=== PATIENT | male | born 1955 | race Hispanic/Latino ===

== ENCOUNTER 2017-03-27 01:03 | Emergency (ER) | payer OTHER ==
[2017-03-27 01:05] VITALS: BMI 27.9
[2017-03-27 01:26] VITALS: TEMP 97.9
--- NOTE | 2017-03-27 01:36 | ED PDOC ---
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 Patient states he woke up with feelings of bloating and gas buildup. Took Pepto-Bismol around 10 pm after which he immediately vomited. Patient also took Gas-X, upon recommendation of [facility] pharmacist, for minimal relief. States that the abdominal pain radiates to the back and chest, which is alleviated while sitting upright. Denies fever, chills, headache, dizziness, difficulty breathing, urinary symptoms, or any other complaints at this time. PMD: Dr. Engel Time/Duration: 4-6 hours (since 9 pm yesterday night ) Symptom Onset: Sudden Symptom Course: Unchanged Severity Level: Mild Context: Home Past Medical History - Provider Review Nursing Documentation Reviewed: Yes - Infectious Disease Hx of Infectious Diseases: None - Tetanus Immunization Tetanus Immunization: Unknown - Cardiac Hx Cardiac Disorders: No Hx Congestive Heart Failure: No Hx Hypertension: No - Pulmonary Hx Respiratory Disorders: No - Neurological Hx Neurological Disorder: No - HEENT Hx HEENT Disorder: No - Renal Hx Renal Disorder: No - Endocrine/Metabolic Hx Endocrine Disorders: No - Hematological/Oncological Other/Comment: BLE DVT on Xarelto - Integumentary Hx Dermatological Disorder: No - Musculoskeletal/Rheumatological Hx Falls: Yes Hx Herniated Disk: Yes - Gastrointestinal Hx Gastrointestinal Disorders: Yes Hx Colostomy: Yes Other/Comment: H/O GI bleed - Genitourinary/Gynecological Hx Genitourinary Disorders: Yes Other/Comment: "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 - Psychiatric Hx Substance Use: No - Surgical History Hx Cardiac Catheterization: No Hx Coronary Stent: No Other/Comment: Colostomy - Anesthesia Hx Anesthesia: Yes Hx Anesthesia Reactions: No - Suicidal Assessment Feels Threatened In Home Enviroment: No Family/Social History - Physician Review Nursing Documentation Reviewed: Yes Family/Social History: No Known Family HX Smoking Status: Never Smoked Hx Alcohol Use: Yes (1 or 2 beers daily) Hx Substance Use: No Hx Substance Use Treatment: No Allergies/Home Meds Allergies/Adverse Reactions: Allergies No Known Allergies Allergy (Verified 11/08/16 19:43) Review of Systems - Physician Review All systems were reviewed & negative as marked: Yes - Review of Systems Constitutional: Normal. absent: Fatigue, Fevers Respiratory: absent: SOB, Cough, Sputum Cardiovascular: Chest Pain. absent: Palpitations Gastrointestinal: Abdominal Pain, Nausea, Vomiting. absent: Diarrhea Genitourinary Male: Normal. absent: Dysuria Musculoskeletal: Back Pain Neurological: Normal. absent: Headache, Dizziness Physical Exam Vital Signs Reviewed: Yes Vital Signs Temp Pulse Resp BP Pulse Ox 03/27/17 01:25 97.9 F 79 17 147/110 H 100 Temperature: Afebrile Blood Pressure: Hypertensive Pulse: Regular Respiratory Rate: Normal Appearance: Positive for: Well-Appearing, Non-Toxic, Comfortable Pain Distress: None Mental Status: Positive for: Alert and Oriented X 3 - Systems Exam Head: Present: Atraumatic, Normocephalic Pupils: Present: PERRL Conjunctiva: Present: Normal Mouth: Present: Moist Mucous Membranes Respiratory/Chest: Present: Clear to Auscultation, Good Air Exchange. No: Respiratory Distress, Accessory Muscle Use Cardiovascular: Present: Regular Rate and Rhythm, Normal S1, S2. No: Murmurs Abdomen: Present: Normal Bowel Sounds. No: Distention, Peritoneal Signs Lower Extremity: Present: Normal Inspection, NORMAL PULSES. No: Edema, CALF TENDERNESS Neurological: Present: GCS=15, CN II-XII Intact, Speech Normal Skin: Present: Warm, Dry, Normal Color. No: Rashes Psychiatric: Present: Alert, Oriented x 3, Normal Insight, Normal Concentration Medical Decision Making ED Course and Treatment: 03/27/17 01:51 Impression: A 61 year old male who presents to the emergency department complaining of abdominal pain since 9 pm yesterday. Differential Diagnosis include but are not limited to: Obstruction vs. gastroenteritis Plan: -- CT abdomen pelvis -- Labs, cardiac enzymes -- Chest X-ray -- Urinalysis -- Reassess and disposition Progress Notes: 03/27/17 01:51 EKG interpreted by me: NSR @ 78 bpm. normal axis. normal interval. No ST elevations. 03/27/17 04:52 CT abdomen pelvis reviewed: IMPRESSION: Cholelithiasis. Transverse colon extending to the skin surface with adjacent herniation of small bowel loops. No small bowel obstruction. Possible mild focal enteritis of small bowel loops in the upper pelvis. 03/27/17 04:53 Chest X-ray interpreted by me: No acute findings. 03/27/17 05:12 Patient says he has now had a number of BMs since coming to the ED and has full resolution of his pain and feels much better. Labs are unremarkable. CT with possible enteritis and patient able to tolerate po - will d/c on cipro x 3 days for enteritis, and he says he will f/u his pmd. - Lab Interpretations Lab Results: 03/27/17 02:00 03/27/17 02:00 Lab Results 03/27/17 02:00: Lactic Acid 1.2 03/27/17 02:00: Sodium 140, Potassium 4.1, Chloride 102, Carbon Dioxide 27, Anion Gap 15, BUN 10, Creatinine 0.8, Est GFR ( Amer) > 60, Est GFR (Non- Af Amer) > 60, Random Glucose 112 H, Calcium 10.1, Total Bilirubin 1.7 H, AST 37 , ALT 42, Alkaline Phosphatase 83, Lactate Dehydrogenase 575, Total Creatine Kinase 178, Troponin I < 0.01, Total Protein 9.0 H, Albumin 4.7, Globulin 4.3, Albumin/Globulin Ratio 1.1, Amylase 91, Lipase 31 03/27/17 02:00: PT 11.1, INR 1.03, APTT 26.1 03/27/17 02:00: WBC 7.8 D, RBC 4.83, Hgb 16.1, Hct 44.3, MCV 91.7, MCH 33.3, MCHC 36.3, RDW 13.5, Plt Count 159, MPV 10.6, Gran % 80.7 H, Lymph % (Auto) 10.9 L, [place] % (Auto) 8.0 H, Eos % (Auto) 0.3 L, Baso % (Auto) 0.1, Gran # 6.28 , Lymph # 0.9 L, [place] # 0.6, Eos # 0.0, Baso # 0.01 - RAD Interpretation Narrative RAD Interpretations (Text): EXAM: CT Abdomen and Pelvis With Intravenous Contrast FINDINGS: Small pleural-based nodular soft tissue density in the right lower lung similar to prior. Trace perihepatic and perisplenic fluid. No hepatic or splenic masses. The pancreas is normal. Multiple gallstones are present. No hydronephrosis. There is mild bilateral perinephric stranding. The transverse colon extends through the abdominis rectus muscles to the skin surface. The left colon is decompressed. Loops of small bowel herniating through the colostomy region as well. There are scattered small bowel throughout the abdomen and pelvis that are mildly distended with fluid however there is no evidence of acute obstruction. There is no transition point or abrupt caliber change. A few fluid-filled small bowel loops in the upper pelvis demonstrate prominent wall and fold enhancement raising the possibility of focal enteritis. A small amount of free fluid is present within the pelvis. A normal appendix is identified axial images 105-123. Stent is present in the right common iliac vein new since prior study. Prior study demonstrated a large amount of thrombus in the right femoral vein.\\ IMPRESSION: Cholelithiasis. Transverse colon extending to the skin surface with adjacent herniation of small bowel loops. No small bowel obstruction. Possible mild focal enteritis of small bowel loops in the upper pelvis. 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 - Medication Orders Current Medication Orders: Ciprofloxacin (Cipro) 500 mg PO ONCE STA PRN Reason: Protocol Stop: 03/27/17 05:12 Discontinued Medications Famotidine (Pepcid) 20 mg IVP STAT STA Stop: 03/27/17 04:08 Last Admin: 03/27/17 04:33 Dose: 20 mg Sodium Chloride (Sodium Chloride 0.9%) 1,000 mls @ 999 mls/hr IV .Q1H1M STA Stop: 03/27/17 05:07 Last Admin: 03/27/17 04:33 Dose: 999 mls/hr Iohexol (Omnipaque 350 100 Ml) Confirm Administered Dose 350 mg .ROUTE .STK-MED ONE Stop: 03/27/17 03:02 Ondansetron HCl (Zofran Inj) 4 mg IVP STAT STA Stop: 03/27/17 04:08 Last Admin: 03/27/17 04:33 Dose: 4 mg - Scribe Statement The provider has reviewed the documentation as recorded by the Ray Medina Provider Attestation: All medical record entries made by the Scribe were at my direction and personally dictated by me. I have reviewed the chart and agree that the record accurately reflects my personal performance of the history, physical exam, medical decision making, and the department course for this patient. I have also personally directed, reviewed, and agree with the discharge instructions and disposition. Disposition/Present on Arrival - Present on Arrival Any Indicators Present on Arrival: Yes History of DVT/PE: Yes History of Uncontrolled Diabetes: No Urinary Catheter: No History of Decub. Ulcer: No History Surgical Site Infection Following: None - Disposition Have Diagnosis and Disposition been Completed?: Yes Diagnosis: Enteritis Disposition: HOME/ ROUTINE Disposition Time: 17:15 Patient Plan: Discharge Condition: GOOD Discharge Instructions (ExitCare): Enteritis (ED), Acute Nausea and Vomiting ( ED), Acute Diarrhea (ED) Additional Instructions: Drink plenty of fluids. Advance diet slowly as tolerated. Take the cipro as prescribed. Follow up with your primary care doctor. Return to the emergency department if any new concerning symptoms. Prescriptions: Ciprofloxacin [Cipro] 1 tab PO BID #5 tab Referrals: Neil Engel JD, MD [Primary Care Provider] - Follow up with primary
[2017-03-27 02:09] LABS: ADD MANUAL DIFF? NO
[2017-03-27 02:21] LABS: ALB/GLOB RATIO 1.1 (1.1-1.8); ALKALINE PHOSPHATASE 83 U/L (38-133); ALT/SGPT 42 U/L (7-56); AMYLASE 91 U/L (35-125); AST/SGOT 37 U/L (15-59); BILIRUBIN,TOTAL 1.7 mg/dL (0.2-1.3); BLOOD UREA NITROGEN 10 mg/dL (7-21); CALCIUM 10.1 mg/dL (8.4-10.5); CARBON DIOXIDE 27 mmol/L (21-33); CHLORIDE 102 mmol/L (98-107); GFR AFRICAN-AMERICAN > 60; GLUCOSE,RANDOM 112 mg/dL (70-110); LIPASE 31 U/L (23-300); POTASSIUM 4.1 mmol/L (3.6-5.0); SODIUM 140 mmol/L (132-148)
[2017-03-27 02:33] LABS: INR 1.03 (0.93-1.08); PARTIAL THROMBOPLASTIN TIME 26.1 Seconds (23.7-30.8)
[2017-03-27 02:50] LABS: BASO # 0.01 K/mm3 (0.0-2.0); BASO % 0.1 % (0.0-3.0); EOS % 0.3 % (1.5-5.0); GRAN # 6.28 (1.4-6.5); GRAN % 80.7 % (50.0-68.0); HEMATOCRIT 44.3 % (42.0-52.0); LYMPH # 0.9 (1.2-3.4); LYMPH % 10.9 % (22.0-35.0); MEAN CELL VOLUME 91.7 fL (80.0-105.0); MEAN CORPUSCULAR HEMOGLOBIN 33.3 pg (25.0-35.0); MEAN CORPUSCULAR HGB CONC 36.3 g/dl (31.0-37.0); MEAN PLATELET VOLUME 10.6 fl (7.0-11.0); MONO # 0.6 (0.1-0.6); PLATELET COUNT 159 10^3/uL (120.0-450.0); RED CELL DISTRIBUTION WIDTH 13.5 % (11.5-14.5); WHITE BLOOD COUNT 7.8 10^3/ul (4.5-11.0)
[2017-03-27 02:52] LABS: TROPONIN I < 0.01 ng/mL
[2017-03-27] MEDS ORDERED: Iohexol 350 MG/100 ML VIAL ONE (03:01)
[2017-03-27] MEDS ORDERED: Sodium Chloride 0.9% 1,000 ML IV STA (04:07)
--- NOTE | 2017-03-27 04:51 | CT ---
EXAM: CT Abdomen and Pelvis With Intravenous Contrast CLINICAL HISTORY: 61 years old, male; Pain; Abdominal pain; Generalized; Prior surgery; Surgery date: 6+ months; Surgery type: Colostomy; Additional info: Abd pain, colostomy, fistula, vomiting - R/O obstr TECHNIQUE: Axial computed tomography images of the abdomen and pelvis with intravenous contrast. This CT exam was performed using one or more of the following dose reduction techniques: automated exposure control, adjustment of the mA and/or kV according to patient size, and/or use of iterative reconstruction technique. Coronal and sagittal reformatted images were created and reviewed. CONTRAST: 96 mL of OMNI 350 administered intravenously. EXAM DATE/TIME: 03/27/2017 1:34 AM COMPARISON: CT - PELVIS W/O CONTRAST 11/11/2016 11:00:54 AM FINDINGS: Small pleural-based nodular soft tissue density in the right lower lung similar to prior. Trace perihepatic and perisplenic fluid. No hepatic or splenic masses. The pancreas is normal. Multiple gallstones are present. No hydronephrosis. There is mild bilateral perinephric stranding. The transverse colon extends through the abdominis rectus muscles to the skin surface. The left colon is decompressed. Loops of small bowel herniating through the colostomy region as well. There are scattered small bowel throughout the abdomen and pelvis that are mildly distended with fluid however there is no evidence of acute obstruction. There is no transition point or abrupt caliber change. A few fluid-filled small bowel loops in the upper pelvis demonstrate prominent wall and fold enhancement raising the possibility of focal enteritis. A small amount of free fluid is present within the pelvis. A normal appendix is identified axial images 105-123. Stent is present in the right common iliac vein new since prior study. Prior study demonstrated a large amount of thrombus in the right femoral vein. IMPRESSION: Cholelithiasis. Transverse colon extending to the skin surface with adjacent herniation of small bowel loops. No small bowel obstruction. Possible mild focal enteritis of small bowel loops in the upper pelvis.
[2017-03-27 05:22] VITALS: BP 117/91; PULSE 78; RESP 16; O2SAT 99
--- NOTE | 2017-03-27 08:48 | RAD ---
HISTORY: Abdominal pain COMPARISON: 11/08/2016. FINDINGS: LUNGS: The lungs are well inflated and clear. PLEURA: No significant pleural effusion identified, no pneumothorax apparent. CARDIOVASCULAR: Normal. OSSEOUS STRUCTURES: No significant abnormalities. VISUALIZED UPPER ABDOMEN: Normal. OTHER FINDINGS: None. IMPRESSION: No active pulmonary disease.
--- NOTE | 2017-03-27 17:05 | CARD ---
APPROVED REPORT EKG Measurement Heart [id number] <Conclusion> Normal sinus rhythm Normal ECG
== END 2017-03-27 05:35 | disposition home or self-care (01) ==
LOC: ED 01:03
DX: K52.9 Noninfective gastroenteritis and colitis, unspecified (principal); Z93.3 Colostomy status
CPT/HCPCS: 71010; 74177; 80053; 82150; 82550; 83605; 83615; 83690; 84484; 85025; 85610; 85730; 93005; 96374; 96375; 99283; J2405; J7040; Q9967

== ENCOUNTER 2017-08-29 12:48 | Observation (INO) | payer OTHER ==
--- NOTE | 2017-08-29 13:10 | ED PDOC ---
Arrival/HPI - General Chief Complaint: Abdominal Pain Time Seen by Provider: 08/29/17 12:56 Historian: Patient - History of Present Illness Narrative History of Present Illness (Text): 08/29/17 13:12 A 62 year old male, whose past medical history includes a colostomy, presents to the emergency department with chest pain radiating to the back and abdominal pain since this morning. The patient states that he had a colostomy tube done 2 years ago, and that it has been functioning normally. He notes that he has not had ETOH in 10 days. The patient is a non-smoker and denies any drug use. He denies fevers, chills, headache, dizziness, sore throat, cough, shortness of breath, dyspnea on exertion, nausea, vomiting, diarrhea, neck pain, urinary/ bowel changes, trauma/ injury, or any other complaints. PMD: Dr. Engel Time/Duration: Other (This Morning) Symptom Onset: Sudden Symptom Course: Unchanged Activities at Onset: Rest, Light Context: Home Associated Symptoms (Text): 08/29/17 13:22 Patient went to bed last night in his usual state of health. He woke up this morning with chest pain back pain and abdominal pain. No dyspnea. No fever or chills. No genitourinary symptoms. No nausea vomiting or diarrhea. His colostomy is functioning well. No injury or trauma. Patient is on xarelto for bilateral lower extremity DVTs. Past Medical History - Provider Review Nursing Documentation Reviewed: Yes - Infectious Disease Hx of Infectious Diseases: None - Tetanus Immunization Tetanus Immunization: Unknown - Cardiac Hx Cardiac Disorders: No Hx Congestive Heart Failure: No Hx Hypertension: No - Pulmonary Hx Respiratory Disorders: No - Neurological Hx Neurological Disorder: No - HEENT Hx HEENT Disorder: No - Renal Hx Renal Disorder: No - Endocrine/Metabolic Hx Endocrine Disorders: No - Hematological/Oncological Other/Comment: BLE DVT on Xarelto - Integumentary Hx Dermatological Disorder: No - Musculoskeletal/Rheumatological Hx Falls: Yes Hx Herniated Disk: Yes - Gastrointestinal Hx Gastrointestinal Disorders: Yes Hx Colostomy: Yes Other/Comment: H/O GI bleed - Genitourinary/Gynecological Hx Genitourinary Disorders: Yes Other/Comment: "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 - Psychiatric Hx Substance Use: No Other/Comment: 1 or 2 beers daily - Surgical History Hx Cardiac Catheterization: No Hx Coronary Stent: No Other/Comment: Colostomy - Anesthesia Hx Anesthesia: Yes Hx Anesthesia Reactions: No - Suicidal Assessment Feels Threatened In Home Enviroment: No Family/Social History - Physician Review Nursing Documentation Reviewed: Yes Family/Social History: No Known Family HX Smoking Status: Never Smoked Hx Alcohol Use: Yes (1 or 2 beers daily) Hx Substance Use: No Hx Substance Use Treatment: No Allergies/Home Meds Allergies/Adverse Reactions: Allergies No Known Allergies Allergy (Verified 08/29/17 12:55) Review of Systems - Physician Review All systems were reviewed & negative as marked: Yes - Review of Systems Constitutional: absent: Fevers, Night Sweats Respiratory: absent: SOB, Cough Cardiovascular: Chest Pain (radiating to the back). absent: TAPIA Gastrointestinal: Abdominal Pain. absent: Stool Changes, Diarrhea, Nausea, Vomiting Genitourinary Male: absent: Urinary Output Changes Musculoskeletal: Back Pain. absent: Neck Pain Neurological: absent: Headache, Dizziness Physical Exam Vital Signs Reviewed: Yes Vital Signs Temp Pulse Resp BP Pulse Ox 08/29/17 13:53 68 16 158/101 H 100 08/29/17 12:52 98.3 F 74 18 165/106 H 98 Temperature: Afebrile Blood Pressure: Hypertensive Pulse: Regular Respiratory Rate: Normal Appearance: Positive for: Well-Appearing, Non-Toxic, Uncomfortable Pain Distress: Mild Mental Status: Positive for: Alert and Oriented X 3 - Systems Exam Head: Present: Atraumatic, Normocephalic Pupils: Present: PERRL Extroacular Muscles: Present: EOMI Conjunctiva: Present: Normal Mouth: Present: Moist Mucous Membranes Pharnyx: No: ERYTHEMA, EXUDATE, TONSILS ENLARGED Neck: Present: Normal Range of Motion Respiratory/Chest: Present: Clear to Auscultation, Good Air Exchange, Decreased Breath Sounds (slightly diminished.). No: Respiratory Distress, Accessory Muscle Use, Wheezes, Rales, Retracting, Rhonchi, Tender to Palpation (chest wall non tender.) Cardiovascular: Present: Regular Rate and Rhythm, Normal S1, S2. No: Murmurs Abdomen: Present: Tenderness (Mild generalized tenderness.), Ostomy Tubes ( Fucntioning colostomy tube.). No: Rebound, Guarding Back: Present: Normal Inspection. No: CVA Tenderness, Midline Tenderness, Paraspinal Tenderness Upper Extremity: Present: Normal Inspection. No: Cyanosis, Edema Lower Extremity: Present: Edema (Bilateral trace edema) Neurological: Present: GCS=15, CN II-XII Intact, Speech Normal, Motor Func Grossly Intact Skin: Present: Warm, Dry, Normal Color. No: Rashes Psychiatric: Present: Alert, Oriented x 3, Normal Insight, Normal Concentration , Other (Patient is comfortable.) Medical Decision Making ED Course and Treatment: 08/29/17 13:20 Impression: A 62 year old male presents to the emergency department with chest pain radiating to the back and abdominal pain since this morning. Plan: -- Abdomen/ Pelvis CT -- EKG -- Chest X-ray -- Labs -- Reassess and disposition Prior Visits: Notes and results from previous visits were reviewed. On 03/27/2017 patient came in complaining of abdominal pain. Patient was discharged home with prescription of Ciprofloxacin. Progress Notes: 08/29/17 13:24 EKG shows normal sinus rhythm rate approximately 60 with a primary AV block and no acute ST or T-wave changes Chest X-ray Dictator : Michelet Leslie MD Report Date : 08/29/2017 14:24:34 IMPRESSION: No active disease. No significant interval change compared to the prior examination(s). Please note: No preliminary report/ innterpretation of this examination provided by emergency department personnel. CT Abdomen and Pelvis without intravenous contrast Dictator : Michelet Leslie MD Report Date : 08/29/2017 15:04:29 IMPRESSION: Cholelithiasis without CT evidence of acute cholecystitis. Stable appearance anterior abdominal wall rectus hernia and adjacent transverse colon. No significant interval change compared to the prior examination(s). Additional benign and/or incidental findings described above. 08/29/17 15:47 Discussed in detail with Dr. Neil Engel who will place on telemetry observation. - Lab Interpretations Lab Results: 08/29/17 13:26 08/29/17 13:55 Lab Results 08/29/17 13:55: Sodium 142, Potassium 4.3, Chloride 108 H, Carbon Dioxide 22, Anion Gap 16, BUN 16, Creatinine 0.8, Est GFR ( Amer) > 60, Est GFR (Non- Af Amer) > 60, Random Glucose 100, Calcium 9.5, Total Bilirubin 0.9, AST 201 H, ALT 225 H, Alkaline Phosphatase 94, Lactate Dehydrogenase 773 H, Total Creatine Kinase 120, Troponin I < 0.01, NT-Pro-B Natriuret Pep 262, Total Protein 7.6, Albumin 4.2, Globulin 3.4, Albumin/Globulin Ratio 1.2, Lipase 184 08/29/17 13:26: PT 13.4 H, INR 1.24 H, APTT 31.6 H, D-Dimer, Quantitative 0.48 08/29/17 13:26: WBC 4.5 D, RBC 4.16, Hgb 14.6, Hct 41.4 L, MCV 99.5, MCH 35.1 H , MCHC 35.3, RDW 14.5, Plt Count 215, MPV 10.8, Gran % 66.9, Lymph % (Auto) 17.0 L, [place] % (Auto) 13.9 H, Eos % (Auto) 1.3 L, Baso % (Auto) 0.9, Gran # 2.98 , Lymph # 0.8 L, [place] # 0.6, Eos # 0.1, Baso # 0.04 I have reviewed the lab results: Yes - RAD Interpretation Radiology Orders: 08/29/17 13:07 ABD & PELVIS W/O PO OR IV CONT [CT] Stat CHEST PORTABLE [RAD] Stat Chest 1 view shows no infiltrate effusion or cardiomegaly Purchase Request Editor: ED Physician - EKG Interpretation Interpreted by ED Physician: Yes Type: 12 lead EKG - Medication Orders Current Medication Orders: Discontinued Medications Aspirin (Aspirin Chewable) 324 mg PO ONCE ONE Stop: 08/29/17 13:51 Last Admin: 08/29/17 14:13 Dose: 324 mg Ketorolac Tromethamine (Toradol) 30 mg IVP ONCE ONE Stop: 08/29/17 13:51 Last Admin: 08/29/17 14:13 Dose: 30 mg MAR Pain Assessment Document 08/29/17 14:13 (Rec: 08/29/17 14:13 [id number] Pain Reassessment Is this a pain reassessment? Yes Sleep Is patient sleeping during reassessment? No Presence of Pain Presence of Pain Yes IVP Administration Document 08/29/17 14:13 (Rec: 08/29/17 14:13 [facility] [id number] Charges for Administration # of IVP Administrations 1 - Scribe Statement The provider has reviewed the documentation as recorded by the Scribe Analy Mendieta Provider Jay Jayibe Attestation: All medical record entries made by the Scribe were at my direction and personally dictated by me. I have reviewed the chart and agree that the record accurately reflects my personal performance of the history, physical exam, medical decision making, and the department course for this patient. I have also personally directed, reviewed, and agree with the discharge instructions and disposition. Disposition/Present on Arrival - Present on Arrival Any Indicators Present on Arrival: No History of DVT/PE: Yes History of Uncontrolled Diabetes: No Urinary Catheter: No History of Decub. Ulcer: No History Surgical Site Infection Following: None - Disposition Have Diagnosis and Disposition been Completed?: Yes Diagnosis: Chest pain, Abdominal pain, Back pain Disposition: HOSPITALIZED Disposition Time: 15:48 Patient Plan: Observation, Telemetry Condition: GOOD Discharge Instructions (ExitCare): Chest Pain (ED) Referrals: Neil Engel JD, MD [Primary Care Provider] - Follow up with primary Forms: [employer] ([place])
[2017-08-29 14:02] LABS: BASO # 0.04 K/mm3 (0.0-2.0); BASO % 0.9 % (0.0-3.0); EOS # 0.1 (0.0-0.7); EOS % 1.3 % (1.5-5.0); GRAN # 2.98 (1.4-6.5); GRAN % 66.9 % (50.0-68.0); HEMATOCRIT 41.4 % (42.0-52.0); LYMPH # 0.8 (1.2-3.4); MEAN CELL VOLUME 99.5 fl (80.0-105.0); MEAN CORPUSCULAR HEMOGLOBIN 35.1 pg (25.0-35.0); MEAN CORPUSCULAR HGB CONC 35.3 g/dl (31.0-37.0); MEAN PLATELET VOLUME 10.8 fl (7.0-11.0); MONO # 0.6 (0.1-0.6); MONO % 13.9 % (1.0-6.0); RED CELL DISTRIBUTION WIDTH 14.5 % (11.5-14.5); WHITE BLOOD COUNT 4.5 10^3/ul (4.5-11.0)
[2017-08-29 14:07] LABS: INR 1.24 (0.93-1.08); PARTIAL THROMBOPLASTIN TIME 31.6 Seconds (23.7-30.8)
[2017-08-29 14:11] LABS: ALB/GLOB RATIO 1.2 (1.1-1.8); ALKALINE PHOSPHATASE 94 U/L (38-126); ALT/SGPT 225 U/L (7-56); AST/SGOT 201 U/L (17-59); BILIRUBIN,TOTAL 0.9 mg/dL (0.2-1.3); BLOOD UREA NITROGEN 16 mg/dL (7-21); CALCIUM 9.5 mg/dL (8.4-10.5); CARBON DIOXIDE 22 mmol/L (21-33); CHLORIDE 108 mmol/L (98-107); GFR AFRICAN-AMERICAN > 60; GLUCOSE,RANDOM 100 mg/dL (70-110); LIPASE 184 U/L (23-300); POTASSIUM 4.3 mmol/L (3.6-5.0); SODIUM 142 mmol/L (132-148); TOTAL PROTEIN 7.6 g/dL (5.8-8.3)
[2017-08-29 14:25] LABS: D DIMER 0.48 mg/L FEU (0-0.50)
--- NOTE | 2017-08-29 14:25 | RAD ---
HISTORY: Chest pain. COMPARISON: 03/27/2017 FINDINGS: LUNGS: No active pulmonary disease. PLEURA: No significant pleural effusion identified, no pneumothorax apparent. CARDIOVASCULAR: No radiographic findings to suggest acute or significant cardiovascular disease. OSSEOUS STRUCTURES: No significant abnormalities. VISUALIZED UPPER ABDOMEN: Normal. OTHER FINDINGS: None. IMPRESSION: No active disease. No significant interval change compared to the prior examination(s). Please note: No preliminary report/ innterpretation of this examination provided by emergency department personnel.
[2017-08-29 14:29] LABS: TROPONIN I < 0.01 ng/mL
--- NOTE | 2017-08-29 15:05 | CT ---
PROCEDURE: CT Abdomen and Pelvis without intravenous contrast HISTORY: Abdominal pain COMPARISON: 03/27/2017 CT abdomen and pelvis TECHNIQUE: Unenhanced study. Neither oral nor intravenous contrast administered. Sensitivity and specificity for acute inflammatory processes limited by the absence of oral and intravenous contrast. Radiation dose: Total exam DLP = 706.08 mGy-cm. This CT exam was performed using one or more of the following dose reduction techniques: Automated exposure control, adjustment of the mA and/or kV according to patient size, and/or use of iterative reconstruction technique. FINDINGS: LOWER THORAX: Peripheral parenchymal scarring and focal pleural thickening on the right similar finding seen previously. LIVER: Unremarkable Hepatic steatosis. No focal masses. No intrahepatic bile duct dilatation or perihepatic ascites. The. No gross lesion or ductal dilatation. GALLBLADDER AND BILE DUCTS: Cholelithiasis without CT evidence of acute cholecystitis. PANCREAS: Unremarkable. No gross lesion or ductal dilatation. SPLEEN: Unremarkable. ADRENALS: Unremarkable. No mass. KIDNEYS AND URETERS: Unremarkable. No hydronephrosis. No solid mass. VASCULATURE: Right iliac artery stent. Unremarkable abdominal aorta. BOWEL: Rectus diastases resulting an herniation of transverse colon to and ostomy outside the peritoneal cavity. No evidence of incarceration or obstruction. Similar findings identified previously APPENDIX: Unremarkable. Normal appendix. PERITONEUM: Unremarkable. No free fluid. No free air. LYMPH NODES: Unremarkable. No enlarged lymph nodes. BLADDER: Unremarkable. REPRODUCTIVE: Unremarkable. BONES: No acute fracture. OTHER FINDINGS: None. IMPRESSION: Cholelithiasis without CT evidence of acute cholecystitis. Stable appearance anterior abdominal wall rectus hernia and adjacent transverse colon. No significant interval change compared to the prior examination(s). Additional benign and/or incidental findings described above.
[2017-08-29 19:20] VITALS: BMI 28.3
[2017-08-29] MEDS ORDERED: Pneumococcal 23-Valent Vaccine IM ONE (19:20)
[2017-08-29] MEDS ORDERED: Oxycodone/Acetaminophen 10/325 mg Tab PO PRN (21:18)
[2017-08-29] MEDS: Pantoprazole 40 mg EC Tab PO SCH (21:39)
--- NOTE | 2017-08-29 22:03 | CARD ---
APPROVED REPORT EKG Measurement Heart [id number] <Conclusion> Normal sinus rhythm Normal ECG
[2017-08-29] MEDS ORDERED: Alum-Mag Hydrox-Simethicone Susp (30 mL) PO STA (23:15)
--- NOTE | 2017-08-29 23:20 | CP.PCM.PN ---
Subjective - Date & Time of Evaluation Date of Evaluation: 08/29/17 Time of Evaluation: 23:16 - Subjective Subjective: Patient was seen at bedside for insomnia and stomach pain.Also feels nervous. He received percocet for pain with no help. His BP is189/114. Has no other complaints. Medical record was reviewed. This 62 year old male was admitted with chest pain radiating to back and abdominal pain. Has PMH of PE,DVT,GI Bleeding,colostomy,UTI, rectovesical fistula,herniorrhaphy , tonsillectomy. Objective - Vital Signs/Intake and Output Vital Signs (last 24 hours): Temp Pulse Resp BP Pulse Ox 98.3 F 75 16 154/92 H 100 08/29/17 18:53 08/29/17 18:53 08/29/17 18:53 08/29/17 18:53 08/29/17 16:59 - Medications Medications: Current Medications Oxycodone/Acetaminophen (Percocet 10/325 Mg Tab) 1 tab PO Q6H PRN PRN Reason: pain 4-7 Last Admin: 08/29/17 21:39 Dose: 1 tab Pantoprazole Sodium (Protonix Ec Tab) 40 mg PO 0600 TAD Last Admin: 08/29/17 21:39 Dose: 40 mg Rivaroxaban (Xarelto) 20 mg PO DAILY TAD PRN Reason: Protocol - Labs Labs: PT 13.4 Seconds (9.9-11.8) H 08/29/17 13:26 INR 1.24 (0.93-1.08) H 08/29/17 13:26 APTT 31.6 Seconds (23.7-30.8) H 08/29/17 13:26 Most Recent Lab Values WBC 4.5 10^3/ul (4.5-11.0) D 08/29/17 13:26 RBC 4.16 10^6/uL (3.5-6.1) 08/29/17 13:26 Hgb 14.6 g/dL (14.0-18.0) 08/29/17 13:26 Hct 41.4 % (42.0-52.0) L 08/29/17 13:26 MCV 99.5 fl (80.0-105.0) 08/29/17 13:26 MCH 35.1 pg (25.0-35.0) H 08/29/17 13:26 MCHC 35.3 g/dl (31.0-37.0) 08/29/17 13:26 RDW 14.5 % (11.5-14.5) 08/29/17 13:26 Plt Count 215 10^3/uL (120.0-450.0) 08/29/17 13:26 MPV 10.8 fl (7.0-11.0) 08/29/17 13:26 Gran % 66.9 % (50.0-68.0) 08/29/17 13:26 Lymph % (Auto) 17.0 % (22.0-35.0) L 08/29/17 13:26 Rosebud % (Auto) 13.9 % (1.0-6.0) H 08/29/17 13:26 Eos % (Auto) 1.3 % (1.5-5.0) L 08/29/17 13:26 Baso % (Auto) 0.9 % (0.0-3.0) 08/29/17 13:26 Gran # 2.98 (1.4-6.5) 08/29/17 13:26 Lymph # 0.8 (1.2-3.4) L 08/29/17 13:26 Rosebud # 0.6 (0.1-0.6) 08/29/17 13:26 Eos # 0.1 (0.0-0.7) 08/29/17 13:26 Baso # 0.04 K/mm3 (0.0-2.0) 08/29/17 13:26 PT 13.4 Seconds (9.9-11.8) H 08/29/17 13:26 INR 1.24 (0.93-1.08) H 08/29/17 13:26 APTT 31.6 Seconds (23.7-30.8) H 08/29/17 13:26 D-Dimer, Quantitative 0.48 mg/L FEU (0-0.50) 08/29/17 13:26 Sodium 142 mmol/L (132-148) 08/29/17 13:55 Potassium 4.3 mmol/L (3.6-5.0) 08/29/17 13:55 Chloride 108 mmol/L (98-107) H 08/29/17 13:55 Carbon Dioxide 22 mmol/L (21-33) 08/29/17 13:55 Anion Gap 16 (10-20) 08/29/17 13:55 BUN 16 mg/dL (7-21) 08/29/17 13:55 Creatinine 0.8 mg/dL (0.8-1.5) 08/29/17 13:55 Est GFR ( Amer) > 60 08/29/17 13:55 Est GFR (Non-Af Amer) > 60 08/29/17 13:55 Random Glucose 100 mg/dL (70-110) 08/29/17 13:55 Calcium 9.5 mg/dL (8.4-10.5) 08/29/17 13:55 Total Bilirubin 0.9 mg/dL (0.2-1.3) 08/29/17 13:55 AST 201 U/L (17-59) H 08/29/17 13:55 ALT 225 U/L (7-56) H 08/29/17 13:55 Alkaline Phosphatase 94 U/L (38-126) 08/29/17 13:55 Lactate Dehydrogenase 773 U/L (333-699) H 08/29/17 13:55 Total Creatine Kinase 120 U/L (35-230) 08/29/17 13:55 Troponin I < 0.01 ng/mL 08/29/17 13:55 NT-Pro-B Natriuret Pep 262 pg/mL (0-450) 08/29/17 13:55 Total Protein 7.6 g/dL (5.8-8.3) 08/29/17 13:55 Albumin 4.2 g/dL (3.0-4.8) 08/29/17 13:55 Globulin 3.4 gm/dL 08/29/17 13:55 Albumin/Globulin Ratio 1.2 (1.1-1.8) 08/29/17 13:55 Lipase 184 U/L (23-300) 08/29/17 13:55 - Constitutional Appears: Well, No Acute Distress - Head Exam Head Exam: ATRAUMATIC, NORMAL INSPECTION, NORMOCEPHALIC - Eye Exam Eye Exam: Normal appearance - ENT Exam ENT Exam: Normal External Ear Exam - Neck Exam Neck Exam: Normal Inspection - Respiratory Exam Respiratory Exam: NORMAL BREATHING PATTERN - Cardiovascular Exam Cardiovascular Exam: absent: JVD - GI/Abdominal Exam GI & Abdominal Exam: Distended Additional comments: Colostomy present. - Rectal Exam Rectal Exam: Deferred - Exam Additional comments: Deferred. - Extremities Exam Extremities Exam: Normal Inspection - Back Exam Back Exam: NORMAL INSPECTION - Neurological Exam Neurological Exam: Alert, Oriented x3 - Psychiatric Exam Psychiatric exam: Normal Affect - Skin Skin Exam: Normal Color Assessment and Plan - Assessment and Plan (Free Text) Assessment: Elevated blood pressure reading. Insomnia. Abdominal pain. S/P colostomy. Recto-Vesical fistula. Plan: Mylanta 30 CC PO now. Benadryl 50 mg PO now. Rechek blood pressure in an hour. Continue present management.
[2017-08-30] MEDS: Pantoprazole 40 mg EC Tab PO SCH (06:09)
[2017-08-30 07:06] VITALS: O2SAT 98
[2017-08-30] MEDS ORDERED: Alum-Mag Hydrox-Simethicone Susp (30 mL) PO ONE (13:12)
[2017-08-30] MEDS: Alum-Mag Hydrox-Simethicone Susp (30 mL) PO SCH ×3 (13:42→21:55)
--- NOTE | 2017-08-30 15:07 | CP.PCM.HP ---
History of Present Illness - History of Present Illness History of Present Illness: 62 yo male admitted thru ED with chest pain. Denies SOB, no N/V, no diaphoresis. Troponin/ECG negative for infarct/ischemia. PMH significant for HTN, rectovesicle fistula s/p colostomy, ETOH abuse Present on Admission - Present on Admission Any Indicators Present on Admission: No Review of Systems - Cardiovascular Cardiovascular: Chest Pain Past Patient History - Infectious Disease Hx of Infectious Diseases: None - Tetanus Immunizations Tetanus Immunization: Unknown - Past Medical History & Family History Past Medical History?: Yes - Past Social History Smoking Status: Never Smoked - CARDIAC Hx Cardiac Disorders: (dvt ble) - PULMONARY Hx Respiratory Disorders: No - NEUROLOGICAL Hx Neurological Disorder: No - HEENT Hx HEENT Problems: No - RENAL Hx Chronic Kidney Disease: No - ENDOCRINE/METABOLIC Hx Endocrine Disorders: No - HEMATOLOGICAL/ONCOLOGICAL Other/Comment: BLE DVT on Xarelto - INTEGUMENTARY Hx Dermatological Problems: Yes (multiple tatoos) - MUSCULOSKELETAL/RHEUMATOLOGICAL Hx Falls: No Hx Herniated Disk: (denies herniated disk or back pain) - GASTROINTESTINAL Hx Gastrointestinal Disorders: Yes Hx Colostomy: Yes (self care) Other/Comment: H/O GI bleed, hernia noted at colostomy site, abd protrusion. pt fell 2 yrs ago went home started bleeding rectally went to er had sx remembers "waking up the next day and had this".[colostomy] - GENITOURINARY/GYNECOLOGICAL Hx Genitourinary Disorders: Yes Other/Comment: bladder fistula urinates through rectum, pt is able to control it , has had fistula and colostomy 2 yrs. Has been planning sx at [facility] x 1 yr to have fistula corrected and colostomy reversed in the future - PSYCHIATRIC Hx Substance Use: No Other/Comment: 1 or 2 beers daily, has not had a drink in 2 weeks - SURGICAL HISTORY Other/Comment: Colostomy, tonsillectomy - ANESTHESIA Hx Anesthesia: Yes Hx Anesthesia Reactions: No Meds Allergies/Adverse Reactions: Allergies Allergy/AdvReac Type Severity Reaction Status Date / Time No Known Allergies Allergy Verified 08/29/17 12:55 Results - Vital Signs Recent Vital Signs: Last Vital Signs Temp 99.1 F 08/30/17 06:00 Pulse 76 08/30/17 13:37 Resp 18 08/30/17 06:00 BP 158/100 H 08/30/17 13:37 Pulse Ox 98 08/30/17 06:00 - Labs Result Diagrams: 08/29/17 13:26 08/29/17 13:55 Assessment & Plan (1) Chest pain Status: Acute (2) Alcohol abuse Status: Chronic (3) Hypertension Status: Acute (4) Recto-vesical fistula Status: Chronic (5) Pulmonary embolism Status: Resolved (6) Elevated transaminase level Status: Acute - Assessment and Plan (Free Text) Plan: monitor on telemetry, BP elevated - will start Losartan 50qd, continue xarelto - Date & Time Date: 08/30/17 Time: 13:45
[2017-08-31] MEDS: Pantoprazole 40 mg EC Tab PO SCH (06:06)
[2017-08-31] MEDS: Alum-Mag Hydrox-Simethicone Susp (30 mL) PO SCH (09:17)
[2017-08-31 12:33] VITALS: BP 111/80; PULSE 78; RESP 16; TEMP 98
--- NOTE | 2017-08-31 19:55 | DS ---
HOSPITAL COURSE: The patient is a 62-year-old male admitted through the emergency department on 08/29/2017 after a syncopal episode. Serial EKGs and troponins were negative for any acute coronary syndrome. The patient also had been complaining of chest pain. He denies any shortness of breath. There is no nausea or vomiting, no diaphoresis, and he is stable for discharge at the present time. PHYSICAL EXAMINATION: VITAL SIGNS: Blood pressure 111/80, pulse 78, temperature 98, respiratory rate 16. LUNGS: Clear. HEART: Regular rate and rhythm. ABDOMEN: Soft, nontender. Colostomy is intact with stool and flatus. EXTREMITIES: Without cyanosis, clubbing or edema. NEUROLOGIC: The patient is awake and oriented x3 without focal, sensory, or motor deficits. SKIN: Warm and dry. IMPRESSION: 1. Chest pain/atypical. 2. Hypertension. 3. History of deep venous thrombosis/pulmonary embolism, on Xarelto. 4. Rectovesical fistula. 5. Alcohol abuse. PLAN: The patient will be discharged to home today on the following medications: Percocet 10/325 one tablet q. 6 hours, Losartan 50 mg daily, Protonix 40 mg daily, and Xarelto 20 mg daily. He will be maintained on heart healthy diet. Activities ad silvio, and he will be seen in the office this Thursday for followup. EDIN Porras MD
== END 2017-08-31 14:43 | disposition home or self-care (01) ==
LOC: ED 12:48 → ERH 15:46 → 2RNO 17:04
PROVIDERS: ADMIT Internal Medicine; ATTEND Internal Medicine
DX: R07.89 Other chest pain (principal); N32.1 Vesicointestinal fistula; I10 Essential (primary) hypertension; F10.10 Alcohol abuse, uncomplicated; K80.20 Calculus of gallbladder without cholecystitis without obstruction; G47.00 Insomnia, unspecified; Z93.3 Colostomy status; Z86.718 Personal history of other venous thrombosis and embolism; Z86.711 Personal history of pulmonary embolism
CPT/HCPCS: 71010; 74176; 80053; 82550; 83615; 83690; 83880; 84484; 85025; 85378; 85610; 85730; 93005; 96374; 99285; G0378; J0360; J1885

== ENCOUNTER 2017-10-15 03:54 | Emergency (ER) | payer OTHER ==
[2017-10-15 03:54] VITALS: BMI 28.3
[2017-10-15] MEDS ORDERED: Morphine 4 mg/ml ISec IVP STA (04:28)
[2017-10-15] MEDS ORDERED: HYDROmorphone 2 mg/ml ISec IVP STA (04:36)
[2017-10-15] MEDS ORDERED: Sodium Chloride 0.9% 1,000 ML IV SCH (04:45)
--- NOTE | 2017-10-15 04:45 | ED PDOC ---
Arrival/HPI - History of Present Illness Time/Duration: 4-6 hours Symptom Onset: Sudden Symptom Course: Unchanged Quality: Stabbing Severity Level: 10 Activities at Onset: Rest <Michael Salazar - Last Filed: 10/15/17 06:58> <RonanRickie - Last Filed: 10/15/17 07:21> - General Chief Complaint: Abdominal Pain Time Seen by Provider: 10/15/17 04:26 - History of Present Illness Narrative History of Present Illness (Text): Patient is a 62 year old male with a PMHx significant for HTN, PE, DVT, Colostomy, umbilical hernia, rectovesicula fistula, and cholelithiasis who presents to the ED with complaints of abdominal pain that started around 11: 00PM last night (10/15/17). Patient describes the pain as sharp, non-radiating, and he rates it a 10/10. He has tried pepto-bismol and Gas-X to relieve the pain without any success. Patient stated that overnight he was drinking white wine mixed with seltzer water. He also ate a cheeseburger around 8:30PM last night. Patient went to sleep for about an hour but was awaken by the abdominal pain. He has not had a bowel movement since last night. He changed his colostomy bag before he came to the ED. ROS POSITIVES: abdominal pain, mild SOB NEGATIVES: Fevers, chills, chest pain, nausea, vomiting, diarrhea, constipation, blood in stool, dizziness, lightheadedness, urinary symptoms. PMHx: PE, DVT, Colostomy, umbilical hernia, rectovesicula fistula, and cholelithiasis, HTN. PSHx: Transverse Colostomy and Laparotomy (2014. He does not know the reason), tonsillectomy, hernia repair. Allergies: NKDA Social: Denies tobacco or illicit drug use. Admit to social drinking. Hos: Per chart, most recent hospitalization is on 2015 for Left leg DVT. FamHx: CVA (Mother and Father) Meds: Xarelto, Protonix, Losartan, MultiVitamins. 10/15/17 04:31 10/15/17 04:58 (Michael Salazar) Past Medical History - Provider Review Nursing Documentation Reviewed: Yes - Infectious Disease Hx of Infectious Diseases: None - Tetanus Immunization Tetanus Immunization: Unknown - Cardiac Hx Cardiac Disorders: (dvt ble) Hx Hypertension: Yes - Pulmonary Hx Respiratory Disorders: No - Neurological Hx Neurological Disorder: No Other/Comment: dvt - HEENT Hx HEENT Disorder: No - Renal Hx Renal Disorder: No - Endocrine/Metabolic Hx Endocrine Disorders: No - Hematological/Oncological Other/Comment: BLE DVT on Xarelto - Integumentary Hx Dermatological Disorder: No (multiple tatoos) - Musculoskeletal/Rheumatological Hx Musculoskeletal Disorders: No Hx Falls: No Hx Herniated Disk: (denies herniated disk or back pain) - Gastrointestinal Hx Gastrointestinal Disorders: Yes Hx Colostomy: Yes (self care) Other/Comment: H/O GI bleed, hernia noted at colostomy site, abd protrusion. pt fell 2 yrs ago went home started bleeding rectally went to er had sx remembers "waking up the next day and had this".[colostomy] - Genitourinary/Gynecological Hx Genitourinary Disorders: Yes Other/Comment: bladder fistula urinates through rectum, pt is able to control it , has had fistula and colostomy 2 yrs. Has been planning sx at [facility] x 1 yr to have fistula corrected and colostomy reversed in the future - Psychiatric Hx Psychophysiologic Disorder: No Hx Substance Use: No Other/Comment: 1 or 2 beers daily, has not had a drink in 2 weeks - Surgical History Hx Tonsillectomy: Yes Other/Comment: Colostomy 2014 - Anesthesia Hx Anesthesia: Yes Hx Anesthesia Reactions: No - Suicidal Assessment Feels Threatened In Home Enviroment: No <Michael Salazar - Last Filed: 10/15/17 06:58> Family/Social History - Physician Review Nursing Documentation Reviewed: Yes Family/Social History: CVA/TIA Smoking Status: Never Smoked Hx Alcohol Use: Yes Hx Substance Use: No Hx Substance Use Treatment: No <Michael Salazar - Last Filed: 10/15/17 06:58> Allergies/Home Meds <Michael Salazar - Last Filed: 10/15/17 06:58> <Rickie Ferraro - Last Filed: 10/15/17 07:21> Allergies/Adverse Reactions: Allergies No Known Allergies Allergy (Verified 10/15/17 04:00) Review of Systems - Physician Review All systems were reviewed & negative as marked: Yes (As per HPI) - Review of Systems Constitutional: Normal Respiratory: SOB <Michael Salazar - Last Filed: 10/15/17 06:58> Physical Exam Temperature: Afebrile Blood Pressure: Normal Pulse: Tachycardic Respiratory Rate: Normal Appearance: Positive for: Non-Toxic, Uncomfortable Pain Distress: Severe Mental Status: Positive for: Alert and Oriented X 3 - Systems Exam Head: Present: Atraumatic, Normocephalic Extroacular Muscles: Present: EOMI Conjunctiva: Present: Normal Mouth: Present: Moist Mucous Membranes, Other (Poor dentition) Pharnyx: Present: Normal Nose (External): Present: Atraumatic Respiratory/Chest: Present: Clear to Auscultation. No: Respiratory Distress, Wheezes, Decreased Breath Sounds, Rhonchi, Tachypneic Cardiovascular: Present: Regular Rate and Rhythm, Normal S1, S2. No: Murmurs Abdomen: Present: Tenderness (RUQ and RLQ), Distention. No: Normal Bowel Sounds (Hypoactive) Upper Extremity: Present: Normal Inspection Lower Extremity: Present: Edema (1+) Neurological: Present: GCS=15, Speech Normal Skin: Present: Warm, Dry, Normal Color Psychiatric: Present: Alert, Oriented x 3, Normal Affect, Normal Mood <Michael Salazar - Last Filed: 10/15/17 06:58> Vital Signs Temp Pulse Resp BP Pulse Ox 10/15/17 06:39 98 H 18 131/89 98 10/15/17 04:12 98.4 F 95 H 18 136/78 99 Medical Decision Making <Michael Salazar - Last Filed: 10/15/17 06:58> - Transfer of Care Patient signed out to Dr:: meghan surgical consult and dispo for abdominal pain <Rickie Ferraro - Last Filed: 10/15/17 07:21> ED Course and Treatment: 62 year old male with a PMHx significant for HTN, PE, DVT, umbilical hernia, rectovesicula fistula s/p transverse laparotomy with colostomy, and cholelithiasis who presents to the ED with complaints of abdominal pain Plan: --CBC/CMP --Protonix 40 IV --Zofran 4 IV --Dilaudid 2 IV --NS @ 80mls/hr --CT Abd/Pelvis w/ IV Contrast --CXR --Reassess and disposition. Reassessment --CT Abd/Pelvis w/ IV Contrast - Read Pending --CXR - Read Pending. 10/15/17 07:00 (Michael Salazar) Impression: Pt seen and evaluated with medical cash poster. Pt, whose past medical history includes PE, DVT, colostomy, umbilical hernia, rectovesicula fistula, cholelithiasis, and hypertension, preesnted for sharp abdominal pain after eating yesterday evening. Aware and agree with HPI, clinical findings, plan, and management. Plan: -- CT Abdomen and Pelvis with IV contrast -- Chest X-ray -- Labs -- IV fluids -- Zofran -- Protonix -- Dilaudid -- Reassess and disposition (Rickie Ferraro) - Lab Interpretations Lab Results: 10/15/17 04:38 10/15/17 04:38 Lab Results 10/15/17 04:38: Sodium 143, Potassium 4.3, Chloride 106, Carbon Dioxide 26, Anion Gap 15, BUN 9, Creatinine 0.9, Est GFR ( Amer) > 60, Est GFR (Non- Af Amer) > 60, Random Glucose 99, Calcium 9.3, Total Bilirubin 0.9, AST 55, ALT 52, Alkaline Phosphatase 105, Total Protein 7.8, Albumin 4.1, Globulin 3.7, Albumin/Globulin Ratio 1.1 10/15/17 04:38: WBC 6.2 D, RBC 4.23, Hgb 14.8, Hct 42.6, MCV 100.7, MCH 35.0, MCHC 34.7, RDW 14.2, Plt Count 157, MPV 9.9, Gran % 73.6 H, Lymph % (Auto) 15.7 L, Wake % (Auto) 9.5 H, Eos % (Auto) 1.0 L, Baso % (Auto) 0.2, Gran # 4.60, Lymph # 1.0 L, Wake # 0.6, Eos # 0.1, Baso # 0.01 - RAD Interpretation Radiology Orders: 10/15/17 04:28 ABD & PELVIS IV CONTRAST ONLY [CT] Stat 10/15/17 04:57 CXR [CHEST ONE VIEW] [RAD] Stat - Medication Orders Current Medication Orders: Sodium Chloride (Sodium Chloride 0.9%) 1,000 mls @ 80 mls/hr IV .[id number] TAD Last Admin: 10/15/17 04:50 Dose: 80 mls/hr eMAR Start Stop Document 10/15/17 04:50 JOL (Rec: 10/15/17 04:50 JOL [id number]) Intravenous Solution Start Date 10/15/17 Start Time 04:50 Discontinued Medications Hydromorphone HCl (Dilaudid) 2 mg IVP STAT STA Stop: 10/15/17 04:37 Last Admin: 10/15/17 04:49 Dose: 2 mg MAR Pain Assessment Document 10/15/17 04:49 JOL (Rec: 10/15/17 04:50 JOL [id number]) Pain Reassessment Is this a pain reassessment? No Sleep Is patient sleeping during reassessment? No Presence of Pain Presence of Pain Yes Pain Scale Used Pain Scale Used Numeric Location Upper or Lower Upper Pain Location Body Site Abdomen Description Intensity of Pain at present 8 IVP Administration Document 10/15/17 04:49 JOL (Rec: 10/15/17 04:50 JOL [id number]) Charges for Administration # of IVP Administrations 1 Re-Assess: MAR Pain Assessment Document 10/15/17 05:49 JOL (Rec: 10/15/17 07:04 JOL [id number]) Pain Reassessment Is this a pain reassessment? Yes Sleep Is patient sleeping during reassessment? No Presence of Pain Presence of Pain No Ondansetron HCl (Zofran Inj) 4 mg IVP STAT STA Stop: 10/15/17 04:29 Last Admin: 10/15/17 04:49 Dose: 4 mg IVP Administration Document 10/15/17 04:49 JOL (Rec: 10/15/17 04:49 JOL [id number]) Charges for Administration # of IVP Administrations 1 Pantoprazole Sodium (Protonix Inj) 40 mg IVP STAT STA Stop: 10/15/17 04:29 Last Admin: 10/15/17 04:49 Dose: 40 mg IVP Administration Document 10/15/17 04:49 JOL (Rec: 10/15/17 04:49 JOL [id number]) Charges for Administration # of IVP Administrations 1 - PA / [employer] / Resident Statement / has reviewed & agrees with the documentation as recorded. / has examined the patient and agrees with the treatment plan. <Rickie Ferraro - Last Filed: 10/15/17 07:21> Disposition/Present on Arrival - Present on Arrival Any Indicators Present on Arrival: Yes History of DVT/PE: Yes History of Uncontrolled Diabetes: No Urinary Catheter: No History of Decub. Ulcer: No History Surgical Site Infection Following: None - Disposition Have Diagnosis and Disposition been Completed?: Yes Disposition Time: 07:02 <Michael Salazar - Last Filed: 10/15/17 06:58> <Rickie Ferraro - Last Filed: 10/15/17 07:21> - Disposition Diagnosis: Abdominal pain Patient Problems: Current Active Problems Problem Status Onset Abdominal pain Acute Condition: STABLE Referrals: Neil Engel JD, MD [Primary Care Provider] - Follow up with primary Forms: [place] ([place]in)
[2017-10-15 05:28] LABS: BASO # 0.01 K/mm3 (0.0-2.0); BASO % 0.2 % (0.0-3.0); EOS # 0.1 (0.0-0.7); GRAN # 4.6 (1.4-6.5); GRAN % 73.6 % (50.0-68.0); HEMATOCRIT 42.6 % (42.0-52.0); LYMPH % 15.7 % (22.0-35.0); MEAN CELL VOLUME 100.7 fl (80.0-105.0); MEAN CORPUSCULAR HGB CONC 34.7 g/dl (31.0-37.0); MEAN PLATELET VOLUME 9.9 fl (7.0-11.0); MONO # 0.6 (0.1-0.6); MONO % 9.5 % (1.0-6.0); RED CELL DISTRIBUTION WIDTH 14.2 % (11.5-14.5); WHITE BLOOD COUNT 6.2 10^3/ul (4.5-11.0)
[2017-10-15 05:47] LABS: ALB/GLOB RATIO 1.1 (1.1-1.8); ALKALINE PHOSPHATASE 105 U/L (38-126); ALT/SGPT 52 U/L (7-56); AST/SGOT 55 U/L (17-59); BILIRUBIN,TOTAL 0.9 mg/dL (0.2-1.3); BLOOD UREA NITROGEN 9 mg/dL (7-21); CALCIUM 9.3 mg/dL (8.4-10.5); CARBON DIOXIDE 26 mmol/L (21-33); CHLORIDE 106 mmol/L (98-107); GFR AFRICAN-AMERICAN > 60; GLUCOSE,RANDOM 99 mg/dL (70-110); POTASSIUM 4.3 mmol/L (3.6-5.0); SODIUM 143 mmol/L (132-148); TOTAL PROTEIN 7.8 g/dL (5.8-8.3)
[2017-10-15] MEDS ORDERED: Iohexol 350 MG/100 ML VIAL ONE (06:09)
--- NOTE | 2017-10-15 07:01 | CT ---
EXAM: CT Abdomen and Pelvis With Intravenous Contrast CLINICAL HISTORY: 62 years old, male; Pain; Abdominal pain TECHNIQUE: Axial computed tomography images of the abdomen and pelvis with intravenous contrast. All CT scans at this facility use one or more dose reduction techniques, viz.: automated exposure control; ma/kV adjustment per patient size (including targeted exams where dose is matched to indication; i.e. head); or iterative reconstruction technique. Coronal and sagittal reformatted images were created and reviewed. CONTRAST: 100 mL of [id number] administered intravenously. COMPARISON: CT - ABD PELVIS W/O PO OR IV CONT 2017-08-29 14:44 FINDINGS: Lower thorax: There is partially imaged thoracic aortic aneurysm as follows: Aortic root measures 4.5 CM. Visualized ascending aorta measures 4.8 CM. Descending aorta measures 2.8 CM. Stable rounded atelectasis at the right base. There is minimal bibasilar atelectasis. There is coronary artery calcification. The heart is not enlarged the visualized. No significant pericardial effusion. Question tiny hiatal hernia. ABDOMEN: Liver: There is a diffuse decrease in hepatic parenchymal density, consistent with fatty infiltration. There are no focal liver lesions present. Gallbladder and bile ducts: Gallbladder again contains numerous small gallstones. At this time, gallbladder wall appears thickened and there is a suggestion of pericholecystic inflammation. Cholecystitis is not excluded. Please correlate clinically and if indicated this can be further evaluated with clinical quadrant sonogram or HIDA scan. No ductal dilation. Pancreas: Pancreas is slightly fatty replaced. No ductal dilation. Spleen: Spleen is enlarged measuring 15.1 CM anteroposterior. Adrenals: The adrenal glands are normal. Kidneys and ureters: The kidneys are normal. No hydronephrosis. Stomach and bowel: Stable large ventral hernia adjacent to a mid transverse colon ostomy. The stomach is normal. No evidence for small bowel obstruction. No mucosal thickening. Appendix: A normal appendix is identified. PELVIS: Bladder: Bladder is decompressed. Reproductive: The prostate gland and seminal vesicles are normal. ABDOMEN and PELVIS: Intraperitoneal space: There is no evidence of free intraperitoneal fluid. There is no free intraperitoneal air. Bones/joints: There are moderate degenerative changes present. There is mild diffuse osteopenia. No acute fracture. No dislocation. Soft tissues: There are small bilateral fat containing inguinal hernias. Vasculature: There is calcification of the aortic root. Abdominal aorta demonstrates moderate atherosclerotic calcification. There is a intravascular stent within the right common iliac vein. Lymph nodes: There is no evidence of lymphadenopathy. IMPRESSION: 1. There is partially imaged thoracic aortic aneurysm as follows: Aortic root measures 4.5 CM. Visualized ascending aorta measures 4.8 CM. Descending aorta measures 2.8 CM. 2. Stable rounded atelectasis at the right base. 3. Gallbladder again contains numerous small gallstones. At this time, gallbladder wall appears thickened and there is a suggestion of pericholecystic inflammation. Cholecystitis is not excluded. Please correlate clinically and if indicated this can be further evaluated with clinical quadrant sonogram or HIDA scan. 4. Stable large ventral hernia adjacent to a mid transverse colon ostomy. 5. Additional incidental and/or chronic findings as described.
--- NOTE | 2017-10-15 08:14 | CP.PCM.CON ---
History of Present Illness - History of Present Illness History of Present Illness: Surgery Consult note. Dr. Foster 62yo M with PMHx of HTN, PE, DVT, rectovesicular fistula s/p diverting colostomy , ventral hernia, and gallstones presents for severe abdominal pain. Patient describes pain located in the ventral abdomen around his current ostomy. He reports pain started suddenly this morning, does not radiate, not associated with nausea, vomiting, or increased ostomy output. Denies fever and chills. He reports a similar episode a few months prior which resolved after a "big output in ostomy." Just prior to my examination, patient reported an increased amount of nonbloody nonmelanotic hard stool and flatus from the ostomy. He stated he ate a hamburger for dinner the night prior. He reports seeing Dr. Foster 2 years ago and states he has been followed by a general surgeon, plastic surgeon , and a urologist in [place]. Patient plans to follow up with them upon discharge from ED. PMHx: HTN, PE, DVT, rectovesicular fistula s/p diverting colostomy, ventral hernia, and gallstones PSurgHx: diverting colostomy [address] Foster ALL: NKDA FamHx: noncontributory SocHx: denies EtOH, tobacco, drug. Lives at home. Review of Systems - Review of Systems All systems: reviewed and no additional remarkable complaints except - Constitutional Constitutional: absent: Chills, Fever - Cardiovascular Cardiovascular: absent: Chest Pain, Dyspnea - Respiratory Respiratory: absent: Cough - Gastrointestinal Gastrointestinal: Abdominal Pain, Bloating, Change in Bowel Habits, Change in Stool Character, Constipation. absent: Diarrhea, Hematochezia, Melena, Nausea, Vomiting - Genitourinary Genitourinary: Difficulty Urinating - Neurological Neurological: absent: Headaches Past Patient History - Infectious Disease Hx of Infectious Diseases: None - Tetanus Immunizations Tetanus Immunization: Unknown - Past Medical History & Family History Past Medical History?: Yes - Past Social History Smoking Status: Never Smoked - CARDIAC Hx Cardiac Disorders: (dvt ble) Hx Hypertension: Yes - PULMONARY Hx Respiratory Disorders: No - NEUROLOGICAL Hx Neurological Disorder: No Other/Comment: dvt - HEENT Hx HEENT Problems: No - RENAL Hx Chronic Kidney Disease: No - ENDOCRINE/METABOLIC Hx Endocrine Disorders: No - HEMATOLOGICAL/ONCOLOGICAL Other/Comment: BLE DVT on Xarelto - INTEGUMENTARY Hx Dermatological Problems: No (multiple tatoos) - MUSCULOSKELETAL/RHEUMATOLOGICAL Hx Musculoskeletal Disorders: No Hx Falls: No Hx Herniated Disk: (denies herniated disk or back pain) - GASTROINTESTINAL Hx Gastrointestinal Disorders: Yes Hx Colostomy: Yes (self care) Other/Comment: H/O GI bleed, hernia noted at colostomy site, abd protrusion. pt fell 2 yrs ago went home started bleeding rectally went to er had sx remembers "waking up the next day and had this".[colostomy] - GENITOURINARY/GYNECOLOGICAL Hx Genitourinary Disorders: Yes Other/Comment: bladder fistula urinates through rectum, pt is able to control it , has had fistula and colostomy 2 yrs. Has been planning sx at [facility] 1 yr to have fistula corrected and colostomy reversed in the future - PSYCHIATRIC Hx Psychophysiologic Disorder: No Hx Substance Use: No Other/Comment: 1 or 2 beers daily, has not had a drink in 2 weeks - SURGICAL HISTORY Hx Tonsillectomy: Yes Other/Comment: Colostomy 2014 - ANESTHESIA Hx Anesthesia: Yes Hx Anesthesia Reactions: No Meds Home Medications: Home Medication List Medication Instructions Recorded Confirmed Type Ranitidine HCl [Zantac] 150 mg PO BID PRN #30 tablet 10/15/17 Rx Allergies/Adverse Reactions: Allergies Allergy/AdvReac Type Severity Reaction Status Date / Time No Known Allergies Allergy Verified 10/15/17 04:00 - Medications Medications: Current Medications Sodium Chloride (Sodium Chloride 0.9%) 1,000 mls @ 80 mls/hr IV .[id number] [facility] Last Admin: 10/15/17 04:50 Dose: 80 mls/hr Physical Exam - Constitutional Appears: Well, Non-toxic, No Acute Distress - Head Exam Head Exam: ATRAUMATIC, NORMAL INSPECTION, NORMOCEPHALIC - Eye Exam Eye Exam: EOMI, Normal appearance. absent: Conjunctival injection, Scleral icterus - ENT Exam ENT Exam: Mucous Membranes Moist - Respiratory Exam Respiratory Exam: NORMAL BREATHING PATTERN. absent: Accessory Muscle Use, Respiratory Distress - Cardiovascular Exam Cardiovascular Exam: RRR, +S1, +S2. absent: JVD - GI/Abdominal Exam GI & Abdominal Exam: Soft. absent: Distended, Firm, Guarding, Rebound, Rigid Additional comments: Abdomen is soft, nondistended, nontender. Ostomy bag in place Large ventral hernia noted around ostomy, reducible and nontender Negative Barajas's, No rebound, No guarding, No Mcburney's point tenderness Normoactive bowel sounds - Extremities Exam Extremities exam: Positive for: normal inspection. Negative for: calf tenderness - Neurological Exam Neurological exam: Alert, Oriented x3 - Skin Skin Exam: Dry, Normal Color, Warm Results - Vital Signs Recent Vital Signs: Last Vital Signs Temp 98.4 F 10/15/17 04:12 Pulse 94 H 10/15/17 07:21 Resp 18 10/15/17 07:21 BP 128/85 10/15/17 07:21 Pulse Ox 96 10/15/17 07:21 - Labs Result Diagrams: 10/15/17 04:38 10/15/17 04:38 Labs: Laboratory Results - last 24 hr 10/15/17 10/15/17 04:38 04:38 WBC 6.2 D RBC 4.23 Hgb 14.8 Hct 42.6 MCV 100.7 MCH 35.0 MCHC 34.7 RDW 14.2 Plt Count 157 MPV 9.9 Gran % 73.6 H Lymph % (Auto) 15.7 L [place] % (Auto) 9.5 H Eos % (Auto) 1.0 L Baso % (Auto) 0.2 Gran # 4.60 Lymph # 1.0 L [place] # 0.6 Eos # 0.1 Baso # 0.01 Sodium 143 Potassium 4.3 Chloride 106 Carbon Dioxide 26 Anion Gap 15 BUN 9 Creatinine 0.9 Est GFR ( Amer) > 60 Est GFR (Non-Af Amer) > 60 Random Glucose 99 Calcium 9.3 Total Bilirubin 0.9 AST 55 ALT 52 Alkaline Phosphatase 105 Total Protein 7.8 Albumin 4.1 Globulin 3.7 Albumin/Globulin Ratio 1.1 Assessment & Plan - Assessment and Plan (Free Text) Assessment: 62yo M with hx of colovesicular fistula s/p colostomy here for transient episode of abdominal pain. - VSS, no leukocytosis - likely secondary to constipation as symptoms resolved after BM - no acute surgical intervention at this time - patient to follow up with his general surgery team as outpatient - further workup as outpatient for elective cholecystectomy - recommend use of fiber supplements Further recs as per Dr. Cristian Alarcon PGY1 Surg pager: [phone]
--- NOTE | 2017-10-15 08:34 | RAD ---
PROCEDURE: CHEST RADIOGRAPH, 1 VIEW HISTORY: SOB COMPARISON: 08/29/2017 FINDINGS: LUNGS: No focal infiltrate. There is crowding at the lung bases. PLEURA: No pneumothorax or pleural fluid seen. CARDIOVASCULAR: Heart is enlarged. OSSEOUS STRUCTURES: No significant abnormalities. VISUALIZED UPPER ABDOMEN: Normal. OTHER FINDINGS: None. IMPRESSION: No focal infiltrate or CHF. Poor expiratory effort with mild crowding at the lung bases
--- NOTE | 2017-10-15 08:40 | ED PDOC ---
Physical Exam Vital Signs Temp Pulse Resp BP Pulse Ox 10/15/17 08:49 98.2 F 96 H 16 141/85 97 10/15/17 07:21 94 H 18 128/85 96 10/15/17 06:39 98 H 18 131/89 98 10/15/17 04:12 98.4 F 95 H 18 136/78 99 Medical Decision Making ED Course and Treatment: 10/15/17 07:00 The patient Jeff Green, is transferred over to co by Dr. Ferraro. The patient is pending surgical consult, revaluation, and disposition. The patient was evaluated by surgical technology instructor Dr. Valle. He discussed with Dr. Foster who states the patient is clear for discharge and is advised to follow up with his primary doctor Dr. Neil Engel and surgeon at [place]. Abdominal evaluation shows an abdominal hernia that is reducible and non-tender. The patient states he began feeling better once he had a bowel movement. Patient understands follow up instructions and will make sure to follow up with PMD Dr. Engel and his surgeon at [place]. - Lab Interpretations Lab Results: 10/15/17 04:38 10/15/17 04:38 Lab Results 10/15/17 04:38: Sodium 143, Potassium 4.3, Chloride 106, Carbon Dioxide 26, Anion Gap 15, BUN 9, Creatinine 0.9, Est GFR ( Amer) > 60, Est GFR (Non- Af Amer) > 60, Random Glucose 99, Calcium 9.3, Total Bilirubin 0.9, AST 55, ALT 52, Alkaline Phosphatase 105, Total Protein 7.8, Albumin 4.1, Globulin 3.7, Albumin/Globulin Ratio 1.1 10/15/17 04:38: WBC 6.2 D, RBC 4.23, Hgb 14.8, Hct 42.6, MCV 100.7, MCH 35.0, MCHC 34.7, RDW 14.2, Plt Count 157, MPV 9.9, Gran % 73.6 H, Lymph % (Auto) 15.7 L, [place] % (Auto) 9.5 H, Eos % (Auto) 1.0 L, Baso % (Auto) 0.2, Gran # 4.60, Lymph # 1.0 L, [place] # 0.6, Eos # 0.1, Baso # 0.01 - RAD Interpretation Radiology Orders: 10/15/17 04:28 ABD & PELVIS IV CONTRAST ONLY [CT] Stat 10/15/17 04:57 CXR [CHEST ONE VIEW] [RAD] Stat - Medication Orders Current Medication Orders: Sodium Chloride (Sodium Chloride 0.9%) 1,000 mls @ 80 mls/hr IV .[id number] [facility] Last Admin: 10/15/17 04:50 Dose: 80 mls/hr eMAR Start Stop Document 10/15/17 04:50 JOL (Rec: 10/15/17 04:50 JOL [id number]) Intravenous Solution Start Date 10/15/17 Start Time 04:50 Discontinued Medications Hydromorphone HCl (Dilaudid) 2 mg IVP STAT STA Stop: 10/15/17 04:37 Last Admin: 10/15/17 04:49 Dose: 2 mg [facility] Pain Assessment Document 10/15/17 04:49 JOL (Rec: 10/15/17 04:50 JOL [id number]) Pain Reassessment Is this a pain reassessment? No Sleep Is patient sleeping during reassessment? No Presence of Pain Presence of Pain Yes Pain Scale Used Pain Scale Used Numeric Location Upper or Lower Upper Pain Location Body Site Abdomen Description Intensity of Pain at present 8 IVP Administration Document 10/15/17 04:49 JOL (Rec: 10/15/17 04:50 JOL [id number]) Charges for Administration # of IVP Administrations 1 Re-Assess: LIZET Pain Assessment Document 10/15/17 05:49 JOL (Rec: 10/15/17 07:04 JOL [id number]) Pain Reassessment Is this a pain reassessment? Yes Sleep Is patient sleeping during reassessment? No Presence of Pain Presence of Pain No Ondansetron HCl (Zofran Inj) 4 mg IVP STAT STA Stop: 10/15/17 04:29 Last Admin: 10/15/17 04:49 Dose: 4 mg IVP Administration Document 10/15/17 04:49 JOL (Rec: 10/15/17 04:49 JOL [id number]) Charges for Administration # of IVP Administrations 1 Pantoprazole Sodium (Protonix Inj) 40 mg IVP STAT STA Stop: 10/15/17 04:29 Last Admin: 10/15/17 04:49 Dose: 40 mg IVP Administration Document 10/15/17 04:49 JOLucila (Rec: 10/15/17 04:49 JOL [id number]) Charges for Administration # of IVP Administrations 1 - Scribe Statement The provider has reviewed the documentation as recorded by the Scribe Vandana Garrido Provider Scribe Attestation: All medical record entries made by the Scribe were at my direction and personally dictated by me. I have reviewed the chart and agree that the record accurately reflects my personal performance of the history, physical exam, medical decision making, and the department course for this patient. I have also personally directed, reviewed, and agree with the discharge instructions and disposition. Disposition/Present on Arrival - Present on Arrival Any Indicators Present on Arrival: Yes History of DVT/PE: Yes History of Uncontrolled Diabetes: No Urinary Catheter: No History of Decub. Ulcer: No History Surgical Site Infection Following: None - Disposition Have Diagnosis and Disposition been Completed?: Yes Diagnosis: Abdominal pain Disposition: HOME/ ROUTINE Disposition Time: 08:59 Patient Plan: Discharge Patient Problems: Current Active Problems Problem Status Onset Abdominal pain Acute Condition: IMPROVED Discharge Instructions (ExitCare): Abdominal Pain (ED) Additional Instructions: Mr Green, thank you for letting us take care of you today. Your provider was Dr. Danielson. You were treated for Abdominal Pain. The emergency medical care you received today was directed at your acute symptoms. If you were prescribed any medication, please fill it and take as directed. It may take several days for your symptoms to resolve. Return to the Emergency Department if your symptoms worsen, do not improve, or if you have any other problems. Please contact your doctor or call one of the physicians/clinics you have been referred to that are listed on the Patient Visit Information form that is included in your discharge packet. Bring any paperwork you were given at discharge with you along with any medications you are taking to your follow up visit. Our treatment cannot replace ongoing medical care by a primary care provider (PCP) outside of the emergency department. Thank you for allowing the [facility] team to be part of your care today. If you had an X-Ray or CT scan: A Radiologist will review the ED reading if any change in treatment is needed we will contact you. If you had a blood, urine, or wound culture: It will take several days for the results, if any change in treatment is needed we will contact you. If you had an STI test: It will take 48 hours for the results. Please call after 1 week if you have not heard back. Prescriptions: Ranitidine HCl [Zantac] 150 mg PO BID PRN #30 tablet PRN Reason: Pain, Mild (1-3) Referrals: Neil Engel JD, MD [Primary Care Provider] - Follow up with primary Forms: [employer] ([place])
[2017-10-15 08:50] VITALS: BP 141/85; PULSE 96; RESP 16; TEMP 98.2; O2SAT 97
== END 2017-10-15 09:00 | disposition home or self-care (01) ==
LOC: ED 03:54
DX: R10.9 Unspecified abdominal pain (principal); I10 Essential (primary) hypertension
CPT/HCPCS: 71010; 74177; 80053; 85025; 96374; 96375; 99285; C9113; J1170; J2405; J7040; Q9967

== ENCOUNTER 2017-10-15 18:04 | Inpatient (IN) | payer OTHER ==
[2017-10-15] MEDS ORDERED: Morphine 4 mg/ml ISec IVP STA (18:17)
[2017-10-15] MEDS ORDERED: Sodium Chloride 0.9% 1,000 ML IV STA (18:18)
--- NOTE | 2017-10-15 18:38 | ED PDOC ---
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 Patient was seen in the emergency department overnight and was discharged this morning for evaluation of abdominal pain. Patient was told to follow up with PMD and surgeon. Patient states he slept when he went home, woke up three hours ago vomiting. Patient reports he drank liquor and pain didn't improve. Denies any fever or any other complaints at this time. PMD: Dr. Neil Engel Symptom Onset: Sudden Symptom Course: Unchanged Activities at Onset: Rest Context: Home Past Medical History - Provider Review Nursing Documentation Reviewed: Yes - Infectious Disease Hx of Infectious Diseases: None - Tetanus Immunization Tetanus Immunization: Unknown - Cardiac Hx Cardiac Disorders: (dvt ble) Hx Hypertension: Yes - Pulmonary Hx Respiratory Disorders: Yes Hx Pulmonary Embolism: Yes - Neurological Hx Neurological Disorder: No - HEENT Hx HEENT Disorder: No - Renal Hx Renal Disorder: No - Endocrine/Metabolic Hx Endocrine Disorders: No - Hematological/Oncological Other/Comment: BLE DVT on Xarelto - Integumentary Hx Dermatological Disorder: No - Musculoskeletal/Rheumatological Hx Musculoskeletal Disorders: No Hx Falls: No - Gastrointestinal Hx Gastrointestinal Disorders: Yes Hx Colostomy: Yes Other/Comment: GI BLEED - Genitourinary/Gynecological Hx Genitourinary Disorders: Yes Other/Comment: bladder fistula urinates through rectum, pt is able to control it , has had fistula and colostomy 2 yrs. Has been planning sx at [facility] x 1 yr to have fistula corrected and colostomy reversed in the future - Psychiatric Hx Psychophysiologic Disorder: No Hx Substance Use: No Other/Comment: 1 or 2 beers daily, has not had a drink in 2 weeks - Surgical History Hx Tonsillectomy: Yes Other/Comment: Colostomy 2015 - Anesthesia Hx Anesthesia: Yes - Suicidal Assessment Feels Threatened In Home Enviroment: No Family/Social History - Physician Review Nursing Documentation Reviewed: Yes Family/Social History: No Known Family HX Smoking Status: Never Smoked Hx Alcohol Use: Yes Frequency of alcohol use: Daily Hx Substance Use: No Hx Substance Use Treatment: No Allergies/Home Meds Allergies/Adverse Reactions: Allergies No Known Allergies Allergy (Verified 10/15/17 18:16) Home Medications: Home Meds Medication Instructions Recorded Confirmed Pantoprazole [Protonix EC Tab] 40 mg PO DAILY 10/15/17 10/15/17 Review of Systems - Physician Review All systems were reviewed & negative as marked: Yes - Review of Systems Constitutional: absent: Fevers Gastrointestinal: Abdominal Pain, Vomiting Physical Exam Vital Signs Reviewed: Yes Vital Signs Temp Pulse Resp BP Pulse Ox 10/15/17 20:34 93 H 18 143/91 H 100 10/15/17 18:24 98.2 F 96 H 18 151/87 H 99 Temperature: Afebrile Blood Pressure: Hypertensive Pulse: Regular Respiratory Rate: Normal Appearance: Positive for: Well-Appearing, Non-Toxic, Comfortable Pain Distress: None Mental Status: Positive for: Alert and Oriented X 3 - Systems Exam Head: Present: Atraumatic, Normocephalic Pupils: Present: PERRL Conjunctiva: Present: Normal Mouth: Present: Moist Mucous Membranes Pharnyx: Present: Normal. No: ERYTHEMA, EXUDATE Neck: Present: Normal Range of Motion Respiratory/Chest: Present: Clear to Auscultation, Good Air Exchange. No: Respiratory Distress, Accessory Muscle Use Cardiovascular: Present: Regular Rate and Rhythm, Normal S1, S2. No: Murmurs Abdomen: Present: Tenderness (tenderness to palpation RUQ and RLQ), Normal Bowel Sounds, Hernias (with colostomy). No: Distention, Peritoneal Signs Back: Present: Normal Inspection Upper Extremity: Present: Normal Inspection. No: Cyanosis, Edema Lower Extremity: Present: Normal Inspection. No: Edema Neurological: Present: GCS=15, CN II-XII Intact, Speech Normal Skin: Present: Warm, Dry, Normal Color. No: Rashes Psychiatric: Present: Alert, Oriented x 3, Normal Insight, Normal Concentration Medical Decision Making ED Course and Treatment: 10/15/17 18:20 Impression: A 62 year old male with abdominal pain and vomiting. Plan: -- labs -- Urinalysis -- Morphine, Protonix, IV fluids, Zofran -- Reassess and disposition Prior Visits: Notes and results from previous visits were reviewed. Patient was last seen in the emergency department yesterday for evaluation of abdominal pain. Patient was discharged this morning and advised to follow up with PMD and surgeon. CT Abdomen and Pelvis With Intravenous Contrast from this morning: IMPRESSION: 1. There is partially imaged thoracic aortic aneurysm as follows: Aortic root measures 4.5 CM. Visualized ascending aorta measures 4.8 CM. Descending aorta measures 2.8 CM. 2. Stable rounded atelectasis at the right base. 3. Gallbladder again contains numerous small gallstones. At this time, gallbladder wall appears thickened and there is a suggestion of pericholecystic inflammation. Cholecystitis is not excluded. Please correlate clinically and if indicated this can be further evaluated with clinical quadrant sonogram or HIDA scan. 4. Stable large ventral hernia adjacent to a mid transverse colon ostomy. 5. Additional incidental and/or chronic findings as described. Dictated and Authenticated by: Jose E Barker MD 10/15/2017 7:01 AM Eastern Time ([place] & [place]) Progress Notes: 10/15/17 18:29 Spoke with surgical endoscopist, Dr. Alarcon. 10/15/17 20:42 Labs with bili at 2.4 but appears to be indirect and other LFTs remain unchanged. Patient continues to complain of pain, despite morphine iv. Patient will need to be placed on med/surg for further observation for intractable abdominal pain. Seen by surgical consult; plan for sono and HIDA. Case discussed with Dr. Engel, who said he will be away and to bring the patient on the hospitalist's service. Case discussed with Dr. Morales Seaman for hospitalist's service. - Lab Interpretations Lab Results: 10/15/17 18:46 10/15/17 18:46 Lab Results 10/15/17 18:46: Alcohol, Quantitative 17 H 10/15/17 18:46: Sodium 138, Potassium 3.7, Chloride 104, Carbon Dioxide 23, Anion Gap 15, BUN 7, Creatinine 0.8, Est GFR ( Amer) > 60, Est GFR (Non- Af Amer) > 60, Random Glucose 122 H, Calcium 8.9, Total Bilirubin 2.4 H, Direct Bilirubin 0.6 H, AST 42, ALT 49, Alkaline Phosphatase 68, Lactate Dehydrogenase 503, Total Creatine Kinase 109, Troponin I < 0.01, Total Protein 7.6, Albumin 4.0, Globulin 3.6, Albumin/Globulin Ratio 1.1, Amylase 51, Lipase 34 10/15/17 18:46: WBC 8.0 D, RBC 4.10, Hgb 14.4, Hct 41.2 L, MCV 100.5, MCH 35.1 H, MCHC 35.0, RDW 14.0, Plt Count 136, MPV 9.8, Gran % 80.5 H, Lymph % (Auto) 9.7 L, [place] % (Auto) 9.6 H, Eos % (Auto) 0.1 L, Baso % (Auto) 0.1, Gran # 6.46, Lymph # 0.8 L, [place] # 0.8 H, Eos # 0.0, Baso # 0.01 I have reviewed the lab results: Yes - Medication Orders Current Medication Orders: Discontinued Medications Hydromorphone HCl (Dilaudid) 0.5 mg IVP STAT STA Stop: 10/15/17 20:12 Last Admin: 10/15/17 20:19 Dose: 0.5 mg MAR Pain Assessment Document 10/15/17 20:19 GMD (Rec: 10/15/17 20:19 GMD [facility] [id number]) Pain Reassessment Is this a pain reassessment? No Sleep Is patient sleeping during reassessment? No Presence of Pain Presence of Pain Yes IVP Administration Document 10/15/17 20:19 GMD (Rec: 10/15/17 20:19 GMD [facility] [id number]) Charges for Administration # of IVP Administrations 1 Sodium Chloride (Sodium Chloride 0.9%) 1,000 mls @ 999 mls/hr IV .Q1H1M STA Stop: 10/15/17 19:18 Last Admin: 10/15/17 18:45 Dose: 999 mls/hr eMAR Start Stop Document 10/15/17 18:45 GMD (Rec: 10/15/17 18:45 GMD [facility] [id number]) Intravenous Solution Start Date 10/15/17 Start Time 18:45 End Date 10/15/17 End time 19:46 Total Infusion Time 61 Morphine Sulfate (Morphine) 4 mg IVP STAT STA Stop: 10/15/17 18:18 Last Admin: 10/15/17 18:45 Dose: 4 mg MAR Pain Assessment Document 10/15/17 18:45 GMD (Rec: 10/15/17 18:45 GMD [facility] [id number]) Pain Reassessment Is this a pain reassessment? No Sleep Is patient sleeping during reassessment? No Presence of Pain Presence of Pain Yes IVP Administration Document 10/15/17 18:45 GMD (Rec: 10/15/17 18:45 GMD [place] [id number]) Charges for Administration # of IVP Administrations 1 Re-Assess: MAR Pain Assessment Document 10/15/17 19:45 GMD (Rec: 10/15/17 20:03 GMD [place] [id number]) Pain Reassessment Is this a pain reassessment? Yes Sleep Is patient sleeping during reassessment? No Presence of Pain Presence of Pain Yes Description Description Intermittent Intensity of Pain at present 10 Ondansetron HCl (Zofran Inj) 4 mg IVP STAT STA Stop: 10/15/17 18:18 Last Admin: 10/15/17 18:45 Dose: 4 mg IVP Administration Document 10/15/17 18:45 GMD (Rec: 10/15/17 18:45 GMD [place] [id number]) Charges for Administration # of IVP Administrations 1 Pantoprazole Sodium (Protonix Inj) 40 mg IVP ONCE STA Stop: 10/15/17 18:18 Last Admin: 10/15/17 18:45 Dose: 40 mg IVP Administration Document 10/15/17 18:45 GMD (Rec: 10/15/17 18:45 GMD [place] [id number]) Charges for Administration # of IVP Administrations 1 - Scribe Statement The provider has reviewed the documentation as recorded by the Ray Fernandez Provider Scribe Attestation: All medical record entries made by the Scribkeith were at my direction and personally dictated by me. I have reviewed the chart and agree that the record accurately reflects my personal performance of the history, physical exam, medical decision making, and the department course for this patient. I have also personally directed, reviewed, and agree with the discharge instructions and disposition. Disposition/Present on Arrival - Present on Arrival Any Indicators Present on Arrival: Yes History of DVT/PE: Yes History of Uncontrolled Diabetes: No Urinary Catheter: No History of Decub. Ulcer: No History Surgical Site Infection Following: None - Disposition Have Diagnosis and Disposition been Completed?: Yes Diagnosis: Intractable abdominal pain Disposition: HOSPITALIZED Disposition Time: 20:00 Patient Plan: Observation Condition: FAIR
[2017-10-15 18:55] LABS: BASO # 0.01 K/mm3 (0.0-2.0); BASO % 0.1 % (0.0-3.0); EOS % 0.1 % (1.5-5.0); GRAN # 6.46 (1.4-6.5); GRAN % 80.5 % (50.0-68.0); HEMATOCRIT 41.2 % (42.0-52.0); LYMPH # 0.8 (1.2-3.4); LYMPH % 9.7 % (22.0-35.0); MEAN CELL VOLUME 100.5 fl (80.0-105.0); MEAN CORPUSCULAR HEMOGLOBIN 35.1 pg (25.0-35.0); MEAN PLATELET VOLUME 9.8 fl (7.0-11.0); MONO # 0.8 (0.1-0.6); MONO % 9.6 % (1.0-6.0)
[2017-10-15 19:18] LABS: TROPONIN I < 0.01 ng/mL
[2017-10-15 19:31] LABS: BLOOD UREA NITROGEN 7 mg/dL (7-21); CARBON DIOXIDE 23 mmol/L (21-33); CHLORIDE 104 mmol/L (98-107); GFR AFRICAN-AMERICAN > 60; GLUCOSE,RANDOM 122 mg/dL (70-110); POTASSIUM 3.7 mmol/L (3.6-5.0); SODIUM 138 mmol/L (132-148)
[2017-10-15 19:32] LABS: ALB/GLOB RATIO 1.1 (1.1-1.8); ALKALINE PHOSPHATASE 68 U/L (38-126); ALT/SGPT 49 U/L (7-56); AST/SGOT 42 U/L (17-59); BILIRUBIN,DIRECT 0.6 mg/dL (0.0-0.4); BILIRUBIN,TOTAL 2.4 mg/dL (0.2-1.3); CALCIUM 8.9 mg/dL (8.4-10.5); TOTAL PROTEIN 7.6 g/dL (5.8-8.3)
[2017-10-15 19:33] LABS: AMYLASE 51 U/L (35-125); LIPASE 34 U/L (23-300)
[2017-10-15] MEDS ORDERED: HYDROmorphone 0.5 mg/0.5 ml ISec IVP STA (20:11)
[2017-10-15] MEDS ORDERED: Morphine 4 mg/ml ISec IVP PRN (20:54)
--- NOTE | 2017-10-15 21:07 | CP.PCM.CON ---
History of Present Illness - History of Present Illness History of Present Illness: Surgery Consult Note. Dr. Foster 62yo M with PMHx of HTN, PE, DVT, rectovesicular fistula s/p transverse loop colostomy (by Dr. Foster 10/01/15), ventral hernia, and gallstones presents for severe abdominal pain. Patient was seen in the ER earlier today and discharged after his pain resolved after he had a BM. Patient states that he went home and slept and had another episode of severe mid abdominal pain, and RUQ abdominal pain. He states that he had 3 episodes of vomiting as well, non bloody, non-biliuos. Denies any F/C. No CP/SOB. No headaches. He does admit to feeling depressed over the past several weeks and states that he has been drinking alcohol everyday. He had a shot of alton when he went home upon discharge earlier this morning. He also ate a slice of cake. PMD: Neil Engel PMHx: HTN, PE, DVT, rectovesicular fistula s/p diverting colostomy, ventral hernia, and gallstones PSHx: transverse loop colostomy [address] Foster (10/01/15) Family Hx: noncontributory Social Hx: denies tobacco, drug. Admits to drinking alton daily for the past several weeks. Lives at home. NKDA Past Patient History - Infectious Disease Hx of Infectious Diseases: None - Tetanus Immunizations Tetanus Immunization: Unknown - Past Medical History & Family History Past Medical History?: Yes - Past Social History Smoking Status: Never Smoked - CARDIAC Hx Cardiac Disorders: (dvt ble) Hx Hypertension: Yes - PULMONARY Hx Respiratory Disorders: Yes Hx Pulmonary Embolism: Yes - NEUROLOGICAL Hx Neurological Disorder: No - HEENT Hx HEENT Problems: No - RENAL Hx Chronic Kidney Disease: No - ENDOCRINE/METABOLIC Hx Endocrine Disorders: No - HEMATOLOGICAL/ONCOLOGICAL Other/Comment: BLE DVT on Xarelto - INTEGUMENTARY Hx Dermatological Problems: No - MUSCULOSKELETAL/RHEUMATOLOGICAL Hx Musculoskeletal Disorders: No Hx Falls: No - GASTROINTESTINAL Hx Gastrointestinal Disorders: Yes Hx Colostomy: Yes Other/Comment: GI BLEED - GENITOURINARY/GYNECOLOGICAL Hx Genitourinary Disorders: Yes Other/Comment: bladder fistula urinates through rectum, pt is able to control it , has had fistula and colostomy 2 yrs. Has been planning sx at [facility] x 1 yr to have fistula corrected and colostomy reversed in the future - PSYCHIATRIC Hx Psychophysiologic Disorder: No Hx Substance Use: No Other/Comment: 1 or 2 beers daily, has not had a drink in 2 weeks - SURGICAL HISTORY Hx Tonsillectomy: Yes Other/Comment: Colostomy 2015 - ANESTHESIA Hx Anesthesia: Yes Meds Allergies/Adverse Reactions: Allergies Allergy/AdvReac Type Severity Reaction Status Date / Time No Known Allergies Allergy Verified 10/15/17 18:16 Results - Vital Signs Recent Vital Signs: Last Vital Signs Temp 98.2 F 10/15/17 18:24 Pulse 93 H 10/15/17 20:34 Resp 18 10/15/17 20:34 BP 143/91 H 10/15/17 20:34 Pulse Ox 100 10/15/17 20:34 - Labs Result Diagrams: 10/15/17 18:46 10/15/17 18:46 Assessment & Plan - Assessment and Plan (Free Text) Assessment: 62yo M with hx of rectovesicular fistula s/p transverse loop colostomy and hx of gallstones here for eval of abdominal pain. - CT Abd noted. - Afebrile, no Leukocytosis, however, does have a left-shift. - Unconjugated Hyperbilirubinemia noted - f/u Abd US with duplex - IV Abx - NPO except meds - IVF - Pain control - Zofran prn, PPI daily - ostomy care - f/u AM labs Further recs as per Dr. Cristian Alarcon PGY1 surgery pager: [phone]
[2017-10-15 21:10] LABS: URINE BILIRUBIN NEGATIVE (NEGATIVE); URINE BLOOD NEGATIVE (NEGATIVE); URINE GLUCOSE (UA) NEGATIVE (NEGATIVE); URINE KETONE NEGATIVE (NEGATIVE); URINE LEUKOCYTE ESTERASE SMALL Leu/uL (NEGATIVE); URINE PROTEIN NEGATIVE mg/dL (<30 mg/dL); URINE UROBILINOGEN 0.2 E.U./dL (<1 E.U./dL)
[2017-10-15 21:13] LABS: URINE APPEARANCE CLEAR (CLEAR); URINE COLOR YELLOW (YELLOW)
[2017-10-15] MEDS: Lactated Ringer's 1,000 ML IV SCH (21:13)
[2017-10-15 21:19] LABS: URINE BACTERIA FEW (NEG); URINE RBC 0 - 2 /hpf (0-2)
[2017-10-15] MEDS ORDERED: Pneumococcal 23-Valent Vaccine IM ONE (21:22)
[2017-10-15] MEDS ORDERED: Influenza Vaccine 60 mcg/0.5 mL SYR (4YR UP) IM ONE (21:22)
[2017-10-15] MEDS: metroNIDAZOLE IV 500 mg/100 ml 500 MG/100 ML BAG IVPB SCH (21:57)
[2017-10-15] MEDS: Morphine 5 MG/ML SYRINGE IVP PRN (22:21)
[2017-10-15] MEDS ORDERED: Sodium Chloride 0.9% 1,000 ML IV SCH (22:30)
--- NOTE | 2017-10-15 22:59 | CP.PCM.HP ---
<Alvaro Santos - Last Filed: 10/16/17 01:34> History of Present Illness - History of Present Illness History of Present Illness: Mr. Green is a 62yo M with PMH of rectovesicular fistula s/p transverse loop colostomy (by Dr. Foster 10/01/15), ventral hernia, HTN, DVT/ PE on Xarelto, ETOH abuse and gallstones who presents to the ED for severe abdominal pain. Patient was seen in the ER earlier today and discharged after his pain resolved after he had a BM. Patient states that he went home and slept and had another episode of severe mid abdominal and RUQ abdominal pain. He states that he had 4 episodes of vomiting as well, non bloody, non-bilious. The patient states that he has been depressed for two months (jul) when his girlfriend , and since then he has been drinking more ETOH; he does not offer the number of drinks but states that he drinks hard liquor daily. he also states that he had an ex lap done 8 months ago in the process of trying to have his colostomy reversed, but does not the specific reason why. He is supposed to be getting his colostomy reversed but his surgeon has been putting it off, and the patient is unsure why; he was told he might need another ex lap. 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 He was placed on Coumadin but became non-compliant. In October 2016, he returned with RLE DVT. Since then, the patient states that he has been compliant with his Xarelto. the pt denies any cp, sob, fevers/chill, headaches, weakness. He currently does not have suicidal thoughts and is not interested in speaking to psych. 12-pt ROS was reviewed and is otherwise unremarkable. CT from the ED visit from this morning revealed gallstones w/ thickened wall and pericholecystic inflammation, thoracic aortic aneurysm (<5cm) and a stable ventral hernia. The patient felt better after BM, and was told to follow up PMD Dr. Engel and his surgeon at [place]. PMD: Neil Engel PMHx: as above PSHx: transverse loop colostomy, L hernia repair, tonsillectomy Meds: Xarelto, protonix and Losartan Family Hx: noncontributory Social Hx: denies tobacco, drugs. Admits to drinking alton daily for the past several weeks. Lives at home. NKDA Present on Admission - Present on Admission Any Indicators Present on Admission: No History of DVT/PE: Yes History of Uncontrolled Diabetes: No Urinary Catheter: No Decubitus Ulcer Present: No Review of Systems - Review of Systems All systems: reviewed and no additional remarkable complaints except (as per HPI ) Past Patient History - Infectious Disease Hx of Infectious Diseases: None - Tetanus Immunizations Tetanus Immunization: Unknown - Past Medical History & Family History Past Medical History?: Yes - Past Social History Smoking Status: Never Smoked Alcohol: > 2 Drinks/Day Drugs: Denies Home Situation {Lives}: Alone - CARDIAC Hx Cardiac Disorders: Yes (dvt ble) Hx Hypertension: Yes - PULMONARY Hx Respiratory Disorders: Yes Hx Pulmonary Embolism: Yes - NEUROLOGICAL Hx Neurological Disorder: No - HEENT Hx HEENT Problems: No - RENAL Hx Chronic Kidney Disease: No - ENDOCRINE/METABOLIC Hx Endocrine Disorders: No - HEMATOLOGICAL/ONCOLOGICAL Other/Comment: BLE DVT on Xarelto - INTEGUMENTARY Hx Dermatological Problems: No - MUSCULOSKELETAL/RHEUMATOLOGICAL Hx Musculoskeletal Disorders: No Hx Falls: No - GASTROINTESTINAL Hx Gastrointestinal Disorders: Yes Hx Colostomy: Yes Other/Comment: GI BLEED - GENITOURINARY/GYNECOLOGICAL Hx Genitourinary Disorders: Yes Other/Comment: bladder fistula urinates through rectum, pt is able to control it , has had fistula and colostomy 2 yrs. Has been planning sx [facility] yr to have fistula corrected and colostomy reversed in the future - PSYCHIATRIC Hx Psychophysiologic Disorder: No Hx Substance Use: No - SURGICAL HISTORY Hx Herniorrhaphy: Yes (L inguinal) Hx Tonsillectomy: Yes Other/Comment: Colostomy 2015 - ANESTHESIA Hx Anesthesia: Yes Meds Allergies/Adverse Reactions: Allergies Allergy/AdvReac Type Severity Reaction Status Date / Time No Known Allergies Allergy Verified 10/15/17 18:16 Physical Exam - Constitutional Appears: Well, Non-toxic, No Acute Distress - Head Exam Head Exam: ATRAUMATIC, NORMAL INSPECTION, NORMOCEPHALIC - Eye Exam Eye Exam: EOMI, Normal appearance, PERRL Pupil Exam: NORMAL ACCOMODATION - ENT Exam ENT Exam: Mucous Membranes Moist, Normal Exam - Neck Exam Neck exam: Positive for: Normal Inspection - Respiratory Exam Respiratory Exam: Clear to Auscultation Bilateral, NORMAL BREATHING PATTERN. absent: Rales, Rhonchi, Wheezes - Cardiovascular Exam Cardiovascular Exam: RRR, +S1, +S2. absent: Gallop, JVD, Rubs, Systolic Murmur - GI/Abdominal Exam GI & Abdominal Exam: Distended, Hypoactive Bowel Sounds. absent: Firm, Guarding , Rigid, Tenderness Additional comments: colostomy bag mid-abdomen - Extremities Exam Extremities exam: Positive for: normal inspection, pedal edema (1+), pedal pulses present. Negative for: tenderness Additional comments: b/l foot mottled skin - Back Exam Back exam: NORMAL INSPECTION - Neurological Exam Neurological exam: Alert, Oriented x3 - Psychiatric Exam Psychiatric exam: Normal Affect, Normal Mood - Skin Skin Exam: Mottled (feet), Normal Color, Warm Results - Vital Signs Recent Vital Signs: Last Vital Signs Temp 98.2 F 10/15/17 20:49 Pulse 96 H 10/15/17 20:49 Resp 18 10/15/17 20:49 BP 151/87 H 10/15/17 20:49 Pulse Ox 100 10/15/17 20:34 - Labs Result Diagrams: 10/15/17 18:46 10/15/17 18:46 Labs: Laboratory Results - last 24 hr 10/15/17 20:54 Urine Color Yellow Urine Appearance Clear Urine pH 6.0 Ur Specific [place] 1.015 Urine Protein Negative Urine Glucose (UA) Negative Urine Ketones Negative Urine Blood Negative Urine Nitrate Negative Urine Bilirubin Negative Urine Urobilinogen 0.2 Ur Leukocyte Esterase Small H Urine RBC 0 - 2 Urine WBC 10 - 15 Urine Bacteria Few Assessment & Plan - Assessment and Plan (Free Text) Assessment: 62yo M PMH of rectovesicular fistula s/p transverse loop colostomy (by Dr. Foster 10/01/15), ventral hernia, HTN, DVT/PE on Xarelto, ETOH abuse and gallstones who presents to the ED for severe abdominal pain likely 2/2 constipation r/o cholecystitis Plan: 1. severe abdominal pain - CT abdomen showed gallstones - abdominal US ordered - lipase is normal so pancreatitis is unlikely - urine cx ordered to r/o UTI - blood cx also sent since pt spiked fever - Tylenol PRN - Tbili elevated, will trend - started on Rocephin and Flagyl - Morphine PRN pain - LR @ 130 - zofran PRN - Miralax for constipation - surgery consulted, recs appreciated - GI consulted, recs appreciated 2. Hx DVT/PE - holding Xarelto (home dose) now per surgery pending US and decision for surgical vs non-surgical intervention - restarted Xarelto 20mg PO daily if non-surgical intervention - continue on SCDs 3. Hx HTN - cont Losartan - monitor VS 4. Hx ETOH abuse - ETOH level 17 on admission - will give MV, thiamine and folic acid - ativan PRN PTX/SCDs NPO Patient was seen, examined and discussed with attending, Dr. Saul Santos PGY1 - Date & Time Date: 10/15/17 Time: 23:30 <Rosaline Seaman N - Last Filed: 10/18/17 00:33> Results - Vital Signs Recent Vital Signs: Last Vital Signs Temp 98.2 F 10/17/17 21:41 Pulse 86 10/17/17 16:00 Resp 20 10/17/17 16:00 BP 109/80 10/17/17 16:00 Pulse Ox 98 10/17/17 16:00 - Labs Result Diagrams: 10/17/17 08:10 10/17/17 08:10 Labs: Laboratory Results - last 24 hr 10/17/17 10/17/17 10/17/17 08:10 08:10 12:40 WBC 7.2 D RBC 3.90 Hgb 13.5 L Hct 39.4 L MCV 101.0 MCH 34.6 MCHC 34.3 RDW 14.1 Plt Count 122 MPV 9.8 Gran % 79.3 H Lymph % (Auto) 13.3 L [place] % (Auto) 6.7 H Eos % (Auto) 0.6 L Baso % (Auto) 0.1 Gran # 5.68 Lymph # 1.0 L [place] # 0.5 Eos # 0.0 Baso # 0.01 PT INR APTT Sodium 137 Potassium 3.5 L Chloride 104 Carbon Dioxide 23 Anion Gap 13 BUN 8 Creatinine 0.8 Est GFR ( Amer) > 60 Est GFR (Non-Af Amer) > 60 Random Glucose 100 Calcium 9.1 Magnesium 1.8 Total Bilirubin 2.6 H AST 25 ALT 34 Alkaline Phosphatase 52 Total Protein 7.3 Albumin 3.7 Globulin 3.6 Albumin/Globulin Ratio 1.0 L 10/17/17 10/17/17 14:00 22:40 WBC RBC Hgb Hct MCV MCH MCHC RDW Plt Count MPV Gran % Lymph % (Auto) [place] % (Auto) Eos % (Auto) Baso % (Auto) Gran # Lymph # [place] # Eos # Baso # PT 14.1 H 13.7 H INR 1.29 H 1.25 H APTT 29.0 47.9 H Sodium Potassium Chloride Carbon Dioxide Anion Gap BUN Creatinine Est GFR ( Amer) Est GFR (Non-Af Amer) Random Glucose Calcium Magnesium Total Bilirubin AST ALT Alkaline Phosphatase Total Protein Albumin Globulin Albumin/Globulin Ratio
[2017-10-16] MEDS: Morphine 5 MG/ML SYRINGE IVP PRN (03:18)
[2017-10-16] MEDS: metroNIDAZOLE IV 500 mg/100 ml 500 MG/100 ML BAG IVPB SCH ×3 (06:04→21:03)
[2017-10-16 06:29] LABS: BASO # 0.01 K/mm3 (0.0-2.0); BASO % 0.1 % (0.0-3.0); GRAN # 7.8 (1.4-6.5); GRAN % 83.8 % (50.0-68.0); HEMATOCRIT 43.2 % (42.0-52.0); LYMPH # 0.7 (1.2-3.4); LYMPH % 7.4 % (22.0-35.0); MEAN CELL VOLUME 101.4 fl (80.0-105.0); MEAN CORPUSCULAR HEMOGLOBIN 34.5 pg (25.0-35.0); MEAN PLATELET VOLUME 10.3 fl (7.0-11.0); MONO # 0.8 (0.1-0.6); MONO % 8.7 % (1.0-6.0); RED CELL DISTRIBUTION WIDTH 14.2 % (11.5-14.5); WHITE BLOOD COUNT 9.3 10^3/ul (4.5-11.0)
[2017-10-16 06:44] LABS: INR 1.39 (0.93-1.08); PARTIAL THROMBOPLASTIN TIME 28.4 Seconds (25.1-36.5)
[2017-10-16 07:07] LABS: ALB/GLOB RATIO 1.1 (1.1-1.8); ALKALINE PHOSPHATASE 60 U/L (38-126); ALT/SGPT 43 U/L (7-56); AST/SGOT 39 U/L (17-59); BILIRUBIN,DIRECT 0.7 mg/dL (0.0-0.4); BILIRUBIN,TOTAL 2.7 mg/dL (0.2-1.3); BLOOD UREA NITROGEN 7 mg/dL (7-21); CALCIUM 8.8 mg/dL (8.4-10.5); CARBON DIOXIDE 24 mmol/L (21-33); CHLORIDE 104 mmol/L (98-107); GFR AFRICAN-AMERICAN > 60; GLUCOSE,RANDOM 102 mg/dL (70-110); MAGNESIUM 1.3 mg/dL (1.7-2.2); PHOSPHOROUS 3.2 mg/dL (2.5-4.5); POTASSIUM 3.7 mmol/L (3.6-5.0); SODIUM 138 mmol/L (132-148); TOTAL PROTEIN 7.5 g/dL (5.8-8.3)
[2017-10-16] MEDS ORDERED: Magnesium Sulfate 2 GM in Sodium Chloride 0.9% 100 ML IVPB ONE (07:58)
[2017-10-16] MEDS: Multivitamin With Minerals Tab PO SCH ×2 (08:47→08:51)
[2017-10-16] MEDS ORDERED: cefTRIAXone 1 gm 1 GM/100 ML BAG IVPB SCH (10:00)
--- NOTE | 2017-10-16 10:02 | US ---
HISTORY: RUQ pain COMPARISON: 10/15/2017 TECHNIQUE: Sonographic evaluation of the abdomen. FINDINGS: LIVER: Measures 18.0 cm. Hepatopedal blood flow. Fatty infiltration manifest ultrasonographically as increased echogenicity of the liver parenchyma. No mass. No intrahepatic bile duct dilatation. GALLBLADDER: Cholelithiasis. Evidence of gallbladder wall thickening, positive sonographic Barajas's sign and pericholecystic fluid consistent with acute cholecystitis. COMMON BILE DUCT: Measures 3.7 mm. No stones. No dilatation. PANCREAS: Unremarkable as visualized. No mass. No ductal dilatation. RIGHT KIDNEY: Measures 5.4 x 11.3cm. Normal echogenicity. No calculus, mass, or hydronephrosis. LEFT KIDNEY: Measures 6.1 x 10.8cm. Normal echogenicity. No calculus, mass, or hydronephrosis. SPLEEN: Normal in size and contour. No mass. AORTA: No aneurysmal dilatation. IVC: Unremarkable. OTHER FINDINGS: None. IMPRESSION: Cholelithiasis, large stone is impacted in the gallbladder neck. Additional findings presumptive evidence for acute cholecystitis.
--- NOTE | 2017-10-16 10:17 | CP.PCM.PN ---
Subjective - Date & Time of Evaluation Date of Evaluation: 10/16/17 Time of Evaluation: 10:12 - Subjective Subjective: Surgery Pt s&e. Pain controlled. Denies N/V/Cp/SOB. Pt had fever of 101.5 overnight. + amb. Objective - Vital Signs/Intake and Output Vital Signs (last 24 hours): Temp Pulse Resp BP Pulse Ox 98.7 F 73 20 118/79 98 10/16/17 07:57 10/16/17 07:57 10/16/17 07:57 10/16/17 07:57 10/16/17 07:57 Intake and Output: 10/16/17 10/16/17 06:59 18:59 Intake Total 60 Output Total 0 Balance 60 - Medications Medications: Current Medications Acetaminophen (Tylenol 325mg Tab) 650 mg PO Q4 PRN PRN Reason: Fever >100.4 F Folic Acid (Folic Acid) 1 mg PO DAILY [facility] Metronidazole (Flagyl) 500 mg in 100 mls @ 100 mls/hr IVPB Q8 TAD PRN Reason: Protocol Last Admin: 10/16/17 06:04 Dose: 100 mls/hr Lactated Ringer's (Lactated Ringer's) 1,000 mls @ 130 mls/hr IV .[id number] [facility] Last Admin: 10/15/17 21:13 Dose: 130 mls/hr Ceftriaxone Sodium (Rocephin 1 Gram Ivpb) 1 gm in 100 mls @ 100 mls/hr IVPB DAILY [facility] PRN Reason: Protocol Lorazepam (Ativan) 1 mg IVP Q4H PRN; Protocol PRN Reason: Symptoms of alcohol withdrawl Losartan Potassium (Cozaar) 50 mg PO DAILY [facility] Morphine Sulfate (Morphine) 4 mg IVP Q4H PRN PRN Reason: Pain, moderate (4-7) Last Admin: 10/16/17 03:18 Dose: 4 mg Multivitamins/Minerals (Therapeutic-M Tab) 1 tab PO 0800 [facility] Last Admin: 10/16/17 08:51 Dose: Not Given Ondansetron HCl (Zofran Inj) 4 mg IVP Q6H PRN PRN Reason: Nausea/Vomiting Pantoprazole Sodium (Protonix Inj) 40 mg IVP DAILY [facility] Polyethylene Glycol (Miralax) 17 gm PO TID [facility] Rivaroxaban (Xarelto) 20 mg PO DAILY [facility] PRN Reason: Protocol Thiamine HCl (Vitamin B1 Tab) 50 mg PO DAILY [facility] - Labs Labs: 10/16/17 05:30 10/16/17 05:30 PT 15.4 SECONDS (9.4-12.5) H 10/16/17 05:30 INR 1.39 (0.93-1.08) H 10/16/17 05:30 APTT 28.4 Seconds (25.1-36.5) 10/16/17 05:30 - Constitutional Appears: No Acute Distress - Head Exam Head Exam: ATRAUMATIC, NORMAL INSPECTION, NORMOCEPHALIC - Eye Exam Eye Exam: EOMI, Normal appearance, PERRL Pupil Exam: NORMAL ACCOMODATION, PERRL - ENT Exam ENT Exam: Mucous Membranes Moist, Normal Exam - Neck Exam Neck Exam: Full ROM, Normal Inspection. absent: Lymphadenopathy - Respiratory Exam Respiratory Exam: Clear to Ausculation Bilateral, NORMAL BREATHING PATTERN - Cardiovascular Exam Cardiovascular Exam: REGULAR RHYTHM, +S1, +S2. absent: Murmur - GI/Abdominal Exam GI & Abdominal Exam: Soft, Tenderness, Hernia, Normal Bowel Sounds. absent: Distended, Firm, Guarding, Rigid, Rebound Additional comments: Stoma in place. Gas and liquid. RUQ TTP. - Extremities Exam Extremities Exam: Full ROM, Normal Capillary Refill. absent: Joint Swelling, Pedal Edema - Back Exam Back Exam: NORMAL INSPECTION - Neurological Exam Neurological Exam: Alert, Awake, CN II-XII Intact, Oriented x3 - Psychiatric Exam Psychiatric exam: Normal Affect, Normal Mood - Skin Skin Exam: Dry, Intact, Normal Color, Warm Assessment and Plan - Assessment and Plan (Free Text) Assessment: 62yo M with hx of rectovesicular fistula s/p transverse loop colostomy and hx of gallstones here for eval of abdominal pain. - CT Abd noted. - Febrile - Tbili trending up 0.9->2.4->2.7 - Abd US : Gallstone pericholecystic fluids. - IV Abx - NPO except meds - IVF - Pain control - Zofran prn, PPI daily - ostomy care - f/u AM labs -F/U GI Further recs as per Dr. Foster
[2017-10-16] MEDS ORDERED: Multivitamin (MVI) 10 ML, Thiamine 100 MG, Folic Acid 1 MG in Sodium Chloride 0.9% 1,00... IV ONE (11:16)
[2017-10-16] MEDS: POLYETHYLENE GLYCOL 3350 17 GM/Dose PACKET PO SCH ×3 (11:21→18:17)
[2017-10-16] MEDS: cefTRIAXone 1 gm 1 GM/100 ML BAG IVPB SCH (11:28)
--- NOTE | 2017-10-16 12:49 | CON ---
DATE: 10/16/2017 HISTORY OF PRESENT ILLNESS: I saw Mr. Green this morning. He is a 62-year-old white male with past medical history of hypertension, DVT, umbilical hernia, rectovesical fistula, transverse laparotomy with colostomy, and alcohol abuse. The patient indicated he was admitted due to complaints of nausea, vomiting, and abdominal pain. Apparently, there are 2 types of pain, which he has on a chronic basis, it stems from his hernia and an ostomy, which produces pain in a paraostomy area, which may extend from the right side to the low back. The patient's abdomen is moderately distended. He also complained about some recent nausea and vomiting as always with liquor intake. The patient has been drinking heavily since his girlfriend recently . The patient denied any hematemesis or rectal bleeding. Apparently, he has been seen at [facility] for possible correction of hernia problem. He also had what appeared to be a colonoscopy performed by the [facility] there as well. At the present time, they are planning a surgical procedure for the hernia and ostomy, but it is questionable at this particular time point. He has been following up there on a periodic basis. PHYSICAL EXAMINATION: VITAL SIGNS: I reviewed this patient's vital signs. Noted that the patient had a temperature of 101 point something this morning as per nursing on the floor. HEENT: Significant dry mouth. LUNGS: Decreased breath sounds, basilar. HEART: Regular rhythm. ABDOMEN: Distended. There is irregular bowel sounds. There is no tenderness in the paraumbilical area on the left side, left upper and left lower quadrant. It is noted that there is an ostomy in the periumbilical area. There is tenderness in the paraumbilical area on the right side, which is [id number]. Palpation of the area of the epigastric and the right subcostal margin indicates severe degree of pain with some guarding. This kind of radiates around to back as well. The patient was unclear whether this was the pain that actually brought him at the emergency room. IMAGING: CT was performed in the emergency room, which revealed no aortic aneurysm. Gallbladder with numerous small stones. Thickened gallbladder and possible pericholecystic fluid noted. CT also indicated a large ventral hernia adjacent to mid-transverse colon ostomy. LABORATORY DATA: I reviewed this patient's laboratory data. The white count was 8.0 with H and H of 14 and 41. Chemistry indicates some indirect bilirubinemia, which is probably significant for Gilbert's syndrome. He has normal transaminases as well as alkaline phosphatase. His LDH is 503. Urine is noncontributory. Alcohol level was 17. ASSESSMENT: On overall assessment, this is a 62-year-old male with a history of rectovesical fistula, transverse loop colostomy, ventral hernia, hypertension, deep venous thrombosis, gallstones, who presents with abdominal pain. The patient has pain in 2 separate areas. He is exhibiting a very significant degree of tenderness in the epigastric area as well as the right upper quadrant. Whether due to an ulcer or severe gastritis or possible biliary colic is unclear. The biliary parameters are within normal limits and he does not have elevated white count, however, he did spike a temp last night. The patient will be followed up by the surgeons later on this morning. I reviewed the notes of attendings as well as Dr. Jackson. Note that at the current time, the patient is on metronidazole as well as ceftriaxone plus proton pump inhibitor. I think these are adequate at the current time. The CT results are above. The patient will be evaluated by an ultrasound some time later this morning. In his particular case, suggest consider HIDA scan as well. Note that the patient is to be followed up at the [facility] for a surgical treatment of the ostomy and hernia issue. As far as whether surgical team here would possibly address the gallbladder issue if it turns out to be cholecystitis is questionable. Not much to offer in this particular case from a GI standpoint. Yuriy Williamson DO, PhD SREE
--- NOTE | 2017-10-16 13:02 | US ---
PROCEDURE: Portal vein duplex ultrasound. CLINICAL HISTORY: Deteriorating liver function. Evaluate for portal vein thrombosis. PHYSICIAN(S): Jeff Matamoros M.D. FINDINGS: The liver parenchyma is heterogeneous. No obvious mass is noted on these limited images. The extrahepatic portal vein is patent with hepatopetal flow. The hepatic artery is patent. Limited images of the central patent veins are patent. The spleen is normal in size. No ascites is appreciated. IMPRESSION: 1. Patent portal vein with hepatopetal flow.
[2017-10-16] MEDS: HYDROmorphone 0.5 mg/0.5 ml ISec IVP PRN (19:42)
[2017-10-17] MEDS: HYDROmorphone 0.5 mg/0.5 ml ISec IVP PRN ×6 (00:27→21:25)
[2017-10-17] MEDS: Lactated Ringer's 1,000 ML IV SCH (04:27)
[2017-10-17] MEDS: metroNIDAZOLE IV 500 mg/100 ml 500 MG/100 ML BAG IVPB SCH ×4 (05:44→21:18)
--- NOTE | 2017-10-17 07:13 | CP.PCM.PN ---
Subjective - Date & Time of Evaluation Date of Evaluation: 10/17/17 Time of Evaluation: 07:08 - Subjective Subjective: Surgery Pt s&e. Reports fever. Denies N/V/CP/SOB. Tolerating CLD. + amb. Objective - Vital Signs/Intake and Output Vital Signs (last 24 hours): Temp Pulse Resp BP Pulse Ox 100.2 F H 110 H 20 131/92 H 94 L 10/17/17 06:08 10/17/17 00:00 10/17/17 00:00 10/17/17 00:00 10/17/17 00:00 Intake and Output: 10/17/17 10/17/17 06:59 18:59 Intake Total 2465 Output Total 500 Balance 1965 - Medications Medications: Current Medications Acetaminophen (Tylenol 325mg Tab) 650 mg PO Q4 PRN PRN Reason: Fever >100.4 F Last Admin: 10/17/17 06:08 Dose: 650 mg Folic Acid (Folic Acid) 1 mg PO DAILY [facility] Last Admin: 10/16/17 11:21 Dose: Not Given Hydromorphone HCl (Dilaudid) 0.5 mg IVP Q4H PRN PRN Reason: Pain, severe (8-10) Last Admin: 10/17/17 04:26 Dose: 0.5 mg Metronidazole (Flagyl) 500 mg in 100 mls @ 100 mls/hr IVPB Q8 TAD PRN Reason: Protocol Last Admin: 10/17/17 05:44 Dose: 100 mls/hr Lactated Ringer's (Lactated Ringer's) 1,000 mls @ 130 mls/hr IV .Q7H42M [facility] Last Admin: 10/17/17 04:27 Dose: 130 mls/hr Ceftriaxone Sodium (Rocephin 1 Gram Ivpb) 1 gm in 100 mls @ 100 mls/hr IVPB DAILY [facility] PRN Reason: Protocol Last Admin: 10/16/17 11:28 Dose: 100 mls/hr Heparin Sodium/Dextrose (Heparin 25,000 Units/250ml In D5w) 25,000 units in 250 mls @ 16.329 mls/hr IV .[id number] PRN; Protocol; 18 UNITS/KG/HR PRN Reason: ADJUST RATE PER PROTOCOL Lorazepam (Ativan) 1 mg IVP Q4H PRN; Protocol PRN Reason: Symptoms of alcohol withdrawl Losartan Potassium (Cozaar) 50 mg PO DAILY [facility] Last Admin: 10/16/17 11:29 Dose: 50 mg Morphine Sulfate (Morphine) 4 mg IVP Q4H PRN PRN Reason: Pain, moderate (4-7) Last Admin: 10/16/17 03:18 Dose: 4 mg Multivitamins/Minerals (Therapeutic-M Tab) 1 tab PO 0800 [facility] Last Admin: 10/16/17 08:51 Dose: Not Given Ondansetron HCl (Zofran Inj) 4 mg IVP Q6H PRN PRN Reason: Nausea/Vomiting Pantoprazole Sodium (Protonix Inj) 40 mg IVP DAILY [facility] Last Admin: 10/16/17 11:28 Dose: 40 mg Polyethylene Glycol (Miralax) 17 gm PO TID [facility] Last Admin: 10/16/17 18:17 Dose: 17 gm Rivaroxaban (Xarelto) 20 mg PO DAILY [facility] PRN Reason: Protocol Thiamine HCl (Vitamin B1 Tab) 50 mg PO DAILY [facility] Last Admin: 10/16/17 11:21 Dose: Not Given - Labs Labs: PT 15.4 SECONDS (9.4-12.5) H 10/16/17 05:30 INR 1.39 (0.93-1.08) H 10/16/17 05:30 APTT 28.4 Seconds (25.1-36.5) 10/16/17 05:30 - Constitutional Appears: No Acute Distress - Head Exam Head Exam: ATRAUMATIC, NORMAL INSPECTION, NORMOCEPHALIC - Eye Exam Eye Exam: EOMI, Normal appearance, PERRL Pupil Exam: NORMAL ACCOMODATION, PERRL - ENT Exam ENT Exam: Mucous Membranes Moist, Normal Exam - Neck Exam Neck Exam: Full ROM, Normal Inspection. absent: Lymphadenopathy - Respiratory Exam Respiratory Exam: Clear to Ausculation Bilateral, NORMAL BREATHING PATTERN - Cardiovascular Exam Cardiovascular Exam: REGULAR RHYTHM, +S1, +S2. absent: Murmur - GI/Abdominal Exam GI & Abdominal Exam: Soft, Tenderness, Normal Bowel Sounds. absent: Distended, Firm, Guarding, Rigid Additional comments: Stoma in place. - Extremities Exam Extremities Exam: Full ROM, Normal Inspection - Back Exam Back Exam: NORMAL INSPECTION - Neurological Exam Neurological Exam: Alert, Awake, CN II-XII Intact, Normal Gait, Oriented x3 - Psychiatric Exam Psychiatric exam: Normal Affect, Normal Mood - Skin Skin Exam: Dry, Intact, Normal Color, Warm Assessment and Plan - Assessment and Plan (Free Text) Assessment: 62yo M with hx of rectovesicular fistula s/p transverse loop colostomy and hx of gallstones here for eval of cholecystitis - CT Abd noted. - Febrile - Tbili trending up 0.9->2.4->2.7 - Abd US : Gallstone pericholecystic fluids. -HIDA: non visualized gallbladder indicating cholecystitis -Possible transfer to [facility] because of mutiple surgical issues ( plastics, urology, colorectal). -If not, possible OR Thursday -Hold Xeralto. - IV Abx - CLD - IVF - Pain control - Zofran prn, PPI daily - ostomy care - f/u AM labs - GI recommends transfer Further recs as per Dr. Foster
[2017-10-17] MEDS: Multivitamin With Minerals Tab PO SCH (08:28)
[2017-10-17 08:37] LABS: BASO # 0.01 K/mm3 (0.0-2.0); BASO % 0.1 % (0.0-3.0); EOS % 0.6 % (1.5-5.0); GRAN # 5.68 (1.4-6.5); GRAN % 79.3 % (50.0-68.0); HEMATOCRIT 39.4 % (42.0-52.0); LYMPH % 13.3 % (22.0-35.0); MEAN CORPUSCULAR HEMOGLOBIN 34.6 pg (25.0-35.0); MEAN CORPUSCULAR HGB CONC 34.3 g/dl (31.0-37.0); MEAN PLATELET VOLUME 9.8 fl (7.0-11.0); MONO # 0.5 (0.1-0.6); MONO % 6.7 % (1.0-6.0); RED CELL DISTRIBUTION WIDTH 14.1 % (11.5-14.5); WHITE BLOOD COUNT 7.2 10^3/ul (4.5-11.0)
[2017-10-17 09:11] LABS: ALKALINE PHOSPHATASE 52 U/L (38-126); ALT/SGPT 34 U/L (7-56); AST/SGOT 25 U/L (17-59); BILIRUBIN,TOTAL 2.6 mg/dL (0.2-1.3); BLOOD UREA NITROGEN 8 mg/dL (7-21); CALCIUM 9.1 mg/dL (8.4-10.5); CARBON DIOXIDE 23 mmol/L (21-33); CHLORIDE 104 mmol/L (98-107); GFR AFRICAN-AMERICAN > 60; GLUCOSE,RANDOM 100 mg/dL (70-110); POTASSIUM 3.5 mmol/L (3.6-5.0); SODIUM 137 mmol/L (132-148); TOTAL PROTEIN 7.3 g/dL (5.8-8.3)
--- NOTE | 2017-10-17 09:11 | PN ---
DATE: 10/17/2017 SUBJECTIVE: I saw Mr. Green this morning. He is a 62-year-old white male with medical history of rectovesical fistula, transverse laparotomy with colostomy, hypertension, DVT, umbilical hernia, admitted for complaints of abdominal pain, which has several etiologies. Since yesterday, the patient indicates the febrile episodes were down relatively since yesterday. He also indicated that the pain is slightly less. There is no nausea, vomiting, or hematemesis. Feels the IV antibiotics are making a difference. The abdomen is still moderately distended. Reviewed the issue of surgical correction of his problems at [facility] with the house staff yesterday. This is also discussed with Dr. Brown as well as Dr. Foster. PHYSICAL EXAMINATION VITAL SIGNS: I reviewed this patient's vital signs. HEENT: Significant dry mouth. LUNGS: Decreased breath sounds, basilar. HEART: Regular rhythm. ABDOMEN: Distended. The patient still has a hernia. Ostomy is intact. There is no tenderness in the left paraumbilical area. There is still a moderate amount of tenderness in the right paraumbilical, which is improved relatively since yesterday. The patient has less discomfort in the epigastric area, but still noted tenderness in the area of the right upper quadrant, subcostal. LABORATORY DATA: Reviewed this patient's laboratory data. Chemistry is still pending for today. The patient's biliary parameters are within normal limits. Direct bilirubin is 0.7 with a total of 2.7; therefore probable Gilbert's syndrome. I tried to view images of the HIDA scan, which is performed yesterday, but the images are not in computer. Just a black screen is noted. The patient had an ultrasound yesterday, which indicated extensive hepatic steatosis with no intrahepatic duct dilatation. Gallbladder wall thickening and positive Barajas sign was noted. He has pericholecystic fluid. There was no dilatation of the common bile duct and pancreas is normal. ASSESSMENT AND PLAN: This is a 62-year-old white male with history of colostomy with umbilical hernia, now presenting with additional problem of biliary colic probably due to cholecystitis. This problem may entail multiple surgical procedures. At present, he has been working with a [facility] surgeons, possibly the issue of gallbladder can be addressed there as well. However, treatment is really up to the surgeons here at [place]. He will be evaluated later on this morning by the surgical staff. The patient seems to be improving on his current medications, which include antibiotics, metronidazole as well as ceftriaxone. If the patient is discharged to follow up at [facility], would suggest maintenance of at least 7-10 days of oral antibiotics to control biliary colic symptoms. Overall, not much I can offer for this particular case. This requires a extensive surgical intervention and revision. The patient asked if possibly he may have advancement in diet given some improvement in his symptoms. He is currently on a liquid diet. The decisions for this will be at the discretion of the surgeons. Yruiy Williamson DO, PhD MTDBrenna
[2017-10-17] MEDS: cefTRIAXone 1 gm 1 GM/100 ML BAG IVPB SCH (09:19)
[2017-10-17] MEDS: POLYETHYLENE GLYCOL 3350 17 GM/Dose PACKET PO SCH ×4 (09:19→17:26)
--- NOTE | 2017-10-17 10:23 | NM ---
PROCEDURE: Nuclear Medicine Hepatobiliary Scan HISTORY: r/o acute juventino COMPARISON: None available. TECHNIQUE: 5.0 mCi of technetium 99m Mebrofenin was administered intravenously. Planar images of the abdomen were obtained at 5 min intervals to 60 mins. Delayed images were also obtained. FINDINGS: LIVER: Timely and homogenous uptake. COMMON BILE DUCT: identified at 5 mins. GALLBLADDER: Not visualized even on 4 hour delay images SMALL BOWEL: Identified at 5 mins. IMPRESSION: Nonvisualization of the gallbladder consistent with acute cholecystitis and cystic duct obstruction
--- NOTE | 2017-10-17 11:57 | CP.PCM.PN ---
<Rodrigo Stauffer - Last Filed: 10/17/17 11:38> Subjective - Date & Time of Evaluation Date of Evaluation: 10/17/17 Time of Evaluation: 09:45 - Subjective Subjective: Subjective: Patient seen and examined at bedside. Resting comfortably in bedside chair. Tolerating diet. No acute overnight events. Patient states abdominal discomfort remains at baseline. Admits to fevers. Denies chills, chest pain, shortness of breath, abdominal pain, nausea, vomiting, diarrhea, constipation, and urinary symptoms. 12-point review of systems negative except as indicated in the HPI Physical Examination: - Constitutional Appears: No Acute Distress - Head Exam Head Exam: ATRAUMATIC, NORMAL INSPECTION, NORMOCEPHALIC - Eye Exam Eye Exam: EOMI, Normal appearance, PERRL Pupil Exam: NORMAL ACCOMODATION, PERRL - ENT Exam ENT Exam: Mucous Membranes Moist, Normal Exam - Neck Exam Neck Exam: Full ROM, Normal Inspection. absent: Lymphadenopathy - Respiratory Exam Respiratory Exam: Clear to Ausculation Bilateral, NORMAL BREATHING PATTERN - Cardiovascular Exam Cardiovascular Exam: REGULAR RHYTHM, +S1, +S2. absent: Murmur - GI/Abdominal Exam GI & Abdominal Exam: Soft, Tenderness, Normal Bowel Sounds. absent: Distended, Firm, Guarding, Rigid Additional comments: Stoma in place. - Extremities Exam Extremities Exam: normal Inspection - Back Exam Back Exam: NORMAL INSPECTION - Neurological Exam Neurological Exam: Patient is awake, alert, responds to verbal stimuli, answers questions appropriately, follows commands, and moves extremities past midline - Psychiatric Exam Psychiatric exam: Normal Affect, Normal Mood - Skin Skin Exam: Dry, Intact, Normal Color, Warm Assessment and Plan: Patient is a 62 year old male with a PMHx of rectovesicular fistula s/p transverse loop colostomy (by Dr. 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 Severe Abdominal Pain - CT abdomen showed gallstones - Abd US : Gallstone pericholecystic fluids. - HIDA: non visualized gallbladder indicating cholecystitis - continue Rocephin and Flagyl - Morphine PRN pain - hold LR @ 130 as patient is tolerating clears - zofran PRN nausea - pain control- morphine and diluadid prn - Miralax for constipation - surgery consulted- appreciate recommendations- potential transfer to [facility] on Thursday - GI consulted- appreciate recommendations- no acute intervention, recommends transfer to [facility] Hx DVT/PE - holding Xarelto (home dose) - continue with heparin drip- will stop if surgical intervention required Hx HTN - cont Losartan - monitor VS Hx ETOH abuse -continue MV, thiamine and folic acid - ativan PRN Prophylaxis - GI- protonix - DVT- on heparin drip Patient seen, case discussed with, and plan approved by attending physician, Dr. Brown. Objective - Vital Signs/Intake and Output Vital Signs (last 24 hours): Temp Pulse Resp BP Pulse Ox 100.1 F H 84 20 124/89 95 10/17/17 07:30 10/17/17 09:20 10/17/17 07:30 10/17/17 09:20 10/17/17 07:30 Intake and Output: 10/17/17 10/17/17 06:59 18:59 Intake Total 2465 Output Total 500 Balance 1965 - Medications Medications: Current Medications Acetaminophen (Tylenol 325mg Tab) 650 mg PO Q4 PRN PRN Reason: Fever >100.4 F Last Admin: 10/17/17 06:08 Dose: 650 mg Folic Acid (Folic Acid) 1 mg PO DAILY [facility] Last Admin: 10/17/17 09:20 Dose: 1 mg Hydromorphone HCl (Dilaudid) 0.5 mg IVP Q4H PRN PRN Reason: Pain, severe (8-10) Last Admin: 10/17/17 08:28 Dose: 0.5 mg Metronidazole (Flagyl) 500 mg in 100 mls @ 100 mls/hr IVPB Q8 [facility]AD PRN Reason: Protocol Last Admin: 10/17/17 05:44 Dose: 100 mls/hr Lactated Ringer's (Lactated Ringer's) 1,000 mls @ 130 mls/hr IV .[id number] [facility] Last Admin: 10/17/17 04:27 Dose: 130 mls/hr Ceftriaxone Sodium (Rocephin 1 Gram Ivpb) 1 gm in 100 mls @ 100 mls/hr IVPB DAILY [facility] PRN Reason: Protocol Last Admin: 10/17/17 09:19 Dose: 100 mls/hr Heparin Sodium/Dextrose (Heparin 25,000 Units/250ml In D5w) 25,000 units in 250 mls @ 16.329 mls/hr IV .[id number] PRN; Protocol; 18 UNITS/KG/HR PRN Reason: ADJUST RATE PER PROTOCOL Lorazepam (Ativan) 1 mg IVP Q4H PRN; Protocol PRN Reason: Symptoms of alcohol withdrawl Losartan Potassium (Cozaar) 50 mg PO DAILY [facility] Last Admin: 10/17/17 09:20 Dose: 50 mg Morphine Sulfate (Morphine) 4 mg IVP Q4H PRN PRN Reason: Pain, moderate (4-7) Last Admin: 10/16/17 03:18 Dose: 4 mg Multivitamins/Minerals (Therapeutic-M Tab) 1 tab PO 0800 [facility] Last Admin: 10/17/17 08:28 Dose: 1 tab Ondansetron HCl (Zofran Inj) 4 mg IVP Q6H PRN PRN Reason: Nausea/Vomiting Pantoprazole Sodium (Protonix Inj) 40 mg IVP DAILY [facility] Last Admin: 10/17/17 09:20 Dose: 40 mg Polyethylene Glycol (Miralax) 17 gm PO TID [facility] Last Admin: 10/17/17 09:19 Dose: 17 gm Rivaroxaban (Xarelto) 20 mg PO DAILY [facility] PRN Reason: Protocol Thiamine HCl (Vitamin B1 Tab) 50 mg PO DAILY [facility] Last Admin: 10/17/17 09:20 Dose: 50 mg - Labs Labs: 10/17/17 08:10 10/17/17 08:10 PT 15.4 SECONDS (9.4-12.5) H 10/16/17 05:30 INR 1.39 (0.93-1.08) H 10/16/17 05:30 APTT 28.4 Seconds (25.1-36.5) 10/16/17 05:30 <Karina Brown - Last Filed: 10/17/17 12:34> Objective - Vital Signs/Intake and Output Vital Signs (last 24 hours): Temp Pulse Resp BP Pulse Ox 100.1 F H 84 20 124/89 95 10/17/17 07:30 10/17/17 09:20 10/17/17 07:30 10/17/17 09:20 10/17/17 07:30 Intake and Output: 10/17/17 10/17/17 06:59 18:59 Intake Total 2465 Output Total 500 Balance 1965 - Medications Medications: Current Medications Acetaminophen (Tylenol 325mg Tab) 650 mg PO Q4 PRN PRN Reason: Fever >100.4 F Last Admin: 10/17/17 06:08 Dose: 650 mg Folic Acid (Folic Acid) 1 mg PO DAILY [facility] Last Admin: 10/17/17 09:20 Dose: 1 mg Hydromorphone HCl (Dilaudid) 0.5 mg IVP Q4H PRN PRN Reason: Pain, severe (8-10) Last Admin: 10/17/17 08:28 Dose: 0.5 mg Metronidazole (Flagyl) 500 mg in 100 mls @ 100 mls/hr IVPB Q8 [facility] PRN Reason: Protocol Last Admin: 10/17/17 05:44 Dose: 100 mls/hr Ceftriaxone Sodium (Rocephin 1 Gram Ivpb) 1 gm in 100 mls @ 100 mls/hr IVPB DAILY [facility] PRN Reason: Protocol Last Admin: 10/17/17 09:19 Dose: 100 mls/hr Heparin Sodium/Dextrose (Heparin 25,000 Units/250ml In D5w) 25,000 units in 250 mls @ 16.329 mls/hr IV .[id number] PRN; Protocol; 18 UNITS/KG/HR PRN Reason: ADJUST RATE PER PROTOCOL Lorazepam (Ativan) 1 mg IVP Q4H PRN; Protocol PRN Reason: Symptoms of alcohol withdrawl Losartan Potassium (Cozaar) 50 mg PO DAILY [facility] Last Admin: 10/17/17 09:20 Dose: 50 mg Morphine Sulfate (Morphine) 4 mg IVP Q4H PRN PRN Reason: Pain, moderate (4-7) Last Admin: 10/16/17 03:18 Dose: 4 mg Multivitamins/Minerals (Therapeutic-M Tab) 1 tab PO 0800 [facility] Last Admin: 10/17/17 08:28 Dose: 1 tab Ondansetron HCl (Zofran Inj) 4 mg IVP Q6H PRN PRN Reason: Nausea/Vomiting Pantoprazole Sodium (Protonix Inj) 40 mg IVP DAILY [facility] Last Admin: 10/17/17 09:20 Dose: 40 mg Polyethylene Glycol (Miralax) 17 gm PO TID [facility] Last Admin: 10/17/17 09:19 Dose: 17 gm Potassium Chloride (Potassium Chloride Oral Soln) 40 meq PO ONCE ONE Stop: 10/17/17 12:30 Rivaroxaban (Xarelto) 20 mg PO DAILY [facility] PRN Reason: Protocol Thiamine HCl (Vitamin B1 Tab) 50 mg PO DAILY [facility] Last Admin: 10/17/17 09:20 Dose: 50 mg - Labs Labs: 10/17/17 08:10 10/17/17 08:10 PT 15.4 SECONDS (9.4-12.5) H 10/16/17 05:30 INR 1.39 (0.93-1.08) H 10/16/17 05:30 APTT 28.4 Seconds (25.1-36.5) 10/16/17 05:30 Attending/Attestation - Attestation I have personally seen and examined this patient.: Yes I have fully participated in the care of the patient.: Yes I have reviewed all pertinent clinical information, including history, physical exam and plan: Yes Notes (Text): 10/17/17 12:30 62 year old male with past medical history of rectovesicular fistula s/p transverse loop colostomy, ventral hernia, hypertension, DVT and alcohol abuse who presented with complaint of abdominal pain found to have acute cholecystitis. GI and surgery evaluation were appreciated. Continue with iv antibiotics and analgesics. Continue with liquid diet as tolerated. Will discuss with surgery regarding surgical recommendations, possible transfer to [facility]. His xarelto is on hold in case of any surgical intervention and he is currently on heparin drip for history of DVT. He was counselled on alcohol abstinence. Will replete and repeat his potassium for hypokalemia. Karina Brown MD Hospitalist.
[2017-10-17] MEDS ORDERED: Potassium Chloride 40 mEq/30 ml LIQ UD PO ONE (12:29)
[2017-10-17 14:56] LABS: INR 1.29 (0.93-1.08)
[2017-10-17] MEDS: Heparin 25,000units in D5W 25,000 UNITS/250 ML BAG IV PRN (16:42)
[2017-10-17 23:01] LABS: INR 1.25 (0.93-1.08); PARTIAL THROMBOPLASTIN TIME 47.9 Seconds (25.1-36.5)
[2017-10-17 23:24] VITALS: BMI 29.5
[2017-10-18] MEDS: HYDROmorphone 0.5 mg/0.5 ml ISec IVP PRN ×4 (01:27→19:11)
[2017-10-18] MEDS: metroNIDAZOLE IV 500 mg/100 ml 500 MG/100 ML BAG IVPB SCH ×3 (05:27→23:28)
[2017-10-18] MEDS: Heparin 25,000units in D5W 25,000 UNITS/250 ML BAG IV PRN ×2 (05:27→17:28)
--- NOTE | 2017-10-18 07:13 | CP.PCM.PN ---
Subjective - Date & Time of Evaluation Date of Evaluation: 10/18/17 Time of Evaluation: 07:10 - Subjective Subjective: General Surgery - Dr. Foster Pt S&E. [place]. PT complains of RUQ abdominal pain which he states is only relieved after Dilaudid but it wears off after 1 hour. He tolerated low fat diet yesterday but states he did feel nauseous at times. He complains of Fevers and SOB intermittently, denies any chest pain or vomiting. Objective - Vital Signs/Intake and Output Vital Signs (last 24 hours): Temp Pulse Resp BP Pulse Ox 99.6 F 82 20 124/89 95 10/18/17 00:00 10/18/17 00:00 10/18/17 00:00 10/18/17 00:00 10/18/17 00:00 Intake and Output: 10/18/17 10/18/17 06:59 18:59 Intake Total 970 Balance 970 - Medications Medications: Current Medications Acetaminophen (Tylenol 325mg Tab) 650 mg PO Q4 PRN PRN Reason: Fever >100.4 F Last Admin: 10/17/17 06:08 Dose: 650 mg Folic Acid (Folic Acid) 1 mg PO DAILY [facility] Last Admin: 10/17/17 09:20 Dose: 1 mg Hydromorphone HCl (Dilaudid) 0.5 mg IVP Q4H PRN PRN Reason: Pain, severe (8-10) Last Admin: 10/18/17 05:29 Dose: 0.5 mg Metronidazole (Flagyl) 500 mg in 100 mls @ 100 mls/hr IVPB Q8 [facility]AD PRN Reason: Protocol Last Admin: 10/18/17 05:27 Dose: 100 mls/hr Ceftriaxone Sodium (Rocephin 1 Gram Ivpb) 1 gm in 100 mls @ 100 mls/hr IVPB DAILY [facility] PRN Reason: Protocol Last Admin: 10/17/17 09:19 Dose: 100 mls/hr Heparin Sodium/Dextrose (Heparin 25,000 Units/250ml In D5w) 25,000 units in 250 mls @ 16.329 mls/hr IV .[id number] PRN; Protocol; 18 UNITS/KG/HR PRN Reason: ADJUST RATE PER PROTOCOL Last Admin: 10/18/17 05:27 Dose: 20.17 units/kg/hr, 18.3 mls/hr Lorazepam (Ativan) 1 mg IVP Q4H PRN; Protocol PRN Reason: Symptoms of alcohol withdrawl Losartan Potassium (Cozaar) 50 mg PO DAILY [facility] Last Admin: 10/17/17 09:20 Dose: 50 mg Morphine Sulfate (Morphine) 4 mg IVP Q4H PRN PRN Reason: Pain, moderate (4-7) Last Admin: 10/16/17 03:18 Dose: 4 mg Multivitamins/Minerals (Therapeutic-M Tab) 1 tab PO 0800 [facility] Last Admin: 10/17/17 08:28 Dose: 1 tab Ondansetron HCl (Zofran Inj) 4 mg IVP Q6H PRN PRN Reason: Nausea/Vomiting Pantoprazole Sodium (Protonix Inj) 40 mg IVP DAILY [facility] Last Admin: 10/17/17 09:20 Dose: 40 mg Polyethylene Glycol (Miralax) 17 gm PO TID [facility] Last Admin: 10/17/17 17:26 Dose: Not Given Rivaroxaban (Xarelto) 20 mg PO DAILY [facility] PRN Reason: Protocol Thiamine HCl (Vitamin B1 Tab) 50 mg PO DAILY [facility] Last Admin: 10/17/17 09:20 Dose: 50 mg - Labs Labs: 10/17/17 08:10 10/17/17 08:10 PT 13.7 SECONDS (9.4-12.5) H 10/17/17 22:40 INR 1.25 (0.93-1.08) H 10/17/17 22:40 APTT 47.9 Seconds (25.1-36.5) H 10/17/17 22:40 - Constitutional Appears: No Acute Distress - Head Exam Head Exam: ATRAUMATIC, NORMAL INSPECTION, NORMOCEPHALIC - Eye Exam Eye Exam: Normal appearance - Respiratory Exam Respiratory Exam: NORMAL BREATHING PATTERN. absent: Respiratory Distress - GI/Abdominal Exam GI & Abdominal Exam: Guarding (voluntary), Soft, Tenderness (RUQ). absent: Firm , Rigid, Rebound - Neurological Exam Neurological Exam: Alert, Oriented x3 - Psychiatric Exam Psychiatric exam: Normal Mood - Skin Skin Exam: Dry, Intact Assessment and Plan - Assessment and Plan (Free Text) Assessment: 62yo M with hx of rectovesicular fistula s/p transverse loop colostomy, now with cholecystitis -Continue IV ABx, Pain control, Anti-emetics PRN -Pt will need Cholecystectomy but should be done at same time as his colostomy reversal if possible -Pt requesting transfer to his surgeon at [facility], multiple attempts have been made to contact his surgeon but unsuccessful as he is likely not in office over the weekend, will attempt to contact again on Thursday. DW Dr Cristian Fitzgerald PGY3
[2017-10-18 07:24] LABS: BASO # 0.01 K/mm3 (0.0-2.0); BASO % 0.2 % (0.0-3.0); EOS # 0.1 (0.0-0.7); EOS % 1.4 % (1.5-5.0); GRAN # 4.74 (1.4-6.5); GRAN % 73.3 % (50.0-68.0); HEMATOCRIT 36.3 % (42.0-52.0); LYMPH # 1.1 (1.2-3.4); LYMPH % 16.6 % (22.0-35.0); MEAN CELL VOLUME 98.9 fl (80.0-105.0); MEAN CORPUSCULAR HEMOGLOBIN 34.3 pg (25.0-35.0); MEAN CORPUSCULAR HGB CONC 34.7 g/dl (31.0-37.0); MEAN PLATELET VOLUME 9.8 fl (7.0-11.0); MONO # 0.6 (0.1-0.6); MONO % 8.5 % (1.0-6.0); RED CELL DISTRIBUTION WIDTH 13.7 % (11.5-14.5); WHITE BLOOD COUNT 6.5 10^3/ul (4.5-11.0)
[2017-10-18] MEDS: Multivitamin With Minerals Tab PO SCH (08:04)
[2017-10-18 08:10] LABS: ALKALINE PHOSPHATASE 48 U/L (38-126); ALT/SGPT 34 U/L (7-56); AST/SGOT 23 U/L (17-59); BILIRUBIN,TOTAL 1.7 mg/dL (0.2-1.3); BLOOD UREA NITROGEN 10 mg/dL (7-21); CALCIUM 8.8 mg/dL (8.4-10.5); CARBON DIOXIDE 25 mmol/L (21-33); CHLORIDE 104 mmol/L (98-107); GFR AFRICAN-AMERICAN > 60; GLUCOSE,RANDOM 99 mg/dL (70-110); POTASSIUM 3.5 mmol/L (3.6-5.0); SODIUM 134 mmol/L (132-148); TOTAL PROTEIN 6.7 g/dL (5.8-8.3)
[2017-10-18] MEDS: POLYETHYLENE GLYCOL 3350 17 GM/Dose PACKET PO SCH ×3 (10:22→17:26)
[2017-10-18] MEDS: cefTRIAXone 1 gm 1 GM/100 ML BAG IVPB SCH (10:23)
--- NOTE | 2017-10-18 10:24 | PN ---
DATE: 10/18/2017 SUBJECTIVE: I saw Mr. Green this morning. He is a 62-year-old male with a significant GI history, admitted with components of severe abdominal pain, nausea, and vomiting. The patient is still indicating substantial degree of abdominal pain around the herniated area, moderate degree of pain epigastric as well as the right upper quadrant. Note that he is still on antibiotics. The ultrasound, which was performed, corroborated the HIDA scan result, which indicated nonvisualization of gallbladder consistent with cystic duct obstruction and acute cholecystitis. Apparently, no contact has been made with his [facility] surgeons regarding his upcoming surgical procedures. PHYSICAL EXAMINATION: VITAL SIGNS: I reviewed this patient's vital signs. HEENT: Significant for dry mouth. LUNGS: Decreased breath sounds, basilar. HEART: Regular rhythm. ABDOMEN: Distended with an ostomy tender especially in the right paraumbilical area. It is also tender in the area of the epigastric as well as right upper quadrant. This is somewhat decreased relative to on the day of admission while on antibiotics. LABORATORY DATA: I reviewed his laboratory data from yesterday. Note that the biliary parameters are still within normal limits because of evidence of Gilbert's syndrome that is elevated indirect bilirubin with a total bilirubin of 2.6 and direct of 0.7. I reviewed the progress notes of Dr. Brown and housestaff from yesterday. ASSESSMENT AND PLAN: This is a 62-year-old white male with a history of rectovesical fistula, transverse laparotomy with colostomy, ankle problem, deep venous thrombosis, and umbilical hernia, admitted for complaint of abdominal pain. The patient has made some improvement on antibiotics with regard to the cholecystitis issue, but pain in paraumbilical area especially on the right side is essentially unchanged. He indicates that when sleeping, the discomfort is [id number], however, with standing activity, the pain increases substantially. He is getting frustrated with lack of contact with the [facility] faculty. Current time point, we suggest to continue him on antibiotics whether IV within the hospital or if the patient happens to be discharged, continuation of regimen at least for 7-10 days. As indicated in my prior notes, I think this issue should be taken up by the [facility] surgeons to address the issue of cholecystitis with cholecystectomy and correction of his ostomy and umbilical hernia during the same procedure. It is a complicated clinical scenario and is best taken care of in any university facility. The clinical disposition of the patient will be up to Dr. Brown and his staff plus the surgical staff. The diet advance will be dictated by both the house staff as well as Dr. Brown and Dr. Foster. I will sign off the case at current time point, this is really not much me to offer in this case. Yuriy Williamson DO, PhD SREE
[2017-10-18] MEDS ORDERED: Potassium Chloride 40 mEq/30 ml LIQ UD PO ONE (11:11)
--- NOTE | 2017-10-18 11:15 | CP.PCM.PN ---
<Rodrigo Stauffer - Last Filed: 10/18/17 11:12> Subjective - Date & Time of Evaluation Date of Evaluation: 10/18/17 Time of Evaluation: 09:45 - Subjective Subjective: Subjective: Patient seen and examined at bedside. Resting comfortably in bedside chair. Tolerating advanced diet. No acute overnight events. Patient states abdominal discomfort is mildly improved. Denies chills, chest pain, shortness of breath, abdominal pain, nausea, vomiting, diarrhea, constipation, and urinary symptoms. 12-point review of systems negative except as indicated in the HPI Physical Examination: - Constitutional Appears: No Acute Distress - Head Exam Head Exam: ATRAUMATIC, NORMAL INSPECTION, NORMOCEPHALIC - Eye Exam Eye Exam: EOMI, Normal appearance, PERRL Pupil Exam: NORMAL ACCOMODATION, PERRL - ENT Exam ENT Exam: Mucous Membranes Moist, Normal Exam - Neck Exam Neck Exam: Full ROM, Normal Inspection. absent: Lymphadenopathy - Respiratory Exam Respiratory Exam: Clear to Ausculation Bilateral, NORMAL BREATHING PATTERN - Cardiovascular Exam Cardiovascular Exam: REGULAR RHYTHM, +S1, +S2. absent: Murmur - GI/Abdominal Exam GI & Abdominal Exam: Soft, Tenderness, Normal Bowel Sounds. absent: Distended, Firm, Guarding, Rigid Additional comments: Stoma in place. - Extremities Exam Extremities Exam: normal Inspection - Back Exam Back Exam: NORMAL INSPECTION - Neurological Exam Neurological Exam: Patient is awake, alert, responds to verbal stimuli, answers questions appropriately, follows commands, and moves extremities past midline - Psychiatric Exam Psychiatric exam: Normal Affect, Normal Mood - Skin Skin Exam: Dry, Intact, Normal Color, Warm Assessment and Plan: Patient is a 62 year old male with a PMHx of rectovesicular fistula s/p transverse loop colostomy (by Dr. 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 Severe Abdominal Pain - CT abdomen showed gallstones - Abd US : Gallstone pericholecystic fluids. - HIDA: non visualized gallbladder indicating cholecystitis - continue Rocephin and Flagyl - Morphine PRN pain - zofran PRN nausea - pain control- morphine and diluadid prn - Miralax for constipation - surgery consulted- appreciate recommendations- potential transfer to [facility] on Thursday pending conversation with [facility] surgeons - GI consulted- appreciate recommendations- no acute intervention, recommends transfer Hx DVT/PE - holding Xarelto (home dose) - continue with heparin drip- will stop if surgical intervention required Hx HTN - cont Losartan - monitor VS Hx ETOH abuse - continue MV, thiamine and folic acid - ativan PRN Prophylaxis - GI- protonix - DVT- on heparin drip Patient seen, case discussed with, and plan approved by attending physician, Dr. Brown. Objective - Vital Signs/Intake and Output Vital Signs (last 24 hours): Temp Pulse Resp BP Pulse Ox 98.3 F 80 20 145/95 H 97 10/18/17 07:30 10/18/17 09:48 10/18/17 07:30 10/18/17 09:48 10/18/17 07:30 Intake and Output: 10/18/17 10/18/17 06:59 18:59 Intake Total 970 Balance 970 - Medications Medications: Current Medications Acetaminophen (Tylenol 325mg Tab) 650 mg PO Q4 PRN PRN Reason: Fever >100.4 F Last Admin: 10/17/17 06:08 Dose: 650 mg Folic Acid (Folic Acid) 1 mg PO DAILY [facility]AD Last Admin: 10/18/17 09:49 Dose: 1 mg Hydromorphone HCl (Dilaudid) 0.5 mg IVP Q4H PRN PRN Reason: Pain, severe (8-10) Last Admin: 10/18/17 09:48 Dose: 0.5 mg Metronidazole (Flagyl) 500 mg in 100 mls @ 100 mls/hr IVPB Q8 [facility]AD PRN Reason: Protocol Last Admin: 10/18/17 05:27 Dose: 100 mls/hr Ceftriaxone Sodium (Rocephin 1 Gram Ivpb) 1 gm in 100 mls @ 100 mls/hr IVPB DAILY [facility]AD PRN Reason: Protocol Last Admin: 10/18/17 10:23 Dose: 100 mls/hr Heparin Sodium/Dextrose (Heparin 25,000 Units/250ml In D5w) 25,000 units in 250 mls @ 16.329 mls/hr IV .[id number] PRN; Protocol; 18 UNITS/KG/HR PRN Reason: ADJUST RATE PER PROTOCOL Last Admin: 10/18/17 05:27 Dose: 20.17 units/kg/hr, 18.3 mls/hr Lorazepam (Ativan) 1 mg IVP Q4H PRN; Protocol PRN Reason: Symptoms of alcohol withdrawl Losartan Potassium (Cozaar) 50 mg PO DAILY [facility] Last Admin: 10/18/17 09:48 Dose: 50 mg Morphine Sulfate (Morphine) 4 mg IVP Q4H PRN PRN Reason: Pain, moderate (4-7) Last Admin: 10/16/17 03:18 Dose: 4 mg Multivitamins/Minerals (Therapeutic-M Tab) 1 tab PO 0800 [facility] Last Admin: 10/18/17 08:04 Dose: 1 tab Ondansetron HCl (Zofran Inj) 4 mg IVP Q6H PRN PRN Reason: Nausea/Vomiting Pantoprazole Sodium (Protonix Inj) 40 mg IVP DAILY [facility] Last Admin: 10/18/17 09:48 Dose: 40 mg Polyethylene Glycol (Miralax) 17 gm PO TID [facility] Last Admin: 10/18/17 10:22 Dose: Not Given Potassium Chloride (Potassium Chloride Oral Soln) 40 meq PO ONCE ONE Stop: 10/18/17 11:12 Rivaroxaban (Xarelto) 20 mg PO DAILY [facility] PRN Reason: Protocol Thiamine HCl (Vitamin B1 Tab) 50 mg PO DAILY [facility] Last Admin: 10/18/17 09:49 Dose: 50 mg - Labs Labs: 10/18/17 06:45 10/18/17 06:45 PT 13.7 SECONDS (9.4-12.5) H 10/17/17 22:40 INR 1.25 (0.93-1.08) H 10/17/17 22:40 APTT 57.6 Seconds (25.1-36.5) H 10/18/17 06:45 <Karina Brown - Last Filed: 10/18/17 11:25> Objective - Vital Signs/Intake and Output Vital Signs (last 24 hours): Temp Pulse Resp BP Pulse Ox 98.3 F 80 20 145/95 H 97 10/18/17 07:30 10/18/17 09:48 10/18/17 07:30 10/18/17 09:48 10/18/17 07:30 Intake and Output: 10/18/17 10/18/17 06:59 18:59 Intake Total 970 Balance 970 - Medications Medications: Current Medications Acetaminophen (Tylenol 325mg Tab) 650 mg PO Q4 PRN PRN Reason: Fever >100.4 F Last Admin: 10/17/17 06:08 Dose: 650 mg Folic Acid (Folic Acid) 1 mg PO DAILY [facility] Last Admin: 10/18/17 09:49 Dose: 1 mg Hydromorphone HCl (Dilaudid) 0.5 mg IVP Q4H PRN PRN Reason: Pain, severe (8-10) Last Admin: 10/18/17 09:48 Dose: 0.5 mg Metronidazole (Flagyl) 500 mg in 100 mls @ 100 mls/hr IVPB Q8 [facility] PRN Reason: Protocol Last Admin: 10/18/17 05:27 Dose: 100 mls/hr Ceftriaxone Sodium (Rocephin 1 Gram Ivpb) 1 gm in 100 mls @ 100 mls/hr IVPB DAILY [facility] PRN Reason: Protocol Last Admin: 10/18/17 10:23 Dose: 100 mls/hr Heparin Sodium/Dextrose (Heparin 25,000 Units/250ml In D5w) 25,000 units in 250 mls @ 16.329 mls/hr IV .[id number] PRN; Protocol; 18 UNITS/KG/HR PRN Reason: ADJUST RATE PER PROTOCOL Last Admin: 10/18/17 05:27 Dose: 20.17 units/kg/hr, 18.3 mls/hr Lorazepam (Ativan) 1 mg IVP Q4H PRN; Protocol PRN Reason: Symptoms of alcohol withdrawl Losartan Potassium (Cozaar) 50 mg PO DAILY [facility] Last Admin: 10/18/17 09:48 Dose: 50 mg Morphine Sulfate (Morphine) 4 mg IVP Q4H PRN PRN Reason: Pain, moderate (4-7) Last Admin: 10/16/17 03:18 Dose: 4 mg Multivitamins/Minerals (Therapeutic-M Tab) 1 tab PO 0800 [facility] Last Admin: 10/18/17 08:04 Dose: 1 tab Ondansetron HCl (Zofran Inj) 4 mg IVP Q6H PRN PRN Reason: Nausea/Vomiting Pantoprazole Sodium (Protonix Inj) 40 mg IVP DAILY [facility] Last Admin: 10/18/17 09:48 Dose: 40 mg Polyethylene Glycol (Miralax) 17 gm PO TID [facility] Last Admin: 10/18/17 10:22 Dose: Not Given Rivaroxaban (Xarelto) 20 mg PO DAILY [facility] PRN Reason: Protocol Thiamine HCl (Vitamin B1 Tab) 50 mg PO DAILY [facility] Last Admin: 10/18/17 09:49 Dose: 50 mg - Labs Labs: 10/18/17 06:45 10/18/17 06:45 PT 13.7 SECONDS (9.4-12.5) H 10/17/17 22:40 INR 1.25 (0.93-1.08) H 10/17/17 22:40 APTT 57.6 Seconds (25.1-36.5) H 10/18/17 06:45 Attending/Attestation - Attestation I have personally seen and examined this patient.: Yes I have fully participated in the care of the patient.: Yes I have reviewed all pertinent clinical information, including history, physical exam and plan: Yes Notes (Text): 10/18/17 11:21 62 year old male with past medical history of rectovesicular fistula s/p transverse loop colostomy, ventral hernia, hypertension, DVT and alcohol abuse who presented with complaint of abdominal pain found to have acute cholecystitis. He is being followed by GI and surgery. Patient is requesting for possible transfer to [facility]. Will discuss with surgery. For now continue with iv antibiotics and analgesics. Continue with diet as tolerated. His xarelto is on hold in case of any surgical intervention and he is currently on heparin drip for history of DVT. He was counselled on alcohol abstinence. Will replete and repeat his potassium for hypokalemia. He is on ceftriaxone for E coli UTI. Karina Brown MD Hospitalist.
[2017-10-19] MEDS: HYDROmorphone 0.5 mg/0.5 ml ISec IVP PRN ×5 (00:47→23:26)
[2017-10-19] MEDS: metroNIDAZOLE IV 500 mg/100 ml 500 MG/100 ML BAG IVPB SCH ×3 (06:17→21:47)
[2017-10-19 07:09] LABS: BASO # 0.01 K/mm3 (0.0-2.0); BASO % 0.2 % (0.0-3.0); EOS # 0.2 (0.0-0.7); EOS % 2.4 % (1.5-5.0); GRAN # 4.07 (1.4-6.5); GRAN % 66.4 % (50.0-68.0); HEMATOCRIT 38.8 % (42.0-52.0); LYMPH # 1.3 (1.2-3.4); LYMPH % 21.2 % (22.0-35.0); MEAN CELL VOLUME 98.2 fl (80.0-105.0); MEAN CORPUSCULAR HEMOGLOBIN 34.7 pg (25.0-35.0); MEAN CORPUSCULAR HGB CONC 35.3 g/dl (31.0-37.0); MEAN PLATELET VOLUME 9.7 fl (7.0-11.0); MONO # 0.6 (0.1-0.6); MONO % 9.8 % (1.0-6.0); RED CELL DISTRIBUTION WIDTH 13.7 % (11.5-14.5); WHITE BLOOD COUNT 6.1 10^3/ul (4.5-11.0)
[2017-10-19 07:45] LABS: ALB/GLOB RATIO 1.1 (1.1-1.8); ALKALINE PHOSPHATASE 56 U/L (38-126); ALT/SGPT 34 U/L (7-56); AST/SGOT 36 U/L (17-59); BILIRUBIN,TOTAL 1.3 mg/dL (0.2-1.3); BLOOD UREA NITROGEN 11 mg/dL (7-21); CALCIUM 9.3 mg/dL (8.4-10.5); CARBON DIOXIDE 21 mmol/L (21-33); CHLORIDE 105 mmol/L (98-107); GFR AFRICAN-AMERICAN > 60; GLUCOSE,RANDOM 92 mg/dL (70-110); POTASSIUM 3.9 mmol/L (3.6-5.0); SODIUM 135 mmol/L (132-148); TOTAL PROTEIN 7.3 g/dL (5.8-8.3)
[2017-10-19] MEDS: Multivitamin With Minerals Tab PO SCH (08:19)
[2017-10-19] MEDS: Heparin 25,000units in D5W 25,000 UNITS/250 ML BAG IV PRN ×2 (08:19→23:25)
--- NOTE | 2017-10-19 08:40 | CP.PCM.PN ---
Subjective - Date & Time of Evaluation Date of Evaluation: 10/19/17 Time of Evaluation: 08:37 - Subjective Subjective: General Surgery Progress Note for Dr. Foster: Pt seen and examine at bedside. Pt denied any acute overnight events. Pt states abdominal pain is controlled with medications. Pt tolerated diet. Pt denied CP, SOB, nausea, vomiting, diarrhea, chills, fever. Objective - Vital Signs/Intake and Output Vital Signs (last 24 hours): Temp Pulse Resp BP Pulse Ox 98.2 F 69 18 120/80 95 10/19/17 07:30 10/19/17 07:30 10/19/17 07:30 10/19/17 07:30 10/19/17 07:30 Intake and Output: 10/19/17 10/19/17 06:59 18:59 Intake Total 240 250 Balance 240 250 - Medications Medications: Current Medications Acetaminophen (Tylenol 325mg Tab) 650 mg PO Q4 PRN PRN Reason: Fever >100.4 F Last Admin: 10/17/17 06:08 Dose: 650 mg Folic Acid (Folic Acid) 1 mg PO DAILY [facility] Last Admin: 10/18/17 09:49 Dose: 1 mg Hydromorphone HCl (Dilaudid) 0.5 mg IVP Q4H PRN PRN Reason: Pain, severe (8-10) Last Admin: 10/19/17 04:40 Dose: 0.5 mg Metronidazole (Flagyl) 500 mg in 100 mls @ 100 mls/hr IVPB Q8 [facility] PRN Reason: Protocol Last Admin: 10/19/17 06:17 Dose: 100 mls/hr Ceftriaxone Sodium (Rocephin 1 Gram Ivpb) 1 gm in 100 mls @ 100 mls/hr IVPB DAILY [facility] PRN Reason: Protocol Last Admin: 10/18/17 10:23 Dose: 100 mls/hr Heparin Sodium/Dextrose (Heparin 25,000 Units/250ml In D5w) 25,000 units in 250 mls @ 16.329 mls/hr IV .[id number] PRN; Protocol; 18 UNITS/KG/HR PRN Reason: ADJUST RATE PER PROTOCOL Last Admin: 10/19/17 08:19 Dose: 20.17 units/kg/hr, 18.3 mls/hr Lorazepam (Ativan) 1 mg IVP Q4H PRN; Protocol PRN Reason: Symptoms of alcohol withdrawl Losartan Potassium (Cozaar) 50 mg PO DAILY [facility] Last Admin: 10/18/17 09:48 Dose: 50 mg Morphine Sulfate (Morphine) 4 mg IVP Q4H PRN PRN Reason: Pain, moderate (4-7) Last Admin: 10/16/17 03:18 Dose: 4 mg Multivitamins/Minerals (Therapeutic-M Tab) 1 tab PO 0800 [facility] Last Admin: 10/19/17 08:19 Dose: 1 tab Ondansetron HCl (Zofran Inj) 4 mg IVP Q6H PRN PRN Reason: Nausea/Vomiting Pantoprazole Sodium (Protonix Inj) 40 mg IVP DAILY [facility] Last Admin: 10/18/17 09:48 Dose: 40 mg Polyethylene Glycol (Miralax) 17 gm PO TID [facility] Last Admin: 10/18/17 17:26 Dose: Not Given Rivaroxaban (Xarelto) 20 mg PO DAILY [facility] PRN Reason: Protocol Thiamine HCl (Vitamin B1 Tab) 50 mg PO DAILY [facility] Last Admin: 10/18/17 09:49 Dose: 50 mg - Labs Labs: 10/19/17 05:00 10/19/17 06:30 PT 13.7 SECONDS (9.4-12.5) H 10/17/17 22:40 INR 1.25 (0.93-1.08) H 10/17/17 22:40 APTT 72.1 Seconds (25.1-36.5) H 10/19/17 06:30 - Constitutional Appears: No Acute Distress - Head Exam Head Exam: ATRAUMATIC, NORMOCEPHALIC - Eye Exam Eye Exam: EOMI, Normal appearance - ENT Exam ENT Exam: Mucous Membranes Moist - Neck Exam Neck Exam: Full ROM. absent: Lymphadenopathy, Tenderness, Thyromegaly - Respiratory Exam Respiratory Exam: NORMAL BREATHING PATTERN. absent: Respiratory Distress - Cardiovascular Exam Cardiovascular Exam: RRR. absent: Diastolic murmur, Gallop, Rubs, Murmur - GI/Abdominal Exam GI & Abdominal Exam: Guarding, Soft, Tenderness (RUQ). absent: Distended, Rebound Additional comments: Cholestomy site non-erythematous, not TTP, no drainage - Extremities Exam Extremities Exam: Normal Inspection - Back Exam Back Exam: NORMAL INSPECTION - Neurological Exam Neurological Exam: Alert, Awake, Oriented x3 Assessment and Plan - Assessment and Plan (Free Text) Assessment: 62 yo M with hx of rectovesicular fistula s/p transverse loop colostomy, now with cholecystitis Plan: -Continue IV ABx, Pain control, Anti-emetics PRN -Pt will need Cholecystectomy but should be done at same time as his colostomy reversal if possible -Pt requesting transfer to his surgeon at [facility], Dr. Breann Stauffer Contacted today and left message, will f/u with response DW Dr Cristian Rai, PGY1
[2017-10-19] MEDS: POLYETHYLENE GLYCOL 3350 17 GM/Dose PACKET PO SCH ×2 (09:59→15:05)
[2017-10-19] MEDS: cefTRIAXone 1 gm 1 GM/100 ML BAG IVPB SCH (10:00)
--- NOTE | 2017-10-19 10:35 | CP.PCM.PN ---
<Rodrigo Stauffer - Last Filed: 10/19/17 12:07> Subjective - Date & Time of Evaluation Date of Evaluation: 10/19/17 Time of Evaluation: 09:45 - Subjective Subjective: Subjective: Patient seen and examined at bedside. Resting comfortably in bedside chair. Patient states appetite has improved relative to baseline. Tolerating advanced diet. No acute overnight events. Denies chills, chest pain, shortness of breath , abdominal pain, nausea, vomiting, diarrhea, constipation, and urinary symptoms. 12-point review of systems negative except as indicated in the HPI Physical Examination: - Constitutional Appears: No Acute Distress - Head Exam Head Exam: ATRAUMATIC, NORMAL INSPECTION, NORMOCEPHALIC - Eye Exam Eye Exam: EOMI, Normal appearance, PERRL Pupil Exam: NORMAL ACCOMODATION, PERRL - ENT Exam ENT Exam: Mucous Membranes Moist, Normal Exam - Neck Exam Neck Exam: Full ROM, Normal Inspection. absent: Lymphadenopathy - Respiratory Exam Respiratory Exam: Clear to Ausculation Bilateral, NORMAL BREATHING PATTERN - Cardiovascular Exam Cardiovascular Exam: REGULAR RHYTHM, +S1, +S2. absent: Murmur - GI/Abdominal Exam GI & Abdominal Exam: Soft, Normal Bowel Sounds. absent: Distended, Firm, Guarding, Rigid Additional comments: Stoma in place. - Extremities Exam Extremities Exam: normal Inspection - Back Exam Back Exam: NORMAL INSPECTION - Neurological Exam Neurological Exam: Patient is awake, alert, responds to verbal stimuli, answers questions appropriately, follows commands, and moves extremities past midline - Psychiatric Exam Psychiatric exam: Normal Affect, Normal Mood - Skin Skin Exam: Dry, Normal Color, Warm Assessment and Plan: Patient is a 62 year old male with a PMHx of rectovesicular fistula s/p transverse loop colostomy (by Dr. 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 Severe Abdominal Pain - CT abdomen showed gallstones - Abd US : Gallstone pericholecystic fluids. - HIDA: non visualized gallbladder indicating cholecystitis - continue Rocephin and Flagyl - Morphine PRN pain - zofran PRN nausea - pain control- morphine and diluadid prn - Miralax for constipation - surgery consulted- appreciate recommendations- potential transfer to [facility] pending conversation with [facility] surgeons - GI consulted- appreciate recommendations- no acute intervention, recommends transfer Hx DVT/PE - holding Xarelto (home dose) - continue with heparin drip- will stop if surgical intervention required Hx HTN - cont Losartan - monitor VS Hx ETOH abuse - continue MV, thiamine and folic acid - ativan PRN Prophylaxis - GI- protonix - DVT- on heparin drip Patient seen, case discussed with, and plan approved by attending physician, Dr. Cosby. Objective - Vital Signs/Intake and Output Vital Signs (last 24 hours): Temp Pulse Resp BP Pulse Ox 98.2 F 69 18 124/82 95 10/19/17 07:30 10/19/17 09:59 10/19/17 07:30 10/19/17 09:59 10/19/17 07:30 Intake and Output: 10/19/17 10/19/17 06:59 18:59 Intake Total 240 250 Balance 240 250 - Medications Medications: Current Medications Acetaminophen (Tylenol 325mg Tab) 650 mg PO Q4 PRN PRN Reason: Fever >100.4 F Last Admin: 10/17/17 06:08 Dose: 650 mg Folic Acid (Folic Acid) 1 mg PO DAILY [facility] Last Admin: 10/19/17 09:59 Dose: 1 mg Hydromorphone HCl (Dilaudid) 0.5 mg IVP Q4H PRN PRN Reason: Pain, severe (8-10) Last Admin: 10/19/17 04:40 Dose: 0.5 mg Metronidazole (Flagyl) 500 mg in 100 mls @ 100 mls/hr IVPB Q8 [facility] PRN Reason: Protocol Last Admin: 10/19/17 06:17 Dose: 100 mls/hr Ceftriaxone Sodium (Rocephin 1 Gram Ivpb) 1 gm in 100 mls @ 100 mls/hr IVPB DAILY [facility] PRN Reason: Protocol Last Admin: 10/19/17 10:00 Dose: 100 mls/hr Heparin Sodium/Dextrose (Heparin 25,000 Units/250ml In D5w) 25,000 units in 250 mls @ 16.329 mls/hr IV .[id number] PRN; Protocol; 18 UNITS/KG/HR PRN Reason: ADJUST RATE PER PROTOCOL Last Admin: 10/19/17 08:19 Dose: 20.17 units/kg/hr, 18.3 mls/hr Lorazepam (Ativan) 1 mg IVP Q4H PRN; Protocol PRN Reason: Symptoms of alcohol withdrawl Losartan Potassium (Cozaar) 50 mg PO DAILY [facility] Last Admin: 10/19/17 09:59 Dose: 50 mg Morphine Sulfate (Morphine) 4 mg IVP Q4H PRN PRN Reason: Pain, moderate (4-7) Last Admin: 10/16/17 03:18 Dose: 4 mg Multivitamins/Minerals (Therapeutic-M Tab) 1 tab PO 0800 [facility] Last Admin: 10/19/17 08:19 Dose: 1 tab Ondansetron HCl (Zofran Inj) 4 mg IVP Q6H PRN PRN Reason: Nausea/Vomiting Pantoprazole Sodium (Protonix Inj) 40 mg IVP DAILY [facility] Last Admin: 10/19/17 09:59 Dose: 40 mg Polyethylene Glycol (Miralax) 17 gm PO TID [facility] Last Admin: 10/19/17 09:59 Dose: 17 gm Rivaroxaban (Xarelto) 20 mg PO DAILY [facility] PRN Reason: Protocol Thiamine HCl (Vitamin B1 Tab) 50 mg PO DAILY [facility] Last Admin: 10/19/17 09:59 Dose: 50 mg - Labs Labs: 10/19/17 05:00 10/19/17 06:30 PT 13.7 SECONDS (9.4-12.5) H 10/17/17 22:40 INR 1.25 (0.93-1.08) H 10/17/17 22:40 APTT 72.1 Seconds (25.1-36.5) H 10/19/17 06:30 <Panfilo Palomares - Last Filed: 10/20/17 12:28> Objective - Vital Signs/Intake and Output Vital Signs (last 24 hours): Temp Pulse Resp BP Pulse Ox 97.6 F 70 20 109/80 97 10/20/17 07:30 10/20/17 10:13 10/20/17 07:30 10/20/17 10:13 10/20/17 07:30 Intake and Output: 10/20/17 10/20/17 06:59 18:59 Intake Total 1630 Output Total 7 Balance 1623 - Medications Medications: Current Medications Acetaminophen (Tylenol 325mg Tab) 650 mg PO Q4 PRN PRN Reason: Fever >100.4 F Last Admin: 10/17/17 06:08 Dose: 650 mg Folic Acid (Folic Acid) 1 mg PO DAILY [facility] Last Admin: 10/20/17 10:14 Dose: 1 mg Hydromorphone HCl (Dilaudid) 0.5 mg IVP Q4H PRN PRN Reason: Pain, severe (8-10) Last Admin: 10/20/17 10:22 Dose: 0.5 mg Metronidazole (Flagyl) 500 mg in 100 mls @ 100 mls/hr IVPB Q8 [facility] PRN Reason: Protocol Last Admin: 10/20/17 06:26 Dose: 100 mls/hr Heparin Sodium/Dextrose (Heparin 25,000 Units/250ml In D5w) 25,000 units in 250 mls @ 16.329 mls/hr IV .[id number] PRN; Protocol; 18 UNITS/KG/HR PRN Reason: ADJUST RATE PER PROTOCOL Last Admin: 10/19/17 23:25 Dose: 20.17 units/kg/hr, 18.3 mls/hr Ceftriaxone Sodium (Rocephin 1 Gram Ivpb (D5w)) 1 gm in 100 mls @ 100 mls/hr IVPB DAILY [facility] PRN Reason: Protocol Last Admin: 10/20/17 10:17 Dose: 100 mls/hr Lorazepam (Ativan) 1 mg IVP Q4H PRN; Protocol PRN Reason: Symptoms of alcohol withdrawl Losartan Potassium (Cozaar) 50 mg PO DAILY [facility] Last Admin: 10/20/17 10:13 Dose: 50 mg Multivitamins/Minerals (Therapeutic-M Tab) 1 tab PO 0800 [facility] Last Admin: 10/20/17 10:21 Dose: 1 tab Ondansetron HCl (Zofran Inj) 4 mg IVP Q6H PRN PRN Reason: Nausea/Vomiting Pantoprazole Sodium (Protonix Inj) 40 mg IVP DAILY [facility] Last Admin: 10/20/17 10:17 Dose: 40 mg Polyethylene Glycol (Miralax) 17 gm PO TID [facility] Last Admin: 10/20/17 10:14 Dose: Not Given Rivaroxaban (Xarelto) 20 mg PO DAILY [facility] PRN Reason: Protocol Thiamine HCl (Vitamin B1 Tab) 50 mg PO DAILY [facility] Last Admin: 10/20/17 10:13 Dose: 50 mg - Labs Labs: 10/20/17 06:30 10/20/17 06:30 PT 13.7 SECONDS (9.4-12.5) H 10/17/17 22:40 INR 1.25 (0.93-1.08) H 10/17/17 22:40 APTT 58.6 Seconds (25.1-36.5) H 10/20/17 07:30 Attending/Attestation - Attestation I have personally seen and examined this patient.: Yes I have fully participated in the care of the patient.: Yes I have reviewed all pertinent clinical information, including history, physical exam and plan: Yes Notes (Text): 10/20/17 12:24 attending note; Patient seen and examined with resident. Patient is a 62-year-old male with past medical history of rectovesicular fistula s/p transverse loop colostomy, ventral hernia, hypertension, DVT and alcohol abuse who presented with complaint of abdominal pain found to have acute cholecystitis. patient was seen and evaluated by surgery Dr. Foster. Currently on IV Rocephin and Flagyl. Abdominal pain is resolving. Patient is afebrile and nontoxic. No leukocytosis. Tolerating diet well. Patient is requesting for possible transfer to [facility]. Surgery team is trying to get in touch with patient's primary surgeon at [facility]. Possible transfer versus discharge and follow-up as outpatient. His xarelto is on hold in case of any surgical intervention and he is currently on heparin drip for history of DVT. He was counselled on alcohol abstinence. The diagnosis and treatment plan discussed with patient in detail. Upon discharge the patient will follow-up with PMD Dr. Engel. 10/20/17 12:27
[2017-10-19] MEDS ORDERED: cefTRIAXone 1 gm 1 GM/100 ML BAG IVPB SCH (16:41)
[2017-10-20] MEDS: HYDROmorphone 0.5 mg/0.5 ml ISec IVP PRN ×2 (03:44→10:22)
[2017-10-20] MEDS: metroNIDAZOLE IV 500 mg/100 ml 500 MG/100 ML BAG IVPB SCH (06:26)
[2017-10-20 07:19] LABS: BASO # 0.01 K/mm3 (0.0-2.0); BASO % 0.2 % (0.0-3.0); EOS # 0.1 (0.0-0.7); EOS % 2.2 % (1.5-5.0); GRAN # 3.72 (1.4-6.5); GRAN % 67.2 % (50.0-68.0); HEMATOCRIT 37.2 % (42.0-52.0); LYMPH # 1.2 (1.2-3.4); LYMPH % 21.5 % (22.0-35.0); MEAN CELL VOLUME 97.4 fl (80.0-105.0); MEAN CORPUSCULAR HGB CONC 34.9 g/dl (31.0-37.0); MEAN PLATELET VOLUME 9.6 fl (7.0-11.0); MONO # 0.5 (0.1-0.6); MONO % 8.9 % (1.0-6.0); RED CELL DISTRIBUTION WIDTH 13.7 % (11.5-14.5); WHITE BLOOD COUNT 5.5 10^3/ul (4.5-11.0)
[2017-10-20 08:01] LABS: ALKALINE PHOSPHATASE 53 U/L (38-126); ALT/SGPT 41 U/L (7-56); AST/SGOT 63 U/L (17-59); BILIRUBIN,TOTAL 0.9 mg/dL (0.2-1.3); BLOOD UREA NITROGEN 12 mg/dL (7-21); CALCIUM 9.2 mg/dL (8.4-10.5); CARBON DIOXIDE 20 mmol/L (21-33); CHLORIDE 104 mmol/L (98-107); GFR AFRICAN-AMERICAN > 60; GLUCOSE,RANDOM 94 mg/dL (70-110); POTASSIUM 3.7 mmol/L (3.6-5.0); SODIUM 134 mmol/L (132-148); TOTAL PROTEIN 6.9 g/dL (5.8-8.3)
[2017-10-20 08:09] VITALS: BP 109/80; PULSE 70; RESP 20; TEMP 97.6; O2SAT 97
--- NOTE | 2017-10-20 09:06 | CP.PCM.PN ---
Subjective - Date & Time of Evaluation Date of Evaluation: 10/20/17 Time of Evaluation: 09:03 - Subjective Subjective: Surgery Progress Note for Dr. Foster: Pt seen and examined at bedside. Pt denied acute overnight events. Pain currently controlled. Pt denied CP, SOB, n/v/d, fever, chills, or SILVERIO. Objective - Vital Signs/Intake and Output Vital Signs (last 24 hours): Temp Pulse Resp BP Pulse Ox 97.6 F 70 20 109/80 97 10/20/17 07:30 10/20/17 07:30 10/20/17 07:30 10/20/17 07:30 10/20/17 07:30 Intake and Output: 10/20/17 10/20/17 06:59 18:59 Intake Total 1630 Output Total 7 Balance 1623 - Medications Medications: Current Medications Acetaminophen (Tylenol 325mg Tab) 650 mg PO Q4 PRN PRN Reason: Fever >100.4 F Last Admin: 10/17/17 06:08 Dose: 650 mg Folic Acid (Folic Acid) 1 mg PO DAILY [facility] Last Admin: 10/19/17 09:59 Dose: 1 mg Hydromorphone HCl (Dilaudid) 0.5 mg IVP Q4H PRN PRN Reason: Pain, severe (8-10) Last Admin: 10/20/17 03:44 Dose: 0.5 mg Metronidazole (Flagyl) 500 mg in 100 mls @ 100 mls/hr IVPB Q8 TAD PRN Reason: Protocol Last Admin: 10/20/17 06:26 Dose: 100 mls/hr Heparin Sodium/Dextrose (Heparin 25,000 Units/250ml In D5w) 25,000 units in 250 mls @ 16.329 mls/hr IV .[id number] PRN; Protocol; 18 UNITS/KG/HR PRN Reason: ADJUST RATE PER PROTOCOL Last Admin: 10/19/17 23:25 Dose: 20.17 units/kg/hr, 18.3 mls/hr Ceftriaxone Sodium (Rocephin 1 Gram Ivpb (D5w)) 1 gm in 100 mls @ 100 mls/hr IVPB DAILY TAD PRN Reason: Protocol Lorazepam (Ativan) 1 mg IVP Q4H PRN; Protocol PRN Reason: Symptoms of alcohol withdrawl Losartan Potassium (Cozaar) 50 mg PO DAILY [facility] Last Admin: 10/19/17 09:59 Dose: 50 mg Multivitamins/Minerals (Therapeutic-M Tab) 1 tab PO 0800 [facility] Last Admin: 10/19/17 08:19 Dose: 1 tab Ondansetron HCl (Zofran Inj) 4 mg IVP Q6H PRN PRN Reason: Nausea/Vomiting Pantoprazole Sodium (Protonix Inj) 40 mg IVP DAILY [facility] Last Admin: 10/19/17 09:59 Dose: 40 mg Polyethylene Glycol (Miralax) 17 gm PO TID [facility] Last Admin: 10/19/17 15:05 Dose: Not Given Rivaroxaban (Xarelto) 20 mg PO DAILY [facility] PRN Reason: Protocol Thiamine HCl (Vitamin B1 Tab) 50 mg PO DAILY [facility] Last Admin: 10/19/17 09:59 Dose: 50 mg - Labs Labs: 10/20/17 06:30 10/20/17 06:30 PT 13.7 SECONDS (9.4-12.5) H 10/17/17 22:40 INR 1.25 (0.93-1.08) H 10/17/17 22:40 APTT 58.6 Seconds (25.1-36.5) H 10/20/17 07:30 - Constitutional Appears: No Acute Distress - Head Exam Head Exam: ATRAUMATIC, NORMOCEPHALIC - Eye Exam Eye Exam: Normal appearance - ENT Exam ENT Exam: Normal Exam - Neck Exam Neck Exam: Normal Inspection - Respiratory Exam Respiratory Exam: Clear to Ausculation Bilateral, NORMAL BREATHING PATTERN - Cardiovascular Exam Cardiovascular Exam: RRR, +S1, +S2. absent: Gallop, Rubs, Murmur - GI/Abdominal Exam GI & Abdominal Exam: Soft, Tenderness (RUQ). absent: Distended, Guarding, Rebound - Neurological Exam Neurological Exam: Alert, Awake, Oriented x3 Assessment and Plan - Assessment and Plan (Free Text) Assessment: 62 yo M with hx of rectovesicular fistula s/p transverse loop colostomy, now with cholecystitis Plan: -Pt will need Cholecystectomy but should be done at same time as his colostomy reversal if possible -Pt's surgeon, Dr. Patterson from [facility] will accept patient under her service as outpatient OK to DC with PO abx F/u with Dr. Patterson within 2-[address] Cristian Rai, PGY1
[2017-10-20] MEDS: POLYETHYLENE GLYCOL 3350 17 GM/Dose PACKET PO SCH (10:14)
[2017-10-20] MEDS: Multivitamin With Minerals Tab PO SCH (10:21)
--- NOTE | 2017-10-20 10:31 | CP.PCM.DIS ---
<Rodrigo Stauffer - Last Filed: 10/20/17 10:26> Provider - Provider Date of Admission: 10/16/17 08:06 Attending physician: Panfilo Palomares MD Time Spent in preparation of Discharge (in minutes): 45 Diagnosis - Discharge Diagnosis (1) Cholecystitis Status: Acute Priority: Medium (2) Abdominal pain Status: Acute Priority: Medium Hospital Course - Lab Results Lab Results: Most Recent Lab Values WBC 5.5 10^3/ul (4.5-11.0) 10/20/17 06:30 RBC 3.82 10^6/uL (3.5-6.1) 10/20/17 06:30 Hgb 13.0 g/dL (14.0-18.0) L 10/20/17 06:30 Hct 37.2 % (42.0-52.0) L 10/20/17 06:30 MCV 97.4 fl (80.0-105.0) 10/20/17 06:30 MCH 34.0 pg (25.0-35.0) 10/20/17 06:30 MCHC 34.9 g/dl (31.0-37.0) 10/20/17 06:30 RDW 13.7 % (11.5-14.5) 10/20/17 06:30 Plt Count 151 10^3/uL (120.0-450.0) 10/20/17 06:30 MPV 9.6 fl (7.0-11.0) 10/20/17 06:30 Gran % 67.2 % (50.0-68.0) 10/20/17 06:30 Lymph % (Auto) 21.5 % (22.0-35.0) L 10/20/17 06:30 [place] % (Auto) 8.9 % (1.0-6.0) H 10/20/17 06:30 Eos % (Auto) 2.2 % (1.5-5.0) 10/20/17 06:30 Baso % (Auto) 0.2 % (0.0-3.0) 10/20/17 06:30 Gran # 3.72 (1.4-6.5) 10/20/17 06:30 Lymph # 1.2 (1.2-3.4) 10/20/17 06:30 Baker # 0.5 (0.1-0.6) 10/20/17 06:30 Eos # 0.1 (0.0-0.7) 10/20/17 06:30 Baso # 0.01 K/mm3 (0.0-2.0) 10/20/17 06:30 PT 13.7 SECONDS (9.4-12.5) H 10/17/17 22:40 INR 1.25 (0.93-1.08) H 10/17/17 22:40 APTT 58.6 Seconds (25.1-36.5) H 10/20/17 07:30 Sodium 134 mmol/L (132-148) 10/20/17 06:30 Potassium 3.7 mmol/L (3.6-5.0) 10/20/17 06:30 Chloride 104 mmol/L (98-107) 10/20/17 06:30 Carbon Dioxide 20 mmol/L (21-33) L 10/20/17 06:30 Anion Gap 14 (10-20) 10/20/17 06:30 BUN 12 mg/dL (7-21) 10/20/17 06:30 Creatinine 0.8 mg/dl (0.8-1.5) 10/20/17 06:30 Est GFR ( Amer) > 60 10/20/17 06:30 Est GFR (Non-Af Amer) > 60 10/20/17 06:30 Random Glucose 94 mg/dL (70-110) 10/20/17 06:30 Calcium 9.2 mg/dL (8.4-10.5) 10/20/17 06:30 Phosphorus 3.2 mg/dL (2.5-4.5) 10/16/17 05:30 Magnesium 1.8 mg/dL (1.7-2.2) 10/17/17 12:40 Total Bilirubin 0.9 mg/dL (0.2-1.3) 10/20/17 06:30 Direct Bilirubin 0.7 mg/dL (0.0-0.4) H 10/16/17 05:30 AST 63 U/L (17-59) H D 10/20/17 06:30 ALT 41 U/L (7-56) 10/20/17 06:30 Alkaline Phosphatase 53 U/L (38-126) 10/20/17 06:30 Lactate Dehydrogenase 503 U/L (333-699) 10/15/17 18:46 Total Creatine Kinase 109 U/L (35-230) 10/15/17 18:46 Troponin I < 0.01 ng/mL 10/15/17 18:46 Total Protein 6.9 g/dL (5.8-8.3) 10/20/17 06:30 Albumin 3.5 g/dL (3.0-4.8) 10/20/17 06:30 Globulin 3.4 gm/dL 10/20/17 06:30 Albumin/Globulin Ratio 1.0 (1.1-1.8) L 10/20/17 06:30 Amylase 51 U/L (35-125) 10/15/17 18:46 Lipase 34 U/L (23-300) 10/15/17 18:46 Procalcitonin 0.20 NG/ML (0.19-0.49) 10/15/17 18:48 Urine Color Yellow (YELLOW) 10/15/17 20:54 Urine Appearance Clear (CLEAR) 10/15/17 20:54 Urine pH 6.0 (4.7-8.0) 10/15/17 20:54 Ur Specific [place] 1.015 (1.005-1.035) 10/15/17 20:54 Urine Protein Negative mg/dL (<30 mg/dL) 10/15/17 20:54 Urine Glucose (UA) Negative mg/dL (NEGATIVE) 10/15/17 20:54 Urine Ketones Negative mg/dL (NEGATIVE) 10/15/17 20:54 Urine Blood Negative (NEGATIVE) 10/15/17 20:54 Urine Nitrate Negative (NEGATIVE) 10/15/17 20:54 Urine Bilirubin Negative (NEGATIVE) 10/15/17 20:54 Urine Urobilinogen 0.2 E.U./dL (<1 E.U./dL) 10/15/17 20:54 Ur Leukocyte Esterase [place]/uL (NEGATIVE) H 10/15/17 20:54 Urine RBC 0 - 2 /hpf (0-2) 10/15/17 20:54 Urine WBC 10 - 15 /hpf (0-6) 10/15/17 20:54 Urine Bacteria Few (NEG) 10/15/17 20:54 Alcohol, Quantitative 17 mg/dL (0-10) H 10/15/17 18:46 - Hospital Course Hospital Course: Patient is a 62 year old male with a PMHx of rectovesicular fistula s/p transverse loop colostomy (by Dr. 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 With the use of physical examinations, lab work, and imaging the patient was diagnosed with and treated for acute cholecystitis along with the patients chronic medical conditions. During their hospital stay the patient was seen by gastroenterology and general surgery whose recommendations were both appreciated and utilized in the care for this patient. During their hospital stay the patient underwent an abdominal ultrasound and nuclear medicine hepatobiliary scan which were reviewed, appreciated, and utilized in the management of the patients clinical course. Patient was treated with antihypertensive medications, anticoagulants, antibiotics amongst other empiric/ therapeutic medications. At this time the patient is medically stable for discharge. Patient understands and appreciates discharge plan. Patient instructed to follow up with primary care physicians and Dr. Patterson from [facility] after the discharge. Furthermore, the patient is instructed to take medications as prescribed and to return to emergency room for evaluation of intractable headache, fever, chills, dizziness, chest pain, shortness of breath , abdominal pain, nausea, vomiting, diarrhea, constipation, and urinary symptoms. This is a brief summary of the patients hospital course. Please see patient chart for full details. Discharge Exam - Head Exam Head Exam: ATRAUMATIC, NORMOCEPHALIC - Additional Findings Additional findings: - Constitutional Appears: No Acute Distress - Head Exam Head Exam: ATRAUMATIC, NORMAL INSPECTION, NORMOCEPHALIC - Eye Exam Eye Exam: EOMI, Normal appearance, PERRL Pupil Exam: NORMAL ACCOMODATION, PERRL - ENT Exam ENT Exam: Mucous Membranes Moist, Normal Exam - Neck Exam Neck Exam: Full ROM, Normal Inspection. absent: Lymphadenopathy - Respiratory Exam Respiratory Exam: Clear to Ausculation Bilateral, NORMAL BREATHING PATTERN - Cardiovascular Exam Cardiovascular Exam: REGULAR RHYTHM, +S1, +S2. absent: Murmur - GI/Abdominal Exam GI & Abdominal Exam: Soft, Normal Bowel Sounds. absent: Distended, Firm, Guarding, Rigid Additional comments: Stoma in place. - Extremities Exam Extremities Exam: normal Inspection - Back Exam Back Exam: NORMAL INSPECTION - Neurological Exam Neurological Exam: Patient is awake, alert, responds to verbal stimuli, answers questions appropriately, follows commands, and moves extremities past midline - Psychiatric Exam Psychiatric exam: Normal Affect, Normal Mood - Skin Skin Exam: Dry, Normal Color, Warm Discharge Plan - Discharge Medications Prescriptions: Levofloxacin [Levaquin] 500 mg PO DAILY #7 tablet - Follow Up Plan Condition: FAIR Disposition: HOME/ ROUTINE Patient education suggested?: Yes Instructions: Gastrointestinal Bleeding (DC), Cholecystitis (DC), Alcohol Withdrawal (DC), Abdominal Pain (ED) Additional Instructions: Patient Instructions: Take medications as prescribed. New medications: Levofloxacin 500mg 1 tablet by mouth once a day for 7 days. Avoid fatty foods. Follow up with your primary care physician and Dr. Breann Stauffer from [facility] after discharge. Appointment is set for October 26 at 12:45pm. Return to the emergency room for evaluation of intractable headache, fever, chills, dizziness, chest pain, shortness of breath, abdominal pain, nausea, vomiting, diarrhea, constipation, and urinary symptoms. <Panfilo Palomares - Last Filed: 10/20/17 15:59> Provider - Provider Date of Admission: 10/16/17 08:06 Attending physician: Panfilo Palomares MD Hospital Course - Lab Results Lab Results: Most Recent Lab Values WBC 5.5 10^3/ul (4.5-11.0) 10/20/17 06:30 RBC 3.82 10^6/uL (3.5-6.1) 10/20/17 06:30 Hgb 13.0 g/dL (14.0-18.0) L 10/20/17 06:30 Hct 37.2 % (42.0-52.0) L 10/20/17 06:30 MCV 97.4 fl (80.0-105.0) 10/20/17 06:30 MCH 34.0 pg (25.0-35.0) 10/20/17 06:30 MCHC 34.9 g/dl (31.0-37.0) 10/20/17 06:30 RDW 13.7 % (11.5-14.5) 10/20/17 06:30 Plt Count 151 10^3/uL (120.0-450.0) 10/20/17 06:30 MPV 9.6 fl (7.0-11.0) 10/20/17 06:30 Gran % 67.2 % (50.0-68.0) 10/20/17 06:30 Lymph % (Auto) 21.5 % (22.0-35.0) L 10/20/17 06:30 Baker % (Auto) 8.9 % (1.0-6.0) H 10/20/17 06:30 Eos % (Auto) 2.2 % (1.5-5.0) 10/20/17 06:30 Baso % (Auto) 0.2 % (0.0-3.0) 10/20/17 06:30 Gran # 3.72 (1.4-6.5) 10/20/17 06:30 Lymph # 1.2 (1.2-3.4) 10/20/17 06:30 Baker # 0.5 (0.1-0.6) 10/20/17 06:30 Eos # 0.1 (0.0-0.7) 10/20/17 06:30 Baso # 0.01 K/mm3 (0.0-2.0) 10/20/17 06:30 PT 13.7 SECONDS (9.4-12.5) H 10/17/17 22:40 INR 1.25 (0.93-1.08) H 10/17/17 22:40 APTT 58.6 Seconds (25.1-36.5) H 10/20/17 07:30 Sodium 134 mmol/L (132-148) 10/20/17 06:30 Potassium 3.7 mmol/L (3.6-5.0) 10/20/17 06:30 Chloride 104 mmol/L (98-107) 10/20/17 06:30 Carbon Dioxide 20 mmol/L (21-33) L 10/20/17 06:30 Anion Gap 14 (10-20) 10/20/17 06:30 BUN 12 mg/dL (7-21) 10/20/17 06:30 Creatinine 0.8 mg/dl (0.8-1.5) 10/20/17 06:30 Est GFR ( Amer) > 60 10/20/17 06:30 Est GFR (Non-Af Amer) > 60 10/20/17 06:30 Random Glucose 94 mg/dL (70-110) 10/20/17 06:30 Calcium 9.2 mg/dL (8.4-10.5) 10/20/17 06:30 Phosphorus 3.2 mg/dL (2.5-4.5) 10/16/17 05:30 Magnesium 1.8 mg/dL (1.7-2.2) 10/17/17 12:40 Total Bilirubin 0.9 mg/dL (0.2-1.3) 10/20/17 06:30 Direct Bilirubin 0.7 mg/dL (0.0-0.4) H 10/16/17 05:30 AST 63 U/L (17-59) H D 10/20/17 06:30 ALT 41 U/L (7-56) 10/20/17 06:30 Alkaline Phosphatase 53 U/L (38-126) 10/20/17 06:30 Lactate Dehydrogenase 503 U/L (333-699) 10/15/17 18:46 Total Creatine Kinase 109 U/L (35-230) 10/15/17 18:46 Troponin I < 0.01 ng/mL 10/15/17 18:46 Total Protein 6.9 g/dL (5.8-8.3) 10/20/17 06:30 Albumin 3.5 g/dL (3.0-4.8) 10/20/17 06:30 Globulin 3.4 gm/dL 10/20/17 06:30 Albumin/Globulin Ratio 1.0 (1.1-1.8) L 10/20/17 06:30 Amylase 51 U/L (35-125) 10/15/17 18:46 Lipase 34 U/L (23-300) 10/15/17 18:46 Procalcitonin 0.20 NG/ML (0.19-0.49) 10/15/17 18:48 Urine Color Yellow (YELLOW) 10/15/17 20:54 Urine Appearance Clear (CLEAR) 10/15/17 20:54 Urine pH 6.0 (4.7-8.0) 10/15/17 20:54 Ur Specific [place] 1.015 (1.005-1.035) 10/15/17 20:54 Urine Protein Negative mg/dL (<30 mg/dL) 10/15/17 20:54 Urine Glucose (UA) Negative mg/dL (NEGATIVE) 10/15/17 20:54 Urine Ketones Negative mg/dL (NEGATIVE) 10/15/17 20:54 Urine Blood Negative (NEGATIVE) 10/15/17 20:54 Urine Nitrate Negative (NEGATIVE) 10/15/17 20:54 Urine Bilirubin Negative (NEGATIVE) 10/15/17 20:54 Urine Urobilinogen 0.2 E.U./dL (<1 E.U./dL) 10/15/17 20:54 Ur Leukocyte Esterase [place]/uL (NEGATIVE) H 10/15/17 20:54 Urine RBC 0 - 2 /hpf (0-2) 10/15/17 20:54 Urine WBC 10 - 15 /hpf (0-6) 10/15/17 20:54 Urine Bacteria Few (NEG) 10/15/17 20:54 Alcohol, Quantitative 17 mg/dL (0-10) H 10/15/17 18:46 Attending/Attestation - Attestation I have personally seen and examined this patient.: Yes I have fully participated in the care of the patient.: Yes I have reviewed all pertinent clinical information, including history, physical exam and plan: Yes Notes (Text): Attending note; Patient seen and examined with resident. Patient is a 62-year-old male with past medical history of rectovesicular fistula s/p transverse loop colostomy, ventral hernia, hypertension, DVT and alcohol abuse who presented with complaint of abdominal pain found to have acute cholecystitis. patient was seen and evaluated by surgery Dr. Foster. treated with IV Rocephin and Flagyl. Abdominal pain resolved. Patient is afebrile and nontoxic. No leukocytosis. Tolerating diet well. Surgery team discussed with Dr. Stauffer at [facility]. Patient will be discharged home today. Patient will follow-up with Dr. mirian FARIAP for cholecystectomy and colostomy reversal. Advised not to take xarelto if surgery is planned within next 3 days. continue po Levaquin at home. The diagnosis and treatment plan discussed with patient in detail. Upon discharge the patient will follow-up with PMD Dr. Engel. case discussed with PMD in detail. Diagnosis; Cholecystitis Status post transverse loop colostomy Ventral hernia History of DVT
--- NOTE | 2017-10-20 12:49 | PN ---
DATE: 10/20/2017 SUBJECTIVE: I discussed with doctor at [facility] about transfer. She has happily agreed to the transfer. Right now, the patient is improved markedly. The pain is better. PHYSICAL EXAMINATION: VITAL SIGNS: She is afebrile. LABORATORY DATA: White count is normal. Liver functions are normal except for an AST of 63, bilirubin is down to 1. IMPRESSION: Acute cholecystitis that is resolved. PLAN: To do one definitive operation, planning at [facility]. If the patient is improved, we will discharge the patient and make arrangements for definitive care at [facility]. Chris Foster MD
[2017-10-21] MEDS ORDERED: Pantoprazole 40 mg EC Tab PO SCH (10:00)
== END 2017-10-20 15:30 | disposition home or self-care (01) | DRG 207 ==
LOC: ED 18:04 → ERH 20:05 → 5RNO 21:36 → OBSVTOIN 10-16 08:06
PROVIDERS: ADMIT Internal Medicine; ATTEND Internal Medicine
DX: K81.0 Acute cholecystitis (principal); E87.6 Hypokalemia; N39.0 Urinary tract infection, site not specified; B96.20 Unspecified Escherichia coli [E. coli] as the cause of diseases classified elsewhere; I71.2 Thoracic aortic aneurysm, without rupture; F10.10 Alcohol abuse, uncomplicated; I10 Essential (primary) hypertension; K43.9 Ventral hernia without obstruction or gangrene; K59.00 Constipation, unspecified; Y90.0 Blood alcohol level of less than 20 mg/100 ml; Z93.3 Colostomy status; Z86.711 Personal history of pulmonary embolism; Z79.01 Long term (current) use of anticoagulants; Z91.19 Patient's noncompliance with other medical treatment and regimen; Z86.718 Personal history of other venous thrombosis and embolism; Z87.448 Personal history of other diseases of urinary system

== ENCOUNTER 2017-11-22 06:16 | Emergency (ER) | payer OTHER ==
[2017-11-22 06:27] VITALS: BMI 30.1
[2017-11-22] MEDS ORDERED: Sodium Chloride 0.9% 1,000 ML IV STA (07:42)
--- NOTE | 2017-11-22 07:42 | ED PDOC ---
Arrival/HPI - General Historian: Patient - History of Present Illness Symptom Onset: Sudden Symptom Course: Unchanged Activities at Onset: Rest Context: Home - General Chief Complaint: Alcohol Ingestion Time Seen by Provider: 11/22/17 07:37 - History of Present Illness Narrative History of Present Illness (Text): 11/22/17 07:42 A 62 year old male, whose past medical history includes alcohol abuse, hypertension, umbilical hernia and rectovesicula fistula s/p transverse laparotomy with colostomy, presents to the emergency department for alcohol intoxication. Patient admits to drinking alcohol. Denies any drug use. Denies any other complaints at this time. (Henrique Cook) Past Medical History - Provider Review Nursing Documentation Reviewed: Yes - Infectious Disease Hx of Infectious Diseases: None - Tetanus Immunization Tetanus Immunization: Unknown - Cardiac Hx Cardiac Disorders: Yes (dvt ble) Hx Hypertension: Yes - Pulmonary Hx Respiratory Disorders: No - Neurological Hx Neurological Disorder: No - HEENT Hx HEENT Disorder: No - Renal Hx Renal Disorder: No - Endocrine/Metabolic Hx Endocrine Disorders: No - Hematological/Oncological Other/Comment: BLE DVT on Xarelto - Integumentary Hx Dermatological Disorder: No - Musculoskeletal/Rheumatological Hx Musculoskeletal Disorders: No Hx Falls: No - Gastrointestinal Hx Gastrointestinal Disorders: Yes Hx Colostomy: Yes Other/Comment: GI BLEED - Genitourinary/Gynecological Hx Genitourinary Disorders: Yes Other/Comment: bladder fistula urinates through rectum, pt is able to control it , has had fistula and colostomy 2 yrs. Has been planning sx at [facility] x 1 yr to have fistula corrected and colostomy reversed in the future - Psychiatric Hx Psychophysiologic Disorder: No Hx Substance Use: No - Surgical History Hx Tonsillectomy: Yes Other/Comment: Colostomy 2015 - Anesthesia Hx Anesthesia: Yes - Suicidal Assessment Feels Threatened In Home Enviroment: No Family/Social History - Physician Review Nursing Documentation Reviewed: Yes Family/Social History: Other (nc) Smoking Status: Never Smoked Hx Alcohol Use: Yes (daily last 7/10 days alton wine spritzers) Hx Substance Use: No Hx Substance Use Treatment: No Allergies/Home Meds Allergies/Adverse Reactions: Allergies No Known Allergies Allergy (Verified 11/22/17 06:27) Home Medications: Home Meds Medication Instructions Recorded Confirmed Pantoprazole [Protonix EC Tab] 40 mg PO DAILY 10/15/17 11/22/17 Review of Systems - Physician Review All systems were reviewed & negative as marked: Yes - Review of Systems Constitutional: absent: Fevers Respiratory: absent: SOB Physical Exam Vital Signs Reviewed: Yes Appearance: Positive for: Comfortable Pain Distress: None Mental Status: Positive for: other (intoxicated) - Systems Exam Head: Present: Atraumatic, Normocephalic Pupils: Present: PERRL Extroacular Muscles: Present: EOMI Conjunctiva: Present: Normal Mouth: Present: Moist Mucous Membranes Neck: Present: Normal Range of Motion Respiratory/Chest: Present: Clear to Auscultation, Good Air Exchange. No: Respiratory Distress, Accessory Muscle Use Cardiovascular: Present: Regular Rate and Rhythm, Normal S1, S2. No: Murmurs Abdomen: Present: Normal Bowel Sounds, Other (colostomy bag- lower abdomen). No : Tenderness, Distention, Peritoneal Signs Back: Present: Normal Inspection Upper Extremity: Present: Normal Inspection. No: Cyanosis, Edema Lower Extremity: Present: Normal Inspection. No: Edema Neurological: Present: GCS=15, CN II-XII Intact, Speech Normal Skin: Present: Warm, Dry, Normal Color. No: Rashes Psychiatric: Present: Intoxicated Vital Signs Temp Pulse Resp BP Pulse Ox 11/22/17 10:00 72 18 148/79 98 11/22/17 08:17 98 F 72 18 132/74 99 11/22/17 06:17 97.9 F 83 16 125/89 97 Medical Decision Making ED Course and Treatment: 11/22/17 09:40 pt now is a&ox3 and clinically sober. he adamantly denies any abdominal pain and refuses CT scan at this time. (Henrique Cook) - Lab Interpretations Microbiology Results: Microbiology Results 11/22/17 11:50 Urine,Clean Catch Urine Culture - Preliminary Gram Negative Bryan Lab Results: 11/22/17 09:00 11/22/17 09:00 Lab Results 11/22/17 11:40: Urine Color Yellow, Urine Appearance Sl cloudy, Urine pH 6.5, Ur Specific [place] 1.015, Urine Protein Negative, Urine Glucose (UA) Negative, Urine Ketones Negative, Urine Blood Small H, Urine Nitrate Negative, Urine Bilirubin Negative, Urine Urobilinogen 0.2, Ur Leukocyte Esterase Large H, Urine RBC 5 - 10, Urine WBC Tntc, Ur Epithelial Cells 6 - 8, Urine Bacteria Many 11/22/17 09:00: Sodium 150 H, Chloride 110 H, Potassium 4.4, Carbon Dioxide 23, Anion Gap 21 H, BUN 7, Creatinine 0.9, Est GFR ( Amer) > 60, Est GFR (Non -Af Amer) > 60, Random Glucose 107, Calcium 9.0, Total Bilirubin 0.9, AST 42, ALT 39, Alkaline Phosphatase 83, Total Protein 7.9, Albumin 4.2, Globulin 3.7, Albumin/Globulin Ratio 1.1, Lipase 72 11/22/17 09:00: pO2 46, VBG pH 7.27 L, VBG pCO2 56.0, VBG HCO3 25.7, VBG Total CO2 27.4, VBG O2 Sat (Calc) 78.5 H, VBG Base Excess -2.1 L, VBG Potassium 4.7, Sodium 145.0, Chloride 111.0 H, Glucose 113 H, Lactate 2.3 H, FiO2 21.0, Venous Blood Potassium 4.7 11/22/17 09:00: WBC 4.7, RBC 4.80, Hgb 16.6 D, Hct 46.7, MCV 97.3, MCH 34.6, MCHC 35.5, RDW 14.7 H, Plt Count 160, MPV 10.1, Gran % 48.1 L, Lymph % (Auto) 43.6 H, [place] % (Auto) 6.4 H, Eos % (Auto) 1.5, Baso % (Auto) 0.4, Gran # 2.25, Lymph # 2.0, [place] # 0.3, Eos # 0.1, Baso # 0.02 - Medication Orders Current Medication Orders: Discontinued Medications Sodium Chloride (Sodium Chloride 0.9%) 1,000 mls @ 999 mls/hr IV .Q1H1M STA Stop: 11/22/17 08:42 Last Admin: 11/22/17 09:05 Dose: 999 mls/hr eMAR Start Stop Document 11/22/17 09:05 RONI (Rec: 11/22/17 09:06 [id number] Intravenous Solution Start Date 11/22/17 Start Time 09:05 End Date 11/22/17 End time 10:05 Total Infusion Time 60 - Scribe Statement The provider has reviewed the documentation as recorded by the Scribe - Scribe Statement My Fernandez Provider Scribe Attestation: All medical record entries made by the Scribe were at my direction and personally dictated by me. I have reviewed the chart and agree that the record accurately reflects my personal performance of the history, physical exam, medical decision making, and the department course for this patient. I have also personally directed, reviewed, and agree with the discharge instructions and disposition. (Henrique Cook) Disposition/Present on Arrival - Present on Arrival History of DVT/PE: Yes History of Uncontrolled Diabetes: No Urinary Catheter: No History of Decub. Ulcer: No History Surgical Site Infection Following: None - Disposition Diagnosis: Alcohol abuse Disposition: HOME/ ROUTINE Condition: STABLE Discharge Instructions (ExitCare): Alcohol Intoxication (ED), Abuse of Alcohol (ED), Alcohol Dependence (ED) Additional Instructions: Please follow up with your doctor. Return to the ER for any worsening symptoms or for any other concerns. Forms: [employer] (Chinese) - Notes Notes (Text): 11/23/17 14:25 Urine cx shows +gram neg rods. Pt called, message left to call back the ER regarding results. (Jj MANTILLA,Margaret Hong)
[2017-11-22 09:33] LABS: VENOUS BLOOD GAS BASE EXCESS -2.1 mmol/L (0.0-2.0); VENOUS BLOOD GAS PO2 46 mm/Hg (30-55); VENOUS BLOOD PH 7.27 (7.32-7.43)
[2017-11-22 09:40] LABS: ALB/GLOB RATIO 1.1 (1.1-1.8); ALBUMIN 4.2 g/dL (3.0-4.8); ALT/SGPT 39 U/L (7-56); AST/SGOT 42 U/L (17-59); BLOOD UREA NITROGEN 7 mg/dL (7-21); GFR AFRICAN-AMERICAN > 60; GFR NON-AFRICAN AMERICAN > 60; LIPASE 72 U/L (23-300)
[2017-11-22 09:45] LABS: BASO # 0.02 K/mm3 (0.0-2.0); BASO % 0.4 % (0.0-3.0); EOS # 0.1 (0.0-0.7); EOS % 1.5 % (1.5-5.0); GRAN # 2.25 (1.4-6.5); GRAN % 48.1 % (50.0-68.0); HEMOGLOBIN 16.6 g/dL (14.0-18.0); LYMPH % 43.6 % (22.0-35.0); MEAN CELL VOLUME 97.3 fl (80.0-105.0); MEAN CORPUSCULAR HEMOGLOBIN 34.6 pg (25.0-35.0); MEAN CORPUSCULAR HGB CONC 35.5 g/dl (31.0-37.0); MEAN PLATELET VOLUME 10.1 fl (7.0-11.0); MONO # 0.3 (0.1-0.6); MONO % 6.4 % (1.0-6.0); RBC 4.8 10^6/uL (3.5-6.1); RED CELL DISTRIBUTION WIDTH 14.7 % (11.5-14.5); WHITE BLOOD COUNT 4.7 10^3/ul (4.5-11.0)
[2017-11-22 10:03] VITALS: PULSE 72; RESP 18; TEMP 98
[2017-11-22 10:09] VITALS: BP 148/79; O2SAT 98
[2017-11-22 12:30] LABS: PH,URINE 6.5 (4.7-8.0); URINE BILIRUBIN NEGATIVE (NEGATIVE); URINE BLOOD SMALL (NEGATIVE); URINE GLUCOSE (UA) NEGATIVE (NEGATIVE); URINE LEUKOCYTE ESTERASE LARGE Leu/uL (NEGATIVE); URINE NITRATE NEGATIVE (NEGATIVE); URINE PROTEIN NEGATIVE mg/dL (<30 mg/dL); URINE UROBILINOGEN 0.2 E.U./dL (<1 E.U./dL)
[2017-11-22 12:35] LABS: URINE APPEARANCE SL CLOUDY (CLEAR); URINE COLOR YELLOW (YELLOW)
[2017-11-22 13:15] LABS: URINE BACTERIA MANY (NEG); URINE WBC TNTC /hpf (0-6)
--- NOTE | 2017-11-24 14:19 | ED PDOC ---
ED Additional Note - Physician Additional Note Physician Additional Note: called patient; this is the 2nd message left to call regarding urine results. pt will need abx for UTI. >100,000 colony count. Will send certified letter. Lab results given to layla rosen to send certified letter.
== END 2017-11-22 10:15 | disposition home or self-care (01) ==
LOC: ED 06:16
DX: F10.10 Alcohol abuse, uncomplicated (principal); Y90.9 Presence of alcohol in blood, level not specified; I10 Essential (primary) hypertension
CPT/HCPCS: 80053; 81001; 82803; 83690; 85025; 87086; 87181; 96360; 99283; J7040

== ENCOUNTER 2018-10-11 23:13 | Inpatient (IN) | payer OTHER ==
[2018-10-11 23:13] VITALS: BMI 30.1
--- NOTE | 2018-10-12 00:01 | ED PDOC ---
Arrival/HPI - General Chief Complaint: Chest Pain Time Seen by Provider: 10/11/18 23:17 Historian: Patient - History of Present Illness Narrative History of Present Illness (Text): 10/11/18 23:57 Jeff Green is a 63 year old male, whose past medical history includes rectovesicular fistula s/p transverse loop colostomy, ventral hernia, hypertension, DVT/PE, alcohol abuse, and gallstones, who presents to the Emergency department complaining of chest pain. Patient states he was sitting at home at approximately 18:30 today when he began experiencing mid-sternal chest pain with associated belching. Patient states he took Sandie-[place] at home with no significant relief. Patient also reports he has been experiencing upper abdominal pain/pain to his colostomy site recently and notes he is supposed to undergo a reversal. Patient denies any fever, chills, shortness of breath, nausea, vomiting, diarrhea, urinary symptoms, neck pain, headache, dizziness, or any other complaints. Symptom Onset: Gradual Symptom Course: Unchanged Activities at Onset: Light Context: Home Past Medical History - Provider Review Nursing Documentation Reviewed: Yes - Infectious Disease Hx of Infectious Diseases: None - Tetanus Immunization Tetanus Immunization: Unknown - Cardiac Hx Cardiac Disorders: Yes (dvt ble) Hx Hypertension: Yes - Pulmonary Hx Respiratory Disorders: No - Neurological Hx Neurological Disorder: No - HEENT Hx HEENT Disorder: No - Renal Hx Renal Disorder: No - Endocrine/Metabolic Hx Endocrine Disorders: No - Hematological/Oncological Other/Comment: BLE DVT on Xarelto - Integumentary Hx Dermatological Disorder: No - Musculoskeletal/Rheumatological Hx Musculoskeletal Disorders: No Hx Falls: No - Gastrointestinal Hx Gastrointestinal Disorders: Yes Hx Colostomy: Yes Other/Comment: GI BLEED - Genitourinary/Gynecological Hx Genitourinary Disorders: Yes Other/Comment: bladder fistula urinates through rectum, pt is able to control it, has had fistula and colostomy 2 yrs. Has been planning sx at [facility] 1 yr to have fistula corrected and colostomy reversed in the future - Psychiatric Hx Psychophysiologic Disorder: No Hx Substance Use: No - Surgical History Hx Tonsillectomy: Yes Other/Comment: Colostomy 2015 - Anesthesia Hx Anesthesia: Yes Hx Anesthesia Reactions: No Hx Malignant Hyperthermia: No - Suicidal Assessment Feels Threatened In Home Enviroment: No Family/Social History - Physician Review Nursing Documentation Reviewed: Yes Family/Social History: Unknown Family HX Smoking Status: Never Smoked Hx Alcohol Use: No (last drink 4 monthss ago) Hx Substance Use: No Hx Substance Use Treatment: No Allergies/Home Meds Allergies/Adverse Reactions: Allergies No Known Allergies Allergy (Verified 10/11/18 23:36) Home Medications: Home Meds Medication Instructions Recorded Confirmed Pantoprazole [Protonix EC Tab] 40 mg PO DAILY 10/15/17 11/22/17 Review of Systems - Physician Review All systems were reviewed & negative as marked: Yes - Review of Systems Constitutional: Normal. absent: Fevers Eyes: Normal ENT: Normal Respiratory: Normal. absent: SOB, Cough Cardiovascular: Chest Pain Gastrointestinal: Abdominal Pain, Vomiting. absent: Diarrhea Genitourinary Male: Normal. absent: Dysuria, Frequency, Hematuria, Urinary Output Changes Musculoskeletal: Normal. absent: Back Pain, Neck Pain Skin: Normal. absent: Rash Neurological: Normal. absent: Headache, Dizziness Endocrine: Normal Hemo/Lymphatic: Normal Psychiatric: Normal Physical Exam Vital Signs Reviewed: Yes Vital Signs Temp Pulse Resp BP Pulse Ox 10/11/18 23:46 98.1 F 68 17 147/94 H 100 Temperature: Afebrile Blood Pressure: Normal Pulse: Regular Respiratory Rate: Normal Appearance: Positive for: Well-Appearing, Non-Toxic, Comfortable Pain Distress: None Mental Status: Positive for: Alert and Oriented X 3 - Systems Exam Head: Present: Atraumatic, Normocephalic Pupils: Present: PERRL Extroacular Muscles: Present: EOMI Conjunctiva: Present: Normal Mouth: Present: Moist Mucous Membranes Neck: Present: Normal Range of Motion Respiratory/Chest: Present: Clear to Auscultation, Good Air Exchange. No: Respiratory Distress, Accessory Muscle Use Cardiovascular: Present: Regular Rate and Rhythm, Normal S1, S2. No: Murmurs Abdomen: Present: Tenderness, Distention (Abdominal distention with some tenderness), Other (Erythema around colostomy site). No: Peritoneal Signs Back: Present: Normal Inspection Upper Extremity: Present: Normal Inspection. No: Cyanosis, Edema Lower Extremity: Present: Normal Inspection. No: Edema Neurological: Present: GCS=15, CN II-XII Intact, Speech Normal Skin: Present: Warm, Dry, Normal Color. No: Rashes Psychiatric: Present: Alert, Oriented x 3, Normal Insight, Normal Concentration Medical Decision Making ED Course and Treatment: 10/11/18 23:57 Impression: 63 year old male complaining of chest pain and pain to colostomy site. Plan: -- CT Abdomen and Pelvis -- CTA Chest -- EKG -- Chest X-ray -- Labs, cardiac enzymes -- Reassess and disposition Prior Visits: Notes and results from previous visits were reviewed. Progress Notes: Reviewed EKG, NSR at 70 bpm. Sinus arrhythmia. No acute changes. 10/12/18 02:43 Chest X-ray reviewed, shows no acute processes. 10/12/18 03:20 CTA Chest: Minimal peripheral segmental branches pulmonary emboli are noted in the right lower lobe. Associated subsegmental atelectatic airspace disease of the right lower lobe. Normal enhancement of the main pulmonary artery and right and left pulmonary arteries. Normal enhancement of the remaining bilateral peripheral pulmonary arteries. There is no other demonstrated pulmonary embolism. Aneurysmal ascending aorta measuring 5.3 cm. Unchanged. Bilateral basilar hypoventilatory pulmonary changes. Moderately enlarged heart and normal pericardium. Normal mediastinum. Normal hilar regions. Normal visualized trachea and thickened bronchi. Normal chest wall structures. Normal osseous structures. Small sliding hiatal hernia. IMPRESSION: Minimal peripheral segmental branches pulmonary emboli are noted in the right lower lobe. Associated subsegmental atelectatic airspace disease of the right lower lobe. Electronically signed on Oct 12, 2018 3:13:40 AM EST by: Mike Mcconnell M.D., Certified by RENETTA, K, Neuroradiology 10/12/18 03:35 CT Abdomen and Pelvis: Bilateral basilar subsegmental atelectatic pulmonary changes. Mild sliding hiatal hernia. Diffuse thickening and enhancement of the nondistended gallbladder. Cholelithiasis. 8.2 x 6.5 mm mildly obstructing stone the most distal aspect of the common bile duct. Right iliac venous stent is noted. Uncomplicated colonic diverticulosis. Mild diffuse thickening of the bladder. Periumbilical anterior abdominal wall hernia containing small bowel loops without incarceration. The liver is of uniform attenuation without mass or defect. The spleen is normal. The pancreas is of normal contour and attenuation characteristics. There is no evidence of adrenal mass. Both kidneys demonstrate prompt and equal nephrograms. The kidneys are normal in size, shape and configuration. There is no evidence of renal or ureteral mass. No renal or ureteral calculi are identified. There is no hydroureter or hydronephrosis. No evidence for appendicitis. There is no bowel wall thickening. No evidence for small or large bowel obstruction. There is no evidence of abdominal ascites or lymphadenopathy. There is no evidence of intrinsic or extrinsic bladder mass. There is no pelvic ascites or lymphadenopathy. Images of the lung bases show no evidence of pleural or parenchymal mass. There are no pleural effusions. The bony structures are free of lytic or blastic lesions. IMPRESSION: Choledocholithiasis with mildly dilated extrahepatic biliary tree. Cholelithiasis. Suspected mild acute inflammatory changes of the gallbladder without perforation or abscess formation. Mild reactive inflammatory thickening of the adjacent second portion of the duodenum. Diffusely thickened bladder suspicious for mild cystitis. Additional chronic findings as above Electronically signed on Oct 12, 2018 3:32:42 AM EST by: Mike Mcconnell M.D., Certified by ABR, MSK, Neuroradiology 10/12/18 03:54 Case discussed with medical transcription radiology automobile service station mechanic, who is aware and agrees with plan. 10/12/18 03:[address] Morales Seaman, who is aware and agrees with plan. Accepts pt in to hospitalist service. Pt will be admitted to Telemetry for PE, cholecystitis, choledocholithiasis, cholelithiasis. residential child care counselor paged. 10/12/18 04:02 Case discussed with operating room surgical technologist automobile service station mechanic, who is aware and agrees to evaluate pt. - Critical Care Critical Care Minutes: 30 minutes - Lab Interpretations I have reviewed the lab results: Yes - RAD Interpretation Senior Staff Psychologist: ED Physician, Radiologist - EKG Interpretation Interpreted by ED Physician: Yes Type: 12 lead EKG - Scribe Statement The provider has reviewed the documentation as recorded by the Jay Jayibkeith Iyer Provider Scribe Attestation: All medical record entries made by the Scribe were at my direction and personally dictated by me. I have reviewed the chart and agree that the record accurately reflects my personal performance of the history, physical exam, medical decision making, and the department course for this patient. I have also personally directed, reviewed, and agree with the discharge instructions and disposition. Disposition/Present on Arrival - Present on Arrival Any Indicators Present on Arrival: No History of DVT/PE: Yes History of Uncontrolled Diabetes: No Urinary Catheter: No History of Decub. Ulcer: No History Surgical Site Infection Following: None - Disposition Have Diagnosis and Disposition been Completed?: Yes Diagnosis: Cholecystitis, Pulmonary emboli, Abdominal pain, Chest pain Disposition: HOSPITALIZED Disposition Time: 04:18 Condition: STABLE Discharge Instructions (ExitCare): Chest Pain (ED) Referrals: Neil Engel JD, MD [Primary Care Provider] - Follow up with primary Forms: [employer] (Pashto)
[2018-10-12 00:14] LABS: HEMOGLOBIN 12.3 g/dL (14.0-18.0); MEAN CELL VOLUME 92.7 fl (80.0-105.0); MEAN CORPUSCULAR HGB CONC 34.6 g/dl (31.0-37.0); MEAN PLATELET VOLUME 9.9 fl (7.0-11.0); RBC 3.84 10^6/uL (3.5-6.1); WHITE BLOOD COUNT 7.1 10^3/uL (4.5-11.0)
[2018-10-12 00:18] LABS: INR 1.06; PARTIAL THROMBOPLASTIN TIME 22.9 Seconds (25.1-36.5); PROTHROMBIN TIME 12.1 SECONDS (9.4-12.5)
[2018-10-12 00:22] LABS: ALB/GLOB RATIO 1.1 (1.1-1.8); ALT/SGPT 31 U/L (7-56); AST/SGOT 38 U/L (17-59); BLOOD UREA NITROGEN 11 mg/dL (7-21); CALCIUM 9.5 mg/dL (8.4-10.5); GFR NON-AFRICAN AMERICAN > 60; LIPASE 348 U/L (23-300)
[2018-10-12 00:33] LABS: TROPONIN I < 0.01 ng/mL
[2018-10-12] MEDS ORDERED: cefTRIAXone 1 gm 1 GM/100 ML BAG IV STA (04:09)
[2018-10-12] MEDS ORDERED: metroNIDAZOLE IV 500 mg/100 ml 500 MG/100 ML BAG IV STA (04:09)
[2018-10-12] MEDS ORDERED: Enoxaparin 80 mg Syringe SC STA (04:49)
--- NOTE | 2018-10-12 04:56 | CP.PCM.CON ---
History of Present Illness - History of Present Illness History of Present Illness: Surgery Consult: Dr. Foster Reason for consult: abdominal pain, hx of cholelithiasis, hx of carmine-stomal hernia 63 y/o male who presented to the ED complaining of chest pain and SOB which started acutely overnight. He states he felt he could not "open up his lungs" and took a medication at home (unsure of name) which did not help. He states the symptoms went on for about 4 hours without resolution which prompted ER visit. He states since arriving to ED his symptoms have resolved. OF note, patient complains of carmine-stomal abdominal pain which has been present for the past 2 weeks. He states the pain is vague and sometime worse however fluctuates. He denies having output issues with his ostomy and states he has had more liquid stool since he has been drinking so much water lately. He denies n/v/f/c. He reports tolerating normal diet and states he has been gaining weight over the past couple of month, amount unknown. He states he has regular follow up with his surgeon Dr. Stauffer at [facility] who recently performed the partial colon resection for the rectovasicular fistula. He reports that the surgery was so long the decision was made to perform the operation in 2 stages: rectal resection followed by colostomy reversal and cholecystectomy. He is schedule for follow up later this month to schedule the 2nd stage of the surgery. PMD: Neil Engel PMHx: HTN, PE, DVT, rectovesicular fistula, nonobstructing peristomal h ernia,cholelithiasis, ETOH dependence PSHx: loop colostomy 2014, proctectomy for rectovesicular fistula 2018-[facility] Dr. Stauffer Social Hx: denies tobacco, drug abuse. +ETOH dependence. Lives at home. NKDA Review of Systems - Review of Systems Review of Systems: unless stated in HPI - Constitutional Constitutional: Weight Gain. absent: Anorexia, Chills, Fever, Weight Loss - EENT Eyes: absent: Blind Spots, Blurred Vision, Change in Vision Ears: absent: Ear Discharge, Dizziness Nose/Mouth/Throat: absent: Nasal Congestion, Nasal Trauma - Cardiovascular Cardiovascular: Chest Pain, Leg Edema - Respiratory Respiratory: absent: Cough, Hemoptysis - Gastrointestinal Gastrointestinal: Abdominal Pain. absent: Bloating, Constipation, Cramping, Diarrhea, Early Satiety, Hematemesis, Hematochezia, Nausea - Genitourinary Genitourinary: absent: Hematuria, Pyuria - Musculoskeletal Musculoskeletal: absent: Back Pain, Neck Pain - Integumentary Integumentary: Sores - Neurological Neurological: Numbness - Psychiatric Psychiatric: absent: Confusion, Depression - Endocrine Endocrine: absent: Polyphagia, Polyuria - Hematologic/Lymphatic Hematologic: absent: Easy Bleeding, Easy Bruising Past Patient History - Infectious Disease Hx of Infectious Diseases: None - Tetanus Immunizations Tetanus Immunization: Unknown - Past Medical History & Family History Past Medical History?: Yes - Past Social History Smoking Status: Never Smoked - CARDIAC Hx Cardiac Disorders: Yes (dvt ble) Hx Hypertension: Yes - PULMONARY Hx Respiratory Disorders: No - NEUROLOGICAL Hx Neurological Disorder: No - HEENT Hx HEENT Problems: No - RENAL Hx Chronic Kidney Disease: No - ENDOCRINE/METABOLIC Hx Endocrine Disorders: No - HEMATOLOGICAL/ONCOLOGICAL Other/Comment: BLE DVT on Xarelto - INTEGUMENTARY Hx Dermatological Problems: No - MUSCULOSKELETAL/RHEUMATOLOGICAL Hx Musculoskeletal Disorders: No Hx Falls: No - GASTROINTESTINAL Hx Gastrointestinal Disorders: Yes Hx Colostomy: Yes Other/Comment: GI BLEED - GENITOURINARY/GYNECOLOGICAL Hx Genitourinary Disorders: Yes Other/Comment: bladder fistula urinates through rectum, pt is able to control it, has had fistula and colostomy 2 yrs. Has been planning sx at [facility] x 1 yr to have fistula corrected and colostomy reversed in the future - PSYCHIATRIC Hx Psychophysiologic Disorder: No Hx Substance Use: No - SURGICAL HISTORY Hx Tonsillectomy: Yes Other/Comment: Colostomy 2015 - ANESTHESIA Hx Anesthesia: Yes Hx Anesthesia Reactions: No Hx Malignant Hyperthermia: No Meds Allergies/Adverse Reactions: Allergies Allergy/AdvReac Type Severity Reaction Status Date / Time No Known Allergies Allergy Verified 10/11/18 23:36 - Medications Medications: Current Medications Metronidazole (Flagyl) 500 mg in 100 mls @ 100 mls/hr IV STAT STA; Protocol Stop: 10/12/18 05:08 Physical Exam - Constitutional Appears: Non-toxic, No Acute Distress - Head Exam Head Exam: ATRAUMATIC, NORMOCEPHALIC - Eye Exam Eye Exam: EOMI, Normal appearance - ENT Exam ENT Exam: Mucous Membranes Moist - Respiratory Exam Respiratory Exam: NORMAL BREATHING PATTERN. absent: Respiratory Distress - Cardiovascular Exam Cardiovascular Exam: REGULAR RHYTHM. absent: Tachycardia - GI/Abdominal Exam GI & Abdominal Exam: Hernia, Soft. absent: Distended, Guarding, Rebound, Rigid, Tenderness Additional comments: ostomy w/ peristomal hernia protrusion, nontender ostomy productive no RUQ TTP - Rectal Exam Rectal Exam: Deferred - Extremities Exam Extremities exam: Positive for: normal inspection. Negative for: calf tenderness - Neurological Exam Neurological exam: Alert, Oriented x3 - Psychiatric Exam Psychiatric exam: Normal Affect, Normal Mood - Skin Skin Exam: Dry, Normal Color, Warm Results - Vital Signs Recent Vital Signs: Last Vital Signs Temp 98.1 F 10/11/18 23:46 Pulse 72 10/12/18 02:32 Resp 17 10/12/18 02:32 BP 123/81 10/12/18 02:32 Pulse Ox 97 10/12/18 02:32 - Labs Result Diagrams: 10/11/18 23:35 10/11/18 23:35 Labs: Laboratory Results - last 24 hr 10/11/18 10/11/18 10/11/18 23:35 23:35 23:35 WBC 7.1 RBC 3.84 Hgb 12.3 L D Hct 35.6 L MCV 92.7 D MCH 32.0 MCHC 34.6 RDW 14.0 Plt Count 166 MPV 9.9 PT 12.1 INR 1.06 APTT 22.9 L Sodium 141 Potassium 4.1 Chloride 107 Carbon Dioxide 25 Anion Gap 13 BUN 11 Creatinine 1.1 Est GFR ( Amer) > 60 Est GFR (Non-Af Amer) > 60 Random Glucose 106 Calcium 9.5 Total Bilirubin 0.6 AST 38 ALT 31 Alkaline Phosphatase 68 Lactate Dehydrogenase 500 Total Creatine Kinase 141 Troponin I < 0.01 Total Protein 7.6 Albumin 4.0 Globulin 3.6 Albumin/Globulin Ratio 1.1 Lipase 348 H Assessment & Plan - Assessment and Plan (Free Text) Assessment: 63 y/o male w/ chest pain found to have PEs, as well as abdominal pain most likely related to carmine-stomal hernia with hx of cholelithiasis and incidental finding of choledocholithiasis on CT Plan: -PE anticoagulation and work up per primary team -RUQ u/s: patient has Hx of cholelithiasis/cholecystitis w/ plans for surgery with Dr. 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 Stauffer -further recs per Dr. Cristian XAVIERadela PGY4
[2018-10-12 05:30] VITALS: O2SAT 99
[2018-10-12] MEDS ORDERED: Enoxaparin 80 mg Syringe SC SCH (05:30)
--- NOTE | 2018-10-12 05:49 | CP.PCM.HP ---
History of Present Illness - History of Present Illness History of Present Illness: Katelynn Becerril PGY-1 Medicine H&P Note for Dr. Rosaline Seaman: CC: Chest pain Pt is a 63 yo M with pmhx of rectovesicular fistula s/p transverse loop colostomy, ventral hernia, hypertension, DVT/PE, alcohol abuse, and gallstones, who presents to the ED complaining of chest pain. Patient states he was sitting at home at approximately 6 pm today when he began experiencing mid-sternal chest pain with associated belching. He states that he took kwan-seltzer which did not help with the chest pain. He rated the chest pain a 10/10 in intensity but denies radiation, and denies worsening or alleviation with exertion or rest respectively. Pt reports that as of right now his chest pain is now down to a 0/10 and he feels a lot better. He also admits to parastomal tenderness. He states that since being in the ED the pain has improved but he still admits to some tenderness. Patient denies any fever, chills, shortness of breath, dyspnea on exertion, cough, chest pain, pleuritic chest pain, nausea, vomiting, diarrh ea, dysuria, hematuria, dizziness, or any other complaints at this time. Pmhx:rectovesicular fistula s/p transverse loop colostomy, ventral hernia, hypertension, DVT/PE, alcohol abuse, and gallstones Pshx: Transverse loop colostomy Meds: Losartan 50 QD, pantoprazole 40QD All: NKDA Social: Denies tobacco hx, quit drinking 4 months ago, denies any illicit drug use Fam: Dad: HTN, Mom: HTN, brother: HTN PMD: Dr. Engel Pharm: [facility] [place] Present on Admission - Present on Admission Any Indicators Present on Admission: Yes History of DVT/PE: Yes Review of Systems - Review of Systems All systems: reviewed and no additional remarkable complaints except Review of Systems: 12 point ROS reviewed and negative except for whats noted in HPI Past Patient History - Infectious Disease Hx of Infectious Diseases: None - Tetanus Immunizations Tetanus Immunization: Unknown - Past Medical History & Family History Past Medical History?: Yes - Past Social History Smoking Status: Never Smoked - CARDIAC Hx Cardiac Disorders: Yes (dvt ble) Hx Hypertension: Yes - PULMONARY Hx Respiratory Disorders: No - NEUROLOGICAL Hx Neurological Disorder: No - HEENT Hx HEENT Problems: No - RENAL Hx Chronic Kidney Disease: No - ENDOCRINE/METABOLIC Hx Endocrine Disorders: No - HEMATOLOGICAL/ONCOLOGICAL Other/Comment: BLE DVT on Xarelto - INTEGUMENTARY Hx Dermatological Problems: No - MUSCULOSKELETAL/RHEUMATOLOGICAL Hx Musculoskeletal Disorders: No Hx Falls: No - GASTROINTESTINAL Hx Gastrointestinal Disorders: Yes Hx Colostomy: Yes Other/Comment: GI BLEED - GENITOURINARY/GYNECOLOGICAL Hx Genitourinary Disorders: Yes Other/Comment: bladder fistula urinates through rectum, pt is able to control it, has had fistula and colostomy 2 yrs. Has been planning sx at [facility] x 1 yr to have fistula corrected and colostomy reversed in the future - PSYCHIATRIC Hx Psychophysiologic Disorder: No Hx Substance Use: No - SURGICAL HISTORY Hx Tonsillectomy: Yes Other/Comment: Colostomy 2014 - ANESTHESIA Hx Anesthesia: Yes Hx Anesthesia Reactions: No Hx Malignant Hyperthermia: No Meds Allergies/Adverse Reactions: Allergies Allergy/AdvReac Type Severity Reaction Status Date / Time No Known Allergies Allergy Verified 10/11/18 23:36 Physical Exam - Constitutional Appears: Well, Non-toxic, No Acute Distress - Head Exam Head Exam: ATRAUMATIC, NORMAL INSPECTION, NORMOCEPHALIC - Eye Exam Eye Exam: EOMI, Normal appearance, PERRL - Respiratory Exam Respiratory Exam: Clear to Auscultation Bilateral, NORMAL BREATHING PATTERN. absent: Accessory Muscle Use, Decreased Breath Sounds, Rales, Rhonchi, Wheezes, Respiratory Distress, Stridor - Cardiovascular Exam Cardiovascular Exam: RRR, +S1, +S2. absent: Gallop, Rubs - GI/Abdominal Exam GI & Abdominal Exam: Hernia (parastomal), Normal Bowel Sounds, Soft. absent: Tenderness Additional comments: Colostomy bag noted, covering ostomy site. no surrounding erythema or drainage noted - Extremities Exam Extremities exam: Positive for: normal capillary refill, pedal edema (1+ b/l), pedal pulses present. Negative for: calf tenderness (Homans sign negative) - Back Exam Back exam: NORMAL INSPECTION. absent: CVA tenderness (L), CVA tenderness (R) - Neurological Exam Neurological exam: Alert, Oriented x3 - Psychiatric Exam Psychiatric exam: Normal Affect, Normal Mood - Skin Skin Exam: Dry, Intact, Normal Color, Warm Results - Vital Signs Recent Vital Signs: Last Vital Signs Temp 98.2 F 11/20/18 05:29 Pulse 78 10/12/18 05:29 Resp 17 10/12/18 05:29 BP 127/82 10/12/18 05:29 Pulse Ox 99 10/12/18 05:29 - Labs Result Diagrams: 10/12/18 07:40 10/12/18 07:40 Labs: Laboratory Results - last 24 hr 10/11/18 10/11/18 10/11/18 23:35 23:35 23:35 WBC 7.1 RBC 3.84 Hgb 12.3 L D Hct 35.6 L MCV 92.7 D MCH 32.0 MCHC 34.6 RDW 14.0 Plt Count 166 MPV 9.9 PT 12.1 INR 1.06 APTT 22.9 L Sodium 141 Potassium 4.1 Chloride 107 Carbon Dioxide 25 Anion Gap 13 BUN 11 Creatinine 1.1 Est GFR ( Amer) > 60 Est GFR (Non-Af Amer) > 60 Random Glucose 106 Calcium 9.5 Total Bilirubin 0.6 AST 38 ALT 31 Alkaline Phosphatase 68 Lactate Dehydrogenase 500 Total Creatine Kinase 141 Troponin I < 0.01 Total Protein 7.6 Albumin 4.0 Globulin 3.6 Albumin/Globulin Ratio 1.1 Lipase 348 H Assessment & Plan - Assessment and Plan (Free Text) Assessment: Pt is a 63 yo M with pmhx of rectovesicular fistula s/p transverse loop colostomy, ventral hernia, hypertension, DVT/PE, alcohol abuse, and gallstones, who presents to the ED complaining of chest pain. CTA was done noted to have PE in RLL. CT abd/pelvis showed choledocholithiasis, and cystitis. Plan: 1. Chest pain r/o ACS: - Initial trops <.01 - trend trops q6 x2 - TSH - Lipid panel - Hbg A1c - cardio consulted 2. PE: - B/L PE noted on CTA in 2015 - pt was taken off xarelto by PMD in august 2018 - Lovenox 80mg BID - Pulm consulted 3. Cystitis: - Likely 2/2 chronic changes s/p rectovesicular fistula - Pt is asymptomatic - Rocephin 1mg IV QD - f/u ua and urine cx 4. Choledocholithiasis: - Pt is asymptomatic - Flagyl and rocephin - Surgery consulted - f/u abd u/s - GI consulted
[2018-10-12 07:33] LABS: URINE BILIRUBIN NEGATIVE (NEGATIVE); URINE BLOOD NEGATIVE (NEGATIVE); URINE GLUCOSE (UA) NEGATIVE (NEGATIVE); URINE LEUKOCYTE ESTERASE TRACE Leu/uL (NEGATIVE); URINE PROTEIN NEGATIVE mg/dL (<30 mg/dL); URINE UROBILINOGEN 0.2 E.U./dL (<1 E.U./dL)
[2018-10-12 07:34] LABS: URINE APPEARANCE CLEAR (CLEAR); URINE COLOR YELLOW (YELLOW)
[2018-10-12 07:53] LABS: BASO # 0.01 K/mm3 (0.0-2.0); BASO % 0.2 % (0.0-3.0); EOS # 0.2 (0.0-0.7); GRAN # 3.76 (1.4-6.5); GRAN % 65.8 % (50.0-68.0); HEMOGLOBIN 12.6 g/dL (14.0-18.0); LYMPH # 1.2 (1.2-3.4); MEAN CELL VOLUME 92.3 fl (80.0-105.0); MEAN CORPUSCULAR HEMOGLOBIN 32.4 pg (25.0-35.0); MEAN CORPUSCULAR HGB CONC 35.1 g/dl (31.0-37.0); MEAN PLATELET VOLUME 9.8 fl (7.0-11.0); MONO # 0.6 (0.1-0.6); RBC 3.89 10^6/uL (3.5-6.1); WHITE BLOOD COUNT 5.7 10^3/uL (4.5-11.0)
[2018-10-12 08:00] LABS: URINE RBC 0 - 2 /hpf (0-2)
[2018-10-12 08:01] LABS: URINE BACTERIA FEW (NEG)
[2018-10-12 08:15] LABS: LDL CHOLESTEROL 107 mg/dL (0-129)
[2018-10-12 08:16] LABS: ALBUMIN 3.9 g/dL (3.0-4.8); ALT/SGPT 31 U/L (7-56); AST/SGOT 33 U/L (17-59); BLOOD UREA NITROGEN 8 mg/dL (7-21); CALCIUM 9.4 mg/dL (8.4-10.5); GFR NON-AFRICAN AMERICAN > 60; HDL CHOLESTEROL 32 mg/dL (29-60); TROPONIN I < 0.01 ng/mL
--- NOTE | 2018-10-12 08:46 | CT ---
Date of service: 10/12/2018 PROCEDURE: CT Chest with contrast (Pulmonary Angiogram) HISTORY: pain/Past med hx. PE COMPARISON: None available. TECHNIQUE: Axial computed tomography images were obtained of the chest in the pulmonary arterial phase of enhancement. Coronal and sagittal reformatted images were created and reviewed. Intravenous contrast dose: 100 cc of Omni 350 Radiation dose: Total exam DLP = 563.69 mGy-cm. This CT exam was performed using one or more of the following dose reduction techniques: Automated exposure control, adjustment of the mA and/or kV according to patient size, and/or use of iterative reconstruction technique. FINDINGS: PULMONARY ARTERIES: Small nonobstructing pulmonary emboli are seen in the peripheral branches of the right lower lobe. There are no occlusive proximal emboli. AORTA: There is aneurysmal dilatation of the ascending aorta measuring 5.3 cm. No aortic atherosclerotic calcification or mural plaque present. LUNGS: Unremarkable. No nodule, mass or pulmonary consolidation. Minimal atelectasis at the right lung base PLEURAL SPACES: Unremarkable. No effusion or pneumothorax. HEART: Unremarkable. No cardiomegaly. No significant pericardial effusion. LYMPH NODES: No lymphadenopathy. BONES, CHEST WALL: Unremarkable. No fracture or destructive lesion OTHER FINDINGS: The report concurs with the preliminary [facility] report IMPRESSION: Small nonobstructing pulmonary emboli are seen in the peripheral branches of the right lower lobe. There are no occlusive proximal emboli.
--- NOTE | 2018-10-12 09:08 | RAD ---
Date of service: 10/12/2018 HISTORY: pain COMPARISON: Frontal chest radiograph 10/15/2017. FINDINGS: LUNGS: No active pulmonary disease. PLEURA: No significant pleural effusion identified, no pneumothorax apparent. CARDIOVASCULAR: No aortic atherosclerotic calcification present. Normal cardiac size. No pulmonary vascular congestion. OSSEOUS STRUCTURES: No significant abnormalities. VISUALIZED UPPER ABDOMEN: Normal. OTHER FINDINGS: None. IMPRESSION: No interval acute cardiopulmonary disease appreciated.
--- NOTE | 2018-10-12 09:47 | CARD ---
APPROVED REPORT Date of service: 10/11/2018 EKG Measurement Heart [id number] ID [id number] <Conclusion> Normal sinus rhythm with sinus arrhythmia and borderline 1st degree AVB No change
[2018-10-12] MEDS ORDERED: cefTRIAXone 1 gm 1 GM/100 ML BAG IVPB SCH (10:00)
--- NOTE | 2018-10-12 10:19 | CT ---
Date of service: 10/12/2018 PROCEDURE: CT Abdomen and Pelvis with contrast HISTORY: abdominal pain COMPARISON: 10/15/2017 TECHNIQUE: Contrast dose: 77 cc of Omni 350 Radiation dose: Total exam DLP = 835.3 mGy-cm. This CT exam was performed using one or more of the following dose reduction techniques: Automated exposure control, adjustment of the mA and/or kV according to patient size, and/or use of iterative reconstruction technique. FINDINGS: LOWER THORAX: Unremarkable. LIVER: Unremarkable. No gross lesion or ductal dilatation. Mild fatty infiltration of the liver GALLBLADDER AND BILE DUCTS: Multiple gallstones are seen. There is some gallbladder wall thickening. Two separate stones are seen in the common bile duct measuring 6 and 8 mm in diameter. There is no significant dilatation of the common duct. There is no intrahepatic ductal dilatation. PANCREAS: Unremarkable. No gross lesion or ductal dilatation. SPLEEN: Unremarkable. ADRENALS: Unremarkable. No mass. KIDNEYS AND URETERS: Unremarkable. No hydronephrosis. No solid mass. VASCULATURE: Unremarkable. No aortic aneurysm. No aortic atherosclerotic calcification or mural plaque present. BOWEL: Unremarkable. No obstruction. No gross mural thickening. APPENDIX: Normal appendix. PERITONEUM: Unremarkable. No free fluid. No free air. There is a midline ostomy. There is para ostial herniation of small bowel loops and mesenteric fat. The abdominal wall defect measures 9.5 cm. There is no obstruction LYMPH NODES: Unremarkable. No enlarged lymph nodes. BLADDER: Mild mural thickening in the urinary bladder. REPRODUCTIVE: Unremarkable. BONES: No acute fracture. OTHER FINDINGS: The report concurs with the preliminary [facility] report IMPRESSION: Choledocholithiasis. Cholelithiasis
--- NOTE | 2018-10-12 12:50 | CARD ---
APPROVED REPORT Date of service: 10/12/2018 EXAM: Two-dimensional and M-mode echocardiogram with Doppler and color Doppler. INDICATION Chest Pain POSSIBLE ACUTE PE, RVSP, LVFX 2D DIMENSIONS Left Atrium (2D)3.7 (1.6-4.0cm)IVSd1.1 (0.7-1.1cm) LVDd4.2 (3.9-5.9cm)PWd1.2 (0.7-1.1cm) LVDs3.0 (2.5-4.0cm)FS (%) 29.2 % LVEF (%)56.5 (>50%) M-Mode DIMENSIONS Aortic Root3.30 (2.2-3.7cm)Aortic Cusp Exc.2.00 (1.5-2.0cm) Aortic Valve AoV Peak Bcbrsyde324.0cm/sAoV VTI40.2cmAO Peak GR.22mmHg LVOT Peak Satzgvvl02.2cm/sLVOT VTI17.10cmAO Mean GR.12mmHg Mitral Valve MV E Zihusnzy53.2cm/sMV A Wudahhpv414.0cm/sE/A ratio0.6 TDI Lateral E' Peak V9.16cm/sMedial E' Peak V7.12cm/sE/Lateral E'6.5 E/Medial E'8.3 Pulmonary Valve PV Peak Kcyxevud75.1cm/sPV Peak Grad.2mmHg Tricuspid Valve TR Peak Bpcmpwye726na/sRAP FNCUWJBV51ybAaAP Peak Gr.12mmHg [id number] LEFT VENTRICLE The left ventricle is normal size. There is normal left ventricular wall thickness. The left ventricular function is normal.EF-55-60% There is normal LV segmental wall motion. Transmitral Doppler flow pattern is Grade III-reversible restrictive diastolic dysfunction. No left ventricle thrombus noted on this study. There is no ventricular septal defect visualized. There is no left ventricular aneurysm. There is no mass noted in the left ventricle. RIGHT VENTRICLE The right ventricle is normal size. There is normal right ventricular wall thickness. The right ventricular systolic function is normal. ATRIA The left atrium size is normal. The right atrium size is normal. The interatrial septum is intact with no evidence for an atrial septal defect. AORTIC VALVE The aortic valve is not well visualized. The aortic valve is probably bicuspid. The aortic valve is mildly to moderately sclerotic. No aortic regurgitation is present. Aortic Sclerosis, Bicuspid aortic valve Vs Mild There is no aortic valvular vegetation. MITRAL VALVE The mitral valve is thickened but opens well. Mitral regurgitation is trace. There is no mitral valve stenosis. There is no evidence of mitral valve prolapse. TRICUSPID VALVE The tricuspid valve leaflets are thickened , but open well. There is trace tricuspid regurgitation.RVSP-22 mmof Hg. There is no tricuspid valve stenosis. There is no tricuspid valve prolapse or vegetation. PULMONIC VALVE The pulmonary valve is normal in structure. There is no pulmonic valvular regurgitation. There is no pulmonic valvular stenosis. GREAT VESSELS The aortic root is normal in size. The ascending aorta is normal in size. The pulmonary artery is normal. The IVC is normal in size and collapses >50% with inspiration. PERICARDIAL EFFUSION There is no pleural effusion. There is no pericardial effusion. <Conclusion> Normal chamber Size. EF-55-60% Aortic Sclerosis, Bicuspid aortic valve Vs Mild Mitral regurgitation is trace. There is trace tricuspid regurgitation.RVSP-22 mmof Hg. The IVC is normal in size and collapses >50% with inspiration. There is no pericardial effusion. No thrombus or vegetation noted.
--- NOTE | 2018-10-12 14:05 | CP.PCM.CON ---
History of Present Illness - History of Present Illness History of Present Illness: Pulmonary Consult 63M with hx of DVT x 2 , rectovesicular fistula s/p transverse loop colostomy, ventral hernia, hypertension, alcohol abuse, and gallstones, who I am asked to see of PE seen on [facility]. Patient was sitting at home and developed mid-sternal chest pain with associated belching. He states that he took kwan-seltzer which did not help with the chest pain. No radiation. No diaphoresis. No SOB. Pain resolved once arriving to the ED and is no longer ins pain. Of note, he has had 2 DVTs in the past and one required local tpa (according to him). He was placed on xarelto however he stopped it on his own 2 months ago because he though he was better. Pmhx:rectovesicular fistula s/p transverse loop colostomy, ventral hernia, hypertension, DVT/PE, alcohol abuse, and gallstones Pshx: Transverse loop colostomy Meds: Losartan 50 QD, pantoprazole 40QD All: NKDA Social: Denies tobacco hx, quit drinking 4 months ago, denies any illicit drug use Fam: Dad: HTN, Mom: HTN, brother: HTN Past Patient History - Infectious Disease Hx of Infectious Diseases: None - Tetanus Immunizations Tetanus Immunization: Unknown - Past Medical History & Family History Past Medical History?: Yes - Past Social History Smoking Status: Never Smoked - CARDIAC Hx Cardiac Disorders: Yes (dvt ble) Hx Hypertension: Yes - PULMONARY Hx Respiratory Disorders: No - NEUROLOGICAL Hx Neurological Disorder: No - HEENT Hx HEENT Problems: No - RENAL Hx Chronic Kidney Disease: No - ENDOCRINE/METABOLIC Hx Endocrine Disorders: No - HEMATOLOGICAL/ONCOLOGICAL Other/Comment: BLE DVT on Xarelto - INTEGUMENTARY Hx Dermatological Problems: No - MUSCULOSKELETAL/RHEUMATOLOGICAL Hx Musculoskeletal Disorders: No Hx Falls: No - GASTROINTESTINAL Hx Gastrointestinal Disorders: Yes Hx Colostomy: Yes Other/Comment: GI BLEED - GENITOURINARY/GYNECOLOGICAL Hx Genitourinary Disorders: Yes Other/Comment: bladder fistula urinates through rectum, pt is able to control it, has had fistula and colostomy 2 yrs. Has been planning sx at [facility] x 1 yr to have fistula corrected and colostomy reversed in the future - PSYCHIATRIC Hx Psychophysiologic Disorder: No Hx Substance Use: No - SURGICAL HISTORY Hx Tonsillectomy: Yes Other/Comment: Colostomy 2014 - ANESTHESIA Hx Anesthesia: Yes Hx Anesthesia Reactions: No Hx Malignant Hyperthermia: No Meds Allergies/Adverse Reactions: Allergies Allergy/AdvReac Type Severity Reaction Status Date / Time No Known Allergies Allergy Verified 10/11/18 23:36 - Medications Medications: Current Medications Apixaban (Eliquis) 10 mg PO BID [facility]; Protocol Stop: 10/18/18 23:59 Last Admin: 10/12/18 12:14 Dose: 10 mg Apixaban (Eliquis) 5 mg PO BID [facility]; Protocol Enoxaparin Sodium (Lovenox) 80 mg SC Q12H [facility]; Protocol Ceftriaxone Sodium (Rocephin 1 Gram Ivpb) 1 gm in 100 mls @ 100 mls/hr IVPB DAILY [facility]; Protocol Last Admin: 10/12/18 10:50 Dose: Not Given Metronidazole (Flagyl) 500 mg PO Q8 [facility]; Protocol Physical Exam - Constitutional Appears: Well - Head Exam Head Exam: ATRAUMATIC, NORMAL INSPECTION, NORMOCEPHALIC - Eye Exam Eye Exam: EOMI, Normal appearance, PERRL Pupil Exam: NORMAL ACCOMODATION, PERRL - ENT Exam ENT Exam: Mucous Membranes Moist, Normal Exam - Neck Exam Neck exam: Positive for: Normal Inspection - Respiratory Exam Respiratory Exam: Clear to Auscultation Bilateral, NORMAL BREATHING PATTERN - Cardiovascular Exam Cardiovascular Exam: REGULAR RHYTHM - GI/Abdominal Exam GI & Abdominal Exam: absent: Tenderness Additional comments: colostomy - Extremities Exam Extremities exam: Positive for: normal inspection - Back Exam Back exam: NORMAL INSPECTION - Neurological Exam Neurological exam: Alert, CN II-XII Intact, Normal Gait, Oriented x3, Reflexes Normal - Psychiatric Exam Psychiatric exam: Normal Affect, Normal Mood - Skin Skin Exam: Dry, Intact, Normal Color, Warm Results - Vital Signs Recent Vital Signs: Last Vital Signs Temp 98.3 F 10/12/18 12:00 Pulse 82 10/12/18 12:00 Resp 20 10/12/18 12:00 BP 119/95 H 10/12/18 12:00 Pulse Ox 99 10/12/18 06:06 - Labs Result Diagrams: 10/12/18 07:40 10/12/18 07:40 Labs: Laboratory Results - last 24 hr 10/11/18 10/11/18 10/11/18 23:35 23:35 23:35 WBC 7.1 RBC 3.84 Hgb 12.3 L D Hct 35.6 L MCV 92.7 D MCH 32.0 MCHC 34.6 RDW 14.0 Plt Count 166 MPV 9.9 Gran % Lymph % (Auto) [place] % (Auto) Eos % (Auto) Baso % (Auto) Gran # Lymph # (Auto) [place] # (Auto) Eos # (Auto) Baso # (Auto) PT 12.1 INR 1.06 APTT 22.9 L Sodium 141 Potassium 4.1 Chloride 107 Carbon Dioxide 25 Anion Gap 13 BUN 11 Creatinine 1.1 Est GFR ( Amer) > 60 Est GFR (Non-Af Amer) > 60 Random Glucose 106 Hemoglobin A1c Calcium 9.5 Total Bilirubin 0.6 AST 38 ALT 31 Alkaline Phosphatase 68 Lactate Dehydrogenase 500 Total Creatine Kinase 141 Troponin I < 0.01 Total Protein 7.6 Albumin 4.0 Globulin 3.6 Albumin/Globulin Ratio 1.1 Triglycerides Cholesterol LDL Cholesterol Direct HDL Cholesterol Lipase 348 H TSH 3rd Generation Urine Color Urine Appearance Urine pH Ur Specific [place] Urine Protein Urine Glucose (UA) Urine Ketones Urine Blood Urine Nitrate Urine Bilirubin Urine Urobilinogen Ur Leukocyte Esterase Urine RBC Urine WBC Ur Epithelial Cells Urine Bacteria 10/12/18 10/12/18 10/12/18 07:00 07:40 07:40 WBC RBC Hgb Hct MCV MCH MCHC RDW Plt Count MPV Gran % Lymph % (Auto) [place] % (Auto) Eos % (Auto) Baso % (Auto) Gran # Lymph # (Auto) [place] # (Auto) Eos # (Auto) Baso # (Auto) PT INR APTT Sodium 142 Potassium 4.1 Chloride 109 H Carbon Dioxide 26 Anion Gap 12 BUN 8 Creatinine 0.9 Est GFR ( Amer) > 60 Est GFR (Non-Af Amer) > 60 Random Glucose 92 Hemoglobin A1c 5.4 Calcium 9.4 Total Bilirubin 0.8 AST 33 ALT 31 Alkaline Phosphatase 62 Lactate Dehydrogenase Total Creatine Kinase Troponin I < 0.01 Total Protein 7.7 Albumin 3.9 Globulin 3.8 Albumin/Globulin Ratio 1.0 L Triglycerides 92 Cholesterol 157 LDL Cholesterol Direct 107 HDL Cholesterol 32 Lipase TSH 3rd Generation Urine Color Yellow Urine Appearance Clear Urine pH 7.0 Ur Specific [place] <= 1.005 Urine Protein Negative Urine Glucose (UA) Negative Urine Ketones Negative Urine Blood Negative Urine Nitrate Negative Urine Bilirubin Negative Urine Urobilinogen 0.2 Ur Leukocyte Esterase Trace H Urine RBC 0 - 2 Urine WBC 5 - 10 Ur Epithelial Cells None Urine Bacteria Few 10/12/18 10/12/18 10/12/18 07:40 07:40 11:30 WBC 5.7 RBC 3.89 Hgb 12.6 L Hct 35.9 L MCV 92.3 MCH 32.4 MCHC 35.1 RDW 14.0 Plt Count 154 MPV 9.8 Gran % 65.8 Lymph % (Auto) 21.0 L [place] % (Auto) 10.0 H Eos % (Auto) 3.0 Baso % (Auto) 0.2 Gran # 3.76 Lymph # (Auto) 1.2 [place] # (Auto) 0.6 Eos # (Auto) 0.2 Baso # (Auto) 0.01 PT INR APTT Sodium Potassium Chloride Carbon Dioxide Anion Gap BUN Creatinine Est GFR ( Amer) Est GFR (Non-Af Amer) Random Glucose Hemoglobin A1c Calcium Total Bilirubin AST ALT Alkaline Phosphatase Lactate Dehydrogenase Total Creatine Kinase Troponin I < 0.01 Total Protein Albumin Globulin Albumin/Globulin Ratio Triglycerides Cholesterol LDL Cholesterol Direct HDL Cholesterol Lipase TSH 3rd Generation 2.84 Urine Color Urine Appearance Urine pH Ur Specific [place] Urine Protein Urine Glucose (UA) Urine Ketones Urine Blood Urine Nitrate Urine Bilirubin Urine Urobilinogen Ur Leukocyte Esterase Urine RBC Urine WBC Ur Epithelial Cells Urine Bacteria Assessment & Plan - Assessment and Plan (Free Text) Assessment: 63M with hx of DVTx 2 in the past now with non-obstructing pulmonary emobilo seen in the peripheral branches of the RLL.. The risk of or disability directly resulting from an isolated subsegmental pulmonary embolism seem to be anecdotally to be very low. They rarely cause significant hemodynamic compromise or hypoxemia. His TNI are neg. Not hypoxic. No strain on echo. However given his recurrent DVTs (even without this PE event) it seems he would require indefinite anticoagulation. I recommend he resume his Xarelto as he was on before and stay on this lifelong. He should have follow up outpatient with his primary doctor to re-assess and monitor. Thank you for the consultation Jack Seaman MD Pulmonary Critical Care and Sleep Medicine
--- NOTE | 2018-10-12 14:07 | US ---
Date of service: 10/12/2018 HISTORY: hx of gallstones, abdominal pain COMPARISON: Abdomen pelvis CT with contrast 10/12/2018 1:56 a.m. an abdomen ultrasound 10/16/2017. TECHNIQUE: Sonographic evaluation of the right upper quadrant of the abdomen. FINDINGS: LIVER: Measures 16.8 cm in length. Normal echogenicity of the liver parenchyma. No mass. No intrahepatic bile duct dilatation. GALLBLADDER: Limited mural thickening the gallbladder is appreciate a 3.6 mm without pericholecystic fluid collection sonographic Barajas sign. Cholelithiasis COMMON BILE DUCT: Measures 5.9 mm. No stones. No dilatation. PANCREAS: Obscured by overlying bowel gas. RIGHT KIDNEY: Measures 10.7 cm in length. Normal echogenicity. No calculus, mass, or hydronephrosis. AORTA: No aneurysmal dilatation. IVC: Unremarkable. OTHER FINDINGS: None . IMPRESSION: Limited mural thickening is appreciated with cholelithiasis. No prominent distention the visualized common bile duct with the distal and mid segments obscured by overlying bowel. The pancreas is also not identified due to overlying bowel gas. Clinically core for potential cholecystitis.
--- NOTE | 2018-10-12 17:07 | CON ---
DATE: 10/12/2018 GASTROENTEROLOGY CONSULTATION REQUESTING PROVIDER: Dr. Brown. REASON FOR CONSULTATION: I have been asked to see this 63-year-old male with a history of alcohol abuse, gallstones, rectovesical fistula, status post loop colostomy, who comes to the hospital with severe chest pain and difficulty breathing. He denies any fevers, chills, jaundice or dark urine. CT of the chest performed in the emergency room revealed pulmonary emboli. The patient states that he feels better. CT scan of the abdomen and pelvis revealed incidental common bile duct stones. His liver enzymes are normal. PAST MEDICAL HISTORY: As above. Again, he has a history of alcohol abuse, gallstones, rectovesical fistula, hypertension, DVT and ventral hernia. PAST SURGICAL HISTORY: Notable for a transverse loop colostomy 3 years ago. SOCIAL HISTORY: He has a history of alcohol abuse, last drink was several months ago. He denies cigarette smoking. FAMILY HISTORY: Noncontributory. REVIEW OF SYSTEMS: A 14-point review of systems is notable for severe chest pain and shortness of breath. HOME MEDICATIONS: Include pantoprazole 40 mg once a day. PHYSICAL EXAMINATION: GENERAL: Well-developed male lying in bed, in no acute distress. VITAL SIGNS: Revealed temperature of 98, blood pressure of 124/91, heart rate of 82. HEENT: Revealed sclerae to be white. Conjunctivae pink. NECK: Supple. CHEST: Revealed lungs to be clear. HEART: Exam revealed a regular rate and rhythm. ABDOMEN: Soft, nontender. He has a transverse loop colostomy. He also has a large ventral hernia. EXTREMITIES: Show no edema. LABORATORY DATA: Reveal white blood cell count 5.7, hemoglobin 12.6. Chemistries reveal chloride of 109, normal electrolytes, normal AST, ALT, alk phos. IMPRESSION: A 63-year-old male with pulmonary embolus with incidental finding of common bile duct stones. He is asymptomatic from this. His liver enzymes are normal. He does have a transverse loop colostomy with large ventral hernia, for which he is being seen at [facility] for a possible reversal. He apparently has his doctors there. RECOMMENDATIONS: 1. Would continue treatment for pulmonary embolus. 2. His common bile duct stones are asymptomatic with normal liver enzymes. The patient has been instructed to get an ERCP with removal of the common bile duct stones once his pulmonary embolus has been treated. 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 This was explained in depth to the patient. Rickie Philippe MD
--- NOTE | 2018-10-12 22:07 | US ---
HISTORY: Leg pain and swelling. Evaluate for DVT PHYSICIAN(S): Jeff Matamoros MD. TECHNIQUE: Duplex sonography and color-flow Doppler with graded compression were used to evaluate the deep venous systems of both lower extremities. FINDINGS: There is subacute/chronic thrombus in the right femoral vein. There is subacute/chronic thrombus in the left femoral and popliteal veins IMPRESSION: Bilateral subacute/chronic thrombus as described above.
[2018-10-13 00:02] VITALS: RESP 20
--- NOTE | 2018-10-13 06:27 | CP.PCM.PCO ---
Physician Communication Note - Physician Communication Note Physician Communication Note: Pt has instructions to f/u w/ surgeon Dr. Stauffer at [facility]
[2018-10-13 06:51] LABS: BASO # 0.01 K/mm3 (0.0-2.0); BASO % 0.2 % (0.0-3.0); EOS # 0.2 (0.0-0.7); EOS % 3.1 % (1.5-5.0); GRAN # 3.42 (1.4-6.5); GRAN % 66.2 % (50.0-68.0); HEMOGLOBIN 13.3 g/dL (14.0-18.0); LYMPH # 1.2 (1.2-3.4); LYMPH % 22.7 % (22.0-35.0); MEAN CELL VOLUME 92.6 fl (80.0-105.0); MEAN CORPUSCULAR HEMOGLOBIN 31.9 pg (25.0-35.0); MEAN CORPUSCULAR HGB CONC 34.5 g/dl (31.0-37.0); MEAN PLATELET VOLUME 9.7 fl (7.0-11.0); MONO # 0.4 (0.1-0.6); MONO % 7.8 % (1.0-6.0); RBC 4.17 10^6/uL (3.5-6.1); RED CELL DISTRIBUTION WIDTH 13.7 % (11.5-14.5); WHITE BLOOD COUNT 5.2 10^3/uL (4.5-11.0)
--- NOTE | 2018-10-13 07:26 | CP.PCM.PN ---
Subjective - Date & Time of Evaluation Date of Evaluation: 10/13/18 Time of Evaluation: 06:45 - Subjective Subjective: Awake, alert, no distress,denies chest pain Reason for consultation and follow up: Cardiac evaluation of chest pain Seen and examined by me and Dr. Puri Objective - Vital Signs/Intake and Output Vital Signs (last 24 hours): Temp Pulse Resp BP Pulse Ox 98.4 F 91 H 20 127/97 H 99 10/13/18 06:00 10/13/18 06:00 10/13/18 06:00 10/13/18 06:00 10/12/18 06:06 Intake and Output: 10/13/18 10/13/18 06:59 18:59 Intake Total 560 Output Total 0 Balance 560 - Medications Medications: Current Medications Apixaban (Eliquis) 10 mg PO BID [facility]; Protocol Stop: 10/18/18 23:59 Last Admin: 10/12/18 17:27 Dose: 10 mg Apixaban (Eliquis) 5 mg PO BID [facility]; Protocol Enoxaparin Sodium (Lovenox) 80 mg SC Q12H [facility]; Protocol Ceftriaxone Sodium (Rocephin 1 Gram Ivpb) 1 gm in 100 mls @ 100 mls/hr IVPB DAILY [facility]; Protocol Last Admin: 10/12/18 10:50 Dose: Not Given Metronidazole (Flagyl) 500 mg PO Q8 [facility]; Protocol Last Admin: 10/13/18 05:33 Dose: 500 mg - Labs Labs: 10/13/18 06:20 10/12/18 07:40 PT 12.1 SECONDS (9.4-12.5) 10/11/18 23:35 INR 1.06 10/11/18 23:35 APTT 22.9 Seconds (25.1-36.5) L 10/11/18 23:35 - Constitutional Appears: Non-toxic, No Acute Distress - Head Exam Head Exam: NORMAL INSPECTION, NORMOCEPHALIC - Eye Exam Eye Exam: Normal appearance Pupil Exam: NORMAL ACCOMODATION - ENT Exam ENT Exam: Mucous Membranes Moist, Normal Exam - Respiratory Exam Respiratory Exam: Clear to Ausculation Bilateral, NORMAL BREATHING PATTERN - Cardiovascular Exam Cardiovascular Exam: REGULAR RHYTHM, +S1, +S2 - GI/Abdominal Exam GI & Abdominal Exam: Soft, Normal Bowel Sounds Additional comments: colostomy - Extremities Exam Extremities Exam: Full ROM, Normal Capillary Refill - Neurological Exam Neurological Exam: Alert, Awake, Oriented x3 - Psychiatric Exam Psychiatric exam: Normal Affect, Normal Mood - Skin Skin Exam: Dry, Normal Color, Warm Assessment and Plan - Assessment and Plan (Free Text) Assessment: A 63 year old male who came in to the ER due to mid sternal chest pain non radiating associated with belching.He took kwan-seltzer with no relief thus came to the ER. History of rectovesicular fistula s/p transverse loop colostomy, ventral hernia, hypertension, DVT/PE, alcohol abuse, and gallstones.Troponin normal x 3. Echo done.Normal chamber LVEF 55-60%,Aortic sclerosis,bicuspid aortic valve Vs. mild ,Trace mitral regurgitation,Trace tricuspid reg urgitation RVSP 22 mmHg,no pericardial effusion or thrombus. Atypical chest pain. Eliquis started for history of PE.He was taken off Xarelto August 2018. Plan: Echo done- Normal chamber LVEF 55-60% Aortic sclerosis,bicuspid aortic valve Vs. mild Trace mitral regurgitation Trace tricuspid regurgitation RVSP 22 mmHg No pericardial effusion or thrombus No distress Heart rate controlled Blood pressure controlled Started Eliquis for history of PE Stable cardiac status Continue current treatment Continue current medications chart reviewed Will follow up Plan and treatment discussed with Dr. Puri
[2018-10-13 07:27] LABS: LDL CHOLESTEROL 105 mg/dL (0-129)
[2018-10-13 07:51] LABS: ALT/SGPT 32 U/L (7-56); AST/SGOT 32 U/L (17-59); BLOOD UREA NITROGEN 12 mg/dL (7-21); CALCIUM 9.6 mg/dL (8.4-10.5); GFR NON-AFRICAN AMERICAN > 60; HDL CHOLESTEROL 32 mg/dL (29-60)
--- NOTE | 2018-10-13 08:05 | CON ---
DATE OF CONSULTATION: 10/12/2018 CONSULT SERVICE: Cardiology. REASON FOR CONSULTATION: Chest pain, cardiac evaluation, admitted with PE, cholecystitis, cholelithiasis. BRIEF CLINICAL HISTORY: A 63-year-old male with past medical history significant for extensive history of DVT, PE, was on Xarelto for extended period of time, stopped taking 6 months ago; history of rectovesical fistula, status post transverse loop colostomy; history of ventral hernia; history of left inguinal hernia 34 years ago, repaired, admitted with midsternal sharp chest pain, something like alfonso crossing from front of the chest to the back, waited for 4 hours, took multiple Aleve and pain medication, did not get better, came to the emergency room. CAT scan of the chest revealed small pulmonary embolism. Also, the workup showed that the patient had a cholecystitis, cholelithiasis. Currently on Lovenox. Denies any chest pain now. PAST MEDICAL HISTORY: Past history significant for hypertension; hyperlipidemia; noncompliance to medication; history of DVT and PE, stopped taking Xarelto 6 months ago; history of hypertension, stopped taking Losartan 4 months ago, very noncompliant patient. PAST SURGICAL HISTORY: Significant for inguinal hernia 30 years ago, repaired; history of rectovesical fistula and from urinary bladder to rectum, later on the patient is status post transverse loop diverting colostomy; history of ventral hernia; history of gallstone, is scheduled for cholecystectomy. SOCIAL HISTORY: Denies any history of tobacco abuse, but alcohol abuse, quit 1 month ago according to the patient. CURRENT MEDICATIONS: Losartan; propenidazole; the patient did not take losartan for 1 week; was also on Xarelto for DVT and PE, but stopped taking more than 6 months ago. ALLERGIES: NO KNOWN DRUG ALLERGY. FAMILY HISTORY: Significant for hypertension. Brother has multiple medical problems, not sure. REVIEW OF SYSTEMS: As per HPI. PHYSICAL EXAMINATION: VITAL SIGNS: As follows, temperature is afebrile, heart rate , blood pressure 124/91. HEENT: PERRLA. Extraocular muscles are intact. NECK: Supple. No carotid bruit or thyromegaly. CHEST: Clear to auscultation. HEART: S1 and S2, regular. ABDOMEN: Soft. EXTREMITIES: Clubbing and cyanosis negative. LABORATORY DATA: The patient had cardiac workup as follows: The patient had echo on 12/15/2015, that revealed somewhat study, normal LV size, normal LV function, aortic valve was moderately calcified, but not well visualized. Prior to that, the patient had an echo on 09/26/2015, read by Dr. White that revealed LVH, ejection fraction found to be within normal limit. Severely calcified aortic valve noted. The patient had DVT and PE, and the patient had at that time right venogram and angioplasty of right common iliac vein was done in 10/2016. EKG showed normal sinus at the rate of 70. Blood workup as follows: WBC of 5.7, hemoglobin 12.6, hematocrit 35.9, platelet count 154,000. Chemistry showed sodium 140, potassium 4, chloride 109, carbon dioxide 26, anion gap of 12, BUN 8, creatinine 0.9. Troponin 0.01. IMPRESSION: Acute pulmonary embolism; history of deep venous thrombosis in the past; history of pulmonary embolism in the past; off anticoagulants since 6 months; history of venogram and angioplasty of right common iliac vein in 2015; obesity; hypertension; noncompliance with medication; history of ventral hernia; history of cholecystitis and cholecystectomy. RECOMMENDATIONS: We will start Eliquis 10 mg b.i.d., if the patient is not going for surgery for gallbladder. Repeat with hemoglobin A1c. We will get echo. Further recommendations per hospital course. We will follow with you. Thank you, Dr. Magallon, for providing the opportunity in taking care of patient, Jeff Green. Kylah Puri MD
--- NOTE | 2018-10-13 11:38 | CP.PCM.DIS ---
Provider - Provider Date of Admission: 10/12/18 04:12 Attending physician: Janet Stauffer DO Primary care physician: Neil Engel JD, MD Consults: General Surgery: Dr. Chris Foster Gastroenterology: Dr. Rickie Philippe Cardiology: Dr. Kylah Espinoza Pulmonology: Dr. Jack Seaman Time Spent in preparation of Discharge (in minutes): 45 Hospital Course - Lab Results Lab Results: Micro Results 10/12/18 04:52 Blood Blood Culture - Preliminary NO GROWTH AFTER 24 HOURS 10/12/18 04:22 Blood Blood Culture - Preliminary NO GROWTH AFTER 24 HOURS Most Recent Lab Values WBC 5.2 10^3/uL (4.5-11.0) 10/13/18 06:20 RBC 4.17 10^6/uL (3.5-6.1) 10/13/18 06:20 Hgb 13.3 g/dL (14.0-18.0) L 10/13/18 06:20 Hct 38.6 % (42.0-52.0) L 10/13/18 06:20 MCV 92.6 fl (80.0-105.0) 10/13/18 06:20 MCH 31.9 pg (25.0-35.0) 10/13/18 06:20 MCHC 34.5 g/dl (31.0-37.0) 10/13/18 06:20 RDW 13.7 % (11.5-14.5) 10/13/18 06:20 Plt Count 159 10^3/uL (120.0-450.0) 10/13/18 06:20 MPV 9.7 fl (7.0-11.0) 10/13/18 06:20 Gran % 66.2 % (50.0-68.0) 10/13/18 06:20 Lymph % (Auto) 22.7 % (22.0-35.0) 10/13/18 06:20 Dent % (Auto) 7.8 % (1.0-6.0) H 10/13/18 06:20 Eos % (Auto) 3.1 % (1.5-5.0) 10/13/18 06:20 Baso % (Auto) 0.2 % (0.0-3.0) 10/13/18 06:20 Gran # 3.42 (1.4-6.5) 10/13/18 06:20 Lymph # (Auto) 1.2 (1.2-3.4) 10/13/18 06:20 Dent # (Auto) 0.4 (0.1-0.6) 10/13/18 06:20 Eos # (Auto) 0.2 (0.0-0.7) 10/13/18 06:20 Baso # (Auto) 0.01 K/mm3 (0.0-2.0) 10/13/18 06:20 PT 12.1 SECONDS (9.4-12.5) 10/11/18 23:35 INR 1.06 10/11/18 23:35 APTT 22.9 Seconds (25.1-36.5) L 10/11/18 23:35 Sodium 140 mmol/L (132-148) 10/13/18 06:20 Potassium 4.5 mmol/L (3.6-5.0) 10/13/18 06:20 Chloride 108 mmol/L (98-107) H 10/13/18 06:20 Carbon Dioxide 27 mmol/L (21-33) 10/13/18 06:20 Anion Gap 9 (10-20) L 10/13/18 06:20 BUN 12 mg/dL (7-21) 10/13/18 06:20 Creatinine 1.0 mg/dl (0.8-1.5) 10/13/18 06:20 Est GFR ( Amer) > 60 10/13/18 06:20 Est GFR (Non-Af Amer) > 60 10/13/18 06:20 Random Glucose 96 mg/dL (70-110) 10/13/18 06:20 Hemoglobin A1c 5.4 % (4.2-6.5) 10/12/18 07:40 Calcium 9.6 mg/dL (8.4-10.5) 10/13/18 06:20 Phosphorus 4.0 mg/dL (2.5-4.5) 10/13/18 06:20 Magnesium 1.9 mg/dL (1.7-2.2) 10/13/18 06:20 Total Bilirubin 0.7 mg/dL (0.2-1.3) 10/13/18 06:20 AST 32 U/L (17-59) 10/13/18 06:20 ALT 32 U/L (7-56) 10/13/18 06:20 Alkaline Phosphatase 60 U/L (38-126) 10/13/18 06:20 Lactate Dehydrogenase 500 U/L (333-699) 10/11/18 23:35 Total Creatine Kinase 141 U/L (35-230) 10/11/18 23:35 Troponin I < 0.01 ng/mL 10/12/18 11:30 Total Protein 7.9 g/dL (5.8-8.3) 10/13/18 06:20 Albumin 4.0 g/dL (3.0-4.8) 10/13/18 06:20 Globulin 3.8 gm/dL 10/13/18 06:20 Albumin/Globulin Ratio 1.0 (1.1-1.8) L 10/13/18 06:20 Triglycerides 107 mg/dL (35-160) 10/13/18 06:20 Cholesterol 160 mg/dL (130-200) 10/13/18 06:20 LDL Cholesterol Direct 105 mg/dL (0-129) 10/13/18 06:20 HDL Cholesterol 32 mg/dL (29-60) 10/13/18 06:20 Lipase 348 U/L (23-300) H 10/11/18 23:35 TSH 3rd Generation 2.79 mIU/mL (0.46-4.68) 10/13/18 06:20 Urine Color Yellow (YELLOW) 10/12/18 07:00 Urine Appearance Clear (CLEAR) 10/12/18 07:00 Urine pH 7.0 (4.7-8.0) 10/12/18 07:00 Ur Specific [place] <= 1.005 (1.005-1.035) 10/12/18 07:00 Urine Protein Negative mg/dL (<30 mg/dL) 10/12/18 07:00 Urine Glucose (UA) Negative mg/dL (NEGATIVE) 10/12/18 07:00 Urine Ketones Negative mg/dL (NEGATIVE) 10/12/18 07:00 Urine Blood Negative (NEGATIVE) 10/12/18 07:00 Urine Nitrate Negative (NEGATIVE) 10/12/18 07:00 Urine Bilirubin Negative (NEGATIVE) 10/12/18 07:00 Urine Urobilinogen 0.2 E.U./dL (<1 E.U./dL) 10/12/18 07:00 Ur Leukocyte Esterase Trace [place]/uL (NEGATIVE) H 10/12/18 07:00 Urine RBC 0 - 2 /hpf (0-2) 10/12/18 07:00 Urine WBC 5 - 10 /hpf (0-6) 10/12/18 07:00 Ur Epithelial Cells None /hpf (0-5) 10/12/18 07:00 Urine Bacteria Few (NEG) 10/12/18 07:00 - Hospital Course Hospital Course: Upon Admission Pt is a 63 yo M with pmhx of rectovesicular fistula s/p transverse loop colostomy, ventral hernia, hypertension, DVT/PE, alcohol abuse, and gallstones, who presented to the ED complaining of chest pain. Patient stated he was sitting at home at approximately 6 when he began experiencing mid-sternal chest pain with associated belching. He stated that he took kwan-seltzer which did not help with the chest pain. He rated the chest pain a 10/10 in intensity but denied radiation, and denied worsening or alleviation with exertion or rest respectively. Pt reported that upon admission, his chest pain was down to a 0/10 and he felt lot better. He also admitted to parastomal tenderness. He stated that since being in the ED the pain had improved but he still admitted to some tenderness. Hospital Course: CT of the chest in the ED was ordered which revealed a non obstructing pulmonary emboli seen in the peripheral branches of the R lower lobe, without occlusive proximal emboli. Lower extremity ultrasound was also done revealing R femoral vein subacute/chronic thrombus as well as subacute/chronic thrombus in the L femoral vein and popliteal vein. He was initially started on therapeutic lovenox at 80mg which was later changed to oral eliquis at 10mg bid. Pt was evaluated by pulmonology, who recommended indefinite anticoagulation. CT abdomen/pelvis was also done revealing choledocholithiasis, mildly dilated biliary tree, cholelithiasis, thickened bladder indicative with mild cystitis. Gallbladder ultrasound revealed cholelithiasis with thickening around the gallbladder, acute calculous cholecystitis. His WBC was normal and his LFTs were within normal limits. He was evaluated by surgery team who recommended no surgical intervention at this time, and that the patient visit his own surgeon, Dr. Patterson for colostomy reversal and cholecystectomy. Pt was also evaluated by GI, who recommended that the patient follow up with his own hardware assembler for treatment with an ERCP for common bile duct stones. Upon Discharge: Pt reports no acute complaints of pain. He reports that he had tenderness around colostomy site that his present for several weeks. His vital signs are stable. He is hemodynamically stable. His labs are stable. He has no signs of active infection. He does not appear to have acute abdomen. Consultants recommendations were appreciated. He has been given very specific instructions regarding his Eliquis prescription and has been explained the importance of taking this medication to prevent PE. He was also instructed to follow up with Dr. Joseph Stauffer, for surgery recommendations. He will be discharged home, with instructions to follow up with his PMD, hardware assembler and general surgeon. Discharge Exam - Head Exam Head Exam: NORMAL INSPECTION, NORMOCEPHALIC - Eye Exam Eye Exam: EOMI, Normal appearance, PERRL - ENT Exam ENT Exam: Mucous Membranes Moist, Normal Exam - Respiratory Exam Respiratory Exam: NORMAL BREATHING PATTERN, UNREMARKABLE - Cardiovascular Exam Cardiovascular Exam: REGULAR RHYTHM, +S1, +S2 - GI/Abdominal Exam GI & Abdominal Exam: Soft. absent: Distended, Firm, Guarding Additional comments: ventral colostomy noted. No signs of erythema, purulence. Soft, mildly tender to palpation - Extremities Exam Extremities exam: normal inspection, pedal pulses present - Back Exam Back exam: NORMAL INSPECTION - Neurological Exam Neurological exam: Alert, Oriented x3 - Psychiatric Exam Psychiatric exam: Normal Affect, Normal Mood - Skin Skin Exam: Dry, Intact, Warm Discharge Plan - Discharge Medications Prescriptions: Apixaban [Eliquis] 10 mg PO BID #10 tab Apixaban [Eliquis] 5 mg PO BID #28 tab - Follow Up Plan Condition: STABLE Disposition: HOME/ ROUTINE Instructions: Chest Pain (DC), Apixaban, Going Home on Blood Thinners , Endoscopic Retrograde Cholangiopancreatography, Pulmonary Embolism (DC), Cholecystitis (DC) Additional Instructions: Please follow these instructions upon discharge from the hospital: Please follow up with your primary care physician, Dr. Engel, within 3-5 days after you leave the hospital. Please follow up with your surgeon, Dr. Stauffer, within one week of leaving the hospital for scheduled. Please discuss all surgical plans, including colostomy reversal and gallbladder removal. Please follow up with the hardware assembler (stomach doctor) that you have been seeing at [facility]. Please discuss all medical issues addressed during your admission at this hospital. The hardware assembler that saw you during your admission recommended that you be evaluated for what is called an ERCP and that this be discussed with your hardware assembler. Information on what this is has been provided in this paperwork. You have been started on a new medication called "Eliquis." This is a blood thinner that you must take twice every day to prevent and treat blood clots. Information regarding this medication has been provided in this paperwork. You will be given two doses of Eliquis, a 10mg dose and a 5mg dose. Please take Eliquis 10mg twice a day until 10/18/2018. Starting on 10/19/2018, please take Eliquis 5mg twice per day indefinitely. You are being given two weeks of the Eliquis 5mg tablets and these will need to be refilled by your primary care doctor. Please resume your previous home medications as prescribed. If your symptoms return, please return to the nearest emergency room immediately. Referrals: Neil Engel JD, MD [Primary Care Provider] -
[2018-10-13 12:42] VITALS: BP 131/97; PULSE 78; TEMP 98.7
--- NOTE | 2018-10-13 13:17 | PN ---
DATE: 10/13/2018 SUBJECTIVE: The patient is lying in bed comfortable. He denies any chest pain, shortness of breath, abdominal pain, nausea, vomiting, fevers or chills. PHYSICAL EXAMINATION: VITAL SIGNS: Reveal temperature of 98.7, blood pressure 131/97, heart rate of 78. HEENT: Reveals sclerae to be white. Conjunctivae pink. NECK: Supple. CHEST: Lungs are clear. HEART: Reveals a regular rate and rhythm. ABDOMEN: Obese, soft. He has a large ventral hernia. He has a transverse colostomy. EXTREMITIES: Show no edema. LABORATORY DATA: Reveal hemoglobin 13.3, white blood cell count 5.2. Electrolytes are normal. Liver enzymes are normal. IMPRESSION: 1. Pulmonary embolus. 2. Incidental common bile duct stones, asymptomatic with normal liver enzymes and no abdominal pain. RECOMMENDATIONS: 1. To continue Eliquis. 2. I have instructed the patient to follow up with his awning erector at [facility] for an ERCP after his pulmonary embolus has been completely treated. His diagnosis of common bile duct stones and the procedure necessary ERCP was written down for the patient. No further GI workup is planned at this time. He was instructed to come to the hospital if he had any fever, chills, jaundice, abdominal pain or dark urine. Rickie Philippe MD
--- NOTE | 2018-10-13 13:26 | PN ---
DATE: 10/13/2018 Jeff rGeen is seen. CAT scan shows a very large hernia. Patient clearly has a pulmonary embolus. The plan will be to have the patient follow up with the surgeon that he has been seeing down in [facility]. If I can help, I would be happy to. Chris Foster MD
--- NOTE | 2018-10-13 14:06 | PN ---
DATE: 10/13/2018 SUBJECTIVE: The patient is a cardiac evaluation, chest pain, admitted with acute PE, cholecystitis, cholelithiasis. This note is an addition to dictated by nurse practitioner. The patient started yesterday on Eliquis 10 mg b.i.d. for one week and then followed by 5 mg b.i.d. the patient to continue Eliquis for history of DVT PE in the past. Recently, he was on Xarelto, stopped 6 months ago. Noncompliance. The patient was on Losartan, which also has stopped. The patient's diastolic blood pressure is at 97. We will start Losartan also. History of colostomy. No evidence of acute HI. The patient had echo study that showed normal chamber ejection fraction at 55% to 60%, bicuspid aortic valve with mild aortic stenosis, trace mitral regurgitation, trace tricuspid regurgitation, . We will start Losartan also for high blood pressure. No evidence of acute HI. Thank you Dr. Magallon for providing the opportunity in taking care of the patient. Kylah Puri MD
== END 2018-10-13 13:40 | disposition home or self-care (01) | DRG 78 ==
LOC: ED 23:13 → ERH 10-12 04:12 → 2RSO 10-12 05:42
PROVIDERS: ADMIT Internal Medicine; ATTEND Hospitalist
DX: I26.99 Other pulmonary embolism without acute cor pulmonale (principal); I82.533 Chronic embolism and thrombosis of popliteal vein, bilateral; I82.513 Chronic embolism and thrombosis of femoral vein, bilateral; K80.66 Calculus of gallbladder and bile duct with acute and chronic cholecystitis without obstruction; I08.3 Combined rheumatic disorders of mitral, aortic and tricuspid valves; E78.5 Hyperlipidemia, unspecified; I10 Essential (primary) hypertension; N30.90 Cystitis, unspecified without hematuria; K57.30 Diverticulosis of large intestine without perforation or abscess without bleeding; K43.9 Ventral hernia without obstruction or gangrene; K44.9 Diaphragmatic hernia without obstruction or gangrene; R07.2 Precordial pain; Z91.19 Patient's noncompliance with other medical treatment and regimen; Z79.01 Long term (current) use of anticoagulants; Z91.14 Patient's other noncompliance with medication regimen; Z93.3 Colostomy status

== ENCOUNTER 2018-10-30 02:00 | Emergency (ER) | payer OTHER ==
--- NOTE | 2018-10-30 02:30 | ED PDOC ---
Arrival/HPI - General Chief Complaint: Chest Pain Time Seen by Provider: 10/30/18 02:03 Historian: Patient - History of Present Illness Narrative History of Present Illness (Text): 10/30/18 02:27 63 year old male, whose past medical history includes rectovesicular fistula s/p transverse loop colostomy, ventral hernia, hypertension, DVT/PE, alcohol abuse, and gallstones, presents to the emergency department complaining of constant chest pain and abdominal pain. Patient states he was admitted here last week for similar symptoms, but was discharged on 10/13/18. He also states he has a final consultation at [facility] on 12/06/17 for his Colostomy. He is complaint with his Eliquis medication. The patient denies any fever, chills, chest pain, shortness of breath, abdominal pain, nausea, vomiting, diarrhea, urinary symptoms, back pa in, neck pain, headache, dizziness, or any other complaints. PMD: Dr. Neil Engel Symptom Onset: Gradual Symptom Course: Unchanged Activities at Onset: Light Context: Home Past Medical History - Provider Review Nursing Documentation Reviewed: Yes - Infectious Disease Hx of Infectious Diseases: None - Tetanus Immunization Tetanus Immunization: Unknown - Cardiac Hx Cardiac Disorders: Yes (dvt ble) Hx Hypertension: Yes - Pulmonary Hx Respiratory Disorders: No - Neurological Hx Neurological Disorder: No - HEENT Hx HEENT Disorder: No - Renal Hx Renal Disorder: No - Endocrine/Metabolic Hx Endocrine Disorders: No - Hematological/Oncological Other/Comment: BLE DVT on Xarelto - Integumentary Hx Dermatological Disorder: No - Musculoskeletal/Rheumatological Hx Musculoskeletal Disorders: No Hx Falls: No - Gastrointestinal Hx Gastrointestinal Disorders: Yes Hx Colostomy: Yes Other/Comment: GI BLEED - Genitourinary/Gynecological Hx Genitourinary Disorders: Yes Other/Comment: bladder fistula urinates through rectum, pt is able to control it, has had fistula and colostomy 2 yrs. Has been planning sx at [facility] 1 yr to have fistula corrected and colostomy reversed in the future - Psychiatric Hx Psychophysiologic Disorder: No Hx Substance Use: No - Surgical History Hx Tonsillectomy: Yes Other/Comment: Colostomy 2015 - Anesthesia Hx Anesthesia: Yes Hx Anesthesia Reactions: No Hx Malignant Hyperthermia: No - Suicidal Assessment Feels Threatened In Home Enviroment: No Family/Social History - Physician Review Nursing Documentation Reviewed: Yes Family/Social History: No Known Family HX Smoking Status: Never Smoked Hx Alcohol Use: Yes Hx Substance Use: No Hx Substance Use Treatment: No Allergies/Home Meds Allergies/Adverse Reactions: Allergies No Known Allergies Allergy (Verified 10/11/18 23:36) Home Medications: Home Meds Medication Instructions Recorded Confirmed RX: Pantoprazole [Protonix EC Tab] 40 mg PO DAILY PRN 10/15/17 10/13/18 Thera Tab 1 tab PO DAILY 10/13/18 10/13/18 Review of Systems - Physician Review All systems were reviewed & negative as marked: Yes - Review of Systems Constitutional: absent: Fevers, Other (Chills) Respiratory: absent: SOB Cardiovascular: Chest Pain Gastrointestinal: Abdominal Pain. absent: Diarrhea, Nausea, Vomiting Genitourinary Male: absent: Dysuria, Frequency, Hematuria Musculoskeletal: absent: Back Pain, Neck Pain Neurological: absent: Headache, Dizziness Physical Exam Vital Signs Reviewed: Yes Vital Signs Temp Pulse Resp BP Pulse Ox 10/30/18 02:10 98 F 68 18 125/42 L 100 Temperature: Afebrile Blood Pressure: Normal Pulse: Regular Respiratory Rate: Normal Appearance: Positive for: Well-Appearing, Non-Toxic, Comfortable Pain Distress: None Mental Status: Positive for: Alert and Oriented X 3 - Systems Exam Head: Present: Atraumatic, Normocephalic Pupils: Present: PERRL Extroacular Muscles: Present: EOMI Conjunctiva: Present: Normal Mouth: Present: Moist Mucous Membranes Neck: Present: Normal Range of Motion Respiratory/Chest: Present: Clear to Auscultation, Good Air Exchange. No: Respiratory Distress, Accessory Muscle Use Cardiovascular: Present: Regular Rate and Rhythm, Normal S1, S2. No: Murmurs Abdomen: Present: Tenderness (Mild nonfocal tenderness), Distention (Mild ), Ostomy Tubes (Colostomy). No: Peritoneal Signs Back: Present: Normal Inspection Upper Extremity: Present: Normal Inspection. No: Cyanosis, Edema Lower Extremity: Present: Normal Inspection. No: Edema Neurological: Present: GCS=15, CN II-XII Intact, Speech Normal Skin: Present: Warm, Dry, Normal Color. No: Rashes Psychiatric: Present: Alert, Oriented x 3, Normal Insight, Normal Concentration Medical Decision Making ED Course and Treatment: 10/30/18 02:27 Impression: 63 year old male presents complaining of constant chest discomfort and abdominal pain. ro acs, cholecysiits, colitis, obstruction. pt compliant [facility] eliquis/ Plan: -- EKG -- Labs -- Urinalysis -- CT Abdomen and Pelvis IV Contrast -- Reassess and disposition Prior Visits: Notes and results from previous visits were reviewed. Progress Notes: 10/30/18 02:29 EKG shows NSR at 66 BPM with non-specific ST/T wave change. Interpreted by me CT SCAN OF THE ABDOMEN AND PELVIS WITH CONTRAST. Electronically signed on Oct 30, 2018 5:18:35 AM EST by: Mike Mcconnell M.D IMPRESSION: Cholelithiasis. Suspected mild changes of acute cholecystitis. Unchanged. No evidence of perforation or abscess formation. Nondilated biliary tree. Mildly thickened bladder. Underdistention versus mild cystitis, unchanged. 10/30/18 05:26 Case discussed with residential real estate assistant, rn medical surgical and Dr. Kebede who are aware and agrees with the plan. Accepts patient into hospitalist service. 10/30/18 06:44 seen by surgical team bedside. empiric antibiotics dose.d - Lab Interpretations I have reviewed the lab results: Yes - EKG Interpretation Interpreted by ED Physician: Yes Type: 12 lead EKG - Scribe Statement The provider has reviewed the documentation as recorded by the Scribe Maddie Mireles Provider Scribe Attestation: All medical record entries made by the Scribe were at my direction and personally dictated by me. I have reviewed the chart and agree that the record accurately reflects my personal performance of the history, physical exam, medical decision making, and the department course for this patient. I have also personally directed, reviewed, and agree with the discharge instructions and disposition. Disposition/Present on Arrival - Present on Arrival Any Indicators Present on Arrival: No History of DVT/PE: No History of Uncontrolled Diabetes: No Urinary Catheter: No History of Decub. Ulcer: No History Surgical Site Infection Following: None - Disposition Have Diagnosis and Disposition been Completed?: Yes Diagnosis: Chest pain, Cholecystitis Disposition: HOSPITALIZED Disposition Time: 05:00 Condition: STABLE
[2018-10-30 02:54] LABS: BASO # 0.01 K/mm3 (0.0-2.0); BASO % 0.3 % (0.0-3.0); EOS # 0.1 (0.0-0.7); EOS % 2.2 % (1.5-5.0); GRAN # 1.57 (1.4-6.5); HEMOGLOBIN 12.3 g/dL (14.0-18.0); LYMPH # 1.1 (1.2-3.4); MEAN CELL VOLUME 91.9 fl (80.0-105.0); MEAN CORPUSCULAR HEMOGLOBIN 31.9 pg (25.0-35.0); MEAN CORPUSCULAR HGB CONC 34.7 g/dl (31.0-37.0); MEAN PLATELET VOLUME 10.1 fl (7.0-11.0); MONO # 0.4 (0.1-0.6); MONO % 11.5 % (1.0-6.0); RBC 3.85 10^6/uL (3.5-6.1); RED CELL DISTRIBUTION WIDTH 13.5 % (11.5-14.5); WHITE BLOOD COUNT 3.1 10^3/uL (4.5-11.0)
[2018-10-30 02:58] LABS: INR 1.19; PARTIAL THROMBOPLASTIN TIME 24.2 Seconds (25.1-36.5); PROTHROMBIN TIME 13.7 SECONDS (9.4-12.5)
[2018-10-30 03:16] LABS: TROPONIN I < 0.01 ng/mL
[2018-10-30 03:17] LABS: ALB/GLOB RATIO 1.1 (1.1-1.8); ALBUMIN 4.4 g/dL (3.0-4.8); ALT/SGPT 27 U/L (7-56); AST/SGOT 35 U/L (17-59); BILIRUBIN,DIRECT 0.4 mg/dL (0.0-0.4); BLOOD UREA NITROGEN 13 mg/dL (7-21); CALCIUM 9.5 mg/dL (8.4-10.5); GFR NON-AFRICAN AMERICAN > 60; LIPASE 117 U/L (23-300)
[2018-10-30] MEDS ORDERED: Iohexol 350 MG/100 ML VIAL ONE (03:33)
[2018-10-30 04:08] LABS: URINE BILIRUBIN NEGATIVE (NEGATIVE); URINE BLOOD NEGATIVE (NEGATIVE); URINE GLUCOSE (UA) NEGATIVE (NEGATIVE); URINE LEUKOCYTE ESTERASE NEGATIVE Leu/uL (NEGATIVE); URINE PROTEIN NEGATIVE mg/dL (<30 mg/dL); URINE UROBILINOGEN 0.2 E.U./dL (<1 E.U./dL)
[2018-10-30 04:22] LABS: URINE APPEARANCE CLEAR (CLEAR); URINE COLOR LIGHT YELLOW (YELLOW)
[2018-10-30] MEDS ORDERED: Piperacillin/Tazobact 3.375 gm 100 ML IVPB STA (05:21)
--- NOTE | 2018-10-30 06:06 | CP.PCM.HP ---
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 Patient states chest pain started while at rest a few hours ago, sharp, 10/10, constant, non radiating and denies and alleviating or exacerbating factors. Patient states current symptoms feel "exactly the same" as previous admission two weeks ago when patient was diagnosed with choledocolithiasis. Patient was discharged and instructed follow up with outpatient eval for cholecystectomy and colostomy reversal with Dr. Breann Stauffer whom patient has appointment with on 12/06/2018. Patient also instructed to follow up with GI outpatient for ERCP but patient has been unable to see. Patient's last meal was a pasta TV dinner that patient says caused some bloating. Last alcohol drink was 3 months ago per patient. He says is compliant with his medications. Currently he denies CP, SOB, abdominal pain, back pain, fevers, chills, nausea, vomiting, cough, urinary complaints, hematochezia, numbness, tingling, swelling, recent travel, sickness, trauma and lifestyle change. 12 point ROS noted here, otherwise unremarkable. PMD: Dr. 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 presenting SH: former heavy drinker - quit 3 months ago, never smoker, denies drugs Sx: transverse loop colostomy 3 years ago FH: HTN All: NKDA Meds: eliquis 5mg BID, losartan 50mg, pantoprazole 40mg Present on Admission - Present on Admission Any Indicators Present on Admission: Yes History of DVT/PE: Yes Past Patient History - Infectious Disease Hx of Infectious Diseases: None - Tetanus Immunizations Tetanus Immunization: Unknown - Past Medical History & Family History Past Medical History?: Yes - Past Social History Smoking Status: Never Smoked - CARDIAC Hx Cardiac Disorders: Yes (dvt ble) Hx Hypertension: Yes - PULMONARY Hx Respiratory Disorders: No - NEUROLOGICAL Hx Neurological Disorder: No - HEENT Hx HEENT Problems: No - RENAL Hx Chronic Kidney Disease: No - ENDOCRINE/METABOLIC Hx Endocrine Disorders: No - HEMATOLOGICAL/ONCOLOGICAL Other/Comment: BLE DVT on Xarelto - INTEGUMENTARY Hx Dermatological Problems: No - MUSCULOSKELETAL/RHEUMATOLOGICAL Hx Musculoskeletal Disorders: No Hx Falls: No - GASTROINTESTINAL Hx Gastrointestinal Disorders: Yes Hx Colostomy: Yes Other/Comment: GI BLEED - GENITOURINARY/GYNECOLOGICAL Hx Genitourinary Disorders: Yes Other/Comment: bladder fistula urinates through rectum, pt is able to control it, has had fistula and colostomy 2 yrs. Has been planning sx at [facility] x 1 yr to have fistula corrected and colostomy reversed in the future - PSYCHIATRIC Hx Psychophysiologic Disorder: No Hx Substance Use: No - SURGICAL HISTORY Hx Tonsillectomy: Yes Other/Comment: Colostomy 2015 - ANESTHESIA Hx Anesthesia: Yes Hx Anesthesia Reactions: No Hx Malignant Hyperthermia: No Meds Allergies/Adverse Reactions: Allergies Allergy/AdvReac Type Severity Reaction Status Date / Time No Known Allergies Allergy Verified 10/11/18 23:36 Physical Exam - Constitutional Appears: No Acute Distress - Head Exam Head Exam: ATRAUMATIC, NORMAL INSPECTION - Eye Exam Eye Exam: EOMI Pupil Exam: PERRL - ENT Exam ENT Exam: Mucous Membranes Moist - Respiratory Exam Respiratory Exam: Clear to Auscultation Bilateral, NORMAL BREATHING PATTERN. absent: Accessory Muscle Use, Wheezes, Respiratory Distress - Cardiovascular Exam Cardiovascular Exam: REGULAR RHYTHM, +S1, +S2 - GI/Abdominal Exam GI & Abdominal Exam: Normal Bowel Sounds, Soft. absent: Firm, Guarding, Tenderness Additional comments: no abdominal tenderness noted. Transvers colostomy bag appreciated that is draining non bloody brown stool. Colostomy bag is attached with no bleeding, pus, erythematous changes appreciated - Extremities Exam Extremities exam: Positive for: normal inspection, pedal pulses present. Ne gative for: calf tenderness - Back Exam Back exam: NORMAL INSPECTION - Neurological Exam Neurological exam: Alert, Oriented x3 - Skin Skin Exam: Normal Color, Warm Results - Vital Signs Recent Vital Signs: Last Vital Signs Temp 98.5 F 10/30/18 03:33 Pulse 66 10/30/18 03:33 Resp 16 10/30/18 03:33 BP 153/98 H 10/30/18 03:33 Pulse Ox 100 10/30/18 03:33 - Labs Result Diagrams: 10/30/18 02:40 10/30/18 02:40 Labs: Laboratory Results - last 24 hr 10/30/18 10/30/18 10/30/18 02:40 02:40 02:40 WBC 3.1 L D RBC 3.85 Hgb 12.3 L Hct 35.4 L MCV 91.9 MCH 31.9 MCHC 34.7 RDW 13.5 Plt Count 131 MPV 10.1 Gran % 50.0 Lymph % (Auto) 36.0 H [place] % (Auto) 11.5 H Eos % (Auto) 2.2 Baso % (Auto) 0.3 Gran # 1.57 Lymph # (Auto) 1.1 L [place] # (Auto) 0.4 Eos # (Auto) 0.1 Baso # (Auto) 0.01 PT 13.7 H INR 1.19 APTT 24.2 L Sodium 140 Potassium 4.2 Chloride 108 H Carbon Dioxide 25 Anion Gap 11 BUN 13 Creatinine 0.9 Est GFR ( Amer) > 60 Est GFR (Non-Af Amer) > 60 Random Glucose 100 Calcium 9.5 Magnesium 1.9 Total Bilirubin 0.6 Direct Bilirubin 0.4 AST 35 ALT 27 Alkaline Phosphatase 63 Lactate Dehydrogenase 499 Total Creatine Kinase 104 Troponin I < 0.01 Total Protein 8.3 Albumin 4.4 Globulin 3.9 Albumin/Globulin Ratio 1.1 Lipase 117 Urine Color Urine Appearance Urine pH Ur Specific [place] Urine Protein Urine Glucose (UA) Urine Ketones Urine Blood Urine Nitrate Urine Bilirubin Urine Urobilinogen Ur Leukocyte Esterase 10/30/18 03:46 WBC RBC Hgb Hct MCV MCH MCHC RDW Plt Count MPV Gran % Lymph % (Auto) [place] % (Auto) Eos % (Auto) Baso % (Auto) Gran # Lymph # (Auto) [place] # (Auto) Eos # (Auto) Baso # (Auto) PT INR APTT Sodium Potassium Chloride Carbon Dioxide Anion Gap BUN Creatinine Est GFR ( Amer) Est GFR (Non-Af Amer) Random Glucose Calcium Magnesium Total Bilirubin Direct Bilirubin AST ALT Alkaline Phosphatase Lactate Dehydrogenase Total Creatine Kinase Troponin I Total Protein Albumin Globulin Albumin/Globulin Ratio Lipase Urine Color Light yellow Urine Appearance Clear Urine pH 6.0 Ur Specific [place] 1.025 Urine Protein Negative Urine Glucose (UA) Negative Urine Ketones Negative Urine Blood Negative Urine Nitrate Negative Urine Bilirubin Negative Urine Urobilinogen 0.2 Ur Leukocyte Esterase Negative Assessment & Plan - Assessment and Plan (Free Text) Assessment: This is a 63 year old male with 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 Plan: Chest pain -unlikely cardiac in origin, patient admits to bloating before presentation -initial troponin <0.01 -serial EKG, trending trops x2 -echo on 10/12 showed EF 55-60%, trace MR, TR, RVSP of 22 -CXR shows no active disease, f/u official read -cardiology on consult, Dr. Nguyen Hx of CBD stones -CTAP on 10/12/18 showed choledocholithiasis, cholelithaisis with two separate stones in the CBD measuring 6mm and 8mm with no significant dilation of the common duct or intrahepatic ductal dilation -CTAP pending final read -previous plan to follow outpatient GI for ERCP and removal of CBD stones at [facility] -NPO for now, can advance to full liquid diet if no interventions -General surgery on consult, Dr. Luis -GI on consult, Dr. Dooley Hx of transverse loop colostomy -draining non bloody brown stool -previous plan for outpatient colostomy reversal, gallbladder removal with Dr. Crain[facility] -may need colonoscopy before re-anastamosis -may need ERCP before gallbladder removal -follow surgery and GI recommendations Hx of DVT/PE -Hx of DVT two years ago and PE two weeks ago -continue indefinite eliquis therapy Hx of HTN -continue losartan Hx of alcohol abuse -UDS pending -alcohol level pending -patient states he has not drank in 3 months, history of heavy drinking -CIWA protocol, ativan prn as a precaution PPX with pepcid and eliquis NPO Patient seen and case discussed with attending, Dr. Kebede <Kira Kebede - Last Filed: 10/30/18 19:12> Results - Vital Signs Recent Vital Signs: Last Vital Signs Temp 98 F 10/30/18 08:30 Pulse 59 L 10/30/18 16:44 Resp 18 10/30/18 16:44 BP 131/78 10/30/18 16:44 Pulse Ox 97 10/30/18 16:44 - Labs Result Diagrams: 10/30/18 02:40 10/30/18 02:40 Labs: Laboratory Results - last 24 hr 10/30/18 10/30/18 10/30/18 02:40 02:40 02:40 WBC 3.1 L D RBC 3.85 Hgb 12.3 L Hct 35.4 L MCV 91.9 MCH 31.9 MCHC 34.7 RDW 13.5 Plt Count 131 MPV 10.1 Gran % 50.0 Lymph % (Auto) 36.0 H [place] % (Auto) 11.5 H Eos % (Auto) 2.2 Baso % (Auto) 0.3 Gran # 1.57 Lymph # (Auto) 1.1 L [place] # (Auto) 0.4 Eos # (Auto) 0.1 Baso # (Auto) 0.01 PT 13.7 H INR 1.19 APTT 24.2 L Sodium 140 Potassium 4.2 Chloride 108 H Carbon Dioxide 25 Anion Gap 11 BUN 13 Creatinine 0.9 Est GFR ( Amer) > 60 Est GFR (Non-Af Amer) > 60 Random Glucose 100 Calcium 9.5 Magnesium 1.9 Total Bilirubin 0.6 Direct Bilirubin 0.4 AST 35 ALT 27 Alkaline Phosphatase 63 Lactate Dehydrogenase 499 Total Creatine Kinase 104 Troponin I < 0.01 Total Protein 8.3 Albumin 4.4 Globulin 3.9 Albumin/Globulin Ratio 1.1 Lipase 117 Urine Color Urine Appearance Urine pH Ur Specific [place] Urine Protein Urine Glucose (UA) Urine Ketones Urine Blood Urine Nitrate Urine Bilirubin Urine Urobilinogen Ur Leukocyte Esterase Urine Opiates Screen Urine Methadone Screen Ur Barbiturates Screen Ur Phencyclidine Scrn Ur Amphetamines Screen U Benzodiazepines Scrn U Oth Cocaine Metabols U Cannabinoids Screen Alcohol, Quantitative 10/30/18 10/30/18 10/30/18 03:46 08:29 09:52 WBC RBC Hgb Hct MCV MCH MCHC RDW Plt Count MPV Gran % Lymph % (Auto) [place] % (Auto) Eos % (Auto) Baso % (Auto) Gran # Lymph # (Auto) [place] # (Auto) Eos # (Auto) Baso # (Auto) PT INR APTT Sodium Potassium Chloride Carbon Dioxide Anion Gap BUN Creatinine Est GFR ( Amer) Est GFR (Non-Af Amer) Random Glucose Calcium Magnesium Total Bilirubin Direct Bilirubin AST ALT Alkaline Phosphatase Lactate Dehydrogenase Total Creatine Kinase Troponin I < 0.01 Total Protein Albumin Globulin Albumin/Globulin Ratio Lipase Urine Color Light yellow Urine Appearance Clear Urine pH 6.0 Ur Specific [place] 1.025 Urine Protein Negative Urine Glucose (UA) Negative Urine Ketones Negative Urine Blood Negative Urine Nitrate Negative Urine Bilirubin Negative Urine Urobilinogen 0.2 Ur Leukocyte Esterase Negative Urine Opiates Screen Negative Urine Methadone Screen Negative Ur Barbiturates Screen Negative Ur Phencyclidine Scrn Negative Ur Amphetamines Screen Negative U Benzodiazepines Scrn Negative U Oth Cocaine Metabols Negative U Cannabinoids Screen Negative Alcohol, Quantitative 10/30/18 10/30/18 09:52 14:22 WBC RBC Hgb Hct MCV MCH MCHC RDW Plt Count MPV Gran % Lymph % (Auto) [place] % (Auto) Eos % (Auto) Baso % (Auto) Gran # Lymph # (Auto) [place] # (Auto) Eos # (Auto) Baso # (Auto) PT INR APTT Sodium Potassium Chloride Carbon Dioxide Anion Gap BUN Creatinine Est GFR ( Amer) Est GFR (Non-Af Amer) Random Glucose Calcium Magnesium Total Bilirubin Direct Bilirubin AST ALT Alkaline Phosphatase Lactate Dehydrogenase Total Creatine Kinase Troponin I < 0.01 Total Protein Albumin Globulin Albumin/Globulin Ratio Lipase Urine Color Urine Appearance Urine pH Ur Specific [place] Urine Protein Urine Glucose (UA) Urine Ketones Urine Blood Urine Nitrate Urine Bilirubin Urine Urobilinogen Ur Leukocyte Esterase Urine Opiates Screen Urine Methadone Screen Ur Barbiturates Screen Ur Phencyclidine Scrn Ur Amphetamines Screen U Benzodiazepines Scrn U Oth Cocaine Metabols U Cannabinoids Screen Alcohol, Quantitative < 10 Attending/Attestation - Attestation I have personally seen and examined this patient.: Yes I have fully participated in the care of the patient.: Yes I have reviewed all pertinent clinical information: Yes
[2018-10-30] MEDS ORDERED: Pantoprazole 40 mg EC Tab PO PRN (07:26)
--- NOTE | 2018-10-30 08:07 | RAD ---
Date of service: 10/30/2018 HISTORY: cp COMPARISON: 10/12/2018 FINDINGS: LUNGS: No active pulmonary disease. PLEURA: No significant pleural effusion identified, no pneumothorax apparent. CARDIOVASCULAR: No aortic atherosclerotic calcification present. Mild aortic tortuosity. Mild cardiomegaly no pulmonary vascular congestion. OSSEOUS STRUCTURES: No significant abnormalities. VISUALIZED UPPER ABDOMEN: Normal. OTHER FINDINGS: None. IMPRESSION: No active disease.
--- NOTE | 2018-10-30 08:40 | CP.PCM.CON ---
History of Present Illness - History of Present Illness History of Present Illness: Surgery Consult Note- Dr. Foster 63M pmhx significant for DVT/PE on eliquis, rectovesicular fistula s/p transverse loop colostomy, non-obstructive parastomal hernia presents to [facility] ED with one day hx of chest and abdominal pain. Patient states chest pain started while at rest a few hours ago, sharp, 10/10, constant, non radiating and denies and alleviating or exacerbating factors. Patient states current symptoms feel "exactly the same" as previous admission two weeks ago when patient was diagnosed with Pulmonary Embolism. On previous admission patient was found to have cholelithiasis, choledocholithiasis on CT scan. Repeat CT scan showed cholelithiasis and choledocholithiasis again. He states he has regular follow up with his surgeon Dr. Stauffer at [facility] who recently performed the partial colon resection for the rectovasicular fistula. He reports that the surgery was so long the decision was made to perform the operation in 2 stages: rectal resection followed by colostomy reversal and cholecystectomy. He is schedule for follow up later this month to schedule the 2nd stage of the surgery. Patient is scheduled for cholecystectomy and colostomy reversal with Dr. Breann Stauffer on 12/06/2018. Surgery was consulted for repeat evaluation. Denies nausea, vomiting, fevers, chills, RUQ abd pain, recent foreign travel, or sick contacnts. 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 Stauffer ALL: NKDA SocialHx: former heavy drinker - quit 3 months ago, never smoker, denies drugs FH: HTN PMD: Dr. Neil Engel Review of Systems - Review of Systems All systems: reviewed and no additional remarkable complaints except - Constitutional Constitutional: As Per HPI Past Patient History - Infectious Disease Hx of Infectious Diseases: None - Tetanus Immunizations Tetanus Immunization: Unknown - Past Medical History & Family History Past Medical History?: Yes - Past Social History Smoking Status: Never Smoked - CARDIAC Hx Cardiac Disorders: Yes (dvt ble) Hx Hypertension: Yes - PULMONARY Hx Respiratory Disorders: No - NEUROLOGICAL Hx Neurological Disorder: No - HEENT Hx HEENT Problems: No - RENAL Hx Chronic Kidney Disease: No - ENDOCRINE/METABOLIC Hx Endocrine Disorders: No - HEMATOLOGICAL/ONCOLOGICAL Other/Comment: BLE DVT on Xarelto - INTEGUMENTARY Hx Dermatological Problems: No - MUSCULOSKELETAL/RHEUMATOLOGICAL Hx Musculoskeletal Disorders: No Hx Falls: No - GASTROINTESTINAL Hx Gastrointestinal Disorders: Yes Hx Colostomy: Yes Other/Comment: GI BLEED - GENITOURINARY/GYNECOLOGICAL Hx Genitourinary Disorders: Yes Other/Comment: bladder fistula urinates through rectum, pt is able to control it, has had fistula and colostomy 2 yrs. Has been planning sx at [facility] x 1 yr to have fistula corrected and colostomy reversed in the future - PSYCHIATRIC Hx Psychophysiologic Disorder: No Hx Substance Use: No - SURGICAL HISTORY Hx Tonsillectomy: Yes Other/Comment: Colostomy 2015 - ANESTHESIA Hx Anesthesia: Yes Hx Anesthesia Reactions: No Hx Malignant Hyperthermia: No Meds Allergies/Adverse Reactions: Allergies Allergy/AdvReac Type Severity Reaction Status Date / Time No Known Allergies Allergy Verified 10/11/18 23:36 - Medications Medications: Current Medications Apixaban (Eliquis) 5 mg PO BID TAD; Protocol Famotidine (Pepcid) 20 mg IVP DAILY TAD Lorazepam (Ativan) 1 mg IVP Q6H PRN; Protocol PRN Reason: Symptoms of alcohol withdrawl Losartan Potassium (Cozaar) 50 mg PO DAILY TAD Pantoprazole Sodium (Protonix Ec Tab) 40 mg PO DAILY PRN PRN Reason: GI distress Physical Exam - Constitutional Appears: Non-toxic, No Acute Distress - Eye Exam Eye Exam: EOMI - ENT Exam Additional comments: poor dentition - Respiratory Exam Respiratory Exam: NORMAL BREATHING PATTERN. absent: Accessory Muscle Use, Respiratory Distress - Cardiovascular Exam Cardiovascular Exam: +S1, +S2. absent: Bradycardia, Tachycardia - GI/Abdominal Exam GI & Abdominal Exam: Hernia (parastoma hernia, no signs of obstruction), Soft. absent: Distended, Firm, Guarding, Rigid, Tenderness Additional comments: negative murphys sign no pain in RUQ ostomy patent w/ active stool output - Extremities Exam Extremities exam: Negative for: calf tenderness - Neurological Exam Neurological exam: Alert, Oriented x3 - Psychiatric Exam Psychiatric exam: Normal Affect - Skin Skin Exam: Intact, Warm Results - Vital Signs Recent Vital Signs: Last Vital Signs Temp 98.4 F 10/30/18 07:49 Pulse 88 10/30/18 07:49 Resp 16 10/30/18 07:49 BP 140/80 10/30/18 07:49 Pulse Ox 99 10/30/18 07:49 - Labs Result Diagrams: 10/30/18 02:40 10/30/18 02:40 Labs: Laboratory Results - last 24 hr 10/30/18 10/30/18 10/30/18 02:40 02:40 02:40 WBC 3.1 L D RBC 3.85 Hgb 12.3 L Hct 35.4 L MCV 91.9 MCH 31.9 MCHC 34.7 RDW 13.5 Plt Count 131 MPV 10.1 Gran % 50.0 Lymph % (Auto) 36.0 H [place] % (Auto) 11.5 H Eos % (Auto) 2.2 Baso % (Auto) 0.3 Gran # 1.57 Lymph # (Auto) 1.1 L [place] # (Auto) 0.4 Eos # (Auto) 0.1 Baso # (Auto) 0.01 PT 13.7 H INR 1.19 APTT 24.2 L Sodium 140 Potassium 4.2 Chloride 108 H Carbon Dioxide 25 Anion Gap 11 BUN 13 Creatinine 0.9 Est GFR ( Amer) > 60 Est GFR (Non-Af Amer) > 60 Random Glucose 100 Calcium 9.5 Magnesium 1.9 Total Bilirubin 0.6 Direct Bilirubin 0.4 AST 35 ALT 27 Alkaline Phosphatase 63 Lactate Dehydrogenase 499 Total Creatine Kinase 104 Troponin I < 0.01 Total Protein 8.3 Albumin 4.4 Globulin 3.9 Albumin/Globulin Ratio 1.1 Lipase 117 Urine Color Urine Appearance Urine pH Ur Specific [place] Urine Protein Urine Glucose (UA) Urine Ketones Urine Blood Urine Nitrate Urine Bilirubin Urine Urobilinogen Ur Leukocyte Esterase 10/30/18 03:46 WBC RBC Hgb Hct MCV MCH MCHC RDW Plt Count MPV Gran % Lymph % (Auto) [place] % (Auto) Eos % (Auto) Baso % (Auto) Gran # Lymph # (Auto) [place] # (Auto) Eos # (Auto) Baso # (Auto) PT INR APTT Sodium Potassium Chloride Carbon Dioxide Anion Gap BUN Creatinine Est GFR ( Amer) Est GFR (Non-Af Amer) Random Glucose Calcium Magnesium Total Bilirubin Direct Bilirubin AST ALT Alkaline Phosphatase Lactate Dehydrogenase Total Creatine Kinase Troponin I Total Protein Albumin Globulin Albumin/Globulin Ratio Lipase Urine Color Light yellow Urine Appearance Clear Urine pH 6.0 Ur Specific [place] 1.025 Urine Protein Negative Urine Glucose (UA) Negative Urine Ketones Negative Urine Blood Negative Urine Nitrate Negative Urine Bilirubin Negative Urine Urobilinogen 0.2 Ur Leukocyte Esterase Negative Assessment & Plan - Assessment and Plan (Free Text) Assessment: 63M admitted for chest pain found to have PEs on previous admission on [facility], found to have cholelithiasis and choledocholithiasis on CT scan. Plan: -repeat US pending -GI consult for choledocholithiasis -carmine-stomal hernia is chronic w/o evidence of obstruction however would maintain NPO status until evaluated by GI team for further recs regarding intervention -no acute surgical intervention at this time as patient has defined operative plan with primary surgeon Dr. Stauffer -further recs per Dr. Cristian Solomon PGY2
[2018-10-30 09:01] LABS: BARBITURATES, UR NEGATIVE (NEGATIVE); BENZODIAZEPINES, UR NEGATIVE (NEGATIVE); OPIATES, UR NEGATIVE (NEGATIVE); PHENCYCLIDINE, UR NEGATIVE (NEGATIVE)
--- NOTE | 2018-10-30 09:53 | CARD ---
APPROVED REPORT Date of service: 10/30/2018 EKG Measurement Heart [id number] <Conclusion> Normal sinus rhythm Normal ECG
--- NOTE | 2018-10-30 10:18 | CT ---
Date of service: 10/30/2018 PROCEDURE: CT Abdomen and Pelvis with intravenous contrast HISTORY: abd pain COMPARISON: 10/12/2018 TECHNIQUE: With contrast.. Contrast dose: 100 cc of Omni 350 Radiation dose: Total exam DLP = 1464.38 mGy-cm. This CT exam was performed using one or more of the following dose reduction techniques: Automated exposure control, adjustment of the mA and/or kV according to patient size, and/or use of iterative reconstruction technique. FINDINGS: LOWER THORAX: There is aneurysmal dilatation of the ascending aorta measuring 5 cm. Aortic and coronary artery calcifications are seen LIVER: Unremarkable. No gross lesion or ductal dilatation. GALLBLADDER AND BILE DUCTS: Multiple gallstones. Stones are also seen in the common duct. The findings are unchanged PANCREAS: Unremarkable. No gross lesion or ductal dilatation. SPLEEN: Unremarkable. ADRENALS: Unremarkable. No mass. KIDNEYS AND URETERS: Unremarkable. No hydronephrosis. No solid mass. VASCULATURE: Unremarkable. No aortic aneurysm. No aortic atherosclerotic calcification or mural plaque present. BOWEL: Unremarkable. No obstruction. No gross mural thickening. There is a central ostomy. There is some herniation of bowel loops into the ostomy defect. The defect measures 9.5 cm. There is no obstruction. APPENDIX: Unremarkable. Normal appendix. PERITONEUM: Unremarkable. No free fluid. No free air. LYMPH NODES: Unremarkable. No enlarged lymph nodes. BLADDER: Unremarkable. REPRODUCTIVE: Unremarkable. BONES: No acute fracture. OTHER FINDINGS: The report concurs with the preliminary [facility] report IMPRESSION: Cholelithiasis and choledocholithiasis unchanged. No evidence of biliary dilatation.
--- NOTE | 2018-10-30 10:46 | US ---
Date of service: 10/30/2018 HISTORY: CBD size and stones COMPARISON: 10/12/[address] scan 10/30/2018 TECHNIQUE: Sonographic evaluation of the abdomen. FINDINGS: LIVER: Measures 18.2 cm. Normal echogenicity of the liver parenchyma. No mass. No intrahepatic bile duct dilatation. GALLBLADDER: 1.9 cm gallstone. No evidence of cholecystitis COMMON BILE DUCT: Measures 6 mm. No stones. No dilatation. PANCREAS: Not visualized RIGHT KIDNEY: Measures 10.5 x 5.0 x 5.1cm. Normal echogenicity. No calculus, mass, or hydronephrosis. LEFT KIDNEY: Measures 10.9 x 6.0 x 5.4cm. Normal echogenicity. No calculus, mass, or hydronephrosis. SPLEEN: Normal in size and contour. No mass. 11.9 x 5.8 x 5.1 AORTA: No aneurysmal dilatation. IVC: Unremarkable. OTHER FINDINGS: None. IMPRESSION: Gallstone. No evidence of acute cholecystitis. Common duct stones seen on CT are not visualized on ultrasound.
--- NOTE | 2018-10-30 12:03 | CP.PCM.CON ---
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 He now presenting to the ED for one day history of chest pain and abdominal pain. Patient states chest pain started while at rest a few hours ago, sharp, 10/10, constant, non radiating and denies and alleviating or exacerbating factors. Patient states pain now resolved after tramadol in ER. On previous admission in September 2018, patient was diagnosed with choledocolithiasis. Patient was discharged and instructed follow up with outpatient eval for cholecystectomy and colostomy reversal with Dr. Breann Stauffer whom patient has appointment with on 12/06/2018. Patient also instructed to follow up with GI outpatient for ERCP. Last alcohol drink was 3 months ago per patient. ROS: A 12pt ROS was negative except as above PMH: As states in HPI SH: former heavy drinker - quit 3 months ago, never smoker, denies drugs Sx: transverse loop colostomy 3 years ago FH: HTN Past Patient History - Infectious Disease Hx of Infectious Diseases: None - Tetanus Immunizations Tetanus Immunization: Unknown - Past Medical History & Family History Past Medical History?: Yes - Past Social History Smoking Status: Never Smoked - CARDIAC Hx Cardiac Disorders: Yes (dvt ble) Hx Hypertension: Yes - PULMONARY Hx Respiratory Disorders: No - NEUROLOGICAL Hx Neurological Disorder: No - HEENT Hx HEENT Problems: No - RENAL Hx Chronic Kidney Disease: No - ENDOCRINE/METABOLIC Hx Endocrine Disorders: No - HEMATOLOGICAL/ONCOLOGICAL Other/Comment: BLE DVT on Xarelto - INTEGUMENTARY Hx Dermatological Problems: No - MUSCULOSKELETAL/RHEUMATOLOGICAL Hx Musculoskeletal Disorders: No Hx Falls: No - GASTROINTESTINAL Hx Gastrointestinal Disorders: Yes Hx Colostomy: Yes Other/Comment: GI BLEED - GENITOURINARY/GYNECOLOGICAL Hx Genitourinary Disorders: Yes Other/Comment: bladder fistula urinates through rectum, pt is able to control it, has had fistula and colostomy 2 yrs. Has been planning sx at [facility] x 1 yr to have fistula corrected and colostomy reversed in the future - PSYCHIATRIC Hx Psychophysiologic Disorder: No Hx Substance Use: No - SURGICAL HISTORY Hx Tonsillectomy: Yes Other/Comment: Colostomy 2014 - ANESTHESIA Hx Anesthesia: Yes Hx Anesthesia Reactions: No Hx Malignant Hyperthermia: No Meds Allergies/Adverse Reactions: Allergies Allergy/AdvReac Type Severity Reaction Status Date / Time No Known Allergies Allergy Verified 10/11/18 23:36 - Medications Medications: Current Medications Apixaban (Eliquis) 5 mg PO BID [facility]; Protocol Last Admin: 10/30/18 10:20 Dose: 5 mg Famotidine (Pepcid) 20 mg IVP DAILY [facility] Last Admin: 10/30/18 10:13 Dose: 20 mg Lorazepam (Ativan) 1 mg IVP Q6H PRN; Protocol PRN Reason: Symptoms of alcohol withdrawl Losartan Potassium (Cozaar) 50 mg PO DAILY [facility] Last Admin: 10/30/18 10:11 Dose: 50 mg Pantoprazole Sodium (Protonix Ec Tab) 40 mg PO DAILY PRN PRN Reason: GI distress Physical Exam - Constitutional Appears: Non-toxic, No Acute Distress - Head Exam Head Exam: ATRAUMATIC, NORMAL INSPECTION, NORMOCEPHALIC - Eye Exam Eye Exam: EOMI, Normal appearance - ENT Exam ENT Exam: Mucous Membranes Moist - Respiratory Exam Respiratory Exam: Clear to Auscultation Bilateral, NORMAL BREATHING PATTERN - Cardiovascular Exam Cardiovascular Exam: RRR, +S1, +S2 - GI/Abdominal Exam GI & Abdominal Exam: Normal Bowel Sounds, Soft. absent: Distended, Tenderness Additional comments: colostomy - Extremities Exam Extremities exam: Positive for: normal inspection - Back Exam Back exam: NORMAL INSPECTION - Neurological Exam Neurological exam: Alert, Oriented x3 - Psychiatric Exam Psychiatric exam: Normal Affect, Normal Mood - Skin Skin Exam: Dry, Intact, Normal Color, Warm Results - Vital Signs Recent Vital Signs: Last Vital Signs Temp 98 F 10/30/18 08:30 Pulse 55 L 10/30/18 11:20 Resp 18 10/30/18 11:20 BP 147/90 10/30/18 11:20 Pulse Ox 97 10/30/18 11:20 - Labs Result Diagrams: 10/30/18 02:40 10/30/18 02:40 Labs: Laboratory Results - last 24 hr 10/30/18 10/30/18 10/30/18 02:40 02:40 02:40 WBC 3.1 L D RBC 3.85 Hgb 12.3 L Hct 35.4 L MCV 91.9 MCH 31.9 MCHC 34.7 RDW 13.5 Plt Count 131 MPV 10.1 Gran % 50.0 Lymph % (Auto) 36.0 H [place] % (Auto) 11.5 H Eos % (Auto) 2.2 Baso % (Auto) 0.3 Gran # 1.57 Lymph # (Auto) 1.1 L [place] # (Auto) 0.4 Eos # (Auto) 0.1 Baso # (Auto) 0.01 PT 13.7 H INR 1.19 APTT 24.2 L Sodium 140 Potassium 4.2 Chloride 108 H Carbon Dioxide 25 Anion Gap 11 BUN 13 Creatinine 0.9 Est GFR ( Amer) > 60 Est GFR (Non-Af Amer) > 60 Random Glucose 100 Calcium 9.5 Magnesium 1.9 Total Bilirubin 0.6 Direct Bilirubin 0.4 AST 35 ALT 27 Alkaline Phosphatase 63 Lactate Dehydrogenase 499 Total Creatine Kinase 104 Troponin I < 0.01 Total Protein 8.3 Albumin 4.4 Globulin 3.9 Albumin/Globulin Ratio 1.1 Lipase 117 Urine Color Urine Appearance Urine pH Ur Specific [place] Urine Protein Urine Glucose (UA) Urine Ketones Urine Blood Urine Nitrate Urine Bilirubin Urine Urobilinogen Ur Leukocyte Esterase Urine Opiates Screen Urine Methadone Screen Ur Barbiturates Screen Ur Phencyclidine Scrn Ur Amphetamines Screen U Benzodiazepines Scrn U Oth Cocaine Metabols U Cannabinoids Screen Alcohol, Quantitative 10/30/18 10/30/18 10/30/18 03:46 08:29 09:52 WBC RBC Hgb Hct MCV MCH MCHC RDW Plt Count MPV Gran % Lymph % (Auto) Crenshaw % (Auto) Eos % (Auto) Baso % (Auto) Gran # Lymph # (Auto) [place] # (Auto) Eos # (Auto) Baso # (Auto) PT INR APTT Sodium Potassium Chloride Carbon Dioxide Anion Gap BUN Creatinine Est GFR ( Amer) Est GFR (Non-Af Amer) Random Glucose Calcium Magnesium Total Bilirubin Direct Bilirubin AST ALT Alkaline Phosphatase Lactate Dehydrogenase Total Creatine Kinase Troponin I < 0.01 Total Protein Albumin Globulin Albumin/Globulin Ratio Lipase Urine Color Light yellow Urine Appearance Clear Urine pH 6.0 Ur Specific [place] 1.025 Urine Protein Negative Urine Glucose (UA) Negative Urine Ketones Negative Urine Blood Negative Urine Nitrate Negative Urine Bilirubin Negative Urine Urobilinogen 0.2 Ur Leukocyte Esterase Negative Urine Opiates Screen Negative Urine Methadone Screen Negative Ur Barbiturates Screen Negative Ur Phencyclidine Scrn Negative Ur Amphetamines Screen Negative U Benzodiazepines Scrn Negative U Oth Cocaine Metabols Negative U Cannabinoids Screen Negative Alcohol, Quantitative 10/30/18 09:52 WBC RBC Hgb Hct MCV MCH MCHC RDW Plt Count MPV Gran % Lymph % (Auto) C[place] % (Auto) Eos % (Auto) Baso % (Auto) Gran # Lymph # (Auto) [place] # (Auto) Eos # (Auto) Baso # (Auto) PT INR APTT Sodium Potassium Chloride Carbon Dioxide Anion Gap BUN Creatinine Est GFR ( Amer) Est GFR (Non-Af Amer) Random Glucose Calcium Magnesium Total Bilirubin Direct Bilirubin AST ALT Alkaline Phosphatase Lactate Dehydrogenase Total Creatine Kinase Troponin I Total Protein Albumin Globulin Albumin/Globulin Ratio Lipase Urine Color Urine Appearance Urine pH Ur Specific [place] Urine Protein Urine Glucose (UA) Urine Ketones Urine Blood Urine Nitrate Urine Bilirubin Urine Urobilinogen Ur Leukocyte Esterase Urine Opiates Screen Urine Methadone Screen Ur Barbiturates Screen Ur Phencyclidine Scrn Ur Amphetamines Screen U Benzodiazepines Scrn U Oth Cocaine Metabols U Cannabinoids Screen Alcohol, Quantitative < 10 Assessment & Plan - Assessment and Plan (Free Text) Assessment: This is a 63 year old male with 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 1. Chest pain-resolved 2. Hx of CBD stones 3. Gallstones 4. Hx of transverse loop colostomy Plan: -Continue supportive care -Pain resolved, unlikely cardiac in origin, maybe due to gallstones -CTAP on 10/12/18 showed choledocholithiasis, cholelithaisis with two separate stones in the CBD measuring 6mm and 8mm with no significant dilation of the common duct or intrahepatic ductal dilation -Will order Abd US to measure CBD, last CBD 09/2018 5.9mm -If CBD stable, LFTS wnl, afebrile, Previous plan to follow outpatient GI for ERCP and removal of CBD stones at [facility] -Can advance to full liquid diet if no interventions -Previous plan for outpatient colostomy reversal, gallbladder removal with Dr. Patterson -Will continue to follow closely <Luis Dooley V - Last Filed: 10/31/18 00:07> Meds - Medications Medications: Current Medications Apixaban (Eliquis) 5 mg PO BID [facility]; Protocol Last Admin: 10/30/18 18:34 Dose: 5 mg Famotidine (Pepcid) 20 mg IVP DAILY [facility] Last Admin: 10/30/18 10:13 Dose: 20 mg Lorazepam (Ativan) 1 mg IVP Q6H PRN; Protocol PRN Reason: Symptoms of alcohol withdrawl Losartan Potassium (Cozaar) 50 mg PO DAILY [facility] Last Admin: 10/30/18 10:11 Dose: 50 mg Ondansetron HCl (Zofran Inj) 4 mg IVP Q6H PRN PRN Reason: Nausea/Vomiting Pantoprazole Sodium (Protonix Ec Tab) 40 mg PO DAILY PRN PRN Reason: GI distress Results - Vital Signs Recent Vital Signs: Last Vital Signs Temp 98 F 10/30/18 08:30 Pulse 59 L 10/30/18 16:44 Resp 18 10/30/18 16:44 BP 131/78 10/30/18 16:44 Pulse Ox 97 10/30/18 16:44 - Labs Result Diagrams: 10/30/18 02:40 10/30/18 02:40 Labs: Laboratory Results - last 24 hr 10/30/18 10/30/18 10/30/18 02:40 02:40 02:40 WBC 3.1 L D RBC 3.85 Hgb 12.3 L Hct 35.4 L MCV 91.9 MCH 31.9 MCHC 34.7 RDW 13.5 Plt Count 131 MPV 10.1 Gran % 50.0 Lymph % (Auto) 36.0 H [place] % (Auto) 11.5 H Eos % (Auto) 2.2 Baso % (Auto) 0.3 Gran # 1.57 Lymph # (Auto) 1.1 L [place] # (Auto) 0.4 Eos # (Auto) 0.1 Baso # (Auto) 0.01 PT 13.7 H INR 1.19 APTT 24.2 L Sodium 140 Potassium 4.2 Chloride 108 H Carbon Dioxide 25 Anion Gap 11 BUN 13 Creatinine 0.9 Est GFR ( Amer) > 60 Est GFR (Non-Af Amer) > 60 Random Glucose 100 Calcium 9.5 Magnesium 1.9 Total Bilirubin 0.6 Direct Bilirubin 0.4 AST 35 ALT 27 Alkaline Phosphatase 63 Lactate Dehydrogenase 499 Total Creatine Kinase 104 Troponin I < 0.01 Total Protein 8.3 Albumin 4.4 Globulin 3.9 Albumin/Globulin Ratio 1.1 Lipase 117 Urine Color Urine Appearance Urine pH Ur Specific [place] Urine Protein Urine Glucose (UA) Urine Ketones Urine Blood Urine Nitrate Urine Bilirubin Urine Urobilinogen Ur Leukocyte Esterase Urine Opiates Screen Urine Methadone Screen Ur Barbiturates Screen Ur Phencyclidine Scrn Ur Amphetamines Screen U Benzodiazepines Scrn U Oth Cocaine Metabols U Cannabinoids Screen Alcohol, Quantitative 10/30/18 10/30/18 10/30/18 03:46 08:29 09:52 WBC RBC Hgb Hct MCV MCH MCHC RDW Plt Count MPV Gran % Lymph % (Auto) [place] % (Auto) Eos % (Auto) Baso % (Auto) Gran # Lymph # (Auto) [place] # (Auto) Eos # (Auto) Baso # (Auto) PT INR APTT Sodium Potassium Chloride Carbon Dioxide Anion Gap BUN Creatinine Est GFR ( Amer) Est GFR (Non-Af Amer) Random Glucose Calcium Magnesium Total Bilirubin Direct Bilirubin AST ALT Alkaline Phosphatase Lactate Dehydrogenase Total Creatine Kinase Troponin I < 0.01 Total Protein Albumin Globulin Albumin/Globulin Ratio Lipase Urine Color Light yellow Urine Appearance Clear Urine pH 6.0 Ur Specific [place] 1.025 Urine Protein Negative Urine Glucose (UA) Negative Urine Ketones Negative Urine Blood Negative Urine Nitrate Negative Urine Bilirubin Negative Urine Urobilinogen 0.2 Ur Leukocyte Esterase Negative Urine Opiates Screen Negative Urine Methadone Screen Negative Ur Barbiturates Screen Negative Ur Phencyclidine Scrn Negative Ur Amphetamines Screen Negative U Benzodiazepines Scrn Negative U Oth Cocaine Metabols Negative U Cannabinoids Screen Negative Alcohol, Quantitative 10/30/18 10/30/18 09:52 14:22 WBC RBC Hgb Hct MCV MCH MCHC RDW Plt Count MPV Gran % Lymph % (Auto) [place] % (Auto) Eos % (Auto) Baso % (Auto) Gran # Lymph # (Auto) [place] # (Auto) Eos # (Auto) Baso # (Auto) PT INR APTT Sodium Potassium Chloride Carbon Dioxide Anion Gap BUN Creatinine Est GFR ( Amer) Est GFR (Non-Af Amer) Random Glucose Calcium Magnesium Total Bilirubin Direct Bilirubin AST ALT Alkaline Phosphatase Lactate Dehydrogenase Total Creatine Kinase Troponin I < 0.01 Total Protein Albumin Globulin Albumin/Globulin Ratio Lipase Urine Color Urine Appearance Urine pH Ur Specific [place] Urine Protein Urine Glucose (UA) Urine Ketones Urine Blood Urine Nitrate Urine Bilirubin Urine Urobilinogen Ur Leukocyte Esterase Urine Opiates Screen Urine Methadone Screen Ur Barbiturates Screen Ur Phencyclidine Scrn Ur Amphetamines Screen U Benzodiazepines Scrn U Oth Cocaine Metabols U Cannabinoids Screen Alcohol, Quantitative < 10 Attending/Attestation - Attestation I have personally seen and examined this patient.: Yes I have fully participated in the care of the patient.: Yes I have reviewed all pertinent clinical information: Yes Notes (Text): This is an addendum to GI progress report dictated by the GI Fellow. The patient was seen and examined earlier. Medical records, lab studies, imagings were reviewed. Last 24 hours events reviewed. Agreed with the above treatment plan as outlined in GI Fellow 's notes with the addition of the following This patient was recently discharged from the hospital is scheduled to have cholecystectomy and a colostomy reversal at [facility] next month. He was admitted with the acute onset of chest pain abdominal pain epigastric No fever no chills. Patient did receive Toradol injection after that you mention the pain completely disappeared On examination abdomen soft no tenderness present history of DVT PE on liquids LFTs normal Repeat sonogram reviewed CBD size normal History of gallstones and CBD stones noticed in the ultrasound but nondilated Would slowly advance the diet Advised to follow-up at [facility] for ERCP and reversal of the colostomy Patient would require emergency ERCP intervention if any signs and symptoms of cholangitis or obstructive jaundice pattern Would add empiric therapy with the ursodiol 10/31/18 00:01
[2018-10-30 13:45] VITALS: BMI 28.1
[2018-10-30] MEDS ORDERED: Influenza Vaccine 60 mcg/0.5 mL SYR (4YR UP) IM ONE (13:45)
[2018-10-30] MEDS ORDERED: Pneumococcal 23-Valent Vaccine IM ONE (13:45)
[2018-10-31 04:27] VITALS: RESP 16; TEMP 98.1; O2SAT 98
--- NOTE | 2018-10-31 08:19 | CP.PCM.PN ---
Subjective - Date & Time of Evaluation Date of Evaluation: 10/31/18 Time of Evaluation: 07:45 - Subjective Subjective: General Surgery progress note for Dr. Foster Patient seen and examined this am at bedside. Patient is resting comfortably and denies any abdominal pain or chest pain. Patient states that he was able to tolerate liquid diet overnight. He currently complains only of a headache. He otherwise denies any F/c, N/V, CP SOB, abdominal pain and extremity pain or weakness. Objective - Vital Signs/Intake and Output Vital Signs (last 24 hours): Temp Pulse Resp BP Pulse Ox 98.1 F 72 16 128/83 98 10/31/18 07:02 10/31/18 07:02 10/31/18 07:02 10/31/18 07:02 10/31/18 07:02 - Medications Medications: Current Medications Acetaminophen (Tylenol 325mg Tab) 650 mg PO Q6H PRN PRN Reason: Pain, Mild (1-3) Last Admin: 10/31/18 08:00 Dose: 650 mg Apixaban (Eliquis) 5 mg PO BID [facility]; Protocol Last Admin: 10/30/18 18:34 Dose: 5 mg Famotidine (Pepcid) 20 mg IVP DAILY [facility] Last Admin: 10/30/18 10:13 Dose: 20 mg Lorazepam (Ativan) 1 mg IVP Q6H PRN; Protocol PRN Reason: Symptoms of alcohol withdrawl Losartan Potassium (Cozaar) 50 mg PO DAILY [facility] Last Admin: 10/30/18 10:11 Dose: 50 mg Ondansetron HCl (Zofran Inj) 4 mg IVP Q6H PRN PRN Reason: Nausea/Vomiting Pantoprazole Sodium (Protonix Ec Tab) 40 mg PO DAILY PRN PRN Reason: GI distress Ursodiol (Actigall) 300 mg PO BID [facility] - Labs Labs: 10/30/18 02:40 10/30/18 02:40 PT 13.7 SECONDS (9.4-12.5) H 10/30/18 02:40 INR 1.19 10/30/18 02:40 APTT 24.2 Seconds (25.1-36.5) L 10/30/18 02:40 - Constitutional Appears: Well, Non-toxic, No Acute Distress - Head Exam Head Exam: ATRAUMATIC, NORMOCEPHALIC - Eye Exam Eye Exam: EOMI - ENT Exam ENT Exam: Mucous Membranes Moist - Respiratory Exam Respiratory Exam: NORMAL BREATHING PATTERN - Cardiovascular Exam Cardiovascular Exam: REGULAR RHYTHM - GI/Abdominal Exam GI & Abdominal Exam: Soft. absent: Distended, Guarding, Tenderness Additional comments: midline ostomy site is pink patent and productive with no signs of ischemia or tenderness - Extremities Exam Extremities Exam: absent: Calf Tenderness, Pedal Edema - Neurological Exam Neurological Exam: Alert, Awake, Oriented x3 - Psychiatric Exam Psychiatric exam: Normal Affect, Normal Mood - Skin Skin Exam: Dry, Intact, Normal Color, Warm Assessment and Plan - Assessment and Plan (Free Text) Assessment: 63 yr old male with abdominal pain (resolved) and CBD stones on CT scan Plan: -Tylenol for headache - GI consulted, recommending Outpatient ERCP if afebrile labs WNL and tolerating diet -carmine-stomal hernia is chronic w/o evidence of obstruction, advanced to soft diet as tolerated liquid diet given by GI team -no acute surgical intervention at this time as patient has defined operative plan with primary surgeon Dr. Stauffer -further recs per Dr. Cristian Salcedo, PGY 1
[2018-10-31 09:20] LABS: BASO # 0.01 K/mm3 (0.0-2.0); BASO % 0.2 % (0.0-3.0); EOS # 0.1 (0.0-0.7); EOS % 1.5 % (1.5-5.0); GRAN # 2.32 (1.4-6.5); GRAN % 49.8 % (50.0-68.0); LYMPH # 1.9 (1.2-3.4); LYMPH % 40.3 % (22.0-35.0); MEAN CELL VOLUME 91.9 fl (80.0-105.0); MEAN CORPUSCULAR HEMOGLOBIN 32.3 pg (25.0-35.0); MEAN CORPUSCULAR HGB CONC 35.1 g/dl (31.0-37.0); MEAN PLATELET VOLUME 9.9 fl (7.0-11.0); MONO # 0.4 (0.1-0.6); MONO % 8.2 % (1.0-6.0); RBC 4.34 10^6/uL (3.5-6.1); RED CELL DISTRIBUTION WIDTH 13.3 % (11.5-14.5); WHITE BLOOD COUNT 4.7 10^3/uL (4.5-11.0)
[2018-10-31 10:03] LABS: ALB/GLOB RATIO 1.1 (1.1-1.8); ALBUMIN 4.4 g/dL (3.0-4.8); ALT/SGPT 23 U/L (7-56); AST/SGOT 36 U/L (17-59); BLOOD UREA NITROGEN 10 mg/dL (7-21); CALCIUM 9.9 mg/dL (8.4-10.5); GFR NON-AFRICAN AMERICAN > 60
--- NOTE | 2018-10-31 11:53 | CP.PCM.PN ---
Subjective - Date & Time of Evaluation Date of Evaluation: 10/31/18 Time of Evaluation: 08:00 - Subjective Subjective: GI Fellow PGY5 Progress Note Pt seen and evaluated at bedside, pt doing well with no complaints. No abdominal pain and tolerating diet. ROS: A 12pt ROS was negative except as above. Objective - Vital Signs/Intake and Output Vital Signs (last 24 hours): Temp Pulse Resp BP Pulse Ox 98.1 F 72 16 128/83 98 10/31/18 07:02 10/31/18 07:02 10/31/18 07:02 10/31/18 07:02 10/31/18 07:02 - Medications Medications: Current Medications Acetaminophen (Tylenol 325mg Tab) 650 mg PO Q6H PRN PRN Reason: Pain, Mild (1-3) Last Admin: 10/31/18 08:00 Dose: 650 mg Apixaban (Eliquis) 5 mg PO BID [facility]; Protocol Last Admin: 10/31/18 11:10 Dose: 5 mg Famotidine (Pepcid) 20 mg IVP DAILY [facility] Last Admin: 10/31/18 11:10 Dose: 20 mg Lorazepam (Ativan) 1 mg IVP Q6H PRN; Protocol PRN Reason: Symptoms of alcohol withdrawl Losartan Potassium (Cozaar) 50 mg PO DAILY [facility] Last Admin: 10/30/18 10:11 Dose: 50 mg Ondansetron HCl (Zofran Inj) 4 mg IVP Q6H PRN PRN Reason: Nausea/Vomiting Pantoprazole Sodium (Protonix Ec Tab) 40 mg PO DAILY PRN PRN Reason: GI distress Ursodiol (Actigall) 300 mg PO BID [facility] Last Admin: 10/31/18 11:11 Dose: 300 mg - Labs Labs: 10/31/18 09:10 10/31/18 09:10 PT 13.7 SECONDS (9.4-12.5) H 10/30/18 02:40 INR 1.19 10/30/18 02:40 APTT 24.2 Seconds (25.1-36.5) L 10/30/18 02:40 - Constitutional Appears: Non-toxic, No Acute Distress - Head Exam Head Exam: ATRAUMATIC, NORMAL INSPECTION, NORMOCEPHALIC - Eye Exam Eye Exam: EOMI, Normal appearance, PERRL - ENT Exam ENT Exam: Mucous Membranes Moist, Normal Exam - Respiratory Exam Respiratory Exam: Clear to Ausculation Bilateral, NORMAL BREATHING PATTERN - Cardiovascular Exam Cardiovascular Exam: RRR, +S1, +S2 - GI/Abdominal Exam GI & Abdominal Exam: Soft, Normal Bowel Sounds. 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 1. Chest pain-resolved 2. Hx of CBD stones 3. Gallstones 4. Hx of transverse loop colostomy -Continue supportive care -Pain resolved, unlikely cardiac in origin, maybe due to gallstones -CTAP on 10/12/18 showed choledocholithiasis, cholelithaisis with two separate stones in the CBD measuring 6mm and 8mm with no significant dilation of the common duct or intrahepatic ductal dilation -Abd US to measure CBD 6.0mm, last CBD 09/2018 5.9mm -CBD stable, LFTS wnl, afebrile, Previous plan to follow outpatient GI for ERCP and removal of CBD stones at [facility] -Can advance diet as no interventions -Previous plan for outpatient colostomy reversal, gallbladder removal with Dr. Patterson -Start ursodiol -Pt okay for dc home from GI perspective
[2018-10-31 12:22] VITALS: BP 130/65; PULSE 84
--- NOTE | 2018-10-31 12:23 | CP.PCM.DIS ---
<Edi Major - Last Filed: 10/31/18 12:54> Provider - Provider Date of Admission: 10/30/18 05:32 Attending physician: Karina Brown MD Consults: 10/30/18 07:05 Cardiology Consult Routine Comment: Consulting Provider: Justin White Consulting Physician: Justin White Reason for Consult: chest pain Gastroenterology Consult Routine Comment: Consulting Provider: Luis Dooley V Consulting Physician: Luis Dooley V Reason for Consult: Hx of dilated CBD, gallbladder stones 10/30/18 07:44 General Surgery Consult Routine Comment: Consulting Provider: Chris Foster Consulting Physician: Chris Foster Reason for Consult: hx of colostomy, gallbladder/CBD stones 10/30/18 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0) 10/31/18 09:10 MCH 32.3 pg (25.0-35.0) 10/31/18 09:10 MCHC 35.1 g/dl (31.0-37.0) 10/31/18 09:10 RDW 13.3 % (11.5-14.5) 10/31/18 09:10 Plt Count 161 10^3/uL (120.0-450.0) 10/31/18 09:10 MPV 9.9 fl (7.0-11.0) 10/31/18 09:10 Gran % 49.8 % (50.0-68.0) L 10/31/18 09:10 Lymph % (Auto) 40.3 % (22.0-35.0) H 10/31/18 09:10 [place] % (Auto) 8.2 % (1.0-6.0) H 10/31/18 09:10 Eos % (Auto) 1.5 % (1.5-5.0) 10/31/18 09:10 Baso % (Auto) 0.2 % (0.0-3.0) 10/31/18 09:10 Gran # 2.32 (1.4-6.5) 10/31/18 09:10 Lymph # (Auto) 1.9 (1.2-3.4) 10/31/18 09:10 [place] # (Auto) 0.4 (0.1-0.6) 10/31/18 09:10 Eos # (Auto) 0.1 (0.0-0.7) 10/31/18 09:10 Baso # (Auto) 0.01 K/mm3 (0.0-2.0) 10/31/18 09:10 PT 13.7 SECONDS (9.4-12.5) H 10/30/18 02:40 INR 1.19 10/30/18 02:40 APTT 24.2 Seconds (25.1-36.5) L 10/30/18 02:40 Sodium 143 mmol/L (132-148) 10/31/18 09:10 Potassium 4.6 mmol/L (3.6-5.0) 10/31/18 09:10 Chloride 107 mmol/L (98-107) 10/31/18 09:10 Carbon Dioxide 27 mmol/L (21-33) 10/31/18 09:10 Anion Gap 13 (10-20) 10/31/18 09:10 BUN 10 mg/dL (7-21) 10/31/18 09:10 Creatinine 0.9 mg/dl (0.8-1.5) 10/31/18 09:10 Est GFR ( Amer) > 60 10/31/18 09:10 Est GFR (Non-Af Amer) > 60 10/31/18 09:10 Random Glucose 91 mg/dL (70-110) 10/31/18 09:10 Calcium 9.9 mg/dL (8.4-10.5) 10/31/18 09:10 Magnesium 1.9 mg/dL (1.7-2.2) 10/30/18 02:40 Total Bilirubin 1.2 mg/dL (0.2-1.3) 10/31/18 09:10 Direct Bilirubin 0.4 mg/dL (0.0-0.4) 10/30/18 02:40 AST 36 U/L (17-59) 10/31/18 09:10 ALT 23 U/L (7-56) 10/31/18 09:10 Alkaline Phosphatase 55 U/L (38-126) 10/31/18 09:10 Lactate Dehydrogenase 499 U/L (333-699) 10/30/18 02:40 Total Creatine Kinase 104 U/L (35-230) 10/30/18 02:40 Troponin I < 0.01 ng/mL 10/30/18 14:22 Total Protein 8.5 g/dL (5.8-8.3) H 10/31/18 09:10 Albumin 4.4 g/dL (3.0-4.8) 10/31/18 09:10 Globulin 4.1 gm/dL 10/31/18 09:10 Albumin/Globulin Ratio 1.1 (1.1-1.8) 10/31/18 09:10 Lipase 117 U/L (23-300) 10/30/18 02:40 Urine Color Light yellow (YELLOW) 10/30/18 03:46 Urine Appearance Clear (CLEAR) 10/30/18 03:46 Urine pH 6.0 (4.7-8.0) 10/30/18 03:46 Ur Specific [place] 1.025 (1.005-1.035) 10/30/18 03:46 Urine Protein Negative mg/dL (<30 mg/dL) 10/30/18 03:46 Urine Glucose (UA) Negative mg/dL (NEGATIVE) 10/30/18 03:46 Urine Ketones Negative mg/dL (NEGATIVE) 10/30/18 03:46 Urine Blood Negative (NEGATIVE) 10/30/18 03:46 Urine Nitrate Negative (NEGATIVE) 10/30/18 03:46 Urine Bilirubin Negative (NEGATIVE) 10/30/18 03:46 Urine Urobilinogen 0.2 E.U./dL (<1 E.U./dL) 10/30/18 03:46 Ur Leukocyte Esterase Negative [place]/uL (NEGATIVE) 10/30/18 03:46 Urine Opiates Screen Negative (NEGATIVE) 10/30/18 08:29 Urine Methadone Screen Negative (NEGATIVE) 10/30/18 08:29 Ur Barbiturates Screen Negative (NEGATIVE) 10/30/18 08:29 Ur Phencyclidine Scrn Negative (NEGATIVE) 10/30/18 08:29 Ur Amphetamines Screen Negative (NEGATIVE) 10/30/18 08:29 U Benzodiazepines Scrn Negative (NEGATIVE) 10/30/18 08:29 U Oth Cocaine Metabols Negative (NEGATIVE) 10/30/18 08:29 U Cannabinoids Screen Negative (NEGATIVE) 10/30/18 08:29 Alcohol, Quantitative < 10 mg/dL (0-10) 10/30/18 09:52 - Hospital Course Hospital Course: 63 year old male with past medical history of rectovesicular fistula s/p transverse loop colostomy, ventral hernia, hypertension, 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 Patient was evaluated in the ED and admitted for chest pain and acute abdominal pain. Cardiology, G astroenterology, and General surgery were consulted. Gastroenterology evaluated the patient with recommendations of follow up at [facility] for ERCP and reversal of the colostomy. Patient was placed on emipiric therapy with ursodiol. General surgery evaluated the patient with recommendations for advancement of diet as tolerated and for ERCP for further evaluation of cholelithiasis. General surgery opted for no acute surgical intervention at time of admission as patient was medically stable and not showing signs of acute cholecystitis. Cardiology evaluated the patient for complaints of chest pain without recommendations for acute intervention. Patient was observed overnight and diet advanced and tolerated. Discharge planning including outpatient follow up, medication reconciliation and future planned course of care was discussed in detail with patient who was agreeable and in expressed verbal understanding. Questions and concerns were addressed to patient's verbal satisfaction. Abd/Pelvis CT w/ IV contrast (10/30/18): Cholelithiasis and choledocholithiasis unchanged. No evidence of biliary dilatation Abd US(10/30/18): Gallstone. No evidence of acute cholecystitis. Common duct stones seen on CT are not visualized on ultrasound. EKG(10/30/18): NSR, Normal EKG CXR(10/30/18): No active disease Discharge Exam - Head Exam Head Exam: ATRAUMATIC, NORMAL INSPECTION, NORMOCEPHALIC - Eye Exam Eye Exam: EOMI, PERRL - ENT Exam ENT Exam: Mucous Membranes Moist - Neck Exam Neck exam: Full Rom - Respiratory Exam Respiratory Exam: Clear to PA & Lateral, NORMAL BREATHING PATTERN, UNREMARKABLE - Cardiovascular Exam Cardiovascular Exam: REGULAR RHYTHM, +S1, +S2 - GI/Abdominal Exam GI & Abdominal Exam: Normal Bowel Sounds, Soft. absent: Firm, Rigid - Extremities Exam Extremities exam: normal inspection - Back Exam Back exam: absent: CVA tenderness (L), CVA tenderness (R) - Neurological Exam Neurological exam: Alert, CN II-XII Intact, Normal Gait, Oriented x3, Reflexes Normal - Psychiatric Exam Psychiatric exam: Normal Affect, Normal Mood - Skin Skin Exam: Dry, Intact Discharge Plan - Discharge Medications Prescriptions: Ursodiol [Actigall] 300 mg PO BID 14 Days #28 cap - Follow Up Plan Condition: STABLE Disposition: HOME/ ROUTINE Instructions: Chest Pain (ED) Additional Instructions: Follow up with Dr. Breann Stauffer on 12/06/2018 for cholecystectomy and colostomy reversal Take medications as prescribed to you, new medications from this admission include ursodiol Please follow up with the rn progressive care unit (stomach doctor) that you have been seeing at [facility]. Please discuss all medical issues addressed during your admission at this hospital. The rn progressive care unit that s aw you during your admission recommended that you be evaluated for what is called an ERCP and that this be discussed with your rn progressive care unit. If your symptoms return, please return to the nearest emergency room immediately. <Karina Brown - Last Filed: 10/31/18 13:28> Provider - Provider Date of Admission: 10/30/18 05:32 Attending physician: Karina Brown MD Consults: 10/30/18 07:05 Cardiology Consult Routine Comment: Consulting Provider: Justin White Consulting Physician: Justin White Reason for Consult: chest pain Gastroenterology Consult Routine Comment: Consulting Provider: Lius Dooley V Consulting Physician: Luis Dooley V Reason for Consult: Hx of dilated CBD, gallbladder stones 10/30/18 07:44 General Surgery Consult Routine Comment: Consulting Provider: Chris Foster Consulting Physician: Chris Foster Reason for Consult: hx of colostomy, gallbladder/CBD stones 10/30/18 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 Comment: Physician Instructions: Reason For Exam: EVALUATION Transition In Care/Readmission Reduction Routine Comment: Physician Instructions: Reason For Exam: EVALUATION Hospital Course - Lab Results Lab Results: Most Recent Lab Values WBC 4.7 10^3/uL (4.5-11.0) D 10/31/18 09:10 RBC 4.34 10^6/uL (3.5-6.1) 10/31/18 09:10 Hgb 14.0 g/dL (14.0-18.0) 10/31/18 09:10 Hct 39.9 % (42.0-52.0) L 10/31/18 09:10 MCV 91.9 fl (80.0-105.0) 10/31/18 09:10 MCH 32.3 pg (25.0-35.0) 10/31/18 09:10 MCHC 35.1 g/dl (31.0-37.0) 10/31/18 09:10 RDW 13.3 % (11.5-14.5) 10/31/18 09:10 Plt Count 161 10^3/uL (120.0-450.0) 10/31/18 09:10 MPV 9.9 fl (7.0-11.0) 10/31/18 09:10 Gran % 49.8 % (50.0-68.0) L 10/31/18 09:10 Lymph % (Auto) 40.3 % (22.0-35.0) H 10/31/18 09:10 [place] % (Auto) 8.2 % (1.0-6.0) H 10/31/18 09:10 Eos % (Auto) 1.5 % (1.5-5.0) 10/31/18 09:10 Baso % (Auto) 0.2 % (0.0-3.0) 10/31/18 09:10 Gran # 2.32 (1.4-6.5) 10/31/18 09:10 Lymph # (Auto) 1.9 (1.2-3.4) 10/31/18 09:10 [place] # (Auto) 0.4 (0.1-0.6) 10/31/18 09:10 Eos # (Auto) 0.1 (0.0-0.7) 10/31/18 09:10 Baso # (Auto) 0.01 K/mm3 (0.0-2.0) 10/31/18 09:10 PT 13.7 SECONDS (9.4-12.5) H 10/30/18 02:40 INR 1.19 10/30/18 02:40 APTT 24.2 Seconds (25.1-36.5) L 10/30/18 02:40 Sodium 143 mmol/L (132-148) 10/31/18 09:10 Potassium 4.6 mmol/L (3.6-5.0) 10/31/18 09:10 Chloride 107 mmol/L (98-107) 10/31/18 09:10 Carbon Dioxide 27 mmol/L (21-33) 10/31/18 09:10 Anion Gap 13 (10-20) 10/31/18 09:10 BUN 10 mg/dL (7-21) 10/31/18 09:10 Creatinine 0.9 mg/dl (0.8-1.5) 10/31/18 09:10 Est GFR ( Amer) > 60 10/31/18 09:10 Est GFR (Non-Af Amer) > 60 10/31/18 09:10 Random Glucose 91 mg/dL (70-110) 10/31/18 09:10 Calcium 9.9 mg/dL (8.4-10.5) 10/31/18 09:10 Magnesium 1.9 mg/dL (1.7-2.2) 10/30/18 02:40 Total Bilirubin 1.2 mg/dL (0.2-1.3) 10/31/18 09:10 Direct Bilirubin 0.4 mg/dL (0.0-0.4) 10/30/18 02:40 AST 36 U/L (17-59) 10/31/18 09:10 ALT 23 U/L (7-56) 10/31/18 09:10 Alkaline Phosphatase 55 U/L (38-126) 10/31/18 09:10 Lactate Dehydrogenase 499 U/L (333-699) 10/30/18 02:40 Total Creatine Kinase 104 U/L (35-230) 10/30/18 02:40 Troponin I < 0.01 ng/mL 10/30/18 14:22 Total Protein 8.5 g/dL (5.8-8.3) H 10/31/18 09:10 Albumin 4.4 g/dL (3.0-4.8) 10/31/18 09:10 Globulin 4.1 gm/dL 10/31/18 09:10 Albumin/Globulin Ratio 1.1 (1.1-1.8) 10/31/18 09:10 Lipase 117 U/L (23-300) 10/30/18 02:40 Urine Color Light yellow (YELLOW) 10/30/18 03:46 Urine Appearance Clear (CLEAR) 10/30/18 03:46 Urine pH 6.0 (4.7-8.0) 10/30/18 03:46 Ur Specific [place] 1.025 (1.005-1.035) 10/30/18 03:46 Urine Protein Negative mg/dL (<30 mg/dL) 10/30/18 03:46 Urine Glucose (UA) Negative mg/dL (NEGATIVE) 10/30/18 03:46 Urine Ketones Negative mg/dL (NEGATIVE) 10/30/18 03:46 Urine Blood Negative (NEGATIVE) 10/30/18 03:46 Urine Nitrate Negative (NEGATIVE) 10/30/18 03:46 Urine Bilirubin Negative (NEGATIVE) 10/30/18 03:46 Urine Urobilinogen 0.2 E.U./dL (<1 E.U./dL) 10/30/18 03:46 Ur Leukocyte Esterase Negative [place]y/uL (NEGATIVE) 10/30/18 03:46 Urine Opiates Screen Negative (NEGATIVE) 10/30/18 08:29 Urine Methadone Screen Negative (NEGATIVE) 10/30/18 08:29 Ur Barbiturates Screen Negative (NEGATIVE) 10/30/18 08:29 Ur Phencyclidine Scrn Negative (NEGATIVE) 10/30/18 08:29 Ur Amphetamines Screen Negative (NEGATIVE) 10/30/18 08:29 U Benzodiazepines Scrn Negative (NEGATIVE) 10/30/18 08:29 U Oth Cocaine Metabols Negative (NEGATIVE) 10/30/18 08:29 U Cannabinoids Screen Negative (NEGATIVE) 10/30/18 08:29 Alcohol, Quantitative < 10 mg/dL (0-10) 10/30/18 09:52 Attending/Attestation - Attestation I have personally seen and examined this patient.: Yes I have fully participated in the care of the patient.: Yes I have reviewed all pertinent clinical information, including history, physical exam and plan: Yes Notes (Text): 10/31/18 13:22 63 year old male with past medical history of rectovesicular fistula s/p transverse loop colostomy, ventral hernia, hypertension, DVT/PE on eliquis, and gallstones who presented with complaint of chest pain and abdominal pain. Serial cardiac enzymes were negative and ACS was ruled out. EKG did not show any ischemic changes. He had CT abd/pelvis which showed cholelithiasis and choledocholithiasis, unchanged. He had ultrasound of the abdomen which showed gallstone without cholecystitis or CBD stones or dilatation. He was seen by GI and surgery who recommended outpatient follow up. His diet was advanced which he tolerated. He was started on ursodiol. Patient is discharged home to follow up with pmd Dr. Engel. Case was discussed with Dr. Engel yesterday. Follow up with GI and surgery as outpatient for elective procedures as above. Karina Brown MD Hospitalist
--- NOTE | 2018-10-31 17:25 | CON ---
DATE OF CONSULTATION: 10/31/2018 The patient is seen in Room 600, Bed 3, in the emergency room. REASON FOR CONSULTATION: Chest pain. HISTORY OF PRESENT ILLNESS: This is a 63-year-old male who has a history of DVT, pulmonary embolism, recently started on Eliquis therapy, history of alcohol abuse, hypertension, gallbladder stones, rectovesical the fistula, SP transverse loop colostomy 3 years ago after falling on metal bar, presented to the emergency room with a history that suddenly he had a sharp pain, which was in the epigastrium and lower sternal area and went to the back and it was associated with nausea and he felt like vomiting. The patient denies any exertional chest pain or shortness of breath or palpitation. Denies any history of cardiac problem in the past. The patient, however, has a history of hypertension, GERD. PAST HISTORY: Positive for colostomy as mentioned above. FAMILY HISTORY: Positive for hypertension. PERSONAL HISTORY: Off and on drinks heavy. Denies smoking. HOME MEDICATIONS: Protonix 40 daily, losartan 50 daily, Eliquis 5 mg b.i.d., Actigall 300 mg p.o. b.i.d. The patient has a history of gallstones. ALLERGIES: DENIES ANY ALLERGIES. REVIEW OF SYSTEMS: All the system review is positive as mentioned in the history, otherwise negative. PHYSICAL EXAMINATION: VITAL SIGNS: Blood pressure 130/65, respirations 16, pulse 84, temperature 98.1. HEENT: Head is normocephalic. Eyes: Pupils normal. Conjunctivae normal. Nose and throat: Normal. NECK: JVP low. Carotid equal. THORAX: AP diameter normal. LUNGS: Clear. CARDIOVASCULAR: S1 and S2. ABDOMEN: The patient has colostomy. Bowel sounds normal. EXTREMITIES: No clubbing, no cyanosis. DIAGNOSTIC DATA: WBC 4.7, hemoglobin 14.0, hematocrit 39.9, platelets 161,000. Sodium 143, potassium 4.6, BUN 10, creatinine 0.9. AST and ALT normal. Total protein 8.5, albumin 4.4. Troponin negative x3. EKG showed regular sinus rhythm. Chest x-ray, no active disease. DIAGNOSES: 1. Low epigastric and lower sternal area pain radiating to the back, sharp pain, probably GI in origin with associated nausea. No exertional chest pain history. 2. Hypertension. 3. Gastroesophageal reflux disease. 4. Gallstones. 5. Colostomy. PLAN: The patient is on Actigall 300 mg p.o. b.i.d., losartan 50 daily, Eliquis 5 b.i.d., Pepcid 20 mg IV daily. We will continue present therapy, and if the patient goes home, we will advise him to do echo and stress test as outpatient. The present pain is atypical for cardiac, clinically is suggestive of GI pain for which he is seeing a educational recruiter as well as a surgeon and he is on Pepcid therapy. We will continue to follow with you. Kylah Espinoza MD
--- NOTE | 2018-10-31 19:38 | VAS ---
DATE: 10/31/2018 Norma Aguilar is still in the emergency room. The patient is pretty stable. The patient has a scheduled appointment with a colorectal surgeon at [facility] in November. So the first surgery is for now. We will assess with Dr. Dooley about ERCP, possible colonoscopy. Chris Foster MD
== END 2018-10-31 13:30 | disposition home or self-care (01) ==
LOC: ED 02:00 → UNDOADMIN 05:32 → ERH 05:32
DX: K80.40 Calculus of bile duct with cholecystitis, unspecified, without obstruction (principal); R07.9 Chest pain, unspecified; Z93.3 Colostomy status; I10 Essential (primary) hypertension; Z86.718 Personal history of other venous thrombosis and embolism; Z86.711 Personal history of pulmonary embolism; Z79.01 Long term (current) use of anticoagulants
CPT/HCPCS: 71045; 74177; 76700; 80053; 80320; 80324; 80345; 80346; 80349; 80353; 80358; 80361; 81003; 82248; 82550; 83615; 83690; 83735; 83992; 84484; 85025; 85610; 85730; 93005; 96374; 96375; 96376; 99285; J1885; J2543; Q9967

== ENCOUNTER 2018-12-10 18:53 | Emergency (ER) | payer OTHER ==
[2018-12-10 18:54] VITALS: BMI 28.1
[2018-12-10 19:20] VITALS: PULSE 95; RESP 19; TEMP 98.4; O2SAT 95
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
== END 2018-12-10 20:57 | disposition left against medical advice (07) ==
LOC: ED 18:53
DX: R10.9 Unspecified abdominal pain (principal); I10 Essential (primary) hypertension; K80.20 Calculus of gallbladder without cholecystitis without obstruction; Z93.3 Colostomy status

== ENCOUNTER 2018-12-26 17:02 | Emergency (ER) | payer OTHER ==
[2018-12-26 17:13] VITALS: BMI 27.3
[2018-12-26] MEDS ORDERED: Lidocaine 1% Inj (20ml) IJ STA (17:53)
[2018-12-26] MEDS ORDERED: TDAP Vaccine 0.5 mL Syr IM ONE (17:53)
[2018-12-26] MEDS ORDERED: Oxycodone/Acetaminophen 5/325 mg Tab PO STA (17:54)
[2018-12-26] MEDS ORDERED: Lidocaine 1% 5ml Abboject ONE (18:01)
--- NOTE | 2018-12-26 18:01 | ED PDOC ---
Arrival/HPI - General Chief Complaint: Trauma Time Seen by Provider: 12/26/18 17:24 Historian: Patient - History of Present Illness Narrative History of Present Illness (Text): 12/26/18 17:54 63 year old male, whose past medical history includes DVT/PE on eliquis, hx of alcohol abuse, hypertension, gallbladder stones, rectovesicular fistula s/p transverse loop colostomy, non-obstructive parastomal hernia, presents to the emergency department sustaining a laceration to the left eyebrow s/p trip and fall. Patient reports he tripped on a rug and fell hitting his head on the floor. Patient is complaining of a headache, but denies any LOC and recalls the event. Patient denies any nausea, vomiting, neck pain, back pain, dizziness, or any other complaints. PMD: Dr. Neil Engel Time/Duration: Prior to Arrival Symptom Onset: Sudden Symptom Course: Unchanged Activities at Onset: Light Context: Tripped Past Medical History - Provider Review Nursing Documentation Reviewed: Yes - Infectious Disease Hx of Infectious Diseases: None - Tetanus Immunization Tetanus Immunization: Unknown - Cardiac Hx Cardiac Disorders: Yes (dvt ble) Hx Hypertension: Yes Hx Peripheral Vascular Disease: Yes (DVT LEG) - Pulmonary Hx Respiratory Disorders: Yes (PULMONARY EMBOLISM) Hx Chronic Obstructive Pulmonary Disease (COPD): Yes - Neurological Hx Neurological Disorder: No - HEENT Hx HEENT Disorder: No - Renal Hx Renal Disorder: No - Endocrine/Metabolic Hx Endocrine Disorders: No - Hematological/Oncological Hx Blood Disorders: Yes Other/Comment: BLE DVT on Xarelto - Integumentary Hx Dermatological Disorder: Yes (RIGHT THIGH THIGH STAB WOUND.) - Musculoskeletal/Rheumatological Hx Musculoskeletal Disorders: Yes Hx Falls: Yes Hx Fractures: Yes (NASAL BONE FRACTURE FROM FALL) - Gastrointestinal Hx Gastrointestinal Disorders: Yes (PARTIAL COLON RESECTION DUE TO RECTOVESICULAR FISTULA,PARASTOMAL HERNIA) Hx Colostomy: Yes Hx Gall Bladder Disease: Yes (CHOLELITHIASIS,CHOLEDOCHOLITHIASIS.) Other/Comment: GI BLEED - Genitourinary/Gynecological Hx Genitourinary Disorders: Yes Other/Comment: bladder fistula urinates through rectum, pt is able to control it, has had fistula and colostomy 2 yrs. Has been planning sx at [facility] 1 yr to have fistula corrected and colostomy reversed in the future - Psychiatric Hx Psychophysiologic Disorder: Yes (ETOH ABUSE. LAST DRANK AUGUST 2018.BEER DRINKER) Hx Substance Use: No - Surgical History Other/Comment: Colostomy 2015 - Anesthesia Hx Anesthesia: Yes Hx Anesthesia Reactions: No Hx Malignant Hyperthermia: No - Suicidal Assessment Feels Threatened In Home Enviroment: No Family/Social History - Physician Review Nursing Documentation Reviewed: Yes Family/Social History: No Known Family HX Smoking Status: Never Smoked Hx Alcohol Use: Yes (USED TO DRINK HEAVILY. QUIT.LAST DRANK 3 MONS AGO.DRINKS BEER) Hx Substance Use: No Hx Substance Use Treatment: No Allergies/Home Meds Allergies/Adverse Reactions: Allergies No Known Allergies Allergy (Verified 12/10/18 19:01) Home Medications: Home Meds Medication Instructions Recorded Confirmed RX: Pantoprazole [Protonix EC Tab] 40 mg PO DAILY PRN 10/15/17 10/30/18 RX: Multivitamin Therapeutic Tab 1 tab PO DAILY 10/30/18 10/30/18 [Thera Tab] Review of Systems - Physician Review All systems were reviewed & negative as marked: Yes - Review of Systems Gastrointestinal: absent: Nausea, Vomiting Musculoskeletal: absent: Back Pain, Neck Pain Skin: Laceration Neurological: Headache. absent: Dizziness, Other (LOC) Physical Exam Vital Signs Reviewed: Yes Vital Signs Temp Pulse Resp BP Pulse Ox 12/26/18 17:11 98.2 F 86 18 132/75 98 Temperature: Afebrile Blood Pressure: Normal Pulse: Regular Respiratory Rate: Normal Appearance: Positive for: Well-Appearing, Non-Toxic, Comfortable Pain Distress: None Mental Status: Positive for: Alert and Oriented X 3 - Systems Exam Head: Present: Atraumatic, Normocephalic, Laceration (1.5 deep laceration noted to the left eyebrow. Actively bleeding ) Cardiovascular: Present: Regular Rate and Rhythm Neurological: Present: GCS=15, CN II-XII Intact, Speech Normal Psychiatric: Present: Alert, Oriented x 3, Normal Insight, Normal Concentration Medical Decision Making ED Course and Treatment: 12/26/18 17:54 Impression: 63 year old male presents sustaining a 1.5 cm laceration to the left eyebrow s/p tripping on a carpet. Patient is complaining of a headache. Differential Diagnosis included but are not limited to: --Laceration --Intracranial bleeding Plan: -- CT Head w/o contrast -- Boostrix Vaccine Inj -- Percocet -- Reassess and disposition Prior Visits: Notes and results from previous visits were reviewed. Progress Notes: 12/26/18 18:[address] when offered and states he only wants to get sutured and something for the laceration. He states he will sign the AMA form once comple raymon. 12/26/18 18:10 PROCEDURE: LACERATION REPAIR Performed by the emergency provider Location: lt. lateral eyebrow region Length: 3.0 cm Description: irregular, linear flapped, no foreign bodies Distal CMS: Normal. No deficits. Neurovascularly intact. Anesthesia: Lidocaine 1% 1cc Preparation: The wound was cleaned with NS 1000cc and clean with betadine. The area was prepped and draped in the usual sterile fashion. Exploration: The wound was explored and no foreign bodies were found. Procedure: The wound was closed with 6-0 vicryl. There was good approximation. In total, 6 were used. Post-Procedure: Good closure and hemostasis. The patient tolerated the procedure well and there were no complications. CSM remains intact. Post procedure dressing applied. *Procedure request SANTIAGO Lindsey for this procedure as physicians assistant.* 12/26/18 18:47 Leaving Against Medical Advice (AMA): The patient is choosing to leave against medical advice. I have personally explained to the patient that choosing to do so may result in permanent bodily harm, disability, or . I have discussed at great length that without further evaluation and monitoring there may be unforeseen circumstances and/or deterioration causing permanent bodily harm or as a result of their choice. The patient is alert, oriented, and shows the mental capacity to make clear decisions regarding the patients health care at this time. The patient continues to wish to leave against medical advice. In light of the patients decision to leave against medical advice, follow-up has been arranged and the patient is aware of the importance to following up as instructed. The patient has been advised that they should return to the emergency room immediately if they change their mind at any time, or if their condition begins to change or worsen in any way. - Scribe Statement The provider has reviewed the documentation as recorded by the Ray Mireles Provider Scribe Attestation: All medical record entries made by the Ray were at my direction and personally dictated by me. I have reviewed the chart and agree that the record accurately reflects my personal performance of the history, physical exam, medical decision making, and the department course for this patient. I have also personally directed, reviewed, and agree with the discharge instructions and disposition. Disposition/Present on Arrival - Present on Arrival Any Indicators Present on Arrival: No History of DVT/PE: No History of Uncontrolled Diabetes: No Urinary Catheter: No History of Decub. Ulcer: No History Surgical Site Infection Following: None - Disposition Have Diagnosis and Disposition been Completed?: No Diagnosis: Fall, Eyebrow laceration Disposition: AGAINST MEDICAL ADVICE Disposition Time: 18:47 Condition: GOOD Discharge Instructions (ExitCare): Wound Care (DC), Laceration Repair With Stitches (DC) Print Language: URUGUAYAN Referrals: Neil Engel JD, MD [Primary Care Provider] - Follow up with primary Forms: [employer] (Bengali)
[2018-12-26 19:05] VITALS: BP 128/59; PULSE 75; RESP 19; TEMP 98; O2SAT 99
== END 2018-12-26 19:06 | disposition left against medical advice (07) ==
LOC: ED 17:02
DX: S01.112A Laceration without foreign body of left eyelid and periocular area, initial encounter (principal); W01.0XXA Fall on same level from slipping, tripping and stumbling without subsequent striking against object, initial encounter; I10 Essential (primary) hypertension; Z86.718 Personal history of other venous thrombosis and embolism; Z86.711 Personal history of pulmonary embolism; Z79.01 Long term (current) use of anticoagulants

== ENCOUNTER 2019-01-05 11:23 | Emergency (ER) | payer OTHER ==
[2019-01-05 12:35] VITALS: BMI 28.1
[2019-01-05 12:38] VITALS: BP 148/82; PULSE 84; RESP 18; TEMP 98.1; O2SAT 98
== END 2019-01-05 12:49 | disposition left against medical advice (07) ==
LOC: ED 11:23
DX: Z02.89 Encounter for other administrative examinations (principal); Z48.02 Encounter for removal of sutures

== ENCOUNTER 2019-01-28 22:36 | Inpatient (IN) | payer OTHER ==
[2019-01-28] MEDS ORDERED: Sodium Chloride 0.9% 1,000 ML IV STA (23:04)
--- NOTE | 2019-01-28 23:09 | ED PDOC ---
Arrival/HPI - General Historian: Patient - History of Present Illness Narrative History of Present Illness (Text): 01/28/19 23:05 63 year old male, w/ past medical history of DVT/PE on eliquis, hx of alcohol abuse, hypertension, gallbladder stones, rectovesicular fistula s/p transverse loop colostomy, non-obstructive parastomal hernia, presents reporting multiple episodes of vomiting, since last night, he also mentions that he saw a small amount of blood from his colostomy bag noted today. Patient also mentions that he has chronic mid abdominal pain for the past 4 years since having a colostomy placed and he adds that over the years he has developed swelling under the col ostomy bag. Patient states that he has an appointment with a surgeon Dr. Stauffer at [facility] on 02/07/19 for consultation for possible reversal. Otherwise he denies any fever, chills, chest pain, shortness of breath, diarrhea, back pain, neck pain, headache, dizziness, or any other complaints. PMD: Dr. Neil Engel <Margaret Gardner PA-C - Last Filed: 01/29/19 01:57> <Harvey Solis - Last Filed: 01/29/19 03:35> - General Chief Complaint: Abdominal Pain Time Seen by Provider: 01/28/19 22:53 Past Medical History - Infectious Disease Hx of Infectious Diseases: None - Tetanus Immunization Tetanus Immunization: Unknown - Cardiac Hx Cardiac Disorders: Yes (dvt ble) Hx Hypertension: Yes Hx Peripheral Vascular Disease: Yes (DVT LEG) - Pulmonary Hx Respiratory Disorders: Yes (PULMONARY EMBOLISM) Hx Chronic Obstructive Pulmonary Disease (COPD): Yes - Neurological Hx Neurological Disorder: No - HEENT Hx HEENT Disorder: No - Renal Hx Renal Disorder: No - Endocrine/Metabolic Hx Endocrine Disorders: No - Hematological/Oncological Hx Blood Disorders: Yes Other/Comment: BLE DVT on eliquis - Integumentary Hx Dermatological Disorder: Yes (RIGHT THIGH THIGH STAB WOUND.) - Musculoskeletal/Rheumatological Hx Musculoskeletal Disorders: Yes Hx Falls: Yes Hx Fractures: Yes (NASAL BONE FRACTURE FROM FALL) - Gastrointestinal Hx Gastrointestinal Disorders: Yes (PARTIAL COLON RESECTION DUE TO RECTOVESICULAR FISTULA,PARASTOMAL HERNIA) Hx Colostomy: Yes Hx Gall Bladder Disease: Yes (CHOLELITHIASIS,CHOLEDOCHOLITHIASIS.) Other/Comment: GI BLEED - Genitourinary/Gynecological Hx Genitourinary Disorders: Yes Other/Comment: bladder fistula urinates through rectum, pt is able to control it, has had fistula and colostomy 2 yrs. Has been planning sx at [facility] ([facility] 1 yr to have fistula corrected and colostomy reversed in the future - Psychiatric Hx Substance Use: No - Surgical History Hx Tonsillectomy: Yes Other/Comment: Colostomy 2015 - Anesthesia Hx Anesthesia: Yes Hx Anesthesia Reactions: No Hx Malignant Hyperthermia: No - Suicidal Assessment Feels Threatened In Home Enviroment: No <Margaret Gardner PA-C - Last Filed: 01/29/19 01:57> Family/Social History Family/Social History: No Known Family HX Smoking Status: Never Smoked Hx Alcohol Use: Yes Frequency of alcohol use: Few days per week Hx Substance Use: No Hx Substance Use Treatment: No <Margaret Gardner PA-C - Last Filed: 01/29/19 01:57> Allergies/Home Meds <Margaret Gardner PA-C - Last Filed: 01/29/19 01:57> <Harvey Solis - Last Filed: 01/29/19 03:35> Allergies/Adverse Reactions: Allergies No Known Allergies Allergy (Verified 01/28/19 22:49) Home Medications: Home Meds Medication Instructions Recorded Confirmed Pantoprazole [Protonix EC Tab] 40 mg PO DAILY PRN 10/15/17 01/05/19 Multivitamin Therapeutic Tab 1 tab PO DAILY 10/30/18 01/05/19 [Thera Tab] Review of Systems - Review of Systems Constitutional: absent: Fatigue, Fevers Cardiovascular: absent: Chest Pain, Palpitations Gastrointestinal: Abdominal Pain, Nausea, Vomiting. absent: Constipation, Diarrhea Musculoskeletal: absent: Arthralgias, Back Pain, Neck Pain Skin: absent: Rash, Pruritis, Skin Lesions Neurological: absent: Headache, Dizziness <Margaret Gardner PA-C - Last Filed: 01/29/19 01:57> Physical Exam Temperature: Afebrile Blood Pressure: Normal Pulse: Regular Respiratory Rate: Normal Appearance: Positive for: Well-Appearing, Non-Toxic, Comfortable Pain Distress: Mild Mental Status: Positive for: Alert and Oriented X 3 - Systems Exam Head: Present: Atraumatic, Normocephalic Pupils: Present: PERRL Extroacular Muscles: Present: EOMI Conjunctiva: Present: Normal Mouth: Present: Dry Neck: Present: Normal Range of Motion Respiratory/Chest: Present: Clear to Auscultation, Good Air Exchange. No: Respiratory Distress, Accessory Muscle Use Cardiovascular: Present: Regular Rate and Rhythm, Normal S1, S2. No: Murmurs Abdomen: Present: Tenderness (+mild tenderness around the colostomy site), Other (+colostomy bag to the mid abdomen, +abdominal distention, but abdomen is soft). No: Distention, Peritoneal Signs, Rebound, Guarding Back: Present: Normal Inspection Upper Extremity: Present: Normal Inspection. No: Cyanosis, Edema Lower Extremity: Present: Normal Inspection. No: Edema Neurological: Present: GCS=15, CN II-XII Intact, Speech Normal Skin: Present: Warm, Dry, Normal Color. No: Rashes Psychiatric: Present: Alert, Oriented x 3, Normal Insight, Normal Concentration <Margaret Gardner PA-C - Last Filed: 01/29/19 01:57> Vital Signs Temp Pulse Resp BP Pulse Ox 01/29/19 02:18 90 18 179/101 H 97 01/28/19 23:31 98 F 84 16 137/81 100 <Harvey Solis - Last Filed: 01/29/19 03:35> Medical Decision Making ED Course and Treatment: 01/28/19 23:10 Plan : - IV - Labs - UA, urine cx - Pepcid / Zofran - Reassess / disposition - CT A/P w/ IV contrast - morphine 4 mg IV / zofran 4 mg IV 01/29/19 01:30 Labs reviewed : K 3.5, AST 86, ALT 65. Patient given KCl po. Patient went to CT. 01/29/19 01:57 [address] results still pending. CT reviewed by me and I notified the patient of herniating bowel in the CT. He states that the herniating bowel is not knew, he has had prior CT at [facility] and his surgeon Dr. Stauffer is aware and notified him of this. - RAD Interpretation Radiology Orders: 01/28/19 23:04 ABD & PELVIS IV CONTRAST ONLY [CT] Stat <Margaret Gardner PA-C - Last Filed: 01/29/19 01:57> ED Course and Treatment: 01/29/19 02:43 Procedure: CT of abdomen and pelvis Dictator: Dr. Mike Mcconnell M.D. Impression: Cholelithiasis. Suspected mild changes of acute cholecystitis. Unchanged. No evidence of perforation or abscess formation. Mildly dilated extrahepatic biliary tree. Choledocholithiasis is noted in the distal aspect of the common bile duct in the interim. Mildly thickened bladder. Underdistention versus mild cystitis, unchanged. Colostomy a defect in the anterior abdominal wall at the level of the transverse colon. Associated nonincarcerated peristomal hernia. Attempted to PO challenge patient twice after Zofran without success. Dr Kebede accepts patient to hospitalist service for intractible vomiting. - Lab Interpretations Lab Results: PT 12.0 SECONDS (9.4-12.5) 01/28/19 23:37 INR 1.08 01/28/19 23:37 APTT 30.0 Seconds (26.9-38.3) 01/28/19 23:37 Total Bilirubin 0.8 mg/dL (0.2-1.3) 01/28/19 23:37 AST 86 U/L (17-59) H D 01/28/19 23:37 ALT 65 U/L (7-56) H 01/28/19 23:37 Alkaline Phosphatase 82 U/L (38-126) 01/28/19 23:37 Total Protein 8.4 g/dL (5.8-8.3) H 01/28/19 23:37 Albumin 4.5 g/dL (3.0-4.8) 01/28/19 23:37 Globulin 3.9 gm/dL 01/28/19 23:37 Albumin/Globulin Ratio 1.2 (1.1-1.8) 01/28/19 23:37 Lipase 69 U/L (23-300) 01/28/19 23:37 Urine Color Yellow (YELLOW) 01/29/19 02:12 Urine Appearance Clear (CLEAR) 01/29/19 02:12 Urine pH 6.0 (4.7-8.0) 01/29/19 02:12 Ur Specific [place] 1.020 (1.005-1.035) 01/29/19 02:12 Urine Protein Negative mg/dL (<30 mg/dL) 01/29/19 02:12 Urine Glucose (UA) Negative mg/dL (NEGATIVE) 01/29/19 02:12 Urine Ketones Negative mg/dL (NEGATIVE) 01/29/19 02:12 Urine Blood Negative (NEGATIVE) 01/29/19 02:12 Urine Nitrate Negative (NEGATIVE) 01/29/19 02:12 Urine Bilirubin Negative (NEGATIVE) 01/29/19 02:12 Urine Urobilinogen 0.2 E.U./dL (<1 E.U./dL) 01/29/19 02:12 Ur Leukocyte Esterase Negative [place]/uL (NEGATIVE) 01/29/19 02:12 - RAD Interpretation Radiology Orders: 01/28/19 23:04 ABD & PELVIS IV CONTRAST ONLY [CT] Stat - Medication Orders Current Medication Orders: Morphine Sulfate (Morphine) 4 mg IVP STAT STA Stop: 01/29/19 02:27 Discontinued Medications Famotidine (Pepcid) 20 mg IVP STAT STA Stop: 01/28/19 23:05 Last Admin: 01/28/19 23:35 Dose: 20 mg IVP Administration Document 01/28/19 23:35 (Rec: 01/28/19 23:35 [id number] Charges for Administration # of IVP Administrations 1 Sodium Chloride (Sodium Chloride 0.9%) 1,000 mls @ 1,000 mls/hr IV .Q1H STA Stop: 01/29/19 00:03 Last Admin: 01/28/19 23:20 Dose: 1,000 mls/hr eMAR Start Stop Document 01/28/19 23:20 (Rec: 01/28/19 23:35 [id number] Intravenous Solution Start Date 01/28/19 Start Time 23:20 Morphine Sulfate (Morphine) 4 mg IVP STAT STA Stop: 01/29/19 00:43 Last Admin: 01/29/19 00:50 Dose: 4 mg MAR Pain Assessment Document 01/29/19 00:50 (Rec: 01/29/19 00:50 [id number] Pain Reassessment Is this a pain reassessment? Yes Location Pain Location Body Site Abdomen IVP Administration Document 01/29/19 00:50 (Rec: 01/29/19 00:50 [id number] Charges for Administration # of IVP Administrations 1 Re-Assess: MAR Pain Assessment Document 01/29/19 01:50 (Rec: 01/29/19 02:16 [id number] Pain Reassessment Is this a pain reassessment? Yes Description Effectiveness of Techniques pt. verbalized feeling better. Ondansetron HCl (Zofran Inj) 4 mg IVP STAT STA Stop: 01/28/19 23:05 Last Admin: 01/28/19 23:30 Dose: 4 mg IVP Administration Document 01/28/19 23:30 RG (Rec: 01/28/19 23:35 [id number] Charges for Administration # of IVP Administrations 1 Ondansetron HCl (Zofran Inj) 4 mg IVP STAT STA Stop: 01/29/19 00:43 Last Admin: 01/29/19 00:50 Dose: 4 mg IVP Administration Document 01/29/19 00:50 RG (Rec: 01/29/19 00:50 [id number] Charges for Administration # of IVP Administrations 1 Potassium Chloride (Potassium Chloride Oral Soln) 40 meq PO STAT STA Stop: 01/29/19 01:30 Last Admin: 01/29/19 02:15 Dose: 40 meq <Harvey Solis - Last Filed: 01/29/19 03:35> - PA / FOREST OFFICER / Resident Statement / has reviewed & agrees with the documentation as recorded. <Margaret Gardner PA-C - Last Filed: 01/29/19 01:57> Disposition/Present on Arrival - Present on Arrival Any Indicators Present on Arrival: Yes History of DVT/PE: Yes History of Uncontrolled Diabetes: No Urinary Catheter: No History of Decub. Ulcer: No History Surgical Site Infection Following: None - Disposition Have Diagnosis and Disposition been Completed?: Yes <Margaret Gardner PA-C - Last Filed: 01/29/19 01:57> - Disposition Disposition Time: 03:35 Patient Plan: Admission, Observation <Harvey Solis - Last Filed: 01/29/19 03:35> - Disposition Diagnosis: Vomiting, Abdominal pain Disposition: HOSPITALIZED Patient Problems: Current Active Problems Problem Status Onset Abdominal pain Acute Vomiting Acute Condition: STABLE
[2019-01-29 00:39] LABS: BASO # 0.01 K/mm3 (0.0-2.0); BASO % 0.1 % (0.0-3.0); EOS % 0.5 % (1.5-5.0); HEMOGLOBIN 13.6 g/dL (14.0-18.0); LYMPH # 0.9 (1.2-3.4); LYMPH % 12.1 % (22.0-35.0); MEAN CELL VOLUME 96.3 fl (80.0-105.0); MEAN CORPUSCULAR HEMOGLOBIN 33.2 pg (25.0-35.0); MEAN CORPUSCULAR HGB CONC 34.4 g/dl (31.0-37.0); MONO # 0.7 (0.1-0.6); MONO % 8.7 % (1.0-6.0); RBC 4.1 10^6/uL (3.5-6.1); RED CELL DISTRIBUTION WIDTH 14.1 % (11.5-14.5); WHITE BLOOD COUNT 7.7 10^3/uL (4.5-11.0)
[2019-01-29] MEDS ORDERED: Morphine 4 mg/ml ISec IVP STA ×2 (00:42→02:26)
[2019-01-29] MEDS ORDERED: Morphine 4 mg/ml ISec ONE (00:48)
[2019-01-29 00:57] LABS: BLOOD UREA NITROGEN 6 mg/dL (7-21); GFR NON-AFRICAN AMERICAN > 60
[2019-01-29 00:58] LABS: ALB/GLOB RATIO 1.2 (1.1-1.8); ALBUMIN 4.5 g/dL (3.0-4.8); AST/SGOT 86 U/L (17-59); CALCIUM 9.4 mg/dL (8.4-10.5)
[2019-01-29 00:59] LABS: ALT/SGPT 65 U/L (7-56); LIPASE 69 U/L (23-300)
[2019-01-29 01:01] LABS: INR 1.08
[2019-01-29] MEDS ORDERED: Potassium Chloride 20 mEq/15 ml LIQ UD PO STA (01:29)
[2019-01-29] MEDS ORDERED: Iohexol 350 MG/100 ML VIAL ONE (01:40)
[2019-01-29 02:33] LABS: URINE APPEARANCE CLEAR (CLEAR); URINE BILIRUBIN NEGATIVE (NEGATIVE); URINE BLOOD NEGATIVE (NEGATIVE); URINE COLOR YELLOW (YELLOW); URINE GLUCOSE (UA) NEGATIVE (NEGATIVE); URINE LEUKOCYTE ESTERASE NEGATIVE Leu/uL (NEGATIVE); URINE PROTEIN NEGATIVE mg/dL (<30 mg/dL); URINE UROBILINOGEN 0.2 E.U./dL (<1 E.U./dL)
[2019-01-29] MEDS ORDERED: Sodium Chloride 0.9% 1,000 ML IV STA (03:15)
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
[2019-01-29] MEDS: Sodium Chloride 0.9% 1,000 ML IV SCH ×2 (05:27→17:21)
[2019-01-29 06:11] VITALS: BMI 28.1
--- NOTE | 2019-01-29 12:29 | CON ---
DATE: 01/29/2019 GASTROENTEROLOGY CONSULTATION REQUESTING PHYSICIAN: Dr. Philippe. REASON FOR CONSULTATION: I have been asked to see this 63-year-old male with multiple comorbidities including pulmonary embolus and DVT on Eliquis status post transverse loop colostomy for rectovesical fistula, hypertension, gallstones, alcoholism, parastomal hernia, who comes to the hospital with several episodes of nausea and vomiting. The patient also has gallstones and known common bile duct stones. He denies any epigastric pain. His liver enzymes in the past have been normal. The patient was to have repair of ventral hernia and cholecystectomy and ERCP at [facility], but has not followed up. He apparently wished to have surgery, but did not go because of loss of a significant other as well as personal issues with rent payment on his apartment. The patient also has a history of alcoholism. He currently denies any vomiting. His nausea is less. He denies any epigastric or right upper quadrant abdominal pain. PAST MEDICAL HISTORY: Past medical history is notable for DVT; PE on Eliquis; gallstones, asymptomatic; common bile duct stones, asymptomatic; rectovesical fistula, status post transverse loop colostomy; parastomal hernia; hypertension; alcoholism. PAST SURGICAL HISTORY: Past surgical history is notable for transverse loop colostomy 4 years ago. SOCIAL HISTORY: The patient is an alcoholic. His last drink was several months ago. He denies cigarette smoking. MEDICATIONS: Medications at home include Eliquis, pantoprazole, and losartan. PHYSICAL EXAMINATION: GENERAL: Middle-aged male lying in bed, in no acute distress. VITAL SIGNS: Reveal temperature of 98, blood pressure 160/92, heart rate of 81. HEENT: Reveal sclerae to be white. Conjunctivae pink. NECK: Supple. CHEST: Reveal lungs to be clear. HEART: Exam reveals regular rate and rhythm. ABDOMEN: Soft. He has a transverse loop colostomy. He has a large parastomal hernia. EXTREMITIES: Show chronic stasis changes. LABORATORY DATA: Reveal white blood cell count 7.7, hemoglobin 13.6. Chemistries reveal total bilirubin 0.8, AST 86, alkaline phosphatase of 82, ALT of 62, lipase of 69. Ultrasound of the gallbladder reveals gallstones and a mildly dilated common bile duct. CT scan of the abdomen and pelvis again shows gallstones, common bile duct stone. Thickening of the gallbladder with some surrounding fat stranding. There is no pericholecystic fluid. No evidence of bowel wall obstruction with a large defect in the anterior abdominal wall with a non-incarcerated peristomal hernia. IMPRESSION: This is a 63-year-old male with multiple comorbidities including history of pulmonary embolus and DVT on Eliquis, hypertension with nausea and vomiting. His symptoms have improved clinically. The patient does not have acute cholecystitis. His liver enzymes are mildly elevated with a normal total bilirubin and alkaline phosphatase, which is most likely secondary to alcoholic fatty liver disease, I suspect that the patient has a chronic cholecystitis and chronic choledocholithiasis, which are asymptomatic at this time. The patient does have a surgeon at [facility] in [place], who the patient has been seeing for repair of this large parastomal hernia as well as possible cholecystectomy and ERCP for removal of his chronic common bile duct stones. The patient symptomatically is better with no further nausea or vomiting. RECOMMENDATIONS: 1. We will start the patient on clear liquid diet and advance to a low-fat diet. If tolerated, the patient can be discharged home. Again, I have instructed him on the importance of followup with the surgeon at [facility]. He needs to be at a tertiary center, given his multiple comorbidities and the complicated nature of the large parastomal hernia. Clinically, he does not have bowel obstruction from the parastomal hernia nor does he have acute cholecystitis or cholangitis. He has chronic cholecystitis and is asymptomatic from his common bile duct stones. 2. We will start the patient on ursodiol 500 mg twice a day. Rickie Philippe MD
--- NOTE | 2019-01-29 14:02 | CT ---
Date of service: 01/29/2019 PROCEDURE: CT Abdomen and Pelvis with contrast HISTORY: vomiting, pain, has colostomy bag COMPARISON: Abdomen pelvis CT with contrast 10/30/2018. TECHNIQUE: Following the intravenous administration of iodinated contrast material, a CT examination of the abdomen and pelvis was performed from the domes of the diaphragms to the symphysis pubis with reformatted datasets provided in axial, sagittal and coronal planes. Oral contrast was not administered as per referring physician request. Contrast dose: Omnipaque 350, 100 cc Radiation dose: Total exam DLP = 919.22 mGy-cm. This CT exam was performed using one or more of the following dose reduction techniques: Automated exposure control, adjustment of the mA and/or kV according to patient size, and/or use of iterative reconstruction technique. FINDINGS: LOWER THORAX: Aneurysmal aortic root and proximal ascending aorta up to 5.0 cm reiterated. Thoracic aortic calcifications again evident as well as coronary artery calcifications. Stable nodular atelectasis right lower lobe. LIVER: There is prominent diffuse diminished density throughout the liver compatible with hepatic steatosis. No mass or intrahepatic biliary dilatation identified. GALLBLADDER AND BILE DUCTS: Mural thickening seen related to a mildly distended gallbladder with gallstones in the lumen. Cholelithiasis is also identified within the common bile duct once again, which is remains prominent measuring 8.2 mm greatest caliber. Trace pericholecystic reaction is questioned once again, potentially reflecting acute superimposed potential chronic cholecystitis. Clinically correlate further. No fluid collection apparent at this time. PANCREAS: Unremarkable. No gross lesion or ductal dilatation. SPLEEN: Unremarkable. ADRENALS: Unremarkable. No mass. KIDNEYS AND URETERS: Unremarkable. No hydronephrosis. No solid mass. VASCULATURE: Nonaneurysmal abdominal aortic calcific atherosclerotic changes are identified. There is a lengthy Wallstent identified involving the right common iliac vein. BOWEL: No bowel obstruction is appreciable. A lengthy segment of small and large bowel is involved in a large ventral abdominal hernia once again, without incarceration, with the neck measuring some 10 cm. No gross mural thickening appreciated. Limited retained fecal material is seen at the right hemicolon. APPENDIX: Normal appendix. PERITONEUM: Unremarkable. No free fluid. No free air. LYMPH NODES: Unremarkable. No enlarged lymph nodes. BLADDER: Unremarkable. REPRODUCTIVE: Prior hysterectomy reiterated. BONES: No acute fracture. OTHER FINDINGS: None. IMPRESSION: 1. Colostomy likely complicated by large ventral abdominal hernia. No bowel incarceration or obstruction evident. No ascites or mesenteric edema throughout. No free air. 2. Gross hepatic steatosis. 3. Cholelithiasis, choledocholithiasis and trace pericholecystic reaction are reiterated and may reflect limited chronic cholecystitis. Clinically correlate further. [id number] dilatation of CBD 8.2 mm. No significant dramatic biliary dilatation. 4. Incidental thoracic aortic aneurysm reiterated.
[2019-01-29] MEDS: Multivitamin Therapeutic Tab PO SCH (14:11)
--- NOTE | 2019-01-29 16:58 | US ---
Date of service: 01/29/2019 HISTORY: transaminitis; cholelithiasiss COMPARISON: None. TECHNIQUE: Sonographic evaluation of the right upper quadrant of the abdomen. FINDINGS: LIVER: Measures 15.3 cm in length. Diffusely increased echogenicity of the liver parenchyma is identified, suggesting steatosis or other infiltrative hepatic process. Nonspecific trace perihepatic fluid is seen. Normal directional blood flow is appreciated at the main portal vein. No mass. No intrahepatic bile duct dilatation. GALLBLADDER: Cholelithiasis is identified within the lumen of the gallbladder on relatively extensive basis. No pericholecystic fluid collection or other acute gallbladder finding appreciable grossly. COMMON BILE DUCT: Measures 4.8 mm. No stones. No dilatation. PANCREAS: Poorly visualized pancreas due to body habitus and overlying bowel gas. RIGHT KIDNEY: Measures 11.7 cm in length. Normal echogenicity. No calculus, mass, or hydronephrosis. AORTA: No aneurysmal dilatation. IVC: Unremarkable. OTHER FINDINGS: None . IMPRESSION: Extensive cholelithiasis identified in the gallbladder which is otherwise unremarkable appearing. Normal common bile duct caliber of 4.8 mm. No demonstrated choledocholithiasis. Hepatic steatosis or other infiltrative process identified. No definite hepatic mass appreciable or intrahepatic biliary dilatation. Nonspecific trace perihepatic fluid. There is a muniz of the pancreas due to overlying bowel gas and body habitus as well.
--- NOTE | 2019-01-29 17:38 | CP.PCM.PN ---
<Mario Villegas - Last Filed: 01/29/19 17:34> Subjective - Date & Time of Evaluation Date of Evaluation: 01/29/19 Time of Evaluation: 17:34 - Subjective Subjective: Received a call from patient's nurse, Kailee Nemwan about his temperature of 101.8 that was recorded on his chart. She states that this is not correct as a broken thermometer was used. Repeat temperature was 99.2. Patient is asymptomatic. Objective - Vital Signs/Intake and Output Vital Signs (last 24 hours): Temp Pulse Resp BP Pulse Ox 99.2 F 95 H 20 145/98 H 96 01/29/19 17:00 01/29/19 14:00 01/29/19 14:00 01/29/19 14:00 01/29/19 14:00 Intake and Output: 01/29/19 01/29/19 06:59 18:59 Intake Total 360 Balance 360 - Medications Medications: Current Medications Apixaban (Eliquis) 5 mg PO BID [facility]; Protocol Last Admin: 01/29/19 17:20 Dose: 5 mg Sodium Chloride (Sodium Chloride 0.9%) 1,000 mls @ 100 mls/hr IV .Q10H [facility] Last Admin: 01/29/19 17:21 Dose: 100 mls/hr Losartan Potassium (Cozaar) 50 mg PO DAILY [facility] Last Admin: 01/29/19 10:10 Dose: 50 mg Multivitamins (Thera Tab) 1 tab PO DAILY [facility] Last Admin: 01/29/19 14:11 Dose: 1 tab Ondansetron HCl (Zofran Inj) 4 mg IVP Q4H PRN PRN Reason: Nausea/Vomiting Last Admin: 01/29/19 10:10 Dose: 4 mg Pantoprazole Sodium (Protonix Inj) 40 mg IVP DAILY [facility] Last Admin: 01/29/19 10:09 Dose: 40 mg Ursodiol (Actigall) 300 mg PO TID [facility] Last Admin: 01/29/19 14:11 Dose: 300 mg - Labs Labs: 01/28/19 23:27 01/28/19 23:37 PT 12.0 SECONDS (9.4-12.5) 01/28/19 23:37 INR 1.08 01/28/19 23:37 APTT 30.0 Seconds (26.9-38.3) 01/28/19 23:37 <NaunOsielshelley - Last Filed: 01/30/19 12:13> Objective - Vital Signs/Intake and Output Vital Signs (last 24 hours): Temp Pulse Resp BP Pulse Ox 98.4 F 67 20 128/78 97 01/30/19 06:00 01/30/19 10:10 01/30/19 06:00 01/30/19 10:10 01/30/19 06:00 Intake and Output: 01/30/19 01/30/19 06:59 18:59 Intake Total Output Total Balance - Medications Medications: Current Medications Al Hydrox/Mg Hydrox/Simethicone (Maalox Plus 30 Ml) 30 ml PO DAILY PRN PRN Reason: Indigestion / Heartburn Apixaban (Eliquis) 5 mg PO BID [facility]; Protocol Last Admin: 01/30/19 10:11 Dose: 5 mg Sodium Chloride (Sodium Chloride 0.9%) 1,000 mls @ 100 mls/hr IV .Q10H [facility] Last Admin: 01/29/19 17:21 Dose: 100 mls/hr Metronidazole (Flagyl) 500 mg in 100 mls @ 100 mls/hr IVPB Q8 [facility]; Protocol Levofloxacin/Dextrose (Levaquin 500mg) 500 mg in 100 mls @ 100 mls/hr IVPB 1200 [facility]; Protocol Losartan Potassium (Cozaar) 50 mg PO DAILY [facility] Last Admin: 01/30/19 10:10 Dose: 50 mg Multivitamins (Thera Tab) 1 tab PO DAILY [facility] Last Admin: 01/29/19 14:11 Dose: 1 tab Ondansetron HCl (Zofran Inj) 4 mg IVP Q4H PRN PRN Reason: Nausea/Vomiting Last Admin: 01/29/19 10:10 Dose: 4 mg Pantoprazole Sodium (Protonix Inj) 40 mg IVP DAILY [facility] Last Admin: 01/30/19 10:10 Dose: 40 mg Ursodiol (Actigall) 300 mg PO TID [facility] Last Admin: 01/30/19 10:10 Dose: 300 mg - Labs Labs: 01/30/19 11:25 01/30/19 11:25 PT 12.0 SECONDS (9.4-12.5) 01/28/19 23:37 INR 1.08 01/28/19 23:37 APTT 30.0 Seconds (26.9-38.3) 01/28/19 23:37 Attending/Attestation - Attestation I have personally seen and examined this patient.: Yes I have fully participated in the care of the patient.: Yes I have reviewed all pertinent clinical information, including history, physical exam and plan: Yes
--- NOTE | 2019-01-29 21:25 | CARD ---
APPROVED REPORT Date of service: 01/29/2019 EKG Measurement Heart [id number] P45 [id number] <Conclusion> Normal sinus rhythm Normal ECG
[2019-01-30] MEDS: Multivitamin Therapeutic Tab PO SCH (10:00)
[2019-01-30] MEDS ORDERED: Alum-Mag Hydrox-Simethicone Susp (30 mL) PO PRN (11:23)
[2019-01-30 11:32] LABS: HEMOGLOBIN 12.6 g/dL (14.0-18.0); MEAN CELL VOLUME 97.9 fl (80.0-105.0); MEAN CORPUSCULAR HEMOGLOBIN 33.3 pg (25.0-35.0); MEAN CORPUSCULAR HGB CONC 34.1 g/dl (31.0-37.0); MEAN PLATELET VOLUME 10.3 fl (7.0-11.0); RBC 3.78 10^6/uL (3.5-6.1); RED CELL DISTRIBUTION WIDTH 13.8 % (11.5-14.5); WHITE BLOOD COUNT 8.5 10^3/uL (4.5-11.0)
[2019-01-30 11:42] LABS: ALBUMIN 3.8 g/dL (3.0-4.8); ALT/SGPT 37 U/L (7-56); AST/SGOT 47 U/L (17-59); BLOOD UREA NITROGEN 10 mg/dL (7-21); CALCIUM 8.5 mg/dL (8.4-10.5); GFR NON-AFRICAN AMERICAN > 60
[2019-01-30] MEDS: levoFLOXacin 500 mg in D5W 500 MG/100 ML BAG IVPB SCH (12:13)
[2019-01-30 12:39] LABS: URINE BILIRUBIN NEGATIVE (NEGATIVE); URINE BLOOD NEGATIVE (NEGATIVE); URINE GLUCOSE (UA) NEGATIVE (NEGATIVE); URINE LEUKOCYTE ESTERASE NEGATIVE Leu/uL (NEGATIVE); URINE PROTEIN NEGATIVE mg/dL (<30 mg/dL)
[2019-01-30 12:40] LABS: URINE APPEARANCE CLEAR (CLEAR); URINE COLOR YELLOW (YELLOW)
--- NOTE | 2019-01-30 12:40 | CP.PCM.PN ---
<Mario Villegas - Last Filed: 01/30/19 12:36> Subjective - Date & Time of Evaluation Date of Evaluation: 01/30/19 Time of Evaluation: 12:37 - Subjective Subjective: PGY-1 Medicine Progress note for Dr. Magallon Patient seen and examined at bedside. Patient had a Tmax of 100.7, rectal Temp was 100.9. He is tolerating regular food. He denies shortness of breath, chest pain, abdominal pain, nausea, vomiting, or any other complaints at this time. Objective - Vital Signs/Intake and Output Vital Signs (last 24 hours): Temp Pulse Resp BP Pulse Ox 98.4 F 67 20 128/78 97 01/30/19 06:00 01/30/19 10:10 01/30/19 06:00 01/30/19 10:10 01/30/19 06:00 Intake and Output: 01/30/19 01/30/19 06:59 18:59 Intake Total Output Total Balance - Medications Medications: Current Medications Al Hydrox/Mg Hydrox/Simethicone (Maalox Plus 30 Ml) 30 ml PO DAILY PRN PRN Reason: Indigestion / Heartburn Last Admin: 01/30/19 12:13 Dose: 30 ml Apixaban (Eliquis) 5 mg PO BID TAD; Protocol Last Admin: 01/30/19 10:11 Dose: 5 mg Sodium Chloride (Sodium Chloride 0.9%) 1,000 mls @ 100 mls/hr IV .Q10H TAD Last Admin: 01/29/19 17:21 Dose: 100 mls/hr Metronidazole (Flagyl) 500 mg in 100 mls @ 100 mls/hr IVPB Q8 TAD; Protocol Levofloxacin/Dextrose (Levaquin 500mg) 500 mg in 100 mls @ 100 mls/hr IVPB 1200 TAD; Protocol Last Admin: 01/30/19 12:13 Dose: 100 mls/hr Losartan Potassium (Cozaar) 50 mg PO DAILY TAD Last Admin: 01/30/19 10:10 Dose: 50 mg Multivitamins (Thera Tab) 1 tab PO DAILY [facility] Last Admin: 01/30/19 10:00 Dose: 1 tab Ondansetron HCl (Zofran Inj) 4 mg IVP Q4H PRN PRN Reason: Nausea/Vomiting Last Admin: 01/29/19 10:10 Dose: 4 mg Pantoprazole Sodium (Protonix Inj) 40 mg IVP DAILY [facility] Last Admin: 01/30/19 10:10 Dose: 40 mg Ursodiol (Actigall) 300 mg PO TID [facility] Last Admin: 01/30/19 10:10 Dose: 300 mg - Labs Labs: 01/30/19 11:25 01/30/19 11:25 PT 12.0 SECONDS (9.4-12.5) 01/28/19 23:37 INR 1.08 01/28/19 23:37 APTT 30.0 Seconds (26.9-38.3) 01/28/19 23:37 - Constitutional Appears: Well, Non-toxic, No Acute Distress - Head Exam Head Exam: ATRAUMATIC, NORMAL INSPECTION - Eye Exam Eye Exam: EOMI, Normal appearance Pupil Exam: NORMAL ACCOMODATION, PERRL - Respiratory Exam Respiratory Exam: Clear to Ausculation Bilateral. absent: Rales, Rhonchi, Wheezes, Respiratory Distress - Cardiovascular Exam Cardiovascular Exam: REGULAR RHYTHM, +S1, +S2. absent: Gallop, Rubs, Murmur - GI/Abdominal Exam GI & Abdominal Exam: Soft, Normal Bowel Sounds. absent: Distended, Guarding, Tenderness Additional comments: Peristomal hernia noted around colostomy bag. No signs of cellulitis or infection around colostomy site - Extremities Exam Extremities Exam: Calf Tenderness. 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 Plan: Intractable Vomiting - Zofran prn - Heart healthy, low fat, soft diet - GI on consult (Dr. Philippe) - Protonix 40mg PO QD - Ursodiol 300mg PO TID - CT A/P: cholelithiasis. No abscess or formation. Mildly dilated extrahepatic biliary tree. Colostomy bag - defect in anterior abdominal wall at the level of transverse colon. Associated non-incarcerated peristomal hernia (old). Fever - Rectal temp was 100.9 - Blood culture: pending - No leukocytosis - UA: pending - Urine culture no growth to date - Flagyl 500mg IV Q8 (Started 01/30) - Levaquin 500mg IV QD (Started 01/30) Transaminitis, resolved - UDS pending - EtOH level negative HTN - Continue home medication, Losartan 50mg PO QD History of PE/DVT - Continue home medication, Eliquis 5mg PO BID DVT ppx: eliquis GI ppx: ptx Patient seen and case discussed with attending, Dr. Magallon. Mario Villegas, PGY-1 <Kylah Magallon - Last Filed: 01/30/19 13:07> Objective - Vital Signs/Intake and Output Vital Signs (last 24 hours): Temp Pulse Resp BP Pulse Ox 98.4 F 67 20 128/78 97 01/30/19 06:00 01/30/19 10:10 01/30/19 06:00 01/30/19 10:10 01/30/19 06:00 Intake and Output: 01/30/19 01/30/19 06:59 18:59 Intake Total Output Total Balance - Medications Medications: Current Medications Al Hydrox/Mg Hydrox/Simethicone (Maalox Plus 30 Ml) 30 ml PO DAILY PRN PRN Reason: Indigestion / Heartburn Last Admin: 01/30/19 12:13 Dose: 30 ml Apixaban (Eliquis) 5 mg PO BID TAD; Protocol Last Admin: 01/30/19 10:11 Dose: 5 mg Sodium Chloride (Sodium Chloride 0.9%) 1,000 mls @ 100 mls/hr IV .Q10H TAD Last Admin: 01/29/19 17:21 Dose: 100 mls/hr Metronidazole (Flagyl) 500 mg in 100 mls @ 100 mls/hr IVPB Q8 TAD; Protocol Levofloxacin/Dextrose (Levaquin 500mg) 500 mg in 100 mls @ 100 mls/hr IVPB 1200 TAD; Protocol Last Admin: 01/30/19 12:13 Dose: 100 mls/hr Losartan Potassium (Cozaar) 50 mg PO DAILY [facility] Last Admin: 01/30/19 10:10 Dose: 50 mg Multivitamins (Thera Tab) 1 tab PO DAILY [facility] Last Admin: 01/30/19 10:00 Dose: 1 tab Ondansetron HCl (Zofran Inj) 4 mg IVP Q4H PRN PRN Reason: Nausea/Vomiting Last Admin: 01/29/19 10:10 Dose: 4 mg Pantoprazole Sodium (Protonix Inj) 40 mg IVP DAILY [facility] Last Admin: 01/30/19 10:10 Dose: 40 mg Ursodiol (Actigall) 300 mg PO TID [facility] Last Admin: 01/30/19 10:10 Dose: 300 mg - Labs Labs: 01/30/19 11:25 01/30/19 11:25 PT 12.0 SECONDS (9.4-12.5) 01/28/19 23:37 INR 1.08 01/28/19 23:37 APTT 30.0 Seconds (26.9-38.3) 01/28/19 23:37 Attending/Attestation - Attestation I have personally seen and examined this patient.: Yes I have fully participated in the care of the patient.: Yes I have reviewed all pertinent clinical information, including history, physical exam and plan: Yes Notes (Text): 01/30/19 13:05 Medical record note made by the resident after discussion with my direction and input after the patient was personally seen and examined by me. I have reviewed the chart and agree that the record accurately reflects by personal performance of the history, physical exam, data review, and medical decision-making, in the course for the patient. I have also personally directed the plan of care. 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 Abdomen and Pelvis showed cholelithiasis. No abscess or formation. Mildly dilated extrahepatic biliary tree. Colostomy bag - defect in anterior abdominal wall at the level of transverse colon. Associated non-incarcerated peristomal hernia (old). Right upper quadrant USG is negative for cholycystitis.Patient was started on diet, tolerating soft food but has developed low grade fever 100.9, sepsis work up is ordered, he has been started on Levequin and Flagyl.GI is following. Patient is already scheduled to follow with his surgeon for reversal of Colostomy and cholycystectomy. Management plan was discussed in detail with patient. Education was provided.
[2019-01-30 13:10] LABS: OPIATES, UR NEGATIVE (NEGATIVE)
[2019-01-30 13:35] LABS: BARBITURATES, UR NEGATIVE (NEGATIVE); BENZODIAZEPINES, UR NEGATIVE (NEGATIVE); PHENCYCLIDINE, UR NEGATIVE (NEGATIVE)
[2019-01-30] MEDS: metroNIDAZOLE IV 500 mg/100 ml 500 MG/100 ML BAG IVPB SCH ×2 (14:14→21:26)
--- NOTE | 2019-01-30 17:53 | PN ---
DATE: 01/30/2019 SUBJECTIVE The patient developed a low-grade temperature this morning to 100.8. He denies any further nausea or vomiting, but now complains of some pain at the lower border of his large ventral hernia. He denies any right upper quadrant or epigastric pain. He denies any nausea or vomiting. OBJECTIVE: VITAL SIGNS: Reveal temperature of 98.4, blood pressure 128/78, and heart rate of 67. HEENT: Reveal sclerae to be white. Conjunctivae pink. NECK: Supple. CHEST: Reveal lungs to be clear. HEART: Exam reveals a regular rate and rhythm. ABDOMEN: Reveals a midline transverse colostomy with a large ventral hernia. There is mild tenderness in the lower aspect of the hernia site. LABORATORY DATA: Reveal white blood cell count 8.5, hemoglobin 12.6, and platelet count of 104,000. AST, ALT, alk phos were all normal. Total bilirubin is 1.7. IMPRESSION: A 63-year-old female with a history of deep venous thrombosis, pulmonary embolism, large parastomal hernia status post loop colostomy about four years ago for a rectovesical fistula after the patient sustained a penetrating wound to his rectum from a foreign object, now with chronic cholelithiasis, probable chronic cholecystitis and common duct stone, which is nonobstructing. The patient had a low-grade temperature this morning. I doubt that this is cholangitis with normal AST, ALT, and white blood cell count. RECOMMENDATIONS: 1. Check blood cultures. 2. If fever persists, the patient may require a repeat CT of the abdomen and pelvis and Infectious Disease evaluation. 3. The patient will need eventual elective ERCP, cholecystectomy prior to reversal of his colostomy and repair of his ventral hernia. Rickie Philippe MD
[2019-01-31] MEDS: metroNIDAZOLE IV 500 mg/100 ml 500 MG/100 ML BAG IVPB SCH ×2 (06:00→16:36)
[2019-01-31] MEDS: Pantoprazole 40 mg EC Tab PO SCH (06:00)
[2019-01-31 06:56] LABS: ALB/GLOB RATIO 1.1 (1.1-1.8); ALBUMIN 3.8 g/dL (3.0-4.8); ALT/SGPT 36 U/L (7-56); AST/SGOT 39 U/L (17-59); BLOOD UREA NITROGEN 9 mg/dL (7-21); CALCIUM 8.3 mg/dL (8.4-10.5); GFR NON-AFRICAN AMERICAN > 60
[2019-01-31 07:04] LABS: EOS % 0.2 % (1.5-5.0); HEMOGLOBIN 11.8 g/dL (14.0-18.0); LYMPH # 0.8 (1.2-3.4); LYMPH % 9.4 % (22.0-35.0); MEAN CELL VOLUME 96.3 fl (80.0-105.0); MEAN CORPUSCULAR HEMOGLOBIN 33.3 pg (25.0-35.0); MEAN CORPUSCULAR HGB CONC 34.6 g/dl (31.0-37.0); MEAN PLATELET VOLUME 10.2 fl (7.0-11.0); MONO # 0.7 (0.1-0.6); MONO % 7.7 % (1.0-6.0); RBC 3.54 10^6/uL (3.5-6.1); RED CELL DISTRIBUTION WIDTH 13.6 % (11.5-14.5); WHITE BLOOD COUNT 8.7 10^3/uL (4.5-11.0)
[2019-01-31] MEDS: Multivitamin Therapeutic Tab PO SCH (09:01)
[2019-01-31] MEDS ORDERED: Magnesium Sulfate 2 gm/50 ml 2 GM/50 ML BAG IVPB ONE (09:21)
[2019-01-31] MEDS: levoFLOXacin 500 mg in D5W 500 MG/100 ML BAG IVPB SCH (11:09)
--- NOTE | 2019-01-31 12:21 | CP.PCM.PN ---
<Katelynn Becerril - Last Filed: 01/31/19 14:46> Subjective - Date & Time of Evaluation Date of Evaluation: 01/31/19 Time of Evaluation: 14:38 - Subjective Subjective: Katelynn Becerril, PGY1 Medicine Note: Pt was seen and examined this AM at bedside. Pt states that he no longer is having any bouts of nausea but still complaints of abd pain particularly around the ostomy. Pt states that the pain is only present with deep palpation and is more tender than painful. Pt reports tolerating his diet and has not had any other complaints at this time. Pt denies fevers, chills, cough, SOB, chest pain, palpitations, n/v, c/d or dysuria. Objective - Vital Signs/Intake and Output Vital Signs (last 24 hours): Temp Pulse Resp BP Pulse Ox 98.6 F 79 20 152/89 H 97 01/31/19 06:00 01/31/19 06:00 01/31/19 06:00 01/31/19 09:00 01/31/19 06:00 Intake and Output: 01/31/19 01/31/19 06:59 18:59 Intake Total 240 Output Total 300 Balance -60 - Medications Medications: Current Medications Acetaminophen (Tylenol 325mg Tab) 650 mg PO Q6H PRN PRN Reason: fever Last Admin: 01/30/19 18:11 Dose: 650 mg Al Hydrox/Mg Hydrox/Simethicone (Maalox Plus 30 Ml) 30 ml PO DAILY PRN PRN Reason: Indigestion / Heartburn Last Admin: 01/30/19 12:13 Dose: 30 ml Apixaban (Eliquis) 5 mg PO BID TAD; Protocol Last Admin: 01/31/19 09:01 Dose: 5 mg Metronidazole (Flagyl) 500 mg in 100 mls @ 100 mls/hr IVPB Q8 TAD; Protocol Last Admin: 01/31/19 06:00 Dose: 100 mls/hr Levofloxacin/Dextrose (Levaquin 500mg) 500 mg in 100 mls @ 100 mls/hr IVPB 1200 TAD; Protocol Last Admin: 01/31/19 11:09 Dose: 100 mls/hr Potassium Chloride (Potassium Chloride 10 Meq/100 Ml) 10 meq in 100 mls @ 50 mls/hr IVPB Q2H TAD Stop: 01/31/19 12:29 Last Admin: 01/31/19 09:58 Dose: 50 mls/hr Losartan Potassium (Cozaar) 50 mg PO DAILY [facility] Last Admin: 01/31/19 09:00 Dose: 50 mg Multivitamins (Thera Tab) 1 tab PO DAILY [facility] Last Admin: 01/31/19 09:01 Dose: 1 tab Ondansetron HCl (Zofran Inj) 4 mg IVP Q4H PRN PRN Reason: Nausea/Vomiting Last Admin: 01/29/19 10:10 Dose: 4 mg Pantoprazole Sodium (Protonix Ec Tab) 40 mg PO 0600 [facility] Last Admin: 01/31/19 06:00 Dose: 40 mg Ursodiol (Actigall) 300 mg PO TID [facility] Last Admin: 01/31/19 09:01 Dose: 300 mg - Labs Labs: 01/31/19 06:30 01/31/19 06:30 PT 12.0 SECONDS (9.4-12.5) 01/28/19 23:37 INR 1.08 01/28/19 23:37 APTT 30.0 Seconds (26.9-38.3) 01/28/19 23:37 - Constitutional Appears: Non-toxic, No Acute Distress - Head Exam Head Exam: ATRAUMATIC, NORMAL INSPECTION, NORMOCEPHALIC - Eye Exam Eye Exam: EOMI, Normal appearance, PERRL - Respiratory Exam Respiratory Exam: Clear to Ausculation Bilateral, NORMAL BREATHING PATTERN. absent: Accessory Muscle Use, Rales, Rhonchi, Wheezes, Respiratory Distress, Stridor - Cardiovascular Exam Cardiovascular Exam: RRR, +S1, +S2. absent: Gallop, Rubs - GI/Abdominal Exam GI & Abdominal Exam: Soft, Normal Bowel Sounds. absent: Firm, Guarding Additional comments: Pt noted to have colostomy. Ostomy site looks pink and output is present. There is no surrounding erythema or drainage noted. Pt is also noted to have parastomal hernia. - Extremities Exam Extremities Exam: Normal Capillary Refill, Normal Inspection. absent: Pedal Edema, Tenderness - Back Exam Back Exam: NORMAL INSPECTION. 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 Pts vomiting has now improved and he is tolerating diet well. Plan: 1) Intractable Vomiting: Improved since admission - Zofran 4 q4 prn - Heart healthy, low fat, soft diet - GI on consult (Dr. Philippe), recs appreciated - Protonix 40mg PO QD - Ursodiol 300mg PO TID - CT A/P: cholelithiasis. No abscess or formation. Mildly dilated extrahepatic biliary tree. Colostomy bag - defect in anterior abdominal wall at the level of transverse colon. Associated non-incarcerated peristomal hernia (old). - Pt has established care with surgeon outpt and already has follow up appointment scheduled. 2) Fever - Pt had a temp of 102.9 at 8pm yesterday, afebrile since - Blood culture: pending - No leukocytosis - UA: pending - Urine culture no growth to date - Flagyl 500mg IV Q8 (Started 01/30) - Levaquin 500mg IV QD (Started 01/30) - ID on board, recs appreciated 3) Transaminitis, resolved - UDS pending - EtOH level negative 4) HTN - Continue home medication, Losartan 50mg PO QD 5) History of PE/DVT - Continue home medication, Eliquis 5mg PO BID DVT ppx: eliquis GI ppx: ptx Patient seen and case discussed with attending, Dr. Kevin Becerril, PGY1 <Karina Brown - Last Filed: 01/31/19 15:07> Objective - Vital Signs/Intake and Output Vital Signs (last 24 hours): Temp Pulse Resp BP Pulse Ox 100 F H 78 20 154/104 H 98 01/31/19 14:00 01/31/19 14:00 01/31/19 14:00 01/31/19 14:25 01/31/19 14:00 Intake and Output: 01/31/19 01/31/19 06:59 18:59 Intake Total 240 480 Output Total 300 Balance -60 480 - Medications Medications: Current Medications Acetaminophen (Tylenol 325mg Tab) 650 mg PO Q6H PRN PRN Reason: fever Last Admin: 01/30/19 18:11 Dose: 650 mg Al Hydrox/Mg Hydrox/Simethicone (Maalox Plus 30 Ml) 30 ml PO DAILY PRN PRN Reason: Indigestion / Heartburn Last Admin: 01/30/19 12:13 Dose: 30 ml Apixaban (Eliquis) 5 mg PO BID [facility]; Protocol Last Admin: 01/31/19 09:01 Dose: 5 mg Metronidazole (Flagyl) 500 mg in 100 mls @ 100 mls/hr IVPB Q8 TAD; Protocol Last Admin: 01/31/19 06:00 Dose: 100 mls/hr Levofloxacin/Dextrose (Levaquin 500mg) 500 mg in 100 mls @ 100 mls/hr IVPB 1200 TAD; Protocol Last Admin: 01/31/19 11:09 Dose: 100 mls/hr Losartan Potassium (Cozaar) 50 mg PO DAILY [facility] Last Admin: 01/31/19 09:00 Dose: 50 mg Multivitamins (Thera Tab) 1 tab PO DAILY [facility] Last Admin: 01/31/19 09:01 Dose: 1 tab Ondansetron HCl (Zofran Inj) 4 mg IVP Q4H PRN PRN Reason: Nausea/Vomiting Last Admin: 01/29/19 10:10 Dose: 4 mg Pantoprazole Sodium (Protonix Ec Tab) 40 mg PO 0600 [facility] Last Admin: 01/31/19 06:00 Dose: 40 mg Ursodiol (Actigall) 300 mg PO TID [facility] Last Admin: 01/31/19 09:01 Dose: 300 mg - Labs Labs: 01/31/19 06:30 01/31/19 06:30 PT 12.0 SECONDS (9.4-12.5) 01/28/19 23:37 INR 1.08 01/28/19 23:37 APTT 30.0 Seconds (26.9-38.3) 01/28/19 23:37 Attending/Attestation - Attestation I have personally seen and examined this patient.: Yes I have fully participated in the care of the patient.: Yes I have reviewed all pertinent clinical information, including history, physical exam and plan: Yes Notes (Text): 01/31/19 15:00 63 year old male with past medical history of DVT/PE on eliquis, alcohol abuse, hypertension, gallstones, rectovesicular fistula s/p transverse loop colostomy, and history of non-obstructive parastomal hernia who presented with complaint of abdominal pain, nausea and vomiting. CT scan showed cholelithiasis; no abscess or formation; mildly dilated extrahepatic biliary tree; colostomy bag with defect in anterior abdominal wall at the level of transverse colon and associated old non-incarcerated peristomal hernia. GI is following; recommended outpatient follow up with his surgeon at tertiary center which he does have an appointment in the next few days for evaluation of reversal of colostomy and cholecystectomy. May need ERCP prior to surgery as per GI. His abdominal pain has improved and his diet is advanced. He did have fever yesterday evening. He is on iv antibiotics. ID evaluation was requested. Will follow up on cultures. Karina Brown MD Hospitalist.
--- NOTE | 2019-01-31 14:19 | PN ---
DATE: 01/31/2019 SUBJECTIVE: The patient feels better. He has not had any further fevers. He denies any nausea or vomiting. He denies any new abdominal pain. OBJECTIVE: VITAL SIGNS: Reveal temperature of 98.6, blood pressure 152/89, heart rate of 79. HEENT: Reveals sclerae to be white. Conjunctivae pink. NECK: Supple. CHEST: Lungs are clear. HEART: Reveals regular rate and rhythm. ABDOMEN: Shows a large peristomal hernia with a transverse loop colostomy. LABORATORY DATA: Reveal white blood cell count 8.6, hemoglobin 11.8. Chemistries reveal total bilirubin of 1.7. AST, ALT, alk phos were all normal. IMPRESSION AND PLAN: This is a 63-year-old male with a large peristomal ventral hernia, loop colostomy, chronic cholecystitis chronic common bile duct stones without biliary obstruction and without any clinical evidence of cholangitis. This is obviously a complicated surgical case. The patient will need a an endoscopic retrograde cholangiopancreatography and cholecystectomy first prior to having reversal of his colostomy and repair of his ventral hernia. Due to the complicated nature of the case, this should be done at a tertiary surgical center. The patient does have a surgeon at [facility], Dr. Breann Stauffer, who he will follow up with for his surgery. Rickie Philippe MD
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
[2019-01-31] MEDS ORDERED: Piperacillin/Tazobact 3.375 gm 100 ML IVPB SCH (17:45)
[2019-01-31] MEDS: Piperacillin/Tazobact 3.375 gm 100 ML IVPB SCH (21:09)
[2019-02-01] MEDS: Pantoprazole 40 mg EC Tab PO SCH ×2 (05:17→05:20)
[2019-02-01] MEDS: Piperacillin/Tazobact 3.375 gm 100 ML IVPB SCH ×2 (05:17→14:24)
[2019-02-01 07:05] LABS: EOS # 0.2 (0.0-0.7); EOS % 2.5 % (1.5-5.0); HEMOGLOBIN 12.5 g/dL (14.0-18.0); LYMPH # 0.7 (1.2-3.4); LYMPH % 10.2 % (22.0-35.0); MEAN CELL VOLUME 96.5 fl (80.0-105.0); MEAN CORPUSCULAR HEMOGLOBIN 33.9 pg (25.0-35.0); MEAN CORPUSCULAR HGB CONC 35.1 g/dl (31.0-37.0); MEAN PLATELET VOLUME 10.3 fl (7.0-11.0); MONO # 0.7 (0.1-0.6); MONO % 10.2 % (1.0-6.0); RBC 3.69 10^6/uL (3.5-6.1); RED CELL DISTRIBUTION WIDTH 13.7 % (11.5-14.5); WHITE BLOOD COUNT 7.1 10^3/uL (4.5-11.0)
[2019-02-01 07:23] LABS: ALBUMIN 3.9 g/dL (3.0-4.8); ALT/SGPT 29 U/L (7-56); AST/SGOT 36 U/L (17-59); BLOOD UREA NITROGEN 13 mg/dL (7-21); CALCIUM 8.7 mg/dL (8.4-10.5); GFR NON-AFRICAN AMERICAN > 60
--- NOTE | 2019-02-01 11:29 | CP.PCM.PN ---
<Geoffrey Bassett - Last Filed: 02/01/19 11:25> Subjective - Date & Time of Evaluation Date of Evaluation: 02/01/19 Time of Evaluation: 09:45 - Subjective Subjective: Geoffrey Bassett D.O. 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 Infectious disease consultation was requested for persistent fevers. Patient was seen and examined at bedside. Still with RUQ discomfort. No other acute complaints. Objective - Vital Signs/Intake and Output Vital Signs (last 24 hours): Temp Pulse Resp BP Pulse Ox 98.9 F 76 22 129/83 97 02/01/19 06:00 02/01/19 06:00 02/01/19 06:00 02/01/19 06:00 02/01/19 06:00 Intake and Output: 02/01/19 02/01/19 06:59 18:59 Intake Total 1570 Balance 1570 - Medications Medications: Current Medications Acetaminophen (Tylenol 325mg Tab) 650 mg PO Q6H PRN PRN Reason: fever Last Admin: 01/31/19 21:15 Dose: 650 mg Al Hydrox/Mg Hydrox/Simethicone (Maalox Plus 30 Ml) 30 ml PO DAILY PRN PRN Reason: Indigestion / Heartburn Last Admin: 01/30/19 12:13 Dose: 30 ml Apixaban (Eliquis) 5 mg PO BID [facility]; Protocol Last Admin: 01/31/19 17:22 Dose: 5 mg Piperacillin Sod/Tazobactam Sod (Zosyn 3.375 In Ns 100ml) 100 mls @ 25 mls/hr IVPB Q8 [facility]; Protocol Stop: 02/09/19 22:01 Last Admin: 02/01/19 05:17 Dose: 25 mls/hr Losartan Potassium (Cozaar) 50 mg PO DAILY [facility] Last Admin: 01/31/19 09:00 Dose: 50 mg Multivitamins (Thera Tab) 1 tab PO DAILY [facility] Last Admin: 01/31/19 09:01 Dose: 1 tab Ondansetron HCl (Zofran Inj) 4 mg IVP Q4H PRN PRN Reason: Nausea/Vomiting Last Admin: 01/29/19 10:10 Dose: 4 mg Pantoprazole Sodium (Protonix Ec Tab) 40 mg PO 0600 [facility] Last Admin: 02/01/19 05:20 Dose: Not Given Ursodiol (Actigall) 300 mg PO TID [facility] Last Admin: 01/31/19 17:13 Dose: Not Given - Labs Labs: 02/01/19 06:30 02/01/19 06:30 PT 12.0 SECONDS (9.4-12.5) 01/28/19 23:37 INR 1.08 01/28/19 23:37 APTT 30.0 Seconds (26.9-38.3) 01/28/19 23:37 - Constitutional Appears: No Acute Distress - Head Exam Head Exam: ATRAUMATIC, NORMOCEPHALIC - Eye Exam Eye Exam: EOMI - ENT Exam ENT Exam: Mucous Membranes Moist - Neck Exam Neck exam: Positive for: Normal Inspection - Respiratory Exam Respiratory Exam: absent: Rhonchi, Wheezes - Cardiovascular Exam Cardiovascular Exam: RRR, +S1, +S2 - GI/Abdominal Exam GI & Abdominal Exam: Soft, Tenderness (carmine-colostomy and RUQ) - Extremities Exam Extremities exam: Negative for: tenderness - Neurological Exam Neurological exam: Alert - Psychiatric Exam Psychiatric exam: Normal Affect, Normal Mood - Skin Skin Exam: Dry, Warm Assessment and Plan - Assessment and Plan (Free Text) Assessment: 63 year old male with a PMH of DVT/PE on eliquis, alcohol abuse, HTN, chronic cholelithiasis, 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 Infectious disease consultation was requested for persistent fevers. Plan: Sepsis with cholecystitis Going for HIDA today Cultures negative thus far Transaminitis resolved Continue zosyn day 2 Will follow Patient was seen and examined and case to be discussed with attending physician. Thank you for the pleasure of participating in the care of this interesting patient. <Donis Jacobo - Last Filed: 02/01/19 12:54> Objective - Vital Signs/Intake and Output Vital Signs (last 24 hours): Temp Pulse Resp BP Pulse Ox 98.9 F 76 22 129/83 97 02/01/19 06:00 02/01/19 06:00 02/01/19 06:00 02/01/19 06:00 02/01/19 06:00 Intake and Output: 02/01/19 02/01/19 06:59 18:59 Intake Total 1570 Balance 1570 - Medications Medications: Current Medications Acetaminophen (Tylenol 325mg Tab) 650 mg PO Q6H PRN PRN Reason: fever Last Admin: 01/31/19 21:15 Dose: 650 mg Al Hydrox/Mg Hydrox/Simethicone (Maalox Plus 30 Ml) 30 ml PO DAILY PRN PRN Reason: Indigestion / Heartburn Last Admin: 01/30/19 12:13 Dose: 30 ml Apixaban (Eliquis) 5 mg PO BID [facility]; Protocol Last Admin: 01/31/19 17:22 Dose: 5 mg Piperacillin Sod/Tazobactam Sod (Zosyn 3.375 In Ns 100ml) 100 mls @ 25 mls/hr IVPB Q8 [facility]; Protocol Stop: 02/09/19 22:01 Last Admin: 02/01/19 05:17 Dose: 25 mls/hr Losartan Potassium (Cozaar) 50 mg PO DAILY [facility] Last Admin: 01/31/19 09:00 Dose: 50 mg Multivitamins (Thera Tab) 1 tab PO DAILY [facility] Last Admin: 01/31/19 09:01 Dose: 1 tab Ondansetron HCl (Zofran Inj) 4 mg IVP Q4H PRN PRN Reason: Nausea/Vomiting Last Admin: 01/29/19 10:10 Dose: 4 mg Pantoprazole Sodium (Protonix Ec Tab) 40 mg PO 0600 [facility] Last Admin: 02/01/19 05:20 Dose: Not Given Ursodiol (Actigall) 300 mg PO TID [facility] Last Admin: 01/31/19 17:13 Dose: Not Given - Labs Labs: 02/01/19 06:30 02/01/19 06:30 PT 12.0 SECONDS (9.4-12.5) 01/28/19 23:37 INR 1.08 01/28/19 23:37 APTT 30.0 Seconds (26.9-38.3) 01/28/19 23:37 Attending/Attestation - Attestation I have personally seen and examined this patient.: Yes I have fully participated in the care of the patient.: Yes I have reviewed all pertinent clinical information, including history, physical exam and plan: Yes
[2019-02-01] MEDS ORDERED: Enoxaparin 80 mg Syringe SC SCH (13:00)
[2019-02-01 14:15] VITALS: BP 140/99; PULSE 86; RESP 20; TEMP 99.3; O2SAT 99
[2019-02-01] MEDS: Multivitamin Therapeutic Tab PO SCH (14:16)
--- NOTE | 2019-02-01 14:33 | NM ---
Date of service: 02/01/2019 PROCEDURE: Nuclear Medicine Hepatobiliary Scan HISTORY: daily fever, gallstones COMPARISON: 10/16/2017 hepatobiliary scan. 01/29/2019 abdominal ultrasound. TECHNIQUE: 6.9 mCi of technetium 99m Mebrofenin was administered intravenously. Planar images of the abdomen were obtained at 5 min intervals to 60 mins. Delayed images were also obtained. FINDINGS: LIVER: Timely and homogenous uptake. COMMON BILE DUCT: identified at 5 mins. GALLBLADDER: Not identified at 04:00 hours. SMALL BOWEL: Identified at 15 mins. IMPRESSION: Abnormal hepatobiliary Scan. The cystic duct is occluded, presumptive evidence for acute cholecystitis. Similar findings identified on the prior nuclear medicine study.
--- NOTE | 2019-02-01 15:22 | CP.PCM.DIS ---
<Katelynn Becerril - Last Filed: 02/01/19 18:00> Provider - Provider Date of Admission: 01/31/19 07:09 Attending physician: Karina Brown MD Consults: 01/29/19 04:11 Physician Consult Routine Comment: Consulting Provider: Rickie Philippe Consulting Physician: Rickie Philippe Reason for Consult: intractible vomiting; hx transverse loop colostomy 01/31/19 07:50 Infectious Disease Consult Routine Comment: Consulting Provider: Donis Jacobo Consulting Physician: Donis Jacobo Reason for Consult: fever, vomiting 02/01/19 13:59 General Surgery Consult Routine Comment: Consulting Provider: Chris Foster Consulting Physician: Chris Foster Reason for Consult: cholelithiasis, fevers Time Spent in preparation of Discharge (in minutes): 45 Diagnosis - Discharge Diagnosis (1) Abdominal pain Status: Acute Hospital Course - Lab Results Lab Results: Micro Results 01/30/19 13:00 Blood-Venous Blood Culture - Preliminary NO GROWTH AFTER 48 HOURS 01/29/19 02:12 Urine,Clean Catch Urine Culture - Final No Growth (<1,000 CFU/ML) Most Recent Lab Values WBC 7.1 10^3/uL (4.5-11.0) 02/01/19 06:30 RBC 3.69 10^6/uL (3.5-6.1) 02/01/19 06:30 Hgb 12.5 g/dL (14.0-18.0) L 02/01/19 06:30 Hct 35.6 % (42.0-52.0) L 02/01/19 06:30 MCV 96.5 fl (80.0-105.0) 02/01/19 06:30 MCH 33.9 pg (25.0-35.0) 02/01/19 06:30 MCHC 35.1 g/dl (31.0-37.0) 02/01/19 06:30 RDW 13.7 % (11.5-14.5) 02/01/19 06:30 Plt Count 107 10^3/uL (120.0-450.0) L 02/01/19 06:30 MPV 10.3 fl (7.0-11.0) 02/01/19 06:30 Neut % (Auto) 77.1 % (50.0-68.0) H 02/01/19 06:30 Lymph % (Auto) 10.2 % (22.0-35.0) L 02/01/19 06:30 Potter % (Auto) 10.2 % (1.0-6.0) H 02/01/19 06:30 Eos % (Auto) 2.5 % (1.5-5.0) 02/01/19 06:30 Baso % (Auto) 0.0 % (0.0-3.0) 02/01/19 06:30 Lymph # (Auto) 0.7 (1.2-3.4) L 02/01/19 06:30 Potter # (Auto) 0.7 (0.1-0.6) H 02/01/19 06:30 Eos # (Auto) 0.2 (0.0-0.7) 02/01/19 06:30 Baso # (Auto) 0.00 K/mm3 (0.0-2.0) 02/01/19 06:30 Absolute Neuts (auto) 5.46 (1.4-6.5) 02/01/19 06:30 PT 12.0 SECONDS (9.4-12.5) 01/28/19 23:37 INR 1.08 01/28/19 23:37 APTT 30.0 Seconds (26.9-38.3) 01/28/19 23:37 Sodium 137 mmol/L (132-148) 02/01/19 06:30 Potassium 3.6 mmol/L (3.6-5.0) 02/01/19 06:30 Chloride 104 mmol/L (98-107) 02/01/19 06:30 Carbon Dioxide 24 mmol/L (21-33) 02/01/19 06:30 Anion Gap 13 (10-20) 02/01/19 06:30 BUN 13 mg/dL (7-21) 02/01/19 06:30 Creatinine 0.9 mg/dl (0.8-1.5) 02/01/19 06:30 Est GFR ( Amer) > 60 02/01/19 06:30 Est GFR (Non-Af Amer) > 60 02/01/19 06:30 Random Glucose 91 mg/dL (70-110) 02/01/19 06:30 Calcium 8.7 mg/dL (8.4-10.5) 02/01/19 06:30 Phosphorus 2.7 mg/dL (2.5-4.5) 01/31/19 06:30 Magnesium 1.2 mg/dL (1.7-2.2) L 01/31/19 06:30 Total Bilirubin 1.3 mg/dL (0.2-1.3) 02/01/19 06:30 AST 36 U/L (17-59) 02/01/19 06:30 ALT 29 U/L (7-56) 02/01/19 06:30 Alkaline Phosphatase 57 U/L (38-126) 02/01/19 06:30 Total Protein 7.7 g/dL (5.8-8.3) 02/01/19 06:30 Albumin 3.9 g/dL (3.0-4.8) 02/01/19 06:30 Globulin 3.8 gm/dL 02/01/19 06:30 Albumin/Globulin Ratio 1.0 (1.1-1.8) L 02/01/19 06:30 Lipase 69 U/L (23-300) 01/28/19 23:37 Procalcitonin 0.15 NG/ML (0.19-0.49) L 01/30/19 13:00 Urine Color Yellow (YELLOW) 01/30/19 12:31 Urine Appearance Clear (CLEAR) 01/30/19 12:31 Urine pH 7.0 (4.7-8.0) 01/30/19 12:31 Ur Specific [place] 1.015 (1.005-1.035) 01/30/19 12:31 Urine Protein Negative mg/dL (<30 mg/dL) 01/30/19 12:31 Urine Glucose (UA) Negative mg/dL (NEGATIVE) 01/30/19 12:31 Urine Ketones Negative mg/dL (NEGATIVE) 01/30/19 12:31 Urine Blood Negative (NEGATIVE) 01/30/19 12:31 Urine Nitrate Negative (NEGATIVE) 01/30/19 12:31 Urine Bilirubin Negative (NEGATIVE) 01/30/19 12:31 Urine Urobilinogen 1.0 E.U./dL (<1 E.U./dL) H 01/30/19 12:31 Ur Leukocyte Esterase Negative Betsy/uL (NEGATIVE) 01/30/19 12:31 Urine Opiates Screen Negative (NEGATIVE) 01/30/19 12:31 Urine Methadone Screen Negative (NEGATIVE) 01/30/19 12:31 Ur Barbiturates Screen Negative (NEGATIVE) 01/30/19 12:31 Ur Phencyclidine Scrn Negative (NEGATIVE) 01/30/19 12:31 Ur Amphetamines Screen Negative (NEGATIVE) 01/30/19 12:31 U Benzodiazepines Scrn Negative (NEGATIVE) 01/30/19 12:31 U Oth Cocaine Metabols Negative (NEGATIVE) 01/30/19 12:31 U Cannabinoids Screen Negative (NEGATIVE) 01/30/19 12:31 Alcohol, Quantitative < 10 mg/dL (0-10) 01/29/19 05:25 - Hospital Course Hospital Course: Upon Admission: Patient is a 63 year old male, w/ past medical history of DVT/PE on eliquis, Alcohol Abuse, HTN, gallbladder stones, 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 Medical team evaluated patient in the ED. Patient further endorsed chronic mid abdominal pain for the past 4 years since having a colostomy placed and he adds that over the years he has developed swelling under the colostomy bag. Vomiting is non-bloody and non-bilious. He denies any recent sick contacts. Patient states that he has an appointment with a surgeon Dr. Breann Stauffer at [facility] on 02/07/19 for consultation for possible reversal of colostomy. Otherwise he denies any fever, chills, chest pain, shortness of breath, diarrhea, back pain, neck pain, headache, dizziness, or any other complaints. Hospital Course: Pt was being worked up for the intractable vomiting and had a CT A/P which showed: cholelithiasis. No abscess or formation. Mildly dilated extrahepatic biliary tree. Colostomy bag - defect in anterior abdominal wall at the level of transverse colon. Associated non-incarcerated peristomal hernia (old). Pt was alos being worked up for a fever that had developed during his hospital course. Pt was receiving Iv abx and ID was on board, their recs were noted and appreciated. Pt was also being followed up with GI who stated that the pt would likely need a ERCP and cholecystectomy prior to reversal of transverse loop colostomy and repair of ventral hernia. Pt was also noted to have Pt went for HIDA scan in AM and awaiting for read. Surgical team was consulted on the pt given preliminary readings from HIDA scan. Pt then became agitated and insisted on leaving. Pt was informed that overnight he is still spiking fevers, and the risks and benefits of leaving were explained to the pt. The pt was informed that there could be recurrence of the pain, worsening of his infection, progression of his gallbladder stones to infection, low blood pressure and . Pt states that he understands the risks of leaving and the benefits of staying but states that he has an appointment with an outside surgeon and would like to continue his follow up with that surgeon. Pt despite multiple conversations expressing the risks of leaving and the benefits of staying stated that he continued to want to sign out AMA. Pt signed AMA form and was given a script for abx to help prevent the worsening of his infection. Pt was AOx3 and was able to ambulate on his own accord prior to signing AMA form. Pt denied having any questions prior to leaving and stated he just wanted to leave. Discharge Exam - Head Exam Head Exam: ATRAUMATIC, NORMAL INSPECTION, NORMOCEPHALIC - Eye Exam Eye Exam: EOMI, Normal appearance, PERRL - Respiratory Exam Respiratory Exam: Clear to PA & Lateral, Rhonchi, NORMAL BREATHING PATTERN, UNREMARKABLE. absent: Accessory Muscle Use, Wheezes, Respiratory Distress, Stridor - Cardiovascular Exam Cardiovascular Exam: RRR, +S1, +S2. absent: Gallop, Rubs - GI/Abdominal Exam GI & Abdominal Exam: Soft. absent: Firm, Guarding, Tenderness Additional comments: Pt noted to have colostomy. Ostomy site looks pink and output is present. There is no surrounding erythema or drainage noted. Pt is also noted to have parastomal hernia. - Extremities Exam Extremities exam: normal capillary refill, pedal pulses present - Back Exam Back exam: NORMAL INSPECTION. absent: CVA tenderness (L), CVA tenderness (R) - Neurological Exam Neurological exam: Alert, Oriented x3 - Psychiatric Exam Psychiatric exam: Normal Affect, Normal Mood - Skin Skin Exam: Dry, Normal Color, Warm Discharge Plan - Follow Up Plan Condition: GUARDED Disposition: AGAINST MEDICAL ADVICE Additional Instructions: 1. Start taking Ursodiol 500mg twice daily. 2. Resume all home medications as prescribed by your doctor. 3. It is important for you to follow up with your surgeon at [facility] as discussed. Follow up with your surgeon for plans for repair of parastomal hernia, possible cholecystectomy, and ERCP for removal of chronic common bile duct stones. You have an appointment with your surgeon Dr. Breann Stauffer at [facility] on 02/07/19 also for consultation for possible reversal of colostomy. 4. Avoid drinking alcohol. 5. Patient instructed to return to ED for worsening or newly concerning symptoms. <Karina Brown - Last Filed: 02/01/19 18:39> Provider - Provider Date of Admission: 01/31/19 07:09 Attending physician: Karina Brown MD Consults: 01/29/19 04:11 Physician Consult Routine Comment: Consulting Provider: Rickie Philippe Consulting Physician: Rickie Philippe Reason for Consult: intractible vomiting; hx transverse loop colostomy 01/31/19 07:50 Infectious Disease Consult Routine Comment: Consulting Provider: Donis Jacobo Consulting Physician: Donis Jacobo Reason for Consult: fever, vomiting 02/01/19 13:59 General Surgery Consult Routine Comment: Consulting Provider: Chris Foster Consulting Physician: Chris Foster Reason for Consult: cholelithiasis, fevers Hospital Course - Lab Results Lab Results: Micro Results 01/30/19 13:00 Blood-Venous Blood Culture - Preliminary NO GROWTH AFTER 48 HOURS 01/29/19 02:12 Urine,Clean Catch Urine Culture - Final No Growth (<1,000 CFU/ML) Most Recent Lab Values WBC 7.1 10^3/uL (4.5-11.0) 02/01/19 06:30 RBC 3.69 10^6/uL (3.5-6.1) 02/01/19 06:30 Hgb 12.5 g/dL (14.0-18.0) L 02/01/19 06:30 Hct 35.6 % (42.0-52.0) L 02/01/19 06:30 MCV 96.5 fl (80.0-105.0) 02/01/19 06:30 MCH 33.9 pg (25.0-35.0) 02/01/19 06:30 MCHC 35.1 g/dl (31.0-37.0) 02/01/19 06:30 RDW 13.7 % (11.5-14.5) 02/01/19 06:30 Plt Count 107 10^3/uL (120.0-450.0) L 02/01/19 06:30 MPV 10.3 fl (7.0-11.0) 02/01/19 06:30 Neut % (Auto) 77.1 % (50.0-68.0) H 02/01/19 06:30 Lymph % (Auto) 10.2 % (22.0-35.0) L 02/01/19 06:30 Potter % (Auto) 10.2 % (1.0-6.0) H 02/01/19 06:30 Eos % (Auto) 2.5 % (1.5-5.0) 02/01/19 06:30 Baso % (Auto) 0.0 % (0.0-3.0) 02/01/19 06:30 Lymph # (Auto) 0.7 (1.2-3.4) L 02/01/19 06:30 Potter # (Auto) 0.7 (0.1-0.6) H 02/01/19 06:30 Eos # (Auto) 0.2 (0.0-0.7) 02/01/19 06:30 Baso # (Auto) 0.00 K/mm3 (0.0-2.0) 02/01/19 06:30 Absolute Neuts (auto) 5.46 (1.4-6.5) 02/01/19 06:30 PT 12.0 SECONDS (9.4-12.5) 01/28/19 23:37 INR 1.08 01/28/19 23:37 APTT 30.0 Seconds (26.9-38.3) 01/28/19 23:37 Sodium 137 mmol/L (132-148) 02/01/19 06:30 Potassium 3.6 mmol/L (3.6-5.0) 02/01/19 06:30 Chloride 104 mmol/L (98-107) 02/01/19 06:30 Carbon Dioxide 24 mmol/L (21-33) 02/01/19 06:30 Anion Gap 13 (10-20) 02/01/19 06:30 BUN 13 mg/dL (7-21) 02/01/19 06:30 Creatinine 0.9 mg/dl (0.8-1.5) 02/01/19 06:30 Est GFR ( Amer) > 60 02/01/19 06:30 Est GFR (Non-Af Amer) > 60 02/01/19 06:30 Random Glucose 91 mg/dL (70-110) 02/01/19 06:30 Calcium 8.7 mg/dL (8.4-10.5) 02/01/19 06:30 Phosphorus 2.7 mg/dL (2.5-4.5) 01/31/19 06:30 Magnesium 1.2 mg/dL (1.7-2.2) L 01/31/19 06:30 Total Bilirubin 1.3 mg/dL (0.2-1.3) 02/01/19 06:30 AST 36 U/L (17-59) 02/01/19 06:30 ALT 29 U/L (7-56) 02/01/19 06:30 Alkaline Phosphatase 57 U/L (38-126) 02/01/19 06:30 Total Protein 7.7 g/dL (5.8-8.3) 02/01/19 06:30 Albumin 3.9 g/dL (3.0-4.8) 02/01/19 06:30 Globulin 3.8 gm/dL 02/01/19 06:30 Albumin/Globulin Ratio 1.0 (1.1-1.8) L 02/01/19 06:30 Lipase 69 U/L (23-300) 01/28/19 23:37 Procalcitonin 0.15 NG/ML (0.19-0.49) L 01/30/19 13:00 Urine Color Yellow (YELLOW) 01/30/19 12:31 Urine Appearance Clear (CLEAR) 01/30/19 12:31 Urine pH 7.0 (4.7-8.0) 01/30/19 12:31 Ur Specific [place] 1.015 (1.005-1.035) 01/30/19 12:31 Urine Protein Negative mg/dL (<30 mg/dL) 01/30/19 12:31 Urine Glucose (UA) Negative mg/dL (NEGATIVE) 01/30/19 12:31 Urine Ketones Negative mg/dL (NEGATIVE) 01/30/19 12:31 Urine Blood Negative (NEGATIVE) 01/30/19 12:31 Urine Nitrate Negative (NEGATIVE) 01/30/19 12:31 Urine Bilirubin Negative (NEGATIVE) 01/30/19 12:31 Urine Urobilinogen 1.0 E.U./dL (<1 E.U./dL) H 01/30/19 12:31 Ur Leukocyte Esterase Negative Betsy/uL (NEGATIVE) 01/30/19 12:31 Urine Opiates Screen Negative (NEGATIVE) 01/30/19 12:31 Urine Methadone Screen Negative (NEGATIVE) 01/30/19 12:31 Ur Barbiturates Screen Negative (NEGATIVE) 01/30/19 12:31 Ur Phencyclidine Scrn Negative (NEGATIVE) 01/30/19 12:31 Ur Amphetamines Screen Negative (NEGATIVE) 01/30/19 12:31 U Benzodiazepines Scrn Negative (NEGATIVE) 01/30/19 12:31 U Oth Cocaine Metabols Negative (NEGATIVE) 01/30/19 12:31 U Cannabinoids Screen Negative (NEGATIVE) 01/30/19 12:31 Alcohol, Quantitative < 10 mg/dL (0-10) 01/29/19 05:25 Attending/Attestation - Attestation I have personally seen and examined this patient.: Yes I have fully participated in the care of the patient.: Yes I have reviewed all pertinent clinical information, including history, physical exam and plan: Yes Notes (Text): 02/01/19 18:32 63 year old male with past medical history of DVT/PE on eliquis, alcohol abuse, hypertension, gallstones, rectovesicular fistula s/p transverse loop colostomy, and history of non-obstructive parastomal hernia who presented with complaint of abdominal pain, nausea and vomiting. CT scan showed cholelithiasis; no abscess or formation; mildly dilated extrahepatic biliary tree; colostomy bag with defect in anterior abdominal wall at the level of transverse colon and associated old non-incarcerated peristomal hernia. Patient was on iv antibiotics for fever. He was being followed by GI and ID. He was recommended outpatient follow up with his surgeon at tertiary center which he does have an appointment in the next few days for evaluation of reversal of colostomy and cholecystectomy. Due to fevers he was ordered for HIDA scan and surgical evaluation today. However he signed out AMA this afternoon. He was explained at length risks of signing out AMA. He verbalized understanding but unfortunately signed out against medical advice stating he will follow up with his own surgeon. Karina Brown MD Hospitalist.
--- NOTE | 2019-02-01 15:25 | PN ---
DATE: 02/01/2019 SUBJECTIVE: The patient is sitting in a chair. He denies any worsening parastomal abdominal pain. He denies any nausea or vomiting. He continues to have low-grade temps to 100.6 last night. PHYSICAL EXAMINATION: VITAL SIGNS: Temperature of 98.9, blood pressure 129/83, heart rate of 76. HEENT: Reveal sclerae to be white. Conjunctivae pink. NECK: Supple. CHEST: Reveal distant breath sounds. HEART: Exam reveals a regular rate and rhythm. ABDOMEN: Distended with a large ventral hernia. He has a midline loop colostomy. EXTREMITIES: Show no edema. LABORATORY DATA: White blood cell count 7.1, hemoglobin 12.5. Chemistries reveal normal AST, ALT, alk phos, procalcitonin is 0.15. IMPRESSION: This 63-year-old male with a large parastomal hernia, loop colostomy, cholelithiasis, chronic cholecystitis, chronic common bile duct stone with low-grade fever. The patient is requesting that he have his surgery at [facility]. RECOMMENDATIONS: Surgical evaluation for cholecystectomy and open common bile duct exploration given the patient's large parastomal hernia. ERCP would be technically difficult to perform. His cholecystectomy will need to be performed by open technique given the large ventral hernia and a loop colostomy. We will hold his Eliquis for now and switch to Lovenox 80 mg subcu every 12 hours starting tomorrow. Rickie Philippe MD
[2019-02-03] MEDS ORDERED: Enoxaparin 80 mg Syringe SC SCH (06:00)
== END 2019-02-01 15:30 | disposition left against medical advice (07) | DRG 207 ==
LOC: ED 22:36 → ERH 01-29 03:26 → 5RNO 01-29 04:49 → OBSVTOIN 01-31 07:09
PROVIDERS: ADMIT Internal Medicine; ATTEND Internal Medicine
DX: K80.64 Calculus of gallbladder and bile duct with chronic cholecystitis without obstruction (principal); J44.9 Chronic obstructive pulmonary disease, unspecified; K43.5 Parastomal hernia without obstruction or gangrene; I10 Essential (primary) hypertension; K70.0 Alcoholic fatty liver; R50.9 Fever, unspecified; R10.11 Right upper quadrant pain; Z86.711 Personal history of pulmonary embolism; Z93.3 Colostomy status; Z86.718 Personal history of other venous thrombosis and embolism; Z79.02 Long term (current) use of antithrombotics/antiplatelets